=== PATIENT | female | born 1955 | race Caucasian/White ===

== ENCOUNTER → 2018-03-31 | Outpatient (CLI) | payer MEDICARE, OTHER ==
--- NOTE | 2018-03-31 13:34 | US ---
EXAMINATION TYPE: US venous doppler duplex LE RT DATE OF EXAM: 03/31/2018 1:17 PM COMPARISON: NONE CLINICAL HISTORY: M79.604 PAIN IN RT LEG. Pt states right leg pain and swelling/ states previous DVT 12+ yrs ago, currently not on blood thinners SIDE PERFORMED: Right TECHNIQUE: The lower extremity deep venous system is examined utilizing real time linear array sonog saniya with graded compression, doppler sonography and color-flow sonography. VESSELS IMAGED: External Iliac Vein (EIV) Common Femoral Vein Deep Femoral Vein Greater Saphenous Vein * Femoral Vein Popliteal Vein Small Saphenous Vein * Proximal Calf Veins (* superficial vessels) Right Leg: Negative for DVT Results called to Krissy at Dr's office at time of exam IMPRESSION: 1. No diagnostic evidence of DVT as visualized
--- NOTE | 2018-03-31 13:51 | XR ---
EXAMINATION TYPE: XR calcaneus 2V RT DATE OF EXAM: 03/31/2018 COMPARISON: NONE HISTORY: Pain TECHNIQUE: 2 views submitted FINDINGS: Well-corticated density seen in the soft tissues along the plantar surface which appears ch ronic. Large calcaneal spurs seen. Osseous structures intact. Joint spaces preserved. No acute fractu re. IMPRESSION: No acute fracture. If symptoms persist follow-up exam in 7-10 days could be obtained.
--- NOTE | 2018-03-31 13:52 | XR ---
EXAMINATION TYPE: XR finger RT DATE OF EXAM: 03/31/2018 COMPARISON: NONE HISTORY: Pain TECHNIQUE: Three views are submitted. FINDINGS: The osseous structures are intact. The joint spaces are preserved and there is no acute fracture or dislocation. IMPRESSION: 1. No definite acute fracture or dislocation if symptoms persist, follow-up study in 7 to 10 days wo uld be suggested
== END | disposition home or self-care (01) ==
LOC: RADUSWWP 12:48
PROVIDERS: ATTEND Family Medicine
DX: M79.604 Pain in right leg (principal)

== ENCOUNTER 2019-11-02 06:13 | Emergency (ER) | payer MEDICARE, OTHER ==
[2019-11-02 06:38] VITALS: RESP 20; TEMP 98
[2019-11-02] MEDS ORDERED: SODIUM CHLORIDE 0.9% 1,000 ML IV STA (07:01)
--- NOTE | 2019-11-02 07:38 | ED ---
General Adult HPI - General Chief complaint: Fall Stated complaint: pain in left side Time Seen by Provider: 11/02/19 06:41 Source: patient, RN notes reviewed Mode of arrival: ambulatory Limitations: no limitations - History of Present Illness Initial comments: this a 64-year-old female presents emergency Department chief complaint of left flank pain. Patient states that she had a fall 10 days ago states that the pain was not getting better so she presented to her PCP yesterday in which she had x- rays and were negative for any back or rib injury. Patient states that it does hurt to twist and bend she has constant pain left flank area. Patient had a urinalysis by PCP yesterday was diagnosed with kidney infection. Patient was placed on antibiotics. Patient denies fever or chills at this time states that she's been having night sweats. Patient denies any current nausea, vomiting, diarrhea constipation. - Related Data Allergies Allergy/AdvReac Type Severity Reaction Status Date / Time adhesive AdvReac Rash/Hives Verified 11/02/19 06:41 chicken derived [Chicken] AdvReac Nausea & Verified 11/02/19 06:40 Vomiting & Diarrhea chocolate flavor AdvReac Nausea & Verified 11/02/19 06:40 Vomiting & Diarrhea ciprofloxacin [From Cipro] AdvReac Rash/Hives Verified 11/02/19 06:40 egg AdvReac Nausea & Verified 11/02/19 06:40 Vomiting & Diarrhea latex AdvReac Rash/Hives Verified 11/02/19 06:41 Sulfa (Sulfonamide AdvReac Rash/Hives Verified 11/02/19 06:40 Antibiotics) Review of Systems ROS Statement: Those systems with pertinent positive or pertinent negative responses have been documented in the HPI. ROS Other: All systems not noted in ROS Statement are negative. Past Medical History Past Medical History: Diabetes Mellitus, Deep Vein Thrombosis (DVT), Hypertension, Thyroid Disorder Additional Past Medical History / Comment(s): Spleen issues, Parkinsons History of Any Multi-Drug Resistant Organisms: None Reported Past Surgical History: Orthopedic Surgery, Tonsillectomy, Tubal Ligation Additional Past Surgical History / Comment(s): Thyroid removed Past Psychological History: No Psychological Hx Reported Smoking Status: Never smoker Past Alcohol Use History: None Reported Past Drug Use History: None Reported General Exam Limitations: no limitations General appearance: alert, in no apparent distress Head exam: Present: atraumatic, normocephalic, normal inspection Eye exam: Present: normal appearance, PERRL, EOMI. Absent: scleral icterus, conjunctival injection, periorbital swelling ENT exam: Present: normal exam, normal oropharynx, mucous membranes moist Neck exam: Present: normal inspection, full ROM. Absent: tenderness, meningismus, lymphadenopathy Respiratory exam: Present: normal lung sounds bilaterally. Absent: respiratory distress, wheezes, rales, rhonchi, stridor Cardiovascular Exam: Present: regular rate, normal rhythm, normal heart sounds. Absent: systolic murmur, diastolic murmur, rubs, gallop, clicks GI/Abdominal exam: Present: soft, normal bowel sounds. Absent: distended, tenderness, guarding, rebound, rigid Back exam: Present: CVA tenderness (L). Absent: CVA tenderness (R), paraspinal tenderness, vertebral tenderness Neurological exam: Present: alert, oriented X3, CN II-XII intact Skin exam: Present: warm, dry, intact, normal color. Absent: rash Course Vital Signs 11/02/19 06:32 Temperature 98 F Pulse Rate 58 L Respiratory 20 Rate Blood Pressure 164/90 O2 Sat by Pulse 97 Oximetry Medical Decision Making - Medical Decision Making 64-year-old presented for left flank pain. CT is unremarkable for acute findings there are some findings in which she will follow-up for. Patient urinalysis does show signs of infection, though she currently is on antibiotics patient labwork otherwise unremarkable. Patient be discharged return parameters were discussed. - Lab Data Result diagrams: 11/02/19 07:45 11/02/19 07:45 Lab Results 11/02/19 11/02/19 11/02/19 Range/Units 07:45 07:45 09:05 WBC 12.2 H (3.8-10.6) k/uL RBC 4.45 (3.80-5.40) m/uL Hgb 14.4 (11.4-16.0) gm/dL Hct 42.0 (34.0-46.0) % MCV 94.4 (80.0-100.0) fL MCH 32.3 (25.0-35.0) pg MCHC 34.2 (31.0-37.0) g/dL RDW 13.1 (11.5-15.5) % Plt Count 248 (150-450) k/uL Neutrophils % 68 % Lymphocytes % 23 % Monocytes % 4 % Eosinophils % 3 % Basophils % 1 % Neutrophils # 8.3 H (1.3-7.7) k/uL Lymphocytes # 2.8 (1.0-4.8) k/uL Monocytes # 0.5 (0-1.0) k/uL Eosinophils # 0.4 (0-0.7) k/uL Basophils # 0.1 (0-0.2) k/uL Sodium 140 (137-145) mmol/L Potassium 4.7 (3.5-5.1) mmol/L Chloride 98 (98-107) mmol/L Carbon Dioxide 30 (22-30) mmol/L Anion Gap 12 mmol/L BUN 18 H (7-17) mg/dL Creatinine 0.62 (0.52-1.04) mg/dL Est GFR (CKD-EPI)AfAm >90 (>60 ml/min/1.73 sqM) Est GFR (CKD-EPI)NonAf >90 (>60 ml/min/1.73 sqM) Glucose 201 H (74-99) mg/dL Calcium 9.1 (8.4-10.2) mg/dL Total Bilirubin 0.8 (0.2-1.3) mg/dL AST 29 (14-36) U/L ALT 13 (4-34) U/L Alkaline Phosphatase 103 (38-126) U/L Total Protein 7.5 (6.3-8.2) g/dL Albumin 4.6 (3.5-5.0) g/dL Lipase 71 (23-300) U/L Urine Color Yellow Urine Appearance Clear (Clear) Urine pH 6.5 (5.0-8.0) Ur Specific [place] 1.015 (1.001-1.035) Urine Protein Negative (Negative) Urine Glucose (UA) Negative (Negative) Urine Ketones Negative (Negative) Urine Blood Negative (Negative) Urine Nitrite Negative (Negative) Urine Bilirubin Negative (Negative) Urine Urobilinogen <2.0 (<2.0) mg/dL Ur Leukocyte Esterase Large H (Negative) Urine RBC 3 (0-5) /hpf Urine WBC 17 H (0-5) /hpf Ur Squamous Epith Cells 6 H (0-4) /hpf Hyaline Casts 1 (0-2) /lpf Urine Mucus Rare H (None) /hpf Disposition Clinical Impression: Pyelonephritis Disposition: HOME SELF-CARE Condition: Stable Instructions (If sedation given, give patient instructions): Flank Pain (ED), Kidney Infection (ED) Additional Instructions: Please return to the Emergency Department if symptoms worsen or any other concerns. Is patient prescribed a controlled substance at d/c from ED?: No Referrals: Nonstaff,Physician [Primary Care Provider] - 1-2 days Time of Disposition: 10:06
--- NOTE | 2019-11-02 08:17 | CT ---
EXAMINATION TYPE: CT abdomen pelvis wo con DATE OF EXAM: 11/02/2019 COMPARISON: None HISTORY: Lt flank pain CT DLP: 1956.5 mGycm Examination of the solid and hollow viscera is limited given the lack of contrast. FINDINGS: LUNG BASES: 5.5 mm noncalcified pulmonary nodule. CT of the chest is recommended as an outpatient. LIVER/GB: Calcified granulomas throughout the liver noted. There is also evidence of hepatomegaly. Th e gallbladder is hydropic and measures 10.3 cm in greatest dimension. Small gallstone is noted. There is no evidence for gallbladder wall thickening or pericholecystic fluid at this time. No space-occup marquise hepatic lesion. PANCREAS: No pancreatic mass identified. No inflammatory process seen. Splenic granulomas are noted. SPLEEN: No evidence for splenomegaly. No intrasplenic lesions seen. ADRENALS: No adrenal nodules identified. No evidence for thickening. KIDNEYS: No evidence for renal mass. No nephrolithiasis. No hydronephrosis. Multiple phleboliths are noted within the urinary bladder. BOWEL: Appendix has a normal appearance. No evidence of bowel obstruction. No inflammatory process. Lymph nodes: No evidence for adenopathy greater than 1 cm. Abdominal aorta: Atheromatous changes seen. No evidence for aneurysm. Genital organs: No significant abnormality. Other: No significant abnormality. IMPRESSION: 1. No evidence for hydronephrosis or nephrolithiasis. 2. No acute inflammatory process identified. 3. Hydrops of the gallbladder with cholelithiasis. No wall thickening or pericholecystic fluid. 4. Right basilar pulmonary nodule likely reflects a noncalcified granuloma although nodule of other e tiology is not excluded. Consider CT of the chest on an outpatient basis. Evidence of remote granulom atous disease. 5. Hepatomegaly.
[2019-11-02 08:19] LABS: Basophils # (A) 0.1 k/uL (0-0.2); Basophils % (A) 1 %; Eosinophils # (A) 0.4 k/uL (0-0.7); Eosinophils % (A) 3 %; HGB 14.4 gm/dL (11.4-16.0); Lymphocytes # (A) 2.8 k/uL (1.0-4.8); Lymphocytes % (A) 23 %; MCH 32.3 pg (25.0-35.0); MCHC 34.2 g/dL (31.0-37.0); MCV 94.4 fL (80.0-100.0); Mean Platelet Volume 8.2; Monocytes # (A) 0.5 k/uL (0-1.0); Monocytes % (A) 4 %; Neutrophils # (A) 8.3 k/uL (1.3-7.7); Neutrophils % (A) 68 %; Platelet Count 248 k/uL (150-450); RBC 4.45 m/uL (3.80-5.40); RDW 13.1 % (11.5-15.5); WBC 12.2 k/uL (3.8-10.6)
[2019-11-02 08:24] LABS: ALT 13 U/L (4-34); AST 29 U/L (14-36); African American GFR (CKD) >90 (>60 ml/min/1.73 sqM); Albumin 4.6 g/dL (3.5-5.0); Alkaline Phosphatase 103 U/L (38-126); Anion Gap 12 mmol/L; Blood Urea Nitrogen 18 mg/dL (7-17); Calcium 9.1 mg/dL (8.4-10.2); Carbon Dioxide 30 mmol/L (22-30); Chloride 98 mmol/L (98-107); Glucose 201 mg/dL (74-99); Non-African American GFR(CKD) >90 (>60 ml/min/1.73 sqM); Potassium 4.7 mmol/L (3.5-5.1); Sodium 140 mmol/L (137-145); Total Bilirubin 0.8 mg/dL (0.2-1.3); Total Protein 7.5 g/dL (6.3-8.2)
[2019-11-02] MEDS ORDERED: ONDANSETRON 4 MG/2 ML VIAL IVP STA (08:30)
[2019-11-02 09:43] LABS: Appearance,Urine Clear (Clear); Bilirubin,Urine Negative (Negative); Blood,Urine Negative (Negative); Color,Urine Yellow; Glucose,Urine (UA) Negative (Negative); Hyaline Casts,Urine 1 /lpf (0-2); Ketones,Urine Negative (Negative); Leukocyte Esterase,Urine Large (Negative); Mucus,Urine Rare /hpf; Nitrite,Urine Negative (Negative); PH, Urine 6.5 (5.0-8.0); Protein,Urine Negative (Negative); RBC,Urine 3 /hpf (0-5); Specific Gravity,Urine 1.015 (1.001-1.035); Squamous Epithelial Cell,Urine 6 /hpf (0-4); Urobilinogen,Urine <2.0 mg/dL (<2.0); WBC,Urine 17 /hpf (0-5)
[2019-11-02] MEDS ORDERED: cefTRIAXone IN SWFI 1,000 MG/10 ML SYRINGE IVP STA (10:11)
[2019-11-02] MEDS ORDERED: HYDROcodone/APAP 7.5-325MG 1 EACH TAB PO ONE (10:11)
[2019-11-02] MEDS ORDERED: ACET/COD 300 MG/30 MG STARTER PACK 6 TAB BTL PO STA (10:29)
[2019-11-02 10:34] VITALS: BP 160/89; PULSE 78
== END 2019-11-02 10:40 | disposition home or self-care (01) ==
LOC: EC 06:13
DX: N12 Tubulo-interstitial nephritis, not specified as acute or chronic (principal); Z88.1 Allergy status to other antibiotic agents; Z88.2 Allergy status to sulfonamides; Z91.02 Food additives allergy status; Z91.012 Allergy to eggs; Z91.018 Allergy to other foods; Z91.040 Latex allergy status; Z91.048 Other nonmedicinal substance allergy status
CPT/HCPCS: 36415; 80053; 83690; 85025; 81001; 87086; 74176; 99284; 96374; 96375; 96361; J2405; J0696

== ENCOUNTER 2019-11-05 14:15 | Emergency (ER) | payer MEDICARE, OTHER ==
[2019-11-05 16:09] VITALS: TEMP 98.9
[2019-11-05] MEDS ORDERED: SODIUM CHLORIDE 0.9% 1,000 ML IV STA (16:19)
--- NOTE | 2019-11-05 17:17 | XR ---
EXAMINATION TYPE: XR KUB DATE OF EXAM: 11/05/2019 COMPARISON: NONE HISTORY: Left flank pain TECHNIQUE: 2 views upright FINDINGS: There is no sign of intestinal obstruction or pneumoperitoneum. Fecal pattern is normal. I see no pathologic calcifications over the kidneys. There are phleboliths in the pelvis. Lung bases ar e clear. There is no evidence of a mass. IMPRESSION: Nonacute abdomen.
[2019-11-05 17:18] LABS: Basophils % (A) 0 %; Eosinophils # (A) 0.2 k/uL (0-0.7); Eosinophils % (A) 3 %; HCT 42.4 % (34.0-46.0); HGB 14.5 gm/dL (11.4-16.0); Lymphocytes # (A) 1.9 k/uL (1.0-4.8); Lymphocytes % (A) 22 %; MCH 32.1 pg (25.0-35.0); MCHC 34.3 g/dL (31.0-37.0); MCV 93.5 fL (80.0-100.0); Mean Platelet Volume 8.6; Monocytes # (A) 0.3 k/uL (0-1.0); Monocytes % (A) 4 %; Neutrophils % (A) 70 %; Platelet Count 205 k/uL (150-450); RBC 4.53 m/uL (3.80-5.40); WBC 8.6 k/uL (3.8-10.6)
[2019-11-05 17:20] LABS: Appearance,Urine Clear (Clear); Bilirubin,Urine Negative (Negative); Blood,Urine Negative (Negative); Color,Urine Light Yellow; Glucose,Urine (UA) Trace (Negative); Ketones,Urine Negative (Negative); Leukocyte Esterase,Urine Trace (Negative); Nitrite,Urine Negative (Negative); PH, Urine 7.5 (5.0-8.0); Protein,Urine Negative (Negative); Specific Gravity,Urine 1.007 (1.001-1.035); Squamous Epithelial Cell,Urine 2 /hpf (0-4); Urobilinogen,Urine <2.0 mg/dL (<2.0); WBC,Urine 5 /hpf (0-5)
[2019-11-05 17:24] LABS: ALT 12 U/L (4-34); AST 31 U/L (14-36); African American GFR (CKD) >90 (>60 ml/min/1.73 sqM); Albumin 4.6 g/dL (3.5-5.0); Alkaline Phosphatase 106 U/L (38-126); Anion Gap 9 mmol/L; Blood Urea Nitrogen 14 mg/dL (7-17); Calcium 9.1 mg/dL (8.4-10.2); Carbon Dioxide 28 mmol/L (22-30); Chloride 102 mmol/L (98-107); Glucose 225 mg/dL (74-99); Non-African American GFR(CKD) >90 (>60 ml/min/1.73 sqM); Potassium 4.3 mmol/L (3.5-5.1); Sodium 139 mmol/L (137-145); Total Bilirubin 0.8 mg/dL (0.2-1.3); Total Protein 7.1 g/dL (6.3-8.2)
[2019-11-05] MEDS ORDERED: ACET/COD 300 MG/30 MG STARTER PACK 6 TAB BTL PO STA (18:09)
--- NOTE | 2019-11-05 18:09 | ED ---
General Adult HPI - General Chief complaint: Nausea/Vomiting/Diarrhea Stated complaint: Kidney Infection Time Seen by Provider: 11/05/19 15:54 Source: patient, RN notes reviewed, old records reviewed Mode of arrival: wheelchair Limitations: no limitations - History of Present Illness Initial comments: 64-year-old female patient presents to ED for chief complaint of left flank pain. Patient was initially seen for this complaint 3 days ago. She reports t hat she has had left flank pain for approximately 2 weeks. She had a fall on her back approximately 2 days ago, stated that since then she has had pain in her left flank region. This fall she states that she fell directly on her back. Denies any loss of consciousness. Patient was reportedly seen at urgent care with a did x-rays which were negative and started her on an antibiotic. Patient then came to this emergency department where she had laboratory investigations and a CAT scan the abdomen pelvis which were overall unremarkable with exception of some nonacute findings. Patient reports that the pain has continued and she wants to be checked again. Denies any chest pain or shortness of breath. Denies any other complaints. Systemic: Pt denies fatigue, fever/chills, rash. Pt denies weakness, night sweats, weight loss. Neuro: Pt denies headache, visual disturbances, syncope or pre-syncope. HEENT: Pt denies ocular discharge or irritation, otalgia, rhinorrhea, pharyngitis or notable lymphadenopathy. Cardiopulmonary: Pt denies chest pain, SOB, heart palpitations, dyspnea on exe rtion. Abdominal/GI: Pt denies abdominal pain, n/v/d. : Pt denies dysuria, burning w/ urination, frequency/urgency. Denies new onset urinary or bowel incontinence. MSK: Pt denies myalgia, loss of strength or function in extremities. Neuro: Pt denies new onset weakness, paresthesias. - Related Data Allergies Allergy/AdvReac Type Severity Reaction Status Date / Time adhesive AdvReac Rash/Hives Verified 11/05/19 15:07 chicken derived [Chicken] AdvReac Nausea & Verified 11/05/19 15:07 Vomiting & Diarrhea chocolate flavor AdvReac Nausea & Verified 11/05/19 15:07 Vomiting & Diarrhea ciprofloxacin [From Cipro] AdvReac Rash/Hives Verified 11/05/19 15:07 egg AdvReac Nausea & Verified 11/05/19 15:07 Vomiting & Diarrhea latex AdvReac Rash/Hives Verified 11/05/19 15:07 Sulfa (Sulfonamide AdvReac Rash/Hives Verified 11/05/19 15:07 Antibiotics) Review of Systems ROS Statement: Those systems with pertinent positive or pertinent negative responses have been documented in the HPI. ROS Other: All systems not noted in ROS Statement are negative. Past Medical History Past Medical History: Diabetes Mellitus, Deep Vein Thrombosis (DVT), Hypertension, Thyroid Disorder Additional Past Medical History / Comment(s): Spleen issues, Parkinsons History of Any Multi-Drug Resistant Organisms: None Reported Past Surgical History: Orthopedic Surgery, Tonsillectomy, Tubal Ligation Additional Past Surgical History / Comment(s): Thyroid removed Past Psychological History: No Psychological Hx Reported Smoking Status: Never smoker Past Alcohol Use History: None Reported Past Drug Use History: None Reported General Exam - General Exam Comments Initial Comments: Constitutional: NAD, AOX3, Pt has pleasant affect. HEENT: NC/AT, trachea midline, neck supple, no lymphadenopathy. Posterior pharynx non erythematous, without exudates. External ears appear normal, without discharge. Mucous membranes moist. Eyes PERRLA, EOM intact. There is no scleral icterus. No pallor noted. Cardiopulmonary: RRR, no murmurs, rubs or gallops, no JVD noted. Lungs CTAB in anterior and posterior garcia. No peripheral edema. Abdominal exam: Abdomen soft and non-distended. Abdomen non-tender to palpation in all 4 quadrants. Bowel sounds active in LLQ. No hepatosplenomegaly. No ecchymosis Neuro: CN II-XII grossly intact. No nuchal rigidity. No raccon eyes, no rojo sign, no hemotympanum. No cervical spinal tenderness. MSK: Left flank mildly tender to palpation. No skin changes. There is full range of motion. No posterior calf tenderness bilaterally, homans sign negative bilaterally. Posterior tibialis and radial pulse +2 bilaterally. Sensation intact in upper and lower extremities. Full active ROM in upper and lower extremities, 5/5 stregnth. Limitations: no limitations Course Vital Signs 11/05/19 11/05/19 11/05/19 15:01 15:55 16:57 Temperature 97.9 F 98.9 F Pulse Rate 77 64 53 L Respiratory 20 18 18 Rate Blood Pressure 199/105 194/103 151/84 O2 Sat by Pulse 99 99 98 Oximetry 11/05/19 11/05/19 17:00 18:00 Temperature Pulse Rate 52 L 50 L Respiratory 18 16 Rate Blood Pressure 151/84 133/63 O2 Sat by Pulse 95 96 Oximetry Medical Decision Making - Medical Decision Making 64-year-old female patient presents to ED for chief complaint of left flank pain with an ongoing for approximately 2 weeks. Patient had CAT scan performed 3 days ago which did not display a likely etiology of her discomfort in this region. Pt has been on antibiotics for a urinary tract infection. Physical exam displayed left flank mild tenderness to palpation. Reproducible with range of motion. No skin changes. O2 investigations oral noncompressive. Glucose 225. UA improved. Patient's pain appears likely muscle skeletal nature. Patient advised to follow up with primary care provider and given orthopedic follow-up if symptoms do not improve. Case discussed with Dr. Huffman. - Lab Data Result diagrams: 11/05/19 16:50 11/05/19 16:50 Lab Results 11/05/19 11/05/19 11/05/19 Range/Units 16:50 16:50 16:50 WBC 8.6 (3.8-10.6) k/uL RBC 4.53 (3.80-5.40) m/uL Hgb 14.5 (11.4-16.0) gm/dL Hct 42.4 (34.0-46.0) % MCV 93.5 (80.0-100.0) fL MCH 32.1 (25.0-35.0) pg MCHC 34.3 (31.0-37.0) g/dL RDW 13.0 (11.5-15.5) % Plt Count 205 (150-450) k/uL Neutrophils % 70 % Lymphocytes % 22 % Monocytes % 4 % Eosinophils % 3 % Basophils % 0 % Neutrophils # 6.0 (1.3-7.7) k/uL Lymphocytes # 1.9 (1.0-4.8) k/uL Monocytes # 0.3 (0-1.0) k/uL Eosinophils # 0.2 (0-0.7) k/uL Basophils # 0.0 (0-0.2) k/uL Sodium 139 (137-145) mmol/L Potassium 4.3 (3.5-5.1) mmol/L Chloride 102 (98-107) mmol/L Carbon Dioxide 28 (22-30) mmol/L Anion Gap 9 mmol/L BUN 14 (7-17) mg/dL Creatinine 0.55 (0.52-1.04) mg/dL Est GFR (CKD-EPI)AfAm >90 (>60 ml/min/1.73 sqM) Est GFR (CKD-EPI)NonAf >90 (>60 ml/min/1.73 sqM) Glucose 225 H (74-99) mg/dL Plasma Lactic Acid Sam 1.3 (0.7-2.0) mmol/L Calcium 9.1 (8.4-10.2) mg/dL Total Bilirubin 0.8 (0.2-1.3) mg/dL AST 31 (14-36) U/L ALT 12 (4-34) U/L Alkaline Phosphatase 106 (38-126) U/L Total Protein 7.1 (6.3-8.2) g/dL Albumin 4.6 (3.5-5.0) g/dL Lipase 53 (23-300) U/L Urine Color Urine Appearance (Clear) Urine pH (5.0-8.0) Ur Specific [place] (1.001-1.035) Urine Protein (Negative) Urine Glucose (UA) (Negative) Urine Ketones (Negative) Urine Blood (Negative) Urine Nitrite (Negative) Urine Bilirubin (Negative) Urine Urobilinogen (<2.0) mg/dL Ur Leukocyte Esterase (Negative) Urine WBC (0-5) /hpf Ur Squamous Epith Cells (0-4) /hpf 11/05/19 Range/Units 16:50 WBC (3.8-10.6) k/uL RBC (3.80-5.40) m/uL Hgb (11.4-16.0) gm/dL Hct (34.0-46.0) % MCV (80.0-100.0) fL MCH (25.0-35.0) pg MCHC (31.0-37.0) g/dL RDW (11.5-15.5) % Plt Count (150-450) k/uL Neutrophils % % Lymphocytes % % Monocytes % % Eosinophils % % Basophils % % Neutrophils # (1.3-7.7) k/uL Lymphocytes # (1.0-4.8) k/uL Monocytes # (0-1.0) k/uL Eosinophils # (0-0.7) k/uL Basophils # (0-0.2) k/uL Sodium (137-145) mmol/L Potassium (3.5-5.1) mmol/L Chloride (98-107) mmol/L Carbon Dioxide (22-30) mmol/L Anion Gap mmol/L BUN (7-17) mg/dL Creatinine (0.52-1.04) mg/dL Est GFR (CKD-EPI)AfAm (>60 ml/min/1.73 sqM) Est GFR (CKD-EPI)NonAf (>60 ml/min/1.73 sqM) Glucose (74-99) mg/dL Plasma Lactic Acid Sam (0.7-2.0) mmol/L Calcium (8.4-10.2) mg/dL Total Bilirubin (0.2-1.3) mg/dL AST (14-36) U/L ALT (4-34) U/L Alkaline Phosphatase (38-126) U/L Total Protein (6.3-8.2) g/dL Albumin (3.5-5.0) g/dL Lipase (23-300) U/L Urine Color Light Yellow Urine Appearance Clear (Clear) Urine pH 7.5 (5.0-8.0) Ur Specific [place] 1.007 (1.001-1.035) Urine Protein Negative (Negative) Urine Glucose (UA) Trace H (Negative) Urine Ketones Negative (Negative) Urine Blood Negative (Negative) Urine Nitrite Negative (Negative) Urine Bilirubin Negative (Negative) Urine Urobilinogen <2.0 (<2.0) mg/dL Ur Leukocyte Esterase Trace H (Negative) Urine WBC 5 (0-5) /hpf Ur Squamous Epith Cells 2 (0-4) /hpf Disposition Clinical Impression: Flank pain Disposition: HOME SELF-CARE Condition: Stable Instructions (If sedation given, give patient instructions): Flank Pain (ED) Additional Instructions: Follow-up with primary care provider and orthopedic consult tomorrow. Use Tylenol as needed for discomfort. Return to ER if condition worsens in any way. Is patient prescribed a controlled substance at d/c from ED?: No Referrals: Nonstaff,Physician [Primary Care Provider] - 1-2 days Braaksma,Mayur M, MD [Medical Doctor] - 1-2 days Julio Cesar Marquis DO [Medical Doctor] - 1-2 days
[2019-11-05 18:16] VITALS: BP 133/63; PULSE 50; RESP 16
== END 2019-11-05 18:25 | disposition home or self-care (01) ==
LOC: EC 14:15
DX: E11.65 Type 2 diabetes mellitus with hyperglycemia (principal); R19.7 Diarrhea, unspecified; Z91.048 Other nonmedicinal substance allergy status; Z91.018 Allergy to other foods; Z88.1 Allergy status to other antibiotic agents; Z91.012 Allergy to eggs; Z91.040 Latex allergy status; Z88.2 Allergy status to sulfonamides; Z98.51 Tubal ligation status
CPT/HCPCS: 36415; 74018; 80053; 81001; 83605; 83690; 85025; 96360; 96361; 99284

== ENCOUNTER 2023-04-06 17:54 | Emergency (ER) | payer MEDICARE, OTHER ==
[2023-04-06] MEDS ORDERED: SODIUM CHLORIDE 0.9% 500 ML 500 ML IV STA (18:45)
[2023-04-06] MEDS ORDERED: KETOROLAC 15 MG/ML 1 ML VIAL IVP STA (18:45)
[2023-04-06] MEDS ORDERED: DEXAMETHASONE SOD PHOSPHATE 10 MG/ML 1 ML VIAL IVP STA (18:45)
[2023-04-06] MEDS ORDERED: MORPHINE SULFATE 2 MG/ML SYRINGE IVP STA (18:45)
[2023-04-06] MEDS ORDERED: diphenhydrAMINE 50 MG/ML 1 ML VIAL IVP STA (18:45)
[2023-04-06] MEDS ORDERED: PROCHLORPERAZINE INJ 10 MG/2 ML VIAL IVP STA (18:46)
--- NOTE | 2023-04-06 18:46 | ED ---
Headache HPI - General Chief Complaint: Headache Stated Complaint: Headache Time Seen by Provider: 04/06/23 18:03 Source: RN notes reviewed, old records reviewed Mode of arrival: EMS Limitations: no limitations - History of Present Illness Initial Comments: This is a 67-year-old female the ER. She presents today for evaluation regarding what she believes maybe ALLERGIC reaction to fumes that she's being exposed to she's getting a headache and sinus pressure unlike subjective she's had an the past. Thinks it could be from a coffee shop that is across the street from where she was. States she was exposed to multiple different elements the periodic stable and in her place of work and these are continuing to fracture over her lifetime. MD Complaint: headache, other (Sinus pain) Onset Description: gradual Location: frontal Severity: moderate Severity scale (1-10): 6 Quality: throbbing, pulsatile, intermittent Consistency: constant Improves With: nothing Worsens With: none Context: occurred at rest Associated Symptoms: nausea Treatments Prior to Arrival: none - Related Data Home Medications Medication Instructions Recorded Confirmed Carbidopa-Levodopa 25-100 mg 2 tab PO QID@04,10,16,12/20/22 12/20/22 [Sinemet 25-100 mg] Diltiazem Cd [Cardizem CD] 240 mg PO DAILY 12/20/22 12/20/22 Fenofibrate [Lofibra] 160 mg PO ONCE 12/20/22 12/20/22 Glimepiride [Amaryl] 4 mg PO BID 12/20/22 12/20/22 Levothyroxine Sodium 88 mcg PO BID 12/20/22 12/20/22 Metoprolol Succinate (ER) [Toprol 50 mg PO DAILY 12/20/22 12/20/22 XL] Omeprazole 40 mg PO BID 12/20/22 12/20/22 Pioglitazone HCl 45 mg PO DAILY 12/20/22 12/20/22 Valsartan [Diovan] 160 mg PO BID 12/20/22 12/20/22 metFORMIN HCL ER [Glucophage XR] 1,000 mg PO BID 12/20/22 12/20/22 tiZANidine [Zanaflex] 4 mg PO QID@04,10,16,12/20/22 12/20/22 traMADol HCL 50 mg PO Q4H PRN 12/20/22 12/20/22 Previous Rx's Medication Instructions Recorded Acetaminophen Tab [Tylenol] 650 mg PO Q6HR PRN #60 tab 12/24/22 Cephalexin [Keflex] 500 mg PO Q6HR 14 Days #56 cap 12/24/22 Allergies Allergy/AdvReac Type Severity Reaction Status Date / Time adhesive AdvReac Rash/Hives Verified 12/20/22 16:45 chicken derived [Chicken] AdvReac Nausea & Verified 12/20/22 16:45 Vomiting & Diarrhea chocolate flavor AdvReac Nausea & Verified 12/20/22 16:45 Vomiting & Diarrhea ciprofloxacin [From Cipro] AdvReac Rash/Hives Verified 12/20/22 16:45 egg AdvReac Nausea & Verified 12/20/22 16:45 Vomiting & Diarrhea latex AdvReac Rash/Hives Verified 12/20/22 16:45 Sulfa (Sulfonamide AdvReac Rash/Hives Verified 12/20/22 16:45 Antibiotics) Review of Systems ROS Statement: Those systems with pertinent positive or pertinent negative responses have been documented in the HPI. ROS Other: All systems not noted in ROS Statement are negative. Past Medical History Past Medical History: Diabetes Mellitus, Deep Vein Thrombosis (DVT), Hypertension, Thyroid Disorder Additional Past Medical History / Comment(s): Spleen issues, Parkinsons History of Any Multi-Drug Resistant Organisms: None Reported Past Surgical History: Orthopedic Surgery, Tonsillectomy, Tubal Ligation Additional Past Surgical History / Comment(s): Thyroid removed Past Psychological History: No Psychological Hx Reported Past Alcohol Use History: None Reported Past Drug Use History: None Reported General Exam Limitations: no limitations General appearance: alert, in no apparent distress Head exam: Present: atraumatic, normocephalic, normal inspection Eye exam: Present: normal appearance, PERRL, EOMI. Absent: scleral icterus, conjunctival injection, periorbital swelling ENT exam: Present: normal exam, mucous membranes moist Neck exam: Present: normal inspection. Absent: tenderness, meningismus, lymphad enopathy Respiratory exam: Present: normal lung sounds bilaterally. Absent: respiratory distress, wheezes, rales, rhonchi, stridor Cardiovascular Exam: Present: regular rate, normal rhythm, normal heart sounds. Absent: systolic murmur, diastolic murmur, rubs, gallop, clicks GI/Abdominal exam: Present: soft, normal bowel sounds. Absent: distended, tenderness, guarding, rebound, rigid Extremities exam: Present: normal inspection, full ROM, normal capillary refill. Absent: tenderness, pedal edema, joint swelling, calf tenderness Back exam: Present: normal inspection Neurological exam: Present: alert, oriented X3, CN II-XII intact Psychiatric exam: Present: normal affect, normal mood Skin exam: Present: warm, dry, intact, normal color. Absent: rash Course Vital Signs 04/06/23 04/06/23 18:04 20:55 Temperature 97.6 F 98.3 F Pulse Rate 60 77 Respiratory 18 16 Rate Blood Pressure 182/96 151/90 O2 Sat by Pulse 95 98 Oximetry - Reevaluation(s) Reevaluation #1: 04/07/23 00:01 Medical records reviewed Reevaluation #2: 04/07/23 00:01 Patient symptoms are improved Reevaluation #3: 04/07/23 00:01 Patient informed results questions answered Reevaluation #4: 04/07/23 00:01 Was pt. sent in by a medical professional or institution? @ -no Did you speak to anyone other than the patient for history? @ -no Did you review nursing and triage notes? @ -agree Were old charts reviewed? @ -no Differential Diagnosis? @ -prior EKG interpreted by me (3pts min.)? @ -yes X-rays interpreted by me (1pt min.)? @ -no CT interpreted by me (1pt min.)? @ -no U/S interpreted by me (1pt. min.)? @ -no What testing was considered but not performed? (CT, X-rays, U/S, labs)? Why? @ -no What meds were considered but not given? Why? @ -no Did you discuss the management of the patient with other professionals? @ -no Did you reconcile home meds? @ -no Was smoking cessation discussed for >3mins.? @ -no Was critical care preformed (if so, how long)? @ -no Were there social determinants of health that impacted care today? How? (Homelessness, low income, unemployed, alcoholism, drug addiction, transport ation, low edu. Level, literacy, decrease access to med. care, care home, rehab)? @ -no Was there de-escalation of care discussed even if they declined? (Discuss DNR or withdrawal of care, Hospice)? @ -no What co-morbidities impacted this encounter? (DM, HTN, Smoking, COPD, CAD, Cancer, CVA, Hep., AIDS, mental health diagnosis, sleep apnea, morbid obesity)? @ -none Was patient admitted / discharged? @ -67 female to the emergency room today for complaints of headache sinus pressure and pain, nausea. Migraine headache secondary to exposure of local fumes, known of similar symptoms aside from the patient Discharged Undiagnosed new problem with uncertain prognosis? @ -no Drug Therapy requiring intensive monitoring for toxicity (Heparin, Nitro, Insulin, Cardizem)? @ -no Were any procedures done? @ -no Diagnosis/symptom? @ -Migraine headache secondary to exposure Acute, or Chronic, or Acute on Chronic? @ -Acute Uncomplicated (without systemic symptoms) or Complicated (systemic symptoms)? @ -uncomplicated Side effects of treatment? @ -no Exacerbation, Progression, or Severe Exacerbation] @ -no Poses a threat to life or bodily function? @ -no Reevaluation #5: 04/07/23 00:01 Differential Headache: Migraine, tension, cluster, carbon monoxide, central venous thrombosis, pension karma temporal arteritis, acute closure glaucoma, intercranial hemorrhage, mastoiditis, sinusitis, head injury, this is not meant to be an all-inclusive st. Medical Decision Making - Medical Decision Making 67 female to the emergency department for evaluation of headache and sinus pain. CT brain is negative for acute disease headache is resolved. Patient can be discharged home - Lab Data Result diagrams: 04/06/23 19:32 04/06/23 19:32 Lab Results 04/06/23 04/06/23 04/06/23 Range/Units 19:32 19:32 19:32 WBC 6.2 (3.8-10.6) k/uL RBC 4.08 (3.80-5.40) m/uL Hgb 12.6 (11.4-16.0) gm/dL Hct 39.2 (34.0-46.0) % MCV 96.0 (80.0-100.0) fL MCH 30.9 (25.0-35.0) pg MCHC 32.2 (31.0-37.0) g/dL RDW 13.5 (11.5-15.5) % Plt Count 174 (150-450) k/uL MPV 8.7 Neutrophils % 72 % Lymphocytes % 21 % Monocytes % 4 % Eosinophils % 2 % Basophils % 0 % Neutrophils # 4.4 (1.3-7.7) k/uL Lymphocytes # 1.3 (1.0-4.8) k/uL Monocytes # 0.3 (0-1.0) k/uL Eosinophils # 0.1 (0-0.7) k/uL Basophils # 0.0 (0-0.2) k/uL Sodium 141 (137-145) mmol/L Potassium 3.8 (3.5-5.1) mmol/L Chloride 106 (98-107) mmol/L Carbon Dioxide 25 (22-30) mmol/L Anion Gap 10 mmol/L BUN 14 (7-17) mg/dL Creatinine 0.71 (0.52-1.04) mg/dL Est GFR (CKD-EPI)AfAm >90 (>60 ml/min/1.73 sqM) Est GFR (CKD-EPI)NonAf 88 (>60 ml/min/1.73 sqM) Glucose 146 H (74-99) mg/dL Calcium 8.6 (8.4-10.2) mg/dL Phosphorus 4.2 (2.5-4.5) mg/dL Magnesium 1.7 (1.6-2.3) mg/dL Total Bilirubin 0.5 (0.2-1.3) mg/dL AST 24 (14-36) U/L ALT 11 (4-34) U/L Alkaline Phosphatase 55 (38-126) U/L Ammonia 10 (<30) umol/L Total Protein 6.6 (6.3-8.2) g/dL Albumin 4.2 (3.5-5.0) g/dL - Radiology Data Radiology results: report reviewed (CT brain is negative for acute disease), image reviewed Disposition Clinical Impression: Migraine headache, Tension headache Disposition: HOME SELF-CARE Condition: Fair Instructions (If sedation given, give patient instructions): Acute Headache (ED) Is patient prescribed a controlled substance at d/c from ED?: No Referrals: Nonstaff,Physician [Primary Care Provider] - 1-2 days
--- NOTE | 2023-04-06 19:07 | CT ---
EXAMINATION TYPE: CT brain wo con DATE OF EXAM: 04/06/2023 COMPARISON: None INDICATION: ams, headache DLP: 1193.9 mGycm, Automated exposure control for dose reduction was used. CONTRAST: None CT of the brain is performed utilizing 3 mm thick sections through the posterior fossa and 3 mm thick sections through the remaining calvarium. Study is performed within 24 hours of arrival to the hosp ital. No abnormal hyperdensity is present to suggest an acute intracranial hemorrhage. No mass lesion is evident. No acute infarcts are evident. There are old lacunar infarcts in the left basal ganglia and left dominic na radiata. Ventricles and sulci are appropriate for the patient age. Paranasal sinuses and mastoid air cells within the [id number] are clear. IMPRESSIONS: 1. Old lacunar infarcts on the left. 2. No acute intracranial process radiographically apparent. Follow-up MRI can be performed as clinica lly indicated.
[2023-04-06 19:49] LABS: Basophils % (A) 0 %; Eosinophils # (A) 0.1 k/uL (0-0.7); Eosinophils % (A) 2 %; HCT 39.2 % (34.0-46.0); HGB 12.6 gm/dL (11.4-16.0); Lymphocytes # (A) 1.3 k/uL (1.0-4.8); Lymphocytes % (A) 21 %; MCH 30.9 pg (25.0-35.0); MCHC 32.2 g/dL (31.0-37.0); Mean Platelet Volume 8.7; Monocytes # (A) 0.3 k/uL (0-1.0); Monocytes % (A) 4 %; Neutrophils # (A) 4.4 k/uL (1.3-7.7); Neutrophils % (A) 72 %; Platelet Count 174 k/uL (150-450); RBC 4.08 m/uL (3.80-5.40); RDW 13.5 % (11.5-15.5); WBC 6.2 k/uL (3.8-10.6)
[2023-04-06 20:01] LABS: ALT 11 U/L (4-34); AST 24 U/L (14-36); African American GFR (CKD) >90 (>60 ml/min/1.73 sqM); Albumin 4.2 g/dL (3.5-5.0); Alkaline Phosphatase 55 U/L (38-126); Anion Gap 10 mmol/L; Blood Urea Nitrogen 14 mg/dL (7-17); Calcium 8.6 mg/dL (8.4-10.2); Carbon Dioxide 25 mmol/L (22-30); Chloride 106 mmol/L (98-107); Glucose 146 mg/dL (74-99); Magnesium 1.7 mg/dL (1.6-2.3); Non-African American GFR(CKD) 88 (>60 ml/min/1.73 sqM); Phosphorus 4.2 mg/dL (2.5-4.5); Potassium 3.8 mmol/L (3.5-5.1); Sodium 141 mmol/L (137-145); Total Bilirubin 0.5 mg/dL (0.2-1.3); Total Protein 6.6 g/dL (6.3-8.2)
[2023-04-06 21:00] VITALS: BP 151/90; PULSE 77; RESP 16; TEMP 98.3
== END 2023-04-06 21:00 | disposition home or self-care (01) ==
LOC: EC 17:54
DX: G43.909 Migraine, unspecified, not intractable, without status migrainosus (principal); G44.209 Tension-type headache, unspecified, not intractable; E11.9 Type 2 diabetes mellitus without complications; I10 Essential (primary) hypertension; G20 Parkinson's disease; E07.9 Disorder of thyroid, unspecified; Z79.84 Long term (current) use of oral hypoglycemic drugs; Z79.890 Hormone replacement therapy; Z79.899 Other long term (current) drug therapy; Z88.1 Allergy status to other antibiotic agents; Z88.2 Allergy status to sulfonamides; Z91.012 Allergy to eggs; Z91.09 Other allergy status, other than to drugs and biological substances; Z91.018 Allergy to other foods; Z91.040 Latex allergy status
CPT/HCPCS: 36415; 80053; 82140; 83735; 84100; 85025; 70450; 99285; 96374; 96375 ×4; 96361; J1200; J0780; J1100; J2270; J1885

== ENCOUNTER 2023-04-30 09:23 | Inpatient (IN) | payer MEDICARE, OTHER ==
[2023-04-30] MEDS ORDERED: Alteplase PER PHARMACY Stroke 1 EACH MISC MISCELLANE PRN (09:28)
[2023-04-30] MEDS ORDERED: LABETALOL 5 MG/ML VIAL MDV IVP STA (09:30)
[2023-04-30] MEDS ORDERED: methylPREDNISolone SOD SUCCI 125 MG/2 ML VIAL IV STA (09:38)
[2023-04-30] MEDS ORDERED: FAMOTIDINE 20 MG/2 ML VIAL IV STA (09:38)
[2023-04-30] MEDS ORDERED: diphenhydrAMINE 50 MG/ML 1 ML VIAL IVP STA (09:38)
[2023-04-30] MEDS ORDERED: ALTEPLASE BOLUS FOR STROKE 9 MG in EMPTY SYRINGE 1 SYR IV STA (09:42)
[2023-04-30] MEDS ORDERED: ALTEPLASE 81 MG in EMPTY BAG 1 BAG IV STA (09:43)
[2023-04-30 09:45] LABS: Basophils % (A) 0 %; Eosinophils # (A) 0.2 k/uL (0-0.7); Eosinophils % (A) 2 %; HCT 44.2 % (34.0-46.0); HGB 14.6 gm/dL (11.4-16.0); Lymphocytes % (A) 23 %; MCH 31.7 pg (25.0-35.0); MCHC 33.1 g/dL (31.0-37.0); MCV 95.8 fL (80.0-100.0); Mean Platelet Volume 8.6; Monocytes # (A) 0.5 k/uL (0-1.0); Monocytes % (A) 6 %; Neutrophils # (A) 5.8 k/uL (1.3-7.7); Neutrophils % (A) 68 %; Platelet Count 259 k/uL (150-450); RBC 4.61 m/uL (3.80-5.40); RDW 13.4 % (11.5-15.5); WBC 8.6 k/uL (3.8-10.6)
--- NOTE | 2023-04-30 09:53 | CT ---
EXAMINATION TYPE: CT brain wo con CT DLP: 1142.8 mGycm, Automated exposure control for dose reduction was used. DATE OF EXAM: 04/30/2023 9:49 AM COMPARISON: 04/06/2023. CLINICAL INDICATION:Female, 68 years old with history of Neuro deficit, acute, stroke suspected, CODE STROKE TECHNIQUE: Brain: Axial CT images of the brain were obtained with coronal and sagittal reformats created and rev iewed. Contrast used: None. Oral contrast used: None. FINDINGS: Brain: Extra-axial spaces: No abnormal extra-axial fluid collections. Ventricular system: Within normal limits Cerebral parenchyma: Bilateral basal ganglia/white radiata lacunar injuries which appear more promin ent on the right compared to prior on 04/06/2023.. No acute intraparenchymal hemorrhage or mass effect . The rodríguez-white junction is well differentiated. Cerebellum: Unremarkable. Mass effect: No evidence of midline shift. Intracranial vasculature: Atherosclerotic calcifications of the intracranial vessels. Soft tissues: Normal. Calvarium/osseous structures: No depressed skull fracture. Paranasal sinuses and mastoid air cells: Mild scattered paranasal sinus disease. Visualized orbits: Orbital contents are intact. IMPRESSION: Bilateral basal ganglia/white radiata injuries, the right which appear more prominent compared to pr ior on 04/06/2023. Correlation with MRI is recommended for acute ischemia.
[2023-04-30 10:00] LABS: ALT 17 U/L (4-34); AST 28 U/L (14-36); African American GFR (CKD) 89 (>60 ml/min/1.73 sqM); Albumin 4.6 g/dL (3.5-5.0); Alkaline Phosphatase 80 U/L (38-126); Anion Gap 11 mmol/L; Blood Urea Nitrogen 22 mg/dL (7-17); Calcium 9.3 mg/dL (8.4-10.2); Carbon Dioxide 26 mmol/L (22-30); Chloride 104 mmol/L (98-107); Creatine Kinase 49 U/L (30-135); Glucose 119 mg/dL (74-99); Non-African American GFR(CKD) 77 (>60 ml/min/1.73 sqM); Potassium 4.4 mmol/L (3.5-5.1); Sodium 141 mmol/L (137-145); Total Bilirubin 0.7 mg/dL (0.2-1.3); Total Protein 7.4 g/dL (6.3-8.2)
[2023-04-30 10:01] LABS: Partial Thromboplastin Time 22.5 sec (22.0-30.0); Prothrombin Time 10.5 sec (9.0-12.0)
[2023-04-30] MEDS ORDERED: LORazepam 2 MG/ML INJ IV STA (10:12)
--- NOTE | 2023-04-30 10:12 | ED ---
General Adult HPI - General Chief complaint: Neuro Symptoms/Deficit Stated complaint: neuro issues Time Seen by Provider: 04/30/23 09:23 Source: patient, RN notes reviewed, old records reviewed Mode of arrival: ambulatory Limitations: no limitations - History of Present Illness Initial comments: This is a 68-year-old female who presents emergency Department stating at about 8:00 this morning she started having heaviness in her arm and leg and felt as though her sensation was off and then she noted that her left leg wasn't moving with strength and coordination it normally does. Patient was having some difficulty ambulating. According to EMS the patient was dragging the left leg. Patient denied any chest pain or headache patient with any right-sided numbness weakness. Patient had any slurred speech patient denies any facial droop that she noted patient states she definitely woke up this morning felt fine. Patient denied any abdominal pain patient nausea vomiting diarrhea. Patient denies any recent fever chills or cough - Related Data Home Medications Medication Instructions Recorded Confirmed Carbidopa-Levodopa 25-100 mg 2 tab PO QID@04,10,,12/20/22 12/20/22 [Sinemet 25-100 mg] Diltiazem Cd [Cardizem CD] 240 mg PO DAILY 12/20/22 12/20/22 Fenofibrate [Lofibra] 160 mg PO ONCE 12/20/22 12/20/22 Glimepiride [Amaryl] 4 mg PO BID 12/20/22 12/20/22 Levothyroxine Sodium 88 mcg PO BID 12/20/22 12/20/22 Metoprolol Succinate (ER) [Toprol 50 mg PO DAILY 12/20/22 12/20/22 XL] Omeprazole 40 mg PO BID 12/20/22 12/20/22 Pioglitazone HCl 45 mg PO DAILY 12/20/22 12/20/22 Valsartan [Diovan] 160 mg PO BID 12/20/22 12/20/22 metFORMIN HCL ER [Glucophage XR] 1,000 mg PO BID 12/20/22 12/20/22 tiZANidine [Zanaflex] 4 mg PO QID@04,10,16,12/20/22 12/20/22 traMADol HCL 50 mg PO Q4H PRN 12/20/22 12/20/22 Previous Rx's Medication Instructions Recorded Acetaminophen Tab [Tylenol] 650 mg PO Q6HR PRN #60 tab 12/24/22 Cephalexin [Keflex] 500 mg PO Q6HR 14 Days #56 cap 12/24/22 Allergies Allergy/AdvReac Type Severity Reaction Status Date / Time adhesive AdvReac Rash/Hives Verified 04/30/23 09:32 chicken derived [Chicken] AdvReac Nausea & Verified 04/30/23 09:32 Vomiting & Diarrhea chocolate flavor AdvReac Nausea & Verified 04/30/23 09:32 Vomiting & Diarrhea ciprofloxacin [From Cipro] AdvReac Rash/Hives Verified 04/30/23 09:32 egg AdvReac Nausea & Verified 04/30/23 09:32 Vomiting & Diarrhea latex AdvReac Rash/Hives Verified 04/30/23 09:32 Sulfa (Sulfonamide AdvReac Rash/Hives Verified 04/30/23 09:32 Antibiotics) Review of Systems ROS Statement: Those systems with pertinent positive or pertinent negative responses have been documented in the HPI. ROS Other: All systems not noted in ROS Statement are negative. Past Medical History Past Medical History: Diabetes Mellitus, Deep Vein Thrombosis (DVT), Hypertension, Thyroid Disorder Additional Past Medical History / Comment(s): Spleen issues, Parkinsons History of Any Multi-Drug Resistant Organisms: None Reported Past Surgical History: Orthopedic Surgery, Tonsillectomy, Tubal Ligation Additional Past Surgical History / Comment(s): Thyroid removed Past Psychological History: No Psychological Hx Reported Smoking Status: Current every day smoker Past Alcohol Use History: None Reported Past Drug Use History: None Reported General Exam - General Exam Comments Initial Comments: GENERAL: Patient is well-developed and well-nourished. Patient is nontoxic and well- hydrated and is in no acute distress. ENT: Neck is soft and supple. No significant lymphadenopathy is noted. Oropharynx is clear. Moist mucous membranes. Neck has full range of motion without eliciting any pain. EYES: The sclera were anicteric and conjunctiva were pink and moist. Extraocular movements were intact and pupils were equal round and reactive to light. Eyelids were unremarkable. PULMONARY: Unlabored respirations. Good breath sounds bilaterally. No audible rales rhonchi or wheezing was noted. CARDIOVASCULAR: There is a regular rate and rhythm without any murmurs gallops or rubs. ABDOMEN: Soft and nontender with normal bowel sounds. SKIN: Skin is clear with no lesions or rashes and otherwise unremarkable. NEUROLOGIC: Patient is alert and oriented x3. Cranial nerves II through XII are grossly intact. Patient has good light since sensation in the arm and leg however she says it doesn't feel quite right. Patient has left leg weakness she is able to move it but not with the strength or coordination of the left leg. Patient cerebellar testing is [id number] on the left is not normal. Patient has an NIH of 3 MUSCULOSKELETAL: Normal extremities with adequate strength and full range of motion. No lower extremity swelling or edema. No calf tenderness. LYMPHATICS: No significant lymphadenopathy is noted PSYCHIATRIC: Normal psychiatric evaluation. Limitations: no limitations Course Vital Signs 04/30/23 04/30/23 04/30/23 09:29 10:00 10:20 Pulse Rate 90 66 64 Respiratory 18 18 18 Rate Blood Pressure 190/93 177/93 178/86 O2 Sat by Pulse 98 98 96 Oximetry 04/30/23 04/30/23 04/30/23 10:30 10:40 10:50 Pulse Rate 59 L 61 64 Respiratory 18 18 18 Rate Blood Pressure 170/103 187/85 179/82 O2 Sat by Pulse 99 98 97 Oximetry 04/30/23 04/30/23 04/30/23 11:00 11:10 11:20 Pulse Rate 65 67 67 Respiratory 18 14 18 Rate Blood Pressure 176/84 188/90 174/81 O2 Sat by Pulse 98 97 97 Oximetry Medical Decision Making - Medical Decision Making EKG was interpreted by myself shows a sinus rhythm at 64 bpm OH interval 289 QRSs 106 QT interval is 434 QTC is 444. Patient's EKG shows no ST segment eleva tion or depression. Was pt. sent in by a medical professional or institution (, PA, CHAINSTITCH TUNNEL ELASTIC OPERATOR, urgent care, hospital, or long-term...) When possible be specific @ -No Did you speak to anyone other than the patient for history (EMS, parent, family, police, friend...)? What history was obtained from this source @ -EMS gave quite a bit of a history Did you review nursing and triage notes (agree or disagree)? Why? @ -I reviewed and agree with nursing and triage notes Were old charts reviewed (outside hosp., previous admission, EMS record, old EKG, old radiological studies, urgent care reports/EKG's, long-term records)? Report findings @ -No old charts were reviewed Differential Diagnosis (chest pain, altered mental status, abdominal pain women, abdominal pain men, vaginal bleeding, weakness, fever, dyspnea, syncope, headache, dizziness, GI bleed, back pain, seizure, CVA, palpatations, mental health, musculoskeletal)? @ -Differential CVA Ischemic stroke, hemorrhagic stroke, brain tumor, atypical migraine, Wernicke's encephalopathy, seizure, multiple sclerosis, meningitis, encephalitis, hypo glycemia, Guillain-Medrano, electrolytes disturbance, myasthenia gravis.... This is not meant to be an all-inclusive list EKG interpreted by me (3pts min.). @ -As above X-rays interpreted by me (1pt min.). @ -Chest x-ray showed no acute abnormality. CT interpreted by me (1pt min.). @ -CT of the brain showed no acute abnormality. CT angiogram showed no acute abnormality. U/S interpreted by me (1pt. min.). @ -None done What testing was considered but not performed or refused? (CT, X-rays, U/S, labs)? Why? @ -None What meds were considered but not given or refused? Why? @ -None Did you discuss the management of the patient with other professionals (chao travis i.e. , PA, CHAINSTITCH TUNNEL ELASTIC OPERATOR, lab, RT, psych nurse, social services specialist, rolfer, teacher, chief diversity officer, piano case maker)? Give summary @ -I spoke with the neurointerventionalist and he agreed that TPA was necessary. I spoke with Mr. leigh they accepted the patient. I spoke with Dr. Ross he accepted the patient to the ICU. Was smoking cessation discussed for >3mins.? @ -No Was critical care preformed (if so, how long)? @ -35 minutes Were there social determinants of health that impacted care today? How? (Homelessness, low income, unemployed, alcoholism, drug addiction, transportati on, low edu. Level, literacy, decrease access to med. care, residential, rehab)? @ -No Was there de-escalation of care discussed even if they declined (Discuss DNR or withdrawal of care, Hospice)? DNR status @ -No What co-morbidities impacted this encounter? (DM, HTN, Smoking, COPD, CAD, Cancer, CVA, ARF, Chemo, Hep., AIDS, mental health diagnosis, sleep apnea, morbid obesity)? @ -None Was patient admitted / discharged? Hospital course, mention meds given and route, prescriptions, significant lab abnormalities, going to OR and other pertinent info. @ -Patient came in with strokelike symptoms and though her pressure was high we were able to push down with some labetalol. Patient also an ALLERGY to IV contrast read give the patient Solu-Medrol Benadryl and Pepcid prior to getting the CTA. I spoke with the neurointerventionalist on 2 different occasions and he was in agreement with given also consult which was given. Patient was also given labetalol to get her pressure down and a little Ativan because she is extremely anxious and initially did not want to get the CTA. Patient was in agreement with knowledge of the risk factors and TPA was given. Undiagnosed new problem with uncertain prognosis? @ -No Drug Therapy requiring intensive monitoring for toxicity (Heparin, Nitro, Insulin, Cardizem)? @ -No Were any procedures done? @ -No Diagnosis/symptom? @ -CVA Acute, or Chronic, or Acute on Chronic? @ -Acute Uncomplicated (without systemic symptoms) or Complicated (systemic symptoms)? @ -Complicated Side effects of treatment? @ -No Exacerbation, Progression, or Severe Exacerbation? @ -No Poses a threat to life or bodily function? How? (Chest pain, USA, ID, pneumonia, PE, COPD, DKA, ARF, appy, cholecystitis, CVA, Diverticulitis, Homicidal, Suicidal, threat to staff... and all critical care pts) @ -Yes patient could've gone on to have worsening stroke and/or Diagnosis/symptom? @ -Hypertensive urgency Acute, or Chronic, or Acute on Chronic? @ -Acute Uncomplicated (without systemic symptoms) or Complicated (systemic symptoms)? @ -Complicated Side effects of treatment? @ -none Exacerbation, Progression, or Severe Exacerbation] @ -no Poses a threat to life or bodily function? @ -no - Lab Data Result diagrams: 04/30/23 09:36 04/30/23 09:36 Lab Results 04/30/23 04/30/23 04/30/23 Range/Units 09:36 09:36 09:36 WBC 8.6 (3.8-10.6) k/uL RBC 4.61 (3.80-5.40) m/uL Hgb 14.6 (11.4-16.0) gm/dL Hct 44.2 (34.0-46.0) % MCV 95.8 (80.0-100.0) fL MCH 31.7 (25.0-35.0) pg MCHC 33.1 (31.0-37.0) g/dL RDW 13.4 (11.5-15.5) % Plt Count 259 (150-450) k/uL MPV 8.6 Neutrophils % 68 % Lymphocytes % 23 % Monocytes % 6 % Eosinophils % 2 % Basophils % 0 % Neutrophils # 5.8 (1.3-7.7) k/uL Lymphocytes # 2.0 (1.0-4.8) k/uL Monocytes # 0.5 (0-1.0) k/uL Eosinophils # 0.2 (0-0.7) k/uL Basophils # 0.0 (0-0.2) k/uL PT 10.5 (9.0-12.0) sec INR 1.0 (<1.2) APTT 22.5 (22.0-30.0) sec Sodium 141 (137-145) mmol/L Potassium 4.4 (3.5-5.1) mmol/L Chloride 104 (98-107) mmol/L Carbon Dioxide 26 (22-30) mmol/L Anion Gap 11 mmol/L BUN 22 H (7-17) mg/dL Creatinine 0.79 (0.52-1.04) mg/dL Est GFR (CKD-EPI)AfAm 89 (>60 ml/min/1.73 sqM) Est GFR (CKD-EPI)NonAf 77 (>60 ml/min/1.73 sqM) Glucose 119 H (74-99) mg/dL Calcium 9.3 (8.4-10.2) mg/dL Total Bilirubin 0.7 (0.2-1.3) mg/dL AST 28 (14-36) U/L ALT 17 (4-34) U/L Alkaline Phosphatase 80 (38-126) U/L Creatine Kinase 49 (30-135) U/L Troponin I (0.000-0.034) ng/mL Total Protein 7.4 (6.3-8.2) g/dL Albumin 4.6 (3.5-5.0) g/dL 04/30/23 Range/Units 09:36 WBC (3.8-10.6) k/uL RBC (3.80-5.40) m/uL Hgb (11.4-16.0) gm/dL Hct (34.0-46.0) % MCV (80.0-100.0) fL MCH (25.0-35.0) pg MCHC (31.0-37.0) g/dL RDW (11.5-15.5) % Plt Count (150-450) k/uL MPV Neutrophils % % Lymphocytes % % Monocytes % % Eosinophils % % Basophils % % Neutrophils # (1.3-7.7) k/uL Lymphocytes # (1.0-4.8) k/uL Monocytes # (0-1.0) k/uL Eosinophils # (0-0.7) k/uL Basophils # (0-0.2) k/uL PT (9.0-12.0) sec INR (<1.2) APTT (22.0-30.0) sec Sodium (137-145) mmol/L Potassium (3.5-5.1) mmol/L Chloride (98-107) mmol/L Carbon Dioxide (22-30) mmol/L Anion Gap mmol/L BUN (7-17) mg/dL Creatinine (0.52-1.04) mg/dL Est GFR (CKD-EPI)AfAm (>60 ml/min/1.73 sqM) Est GFR (CKD-EPI)NonAf (>60 ml/min/1.73 sqM) Glucose (74-99) mg/dL Calcium (8.4-10.2) mg/dL Total Bilirubin (0.2-1.3) mg/dL AST (14-36) U/L ALT (4-34) U/L Alkaline Phosphatase (38-126) U/L Creatine Kinase (30-135) U/L Troponin I <0.012 (0.000-0.034) ng/mL Total Protein (6.3-8.2) g/dL Albumin (3.5-5.0) g/dL Critical Care Time Critical Care Time: Yes Total Critical Care Time: 35 Disposition Clinical Impression: Cerebrovascular accident (CVA) Disposition: ADMITTED IP TO THIS HOSP Referrals: Nonstaff,Physician [Primary Care Provider] - 1-2 days Time of Disposition: 11:33
--- NOTE | 2023-04-30 10:33 | CT ---
EXAMINATION TYPE: CT angio head neck CT DLP: 745.9 mGycm, Automated exposure control for dose reduction was used. DATE OF EXAM: 04/30/2023 10:27 AM COMPARISON: CT brain same day.. CLINICAL INDICATION:Female, 68 years old with history of Neuro deficit, acute, stroke suspected; PHH, CODE STROKE TECHNIQUE: Axially acquired helical CT angiogram of the head and neck was obtained with contrast. Axi al images are supplemented with 3D reconstructions which [facility] NASCET criteria used. Contrast used:65 ml mL of Isovue 370 without and with IV Contrast, Oral contrast used: None. FINDINGS: CTA HEAD: No evidence of acute intracranial hemorrhage, mass effect, or midline shift. The ventricles, sulci, a nd cisterns are unremarkable. The visualized portions of the internal carotid arteries, middle cerebral arteries, anterior cerebral arteries, and posterior cerebral arteries are patent. Atherosclerosis of the carotid siphon bilatera lly. The basilar and vertebral arteries are patent. CTA NECK: Right Carotid System: The common carotid and external carotid arteries are patent. There is approximately 25% stenosis at t he carotid bifurcation secondary to calcified/noncalcified plaquing. The rest of the internal carotid artery is patent. Left Carotid System: The common carotid and external carotid arteries are patent. There is approximately 25% stenosis at t he carotid bifurcation secondary to calcified/noncalcified plaquing. The rest of the internal carotid artery is patent. Vertebral arteries are patent without evidence hemodynamically significant stenosis. There is a three-vessel aortic arch. The origins of the great vessels are patent. No evidence of hemo dynamically significant stenosis. Upper thorax: Partially calcified lymph nodes in the mediastinum. Trace right pleural effusion. Trace atherosclerosis of the arterial vasculature IMPRESSION: 1. No evidence of dissection of the cervical internal carotid arteries or vertebral arteries or any e vidence of significant stenosis at the carotid bifurcations. 2. No evidence of intracranial high-grade stenosis or intracranial aneurysm.
[2023-04-30] MEDS ORDERED: METOPROLOL SUCCINATE (ER) 50 MG TAB.ER.24H PO STA (10:38)
[2023-04-30] MEDS ORDERED: SODIUM CHLORIDE 0.9% 50 ML MINI-BAG IV ONE ×2 (10:42→12:35)
[2023-04-30] MEDS: tiZANidine 4 MG TAB PO SCH ×4 (10:57→22:23)
[2023-04-30] MEDS: CARBIDOPA-LEVODOPA 25-100 MG 1 EACH TAB PO SCH ×4 (10:57→22:45)
[2023-04-30] MEDS ORDERED: ASPIRIN 325 MG TAB PO STA (11:33)
--- NOTE | 2023-04-30 11:42 | P.CNPUL ---
History of Present Illness Consult date: 04/30/23 Requesting physician: Bg Martinez Reason for consult: other Chief complaint: CVA. History of present illness: Pulmonary consult dated 04/30/2023. 68-year-old female who presents to the emergency department, on April 30, complaining of neurologic symptoms. She apparently started noticing some h eaviness in her arms and legs, and felt like she was not moving her left leg properly and had lost some strength and coordination. She apparently had some difficulty ambulating, and was dragging her left leg. She denied any chest pain or headache, and denied any right-sided symptoms. Apparently the patient did have some slurred speech, but denied any facial droop. The patient had an NIH score of 3, and apparently received TPA, after having a head CT, and angiography CT. The patient will be transferred to the intensive care unit for further monitoring and management. She apparently has a history of diabetes, DVT, hypertension, Parkinson's disease, hypothyroidism, and moderate aortic stenosis based on a previous echocardiogram, December 2022. White count 8.6, hemoglobin 14.6, hematocrit 44.2, and platelet count 259,000. Sodium 141, potassium 4.4, chlorides 104, CO2 26, anion gap 11, BUN 22, creatinine 0.79. Chest x-rays consistent with cardiomegaly, although I do not see any acute abnormalities. Results of the brain CT, and angiography CT, are reviewed. Review of Systems REVIEW OF SYSTEMS: CONSTITUTIONAL: [Negative.] NEUROLOGIC: Left-sided CVA symptoms. HEENT: [ Negative.] CARDIAC: [Negative.] PULMONARY: [Negative.] GI: [Negative.] : [Negative.] RHEUMATOLOGIC: [ Negative.] IMMUNOLOGIC: [ Negative.] ENDOCRINE: [Negative. ] DERMATOLOGIC: [Negative.] Past Medical History Past Medical History: Diabetes Mellitus, Deep Vein Thrombosis (DVT), Hypertension, Thyroid Disorder Additional Past Medical History / Comment(s): Spleen issues, Parkinsons History of Any Multi-Drug Resistant Organisms: None Reported Past Surgical History: Orthopedic Surgery, Tonsillectomy, Tubal Ligation Additional Past Surgical History / Comment(s): Thyroid removed Past Psychological History: No Psychological Hx Reported Smoking Status: Current every day smoker Past Alcohol Use History: None Reported Past Drug Use History: None Reported Medications and Allergies Home Medications Medication Instructions Recorded Confirmed Type Carbidopa-Levodopa 25-100 mg 2 tab PO QID@04,10,16,12/20/22 12/20/22 History [Sinemet 25-100 mg] Diltiazem Cd [Cardizem CD] 240 mg PO DAILY 12/20/22 12/20/22 History Fenofibrate [Lofibra] 160 mg PO ONCE 12/20/22 12/20/22 History Glimepiride [Amaryl] 4 mg PO BID 12/20/22 12/20/22 History Levothyroxine Sodium 88 mcg PO BID 12/20/22 12/20/22 History Metoprolol Succinate (ER) [Toprol 50 mg PO DAILY 12/20/22 12/20/22 History XL] Omeprazole 40 mg PO BID 12/20/22 12/20/22 History Pioglitazone HCl 45 mg PO DAILY 12/20/22 12/20/22 History Valsartan [Diovan] 160 mg PO BID 12/20/22 12/20/22 History metFORMIN HCL ER [Glucophage XR] 1,000 mg PO BID 12/20/22 12/20/22 History tiZANidine [Zanaflex] 4 mg PO QID@04,10,,12/20/22 12/20/22 History traMADol HCL 50 mg PO Q4H PRN 12/20/22 12/20/22 History Acetaminophen Tab [Tylenol] 650 mg PO Q6HR PRN #60 tab 12/24/22 Rx Cephalexin [Keflex] 500 mg PO Q6HR 14 Days #56 cap 12/24/22 Rx Allergies Allergy/AdvReac Type Severity Reaction Status Date / Time adhesive AdvReac Rash/Hives Verified 04/30/23 09:32 chicken derived [Chicken] AdvReac Nausea & Verified 04/30/23 09:32 Vomiting & Diarrhea chocolate flavor AdvReac Nausea & Verified 04/30/23 09:32 Vomiting & Diarrhea ciprofloxacin [From Cipro] AdvReac Rash/Hives Verified 04/30/23 09:32 egg AdvReac Nausea & Verified 04/30/23 09:32 Vomiting & Diarrhea latex AdvReac Rash/Hives Verified 04/30/23 09:32 Sulfa (Sulfonamide AdvReac Rash/Hives Verified 04/30/23 09:32 Antibiotics) Physical Exam Osteopathic Statement: *. No significant issues noted on an osteopathic structural exam other than those noted in the History and Physical/Consult. Vitals: Vital Signs Pulse Resp BP Pulse Ox 04/30/23 11:20 67 18 174/81 97 04/30/23 11:10 67 14 188/90 97 04/30/23 11:00 65 18 176/84 98 04/30/23 10:50 64 18 179/82 97 04/30/23 10:40 61 18 187/85 98 04/30/23 10:30 59 L 18 170/103 99 04/30/23 10:20 64 18 178/86 96 04/30/23 10:00 66 18 177/93 98 04/30/23 09:29 90 18 190/93 98 Intake and Output 04/29/23 04/30/23 04/30/23 22:59 06:59 14:59 Other: Weight 113.398 kg No acute distress, oriented 3. Currently on room air. HEENT examination is grossly unremarkable. Neck supple. Full range of motion. No adenopathy thyromegaly or neck vein distention. Cardiovascular examination reveals regular rhythm rate. S1-S2 normal. No S3 or S4. A harsh grade 2-3/6 systolic murmur is noted, consistent with aortic stenosis. Lungs reveal clear breath sounds. Her sounds are equal bilaterally. No adventitious lung sounds including wheezes rhonchi or crackles. Abdomen soft bowel sounds are heard. No masses or tenderness. Extremities are intact. No cyanosis clubbing or edema. Skin is without rash or lesion. Neurologic examination reveals left leg weakness. Results - Laboratory Findings CBC and BMP: 04/30/23 09:36 04/30/23 09:36 PT/INR, D-dimer PT 10.5 sec (9.0-12.0) 04/30/23 09:36 INR 1.0 (<1.2) 04/30/23 09:36 Abnormal lab findings: Abnormal Labs 04/30/23 09:36 BUN 22 H Glucose 119 H - Diagnostic Findings Chest x-ray: image reviewed Assessment and Plan Assessment: Suspected CVA, status post TPA administration. Moderate aortic stenosis, as determined by recent echocardiogram. History of Parkinson's disease. History of diabetes mellitus. History of hypothyroidism. History of hyperlipidemia. History of hypertension. History of deep venous thrombosis. History of tobacco use/nicotine dependence. Plan: Plan dated 04/30/2023. The patient is seen in the emergency department. The patient was going for a chest x-ray. In addition, the patient has had a brain CT, and CT angiography. She did receive TPA. The patient's exam revealed a heart systolic murmur consistent with aortic stenosis. We will have cardiology see the patient. Because the patient received TPA, the patient will be transferred to the intensive care unit for further monitoring and management. Additional recommendations and suggestions are forthcoming. Prognosis is guarded. Time with Patient: Greater than 30
--- NOTE | 2023-04-30 11:54 | XR ---
EXAMINATION TYPE: XR chest 2V DATE OF EXAM: 04/30/2023 11:34 AM COMPARISON: Chest radiographs from 12/21/2022 TECHNIQUE: XR chest 2V Frontal and lateral views of the chest. CLINICAL INDICATION:Female, 68 years old with history of altered mental status; FINDINGS: Lungs/Pleura: There is no evidence of pleural effusion, focal consolidation, or pneumothorax. Pulmonary vascularity: Unremarkable. Heart/mediastinum: Cardiomediastinal silhouette is enlarged and stable. Musculoskeletal: No acute osseous pathology. IMPRESSION: No acute cardiopulmonary disease/process.
[2023-04-30 12:38] LABS: Glucose,Whole Blood 215 mg/dL (70-110)
--- NOTE | 2023-04-30 13:25 | P.HPIM ---
History of Present Illness H&P Date: 04/30/23 History of present illness; patient is 68-year-old lady with past medical history significant for parkinsonism, hypothyroidism, hypertension, diabetes mellitus who presented to the ER because of left-sided weakness. Patient noted around 8 AM this morning she was having weakness off for the left side, she felt her left leg was very weak. Patient had a hard time in ambulating and was dragging her left leg. EMS was called and patient was brought to the ER. ER physician evaluated the patient, initial NIH scale was 3. Case was discussed with interventional neurology and patient was deemed candidate for TPA. Patient received TPA and was transferred to ICU for further evaluation and treatment REVIEW OF SYSTEMS: CONSTITUTIONAL: No fever, no malaise, no fatigue. HEENT: No recent visual problems or hearing problems. Denied any sore throat. CARDIOVASCULAR: No chest pain, orthopnea, PND, no palpitations, no syncope. PULMONARY: No shortness of breath, no cough, no hemoptysis. GASTROINTESTINAL: No diarrhea, no nausea, no vomiting, no abdominal pain. NEUROLOGICAL: No headaches, left-sided weakness has improved. Denies any slurred speech HEMATOLOGICAL: Denies any bleeding or petechiae. GENITOURINARY: Denies any burning micturition, frequency, or urgency. MUSCULOSKELETAL/RHEUMATOLOGICAL: Denies any joint pain, swelling, or any muscle pain. ENDOCRINE: Denies any polyuria or polydipsia. The rest of the 14-point review of systems is negative. PHYSICAL EXAMINATION: GENERAL: The patient is alert and oriented x3, not in any acute distress. Well developed, well nourished. HEENT: Pupils are round and equally reacting to light. EOMI. No scleral icterus. No conjunctival pallor. Normocephalic, atraumatic. No pharyngeal erythema. No thyromegaly. CARDIOVASCULAR: S1 and S2 present. No murmurs, rubs, or gallops. PULMONARY: Chest is clear to auscultation, no wheezing or crackles. ABDOMEN: Soft, nontender, nondistended, normoactive bowel sounds. No palpable organomegaly. MUSCULOSKELETAL: No joint swelling or deformity. EXTREMITIES: No cyanosis, clubbing, or pedal edema. NEUROLOGICAL: Gross neurological examination did not reveal any focal deficits. Cranial nerves II through XII intact. No sensory deficit noticeable. Muscle strength is 5 x 5 in right side, 4 x 5 in left upper and lower extremity SKIN: No rashes. Assessment and plan Acute CVA Hypertension Hyperlipidemia Epl-znjjfre-taxypbvan diabetes mellitus Parkinson's disease Plan; Continue to monitor vital signs Continue telemetry monitoring Monitor CBC Monitor CMP Continue post TPA protocol per ICU Continue neuro checks Neurology consulted Cardiology consulted. ICU following Past Medical History Past Medical History: Diabetes Mellitus, Deep Vein Thrombosis (DVT), Hypertension, Thyroid Disorder Additional Past Medical History / Comment(s): Spleen issues, Parkinsons History of Any Multi-Drug Resistant Organisms: None Reported Past Surgical History: Orthopedic Surgery, Tonsillectomy, Tubal Ligation Additional Past Surgical History / Comment(s): Thyroid removed Past Psychological History: No Psychological Hx Reported Smoking Status: Current every day smoker Past Alcohol Use History: None Reported Past Drug Use History: None Reported Medications and Allergies Home Medications Medication Instructions Recorded Confirmed Type Carbidopa-Levodopa 25-100 mg 2 tab PO QID@04,10,,12/20/22 12/20/22 History [Sinemet 25-100 mg] Diltiazem Cd [Cardizem CD] 240 mg PO DAILY 12/20/22 12/20/22 History Fenofibrate [Lofibra] 160 mg PO ONCE 12/20/22 12/20/22 History Glimepiride [Amaryl] 4 mg PO BID 12/20/22 12/20/22 History Levothyroxine Sodium 88 mcg PO BID 12/20/22 12/20/22 History Metoprolol Succinate (ER) [Toprol 50 mg PO DAILY 12/20/22 12/20/22 History XL] Omeprazole 40 mg PO BID 12/20/22 12/20/22 History Pioglitazone HCl 45 mg PO DAILY 12/20/22 12/20/22 History Valsartan [Diovan] 160 mg PO BID 12/20/22 12/20/22 History metFORMIN HCL ER [Glucophage XR] 1,000 mg PO BID 12/20/22 12/20/22 History tiZANidine [Zanaflex] 4 mg PO QID@04,10,16,22 12/20/22 12/20/22 History traMADol HCL 50 mg PO Q4H PRN 12/20/22 12/20/22 History Acetaminophen Tab [Tylenol] 650 mg PO Q6HR PRN #60 tab 12/24/22 Rx Cephalexin [Keflex] 500 mg PO Q6HR 14 Days #56 cap 12/24/22 Rx Allergies Allergy/AdvReac Type Severity Reaction Status Date / Time adhesive AdvReac Rash/Hives Verified 04/30/23 09:32 chicken derived [Chicken] AdvReac Nausea & Verified 04/30/23 09:32 Vomiting & Diarrhea chocolate flavor AdvReac Nausea & Verified 04/30/23 09:32 Vomiting & Diarrhea ciprofloxacin [From Cipro] AdvReac Rash/Hives Verified 04/30/23 09:32 egg AdvReac Nausea & Verified 04/30/23 09:32 Vomiting & Diarrhea latex AdvReac Rash/Hives Verified 04/30/23 09:32 Sulfa (Sulfonamide AdvReac Rash/Hives Verified 04/30/23 09:32 Antibiotics) Physical Exam Vitals: Vital Signs Temp Pulse Resp BP Pulse Ox 04/30/23 13:00 64 22 147/99 92 L 04/30/23 12:57 94 L 04/30/23 12:45 61 21 165/75 93 L 04/30/23 12:30 98.3 F 137/70 04/30/23 12:15 158/81 04/30/23 12:00 162/75 95 04/30/23 11:40 64 18 165/80 96 04/30/23 11:30 174/81 04/30/23 11:20 67 18 174/81 97 04/30/23 11:10 67 14 188/90 97 04/30/23 11:00 65 18 176/84 98 04/30/23 10:50 64 18 179/82 97 04/30/23 10:40 61 18 187/85 98 04/30/23 10:30 59 L 18 170/103 99 04/30/23 10:20 64 18 178/86 96 04/30/23 10:00 66 18 177/93 98 04/30/23 09:29 90 18 190/93 98 Intake and Output 04/29/23 04/30/23 04/30/23 22:59 06:59 14:59 Intake Total 120 Balance 120 Intake: Oral 120 Other: Weight 113.398 kg Results CBC & Chem 7: 04/30/23 09:36 04/30/23 09:36 Labs: Abnormal Lab Results - Last 24 Hours (Table) 04/30/23 04/30/23 Range/Units 09:36 12:37 BUN 22 H (7-17) mg/dL Glucose 119 H (74-99) mg/dL POC Glucose (mg/dL) 215 H (70-110) mg/dL
[2023-04-30] MEDS: niCARdipine 20 MG in SODIUM CHLORIDE 0.9% 192 ML IV SCH ×4 (13:42→21:45)
[2023-04-30] MEDS ORDERED: DEXTROSE 50% SYRINGE 50 ML IVP PRN ×2 (14:24)
[2023-04-30] MEDS ORDERED: ALBUTEROL NEBULIZED 2.5 MG/3 ML INHALATION PRN (14:25)
[2023-04-30 16:29] LABS: Glucose,Whole Blood 255 mg/dL (70-110)
[2023-04-30] MEDS: LEVOTHYROXINE 88 MCG TAB PO SCH (18:00)
[2023-04-30] MEDS: FENOFIBRATE 160 MG TAB PO SCH (18:00)
[2023-04-30] MEDS: INSULIN ASPART (NovoLOG) 100 UNIT/ML VIAL SQ SCH ×2 (18:05→22:45)
[2023-04-30] MEDS ORDERED: METOPROLOL SUCCINATE (ER) 50 MG TAB.ER.24H PO SCH (21:00)
[2023-04-30 22:30] LABS: Glucose,Whole Blood 354 mg/dL (70-110)
[2023-04-30] MEDS ORDERED: LEVOTHYROXINE 88 MCG TAB PO STA (22:35)
[2023-05-01] MEDS: niCARdipine 20 MG in SODIUM CHLORIDE 0.9% 192 ML IV SCH ×3 (03:56→09:29)
[2023-05-01] MEDS: CARBIDOPA-LEVODOPA 25-100 MG 1 EACH TAB PO SCH ×4 (04:06→22:11)
[2023-05-01] MEDS: tiZANidine 4 MG TAB PO SCH ×4 (04:06→22:12)
[2023-05-01 04:22] LABS: African American GFR (CKD) >90 (>60 ml/min/1.73 sqM); Anion Gap 8 mmol/L; Blood Urea Nitrogen 20 mg/dL (7-17); Calcium 8.8 mg/dL (8.4-10.2); Carbon Dioxide 28 mmol/L (22-30); Chloride 104 mmol/L (98-107); Glucose 203 mg/dL (74-99); Non-African American GFR(CKD) >90 (>60 ml/min/1.73 sqM); Potassium 3.9 mmol/L (3.5-5.1); Sodium 140 mmol/L (137-145)
[2023-05-01 04:39] LABS: Basophils % (A) 0 %; Eosinophils # (A) 0.1 k/uL (0-0.7); Eosinophils % (A) 1 %; HCT 41.7 % (34.0-46.0); HGB 13.6 gm/dL (11.4-16.0); Lymphocytes # (A) 0.8 k/uL (1.0-4.8); Lymphocytes % (A) 10 %; MCH 31.3 pg (25.0-35.0); MCHC 32.7 g/dL (31.0-37.0); MCV 95.9 fL (80.0-100.0); Mean Platelet Volume 8.5; Monocytes # (A) 0.4 k/uL (0-1.0); Monocytes % (A) 5 %; Neutrophils % (A) 84 %; Platelet Count 234 k/uL (150-450); RBC 4.35 m/uL (3.80-5.40); RDW 13.2 % (11.5-15.5); WBC 8.3 k/uL (3.8-10.6)
[2023-05-01 06:52] LABS: Glucose,Whole Blood 164 mg/dL (70-110)
[2023-05-01] MEDS: LEVOTHYROXINE 88 MCG TAB PO SCH ×2 (06:57→17:09)
[2023-05-01] MEDS: INSULIN ASPART (NovoLOG) 100 UNIT/ML VIAL SQ SCH ×4 (06:57→22:12)
[2023-05-01] MEDS: PANTOPRAZOLE 40 MG TABLET PO SCH (06:58)
[2023-05-01] MEDS ORDERED: CARBIDOPA-LEVODOPA 25-100 MG 1 EACH TAB PO PRN (08:00)
[2023-05-01] MEDS: CHOLECALCIFEROL 25 MCG (1000 IU) TABLET PO SCH ×2 (08:21→08:24)
[2023-05-01] MEDS: CALCIUM CARBONATE 500 MG CHEWABLE PO SCH ×2 (08:21→08:23)
[2023-05-01] MEDS ORDERED: ASPIRIN 325 MG TAB PO SCH (09:00)
--- NOTE | 2023-05-01 09:27 | CT ---
EXAMINATION TYPE: CT brain wo con CT DLP: 1158.4 mGycm, Automated exposure control for dose reduction was used. DATE OF EXAM: 05/01/2023 9:11 AM COMPARISON: 04/30/2023. CLINICAL INDICATION:Female, 68 years old with history of Neuro deficit, acute, stroke suspected, foll ow up post TPA infusion TECHNIQUE: Brain: Axial CT images of the brain were obtained with coronal and sagittal reformats created and rev iewed. Contrast used: None. Oral contrast used: None. FINDINGS: Brain: Extra-axial spaces: No abnormal extra-axial fluid collections. Ventricular system: Dilatation in proportion to cerebral atrophy. Cerebral parenchyma: Similar bilateral basal ganglia hypodense areas. Cerebral atrophy. No acute intr aparenchymal hemorrhage or mass effect. The rodríguez-white junction is well differentiated. Scattered hy poattenuating areas are seen within the white matter. Cerebellum: Unremarkable. Mass effect: No evidence of midline shift. Intracranial vasculature: Atherosclerotic calcifications of the intracranial vessels. Soft tissues: Normal. Calvarium/osseous structures: No depressed skull fracture. Paranasal sinuses and mastoid air cells: Mild scattered paranasal sinus disease. Visualized orbits: Orbital contents are intact. IMPRESSION: 1. No acute intracranial process. 2. Remote lacunar injuries along with nonspecific white matter changes likely secondary to chronic mi croangiopathy.
--- NOTE | 2023-05-01 09:46 | P.CNNES ---
History of Present Illness Consult date: 04/30/23 Requesting physician: Ruben Peralta Reason for Consult: CVA History of Present Illness: Patient is a 68-year-old right-handed female with history of hypertension, diabetes, Parkinson's disease, stable on medication, came to the hospital by ambulance today at 9:23 AM for strokelike symptoms. Patient states that yeste rday in the evening she did a lot of work, including she set some plants, did some weeding, then she sat more plants, then fixed her dinner. Then she took the shower and went to bed and was feeling fine except tired from all the work. At 4 AM she woke up, and was feeling fine. She walked outside with the dog, took medications and that coffee and then goes back off which is not unusual for her. At 8 AM woke up with some some strain sensation, like feeling odd. 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 Left foot was also weak. She noticed some problem with the fine motor skills with the left hand. She got concerned and therefore she called her neighbor, who is also her caregiver, and they called the ambulance and arrived to the hospital. Patient denied any slurred speech, no visual problems, no facial droopiness noted. Only thing was left arm and leg heaviness and weakness. She denied any headache or chest pain. EMS flow sheet not available in the chart. Patient's blood pressure on arrival 190/93, pulse rate 90, respiration 18, blood tests shows normal CBC PT/PTT, normal CMP. Troponin negative. CT head revealed bilateral basal ganglia/white radiata injuries. The right which appear more prominent compared to prior on 04/06/2023. Correlation with MRI is recommended for acute ischemia. I personally reviewed CT head, agree with the findings. There is evidence of lacunar strokes in bilateral basal ganglia, but appears chronic on the right, perhaps subacute to chronic on the left. EKG shows normal sinus rhythm. Patient was evaluated by the ED staff. Patient's NIH stroke scale was reported as 3. Patient was considered a candidate for TPA, and it was given after controlling her blood pressure with labetalol. Patient states that her hand cleared up more quickly, but the leg is still affected. Patient was transferred to the ICU. Patient has history of hypertension, diabetes. She had parathyroid gland transplantation. History of blood clots. She has never smoked, does not drink alcohol. 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 Also has Parkinson's disease, does not follow up with a neurologist. Home medications mentions Sinemet 25/100, 2 tablets 4 times a day, diltiazem, and a fibroid, Amaryl 4 mg twice a day, omeprazole, Actos, Diovan 160 Ruel twice a day, tramadol 50 mg every 4 hours, levothyroxine, metoprolol, metformin and Zanaflex. Patient does not take any antiplatelet medication at home. She states that aspirin makes her stomach hurt. Review of Systems Constitutional: Denies chills, Denies fever Eyes: denies blurred vision, denies diplopia, denies pain Ears: deny: decreased hearing, ear discharge Ears, nose, mouth and throat: Denies headache, Denies sore throat Cardiovascular: Denies chest pain, Denies shortness of breath Respiratory: Denies cough, Denies excessive sputum Gastrointestinal: Denies abdominal pain, Denies diarrhea, Denies nausea, Denies vomiting Musculoskeletal: Reports low back pain, Reports neck pain, Denies myalgias Integumentary: Denies pruritus, Denies rash Neurological: Reports as per HPI Psychiatric: Denies anxiety, Denies depression Endocrine: Denies fatigue, Denies weight change Past Medical History Past Medical History: Diabetes Mellitus, Deep Vein Thrombosis (DVT), Hypertension, Thyroid Disorder Additional Past Medical History / Comment(s): Spleen issues, Parkinsons History of Any Multi-Drug Resistant Organisms: None Reported Past Surgical History: Orthopedic Surgery, Tonsillectomy, Tubal Ligation Additional Past Surgical History / Comment(s): Thyroid removed Past Psychological History: No Psychological Hx Reported Smoking Status: Current every day smoker Past Alcohol Use History: None Reported Past Drug Use History: None Reported Medications and Allergies Home Medications Medication Instructions Recorded Confirmed Type Carbidopa-Levodopa 25-100 mg 2 tab PO QID@04,10,16,22 12/20/22 04/30/23 History [Sinemet 25-100 mg] Diltiazem Cd [Cardizem CD] 240 mg PO DAILY 12/20/22 04/30/23 History Fenofibrate [Lofibra] 160 mg PO W/SUPPER 12/20/22 04/30/23 History Glimepiride [Amaryl] 4 mg PO BID 12/20/22 04/30/23 History Levothyroxine Sodium 88 mcg PO BID-W/MEALS 12/20/22 04/30/23 History Metoprolol Succinate (ER) [Toprol 50 mg PO HS 12/20/22 04/30/23 History XL] Omeprazole 40 mg PO AC-BRKFST 12/20/22 04/30/23 History Pioglitazone HCl 45 mg PO HS 12/20/22 04/30/23 History Valsartan [Diovan] 160 mg PO BID-W/MEALS 12/20/22 04/30/23 History metFORMIN HCL ER [Glucophage XR] 1,000 mg PO BID 12/20/22 04/30/23 History tiZANidine [Zanaflex] 4 mg PO QID@04,10,16,22 12/20/22 04/30/23 History traMADol HCL 50 mg PO Q4H PRN 12/20/22 04/30/23 History Albuterol Inhaler [Ventolin Hfa 2 puff INHALATION RT-QID PRN 04/30/23 04/30/23 History Inhaler] Calcium Carbonate [Calcium] 600 mg PO DAILY 04/30/23 04/30/23 History Carbidopa-Levodopa 25-100 mg 1 tab PO BID@0800,1200 PRN 04/30/23 04/30/23 History [Sinemet 25-100] Cholecalciferol [Vitamin D3 (25 25 mcg PO DAILY 04/30/23 04/30/23 History Mcg = 1000 Iu)] Glucosamine Sulfate 500 mg PO TID PRN 04/30/23 04/30/23 History Magnesium Oxide [Magnesium] 500 mg PO HS 04/30/23 04/30/23 History Milk Thistle 150 mg PO DAILY 04/30/23 04/30/23 History Tart Bales 1 tab PO DAILY 04/30/23 04/30/23 History Turmeric Root Extract [Turmeric] 500 mg PO HS 04/30/23 04/30/23 History Vitamin B Complex 1 cap PO DAILY 04/30/23 04/30/23 History Vitamin C/Biotin [Hair, Skin and 1 tab PO TID 04/30/23 04/30/23 History Nails Chew] Vitamin E (Dl,Tocopheryl Acet) 400 unit PO BID 04/30/23 04/30/23 History [Vitamin E (400 Iu = 180 mg)] Allergies Allergy/AdvReac Type Severity Reaction Status Date / Time adhesive Allergy Rash/Hives Verified 04/30/23 14:25 ciprofloxacin [From Cipro] Allergy Rash/Hives Verified 04/30/23 14:25 latex Allergy Rash/Hives Verified 04/30/23 14:25 Poultry [[place]] Allergy Rash/Hives Verified 04/30/23 15:50 Sulfa (Sulfonamide Allergy Rash/Hives Verified 04/30/23 14:25 Antibiotics) chicken derived [Chicken] AdvReac Nausea & Verified 04/30/23 14:25 Vomiting & Diarrhea chocolate flavor AdvReac Nausea & Verified 04/30/23 14:25 Vomiting & Diarrhea egg AdvReac Nausea & Verified 04/30/23 14:25 Vomiting & Diarrhea Physical Examination - Vital Signs Vital Signs: Vital Signs Pulse Resp BP Pulse Ox 04/30/23 11:40 64 18 165/80 96 04/30/23 11:30 174/81 04/30/23 11:20 67 18 174/81 97 04/30/23 11:10 67 14 188/90 97 04/30/23 11:00 65 18 176/84 98 04/30/23 10:50 64 18 179/82 97 04/30/23 10:40 61 18 187/85 98 04/30/23 10:30 59 L 18 170/103 99 04/30/23 10:20 64 18 178/86 96 04/30/23 10:00 66 18 177/93 98 04/30/23 09:29 90 18 190/93 98 Intake and Output 04/29/23 04/30/23 04/30/23 22:59 06:59 14:59 Other: Weight 113.398 kg Patient is an elderly female, very pleasant, in no acute distress. Patient is alert awake oriented to time place and person. Speech and language functions are normal. Patient can name and repeat very well. No aphasia or dysarthria. Attention, concentration and fund of knowledge is adequate. On cranial nerve examination, pupils are equal, round and reacting to light, visual garcia are full on confrontation, with no neglect on double simultaneous stimulation. Extraocular muscles are intact with no nystagmus. Patient has mild left facial weakness, which is chronic from her previous Quinones's palsy. No new facial weakness. Her tongue protrudes to the midline. Palatal elevation and sensation normal, hearing and shoulder shrug normal, facial sensation normal. On muscle strength testing, there is very mild left-sided pronation but no drift. Her strength is normal in arms and legs distally and proximally. Deep tendon reflexes are symmetric biceps 2, brachioradialis 2, knees 2, ankles absent and plantars are downgoing bilaterally. Sensory to touch is equal with no neglect on double simultaneous stimulation. Cerebellar function showed no ataxia for izymwx-vi-isor testing. No dysdiadochokinesia. Patient has mild ataxia for idrw-zv-wikj testing only with the left leg. Tone is very mildly increased in the left arm, but normal on the right. Her bulk of muscles normal. No resting tremors noted. Gait deferred.. On general examination, there is no carotid bruit or murmur, S1-S2 audible. Chest is clear on consultation. Abdomen is soft nontender. No organomegaly, bowel sounds present. Peripheral pulses are present. No edema. Results - Laboratory Findings CBC and BMP: 05/01/23 03:54 05/01/23 03:54 Abnormal Lab Findings: Abnormal Labs 04/30/23 09:36 BUN 22 H Glucose 119 H Assessment and Plan Assessment: * Probable acute ischemic stroke, manifesting with left arm and left leg weakness. Patient's NIH stroke scale was 3 in the ER. Patient has received TPA. At present patient's NIH stroke scale is 2, related to very minimal left pronation, no drift and mild ataxia for [id number]-[id number] testing with the left leg. * Hypertension * Diabetes * Obesity * Parkinson's disease, stable * History of left Quinones's palsy Plan: * Patient has received TPA, and she is doing better. Her deficits have improved. * Patient declined MRI of the brain completely. * Repeat CT head 24 hours post-TPA. If negative, then patient needs to be started on antiplatelet medication. Patient declined aspirin because of her previous intolerance. Therefore we will start her on Plavix [address] head is normal. * 2-D echo with bubble study to rule out PFO * CTA head and neck showed: No evidence of dissection of the cervical internal carotid arteries or vertebral arteries or any evidence of significant stenosis at the carotid bifurcations. No evidence of intracranial high-grade stenosis or intracranial aneurysm. * Fasting a.m. lipid panel * Hemoglobin A1c * Permissive hypertension for next 24-48 hours, but keep blood pressure < 180/100. * Close neuro checks as per protocol. * Telemetry monitoring rule out any arrhythmia * PT, OT, speech therapy. * Continue her home medications for Parkinson's disease. * DVT prophylaxis: Heparin 5000 units subcu every 8 hours to be started after 24 hours. * Neurology will continue ot follow. Thank you for the consult.
[2023-05-01] MEDS: DILTIAZEM CD 240 MG CAP.ER.24H PO SCH (09:52)
--- NOTE | 2023-05-01 10:26 | P.PN ---
Subjective Progress Note Date: 05/01/23 Principal diagnosis: CVA. Pulmonary consult dated 04/30/2023. 68-year-old female who presents to the emergency department, on April 30, complaining of neurologic symptoms. She apparently started noticing some heaviness in her arms and legs, and felt like she was not moving her left leg properly and had lost some strength and coordination. She apparently had some difficulty ambulating, and was dragging her left leg. She denied any chest pain or headache, and denied any right-sided symptoms. Apparently the patient did have some slurred speech, but denied any facial droop. The patient had an NIH score of 3, and apparently received TPA, after having a head CT, and angiography CT. The patient will be transferred to the intensive care unit for further monitoring and management. She apparently has a history of diabetes, DVT, hypertension, Parkinson's disease, hypothyroidism, and moderate aortic stenosis based on a previous echocardiogram, December 2022. White count 8.6, hemoglobin 14.6, hematocrit 44.2, and platelet count 259,000. Sodium 141, potassium 4.4, chlorides 104, CO2 26, anion gap 11, BUN 22, creatinine 0.79. Chest x-rays consistent with cardiomegaly, although I do not see any acute abnormalities. Results of the brain CT, and angiography CT, are reviewed. Progress note dated 05/01/2023. 68-year-old female who was seen in the emergency department yesterday, April 30, complaining of heaviness in her arms and legs, and a weak left leg. The patient did receive TPA, after having a head CT. She was transferred to the intensive care unit for further monitoring and management. Currently, she is on room air. She's not receiving any IV fluids. A repeat computed tomography scan of the brain showed no acute intracranial process, and remote lacunar injuries. The patient's CBC is completely normal. Sodium 140, potassium 3.9, chlorides 104, CO2 28, BUN 20, creatinine 0.57. Glucose 203. We did consult cardiology for what we suspect to be moderate to severe aortic stenosis. They have not seen her as yet. Objective - Vital Signs Vital signs: Vital Signs Temp 98.5 F 05/01/23 08:00 Pulse 69 05/01/23 09:12 Resp 14 05/01/23 09:12 BP 191/84 05/01/23 09:12 Pulse Ox 97 05/01/23 08:00 FiO2 Intake & Output 04/30/23 05/01/23 05/01/23 18:59 06:59 18:59 Intake Total 360 1250 500 Output Total 275 550 Balance 85 700 500 Weight 113.398 kg Intake: Oral 360 1250 500 Output: Urine 275 550 Other: Voiding Method Bedpan Toilet Toilet # Voids 1 1 - Exam No acute distress, oriented 3. Currently on room air. Saturations are 97%. HEENT examination is grossly unremarkable. Neck supple. Full range of motion. No adenopathy thyromegaly or neck vein distention. Cardiovascular examination reveals regular rhythm rate. S1-S2 normal. No S3 or S4. A harsh grade 2-3/6 systolic murmur is noted, consistent with aortic stenosis. Heart rate is 69 bpm. Lungs reveal clear breath sounds. Her sounds are equal bilaterally. No adventitious lung sounds including wheezes rhonchi or crackles. Abdomen soft bowel sounds are heard. No masses or tenderness. Extremities are intact. No cyanosis clubbing or edema. Skin is without rash or lesion. Neurologic examination reveals improved left leg weakness. - Labs CBC & Chem 7: 05/01/23 03:54 05/01/23 03:54 Labs: Abnormal Lab Results - Last 24 Hours (Table) 04/30/23 04/30/23 04/30/23 Range/Units 09:36 12:37 16:28 Lymphocytes # (1.0-4.8) k/uL BUN (7-17) mg/dL Glucose (74-99) mg/dL POC Glucose (mg/dL) 215 H 255 H (70-110) mg/dL Hemoglobin A1c 6.3 H (<=6.0) % 04/30/23 05/01/23 05/01/23 Range/Units 22:28 03:54 03:54 Lymphocytes # 0.8 L (1.0-4.8) k/uL BUN 20 H (7-17) mg/dL Glucose 203 H (74-99) mg/dL POC Glucose (mg/dL) 354 H (70-110) mg/dL Hemoglobin A1c (<=6.0) % 05/01/23 Range/Units 06:51 Lymphocytes # (1.0-4.8) k/uL BUN (7-17) mg/dL Glucose (74-99) mg/dL POC Glucose (mg/dL) 164 H (70-110) mg/dL Hemoglobin A1c (<=6.0) % Assessment and Plan Assessment: Suspected CVA, status post TPA administration. Moderate aortic stenosis, as determined by recent echocardiogram. History of Parkinson's disease. History of diabetes mellitus. History of hypothyroidism. History of hyperlipidemia. History of hypertension. History of deep venous thrombosis. History of tobacco use/nicotine dependence. Plan: Plan dated 04/30/2023. The patient is seen in the emergency department. The patient was going for a chest x-ray. In addition, the patient has had a brain CT, and CT angiography. She did receive TPA. The patient's exam revealed a heart systolic murmur consistent with aortic stenosis. We will have cardiology see the patient. Because the patient received TPA, the patient will be transferred to the int ensive care unit for further monitoring and management. Additional recommendations and suggestions are forthcoming. Prognosis is guarded. Plan dated 05/01/2023. The patient is seen today in room 253. Scan which did not show anything acute. Currently, she is on room air, and she's not receiving any IV fluids. Labs, x- rays, and medications are all reviewed. Cardiology is yet to see this patient. Additional recommendations and suggestions are forthcoming. Prognosis is guarded. We will continue to follow. Time with Patient: Less than 30
--- NOTE | 2023-05-01 10:41 | P.CRDCN ---
History of Present Illness Consult date: 05/01/23 Chief complaint: Left sided weakness History of present illness: The patient is a pleasant 68-year-old female patient with a past medical history significant for diabetes and hypertension and dyslipidemia and history of DVT and also a diagnosis of aortic stenosis was moderate on an echo from 2022 presented to the hospital with left sided weakness. She was in her usual state of health yesterday morning when she woke up from sleep complaining of left arm and left leg weakness. Ambulance was called and the patient was brought to the emergency department where she was diagnosed with acute stroke and she received TPA with improvement in her left-sided weakness completely. She was seen by the neurology service and she underwent further workup including computed tomography scan of brain which showed no acute abnormalities and CTA of the neck which also showed no abnormalities. She was admitted to the intensive care unit. She has no history of atrial fibrillation and she has been maintaining normal sinus mechanism. In December 2022 she underwent an echo and that revealed normal biventricular dimension and systolic function with evidence off moderate aortic stenosis. No history of coronary artery disease or congestive heart failure or cardiac arrhythmia in the past. The EKG showed sinus mechanism was nonspecific changes The examination is remarkable for regular rhythm with a systolic murmur at the right upper sternal border with preserved S2. Assessment Acute stroke. Status post TPA with resolving symptoms Hypertension appears to be under good control Dyslipidemia Aortic stenosis Obesity Plan I would suggest the patient to be started on Plavix The echocardiogram still pending. The patient can have the echo as an outpatient if there is a plan for discharge today Follow-up with the patient Past Medical History Past Medical History: Diabetes Mellitus, Deep Vein Thrombosis (DVT), Hypertension, Thyroid Disorder Additional Past Medical History / Comment(s): Spleen issues, Parkinsons History of Any Multi-Drug Resistant Organisms: None Reported Past Surgical History: Orthopedic Surgery, Tonsillectomy, Tubal Ligation Additional Past Surgical History / Comment(s): Thyroid removed Past Anesthesia/Blood Transfusion Reactions: Blood Transfusion Reaction Additional Past Anesthesia/Blood Transfusion Reaction / Comment(s): pt can't explain clearly Past Psychological History: No Psychological Hx Reported Smoking Status: Current every day smoker Past Alcohol Use History: None Reported Past Drug Use History: None Reported Medications and Allergies Home Medications Medication Instructions Recorded Confirmed Type Carbidopa-Levodopa 25-100 mg 2 tab PO QID@04,10,16,22 12/20/22 04/30/23 History [Sinemet 25-100 mg] Diltiazem Cd [Cardizem CD] 240 mg PO DAILY 12/20/22 04/30/23 History Fenofibrate [Lofibra] 160 mg PO W/SUPPER 12/20/22 04/30/23 History Glimepiride [Amaryl] 4 mg PO BID 12/20/22 04/30/23 History Levothyroxine Sodium 88 mcg PO BID-W/MEALS 12/20/22 04/30/23 History Metoprolol Succinate (ER) [Toprol 50 mg PO HS 12/20/22 04/30/23 History XL] Omeprazole 40 mg PO AC-BRKFST 12/20/22 04/30/23 History Pioglitazone HCl 45 mg PO HS 12/20/22 04/30/23 History Valsartan [Diovan] 160 mg PO BID-W/MEALS 12/20/22 04/30/23 History metFORMIN HCL ER [Glucophage XR] 1,000 mg PO BID 12/20/22 04/30/23 History tiZANidine [Zanaflex] 4 mg PO QID@04,10,16,22 12/20/22 04/30/23 History traMADol HCL 50 mg PO Q4H PRN 12/20/22 04/30/23 History Albuterol Inhaler [Ventolin Hfa 2 puff INHALATION RT-QID PRN 04/30/23 04/30/23 History Inhaler] Calcium Carbonate [Calcium] 600 mg PO DAILY 04/30/23 04/30/23 History Carbidopa-Levodopa 25-100 mg 1 tab PO BID@0800,1200 PRN 04/30/23 04/30/23 History [Sinemet 25-100] Cholecalciferol [Vitamin D3 (25 25 mcg PO DAILY 04/30/23 04/30/23 History Mcg = 1000 Iu)] Glucosamine Sulfate 500 mg PO TID PRN 04/30/23 04/30/23 History Magnesium Oxide [Magnesium] 500 mg PO HS 04/30/23 04/30/23 History Milk Thistle 150 mg PO DAILY 04/30/23 04/30/23 History Tart Bales 1 tab PO DAILY 04/30/23 04/30/23 History Turmeric Root Extract [Turmeric] 500 mg PO HS 04/30/23 04/30/23 History Vitamin B Complex 1 cap PO DAILY 04/30/23 04/30/23 History Vitamin C/Biotin [Hair, Skin and 1 tab PO TID 04/30/23 04/30/23 History Nails Chew] Vitamin E (Dl,Tocopheryl Acet) 400 unit PO BID 04/30/23 04/30/23 History [Vitamin E (400 Iu = 180 mg)] Allergies Allergy/AdvReac Type Severity Reaction Status Date / Time adhesive Allergy Rash/Hives Verified 04/30/23 14:25 ciprofloxacin [From Cipro] Allergy Rash/Hives Verified 04/30/23 14:25 latex Allergy Rash/Hives Verified 04/30/23 14:25 Poultry [Neptune] Allergy Rash/Hives Verified 04/30/23 15:50 Sulfa (Sulfonamide Allergy Rash/Hives Verified 04/30/23 14:25 Antibiotics) chicken derived [Chicken] AdvReac Nausea & Verified 04/30/23 14:25 Vomiting & Diarrhea chocolate flavor AdvReac Nausea & Verified 04/30/23 14:25 Vomiting & Diarrhea egg AdvReac Nausea & Verified 04/30/23 14:25 Vomiting & Diarrhea Physical Exam Vitals: Vital Signs Temp Pulse Resp BP Pulse Ox 05/01/23 09:12 69 14 191/84 05/01/23 08:00 98.5 F 68 21 156/94 97 05/01/23 07:43 98 05/01/23 07:00 66 17 166/88 05/01/23 06:00 64 18 170/96 05/01/23 05:00 69 21 183/91 05/01/23 04:00 98.0 F 73 19 150/90 96 05/01/23 03:00 70 19 169/88 05/01/23 02:00 68 20 157/85 05/01/23 01:00 97.8 F 65 18 159/80 93 L 05/01/23 00:00 67 20 04/30/23 23:08 82 19 04/30/23 23:00 81 18 154/75 04/30/23 22:00 80 18 94 L 04/30/23 21:00 98.5 F 87 21 158/82 93 L 04/30/23 20:00 84 24 145/81 94 L 04/30/23 19:00 81 18 154/82 95 06/17/23 18:00 69 16 133/67 93 L 04/30/23 17:00 66 18 141/70 92 L 04/30/23 16:00 98.8 F 72 22 175/81 95 04/30/23 15:30 69 11 L 127/61 95 04/30/23 15:15 58 L 12 126/64 91 L 04/30/23 15:00 59 L 13 124/61 91 L 04/30/23 14:45 58 L 16 117/62 91 L 04/30/23 14:30 59 L 17 128/61 91 L 04/30/23 14:15 61 18 136/68 92 L 04/30/23 14:00 62 18 153/97 93 L 04/30/23 13:45 66 18 175/86 94 L 04/30/23 13:30 69 22 168/86 95 04/30/23 13:15 65 16 154/78 93 L 04/30/23 13:00 64 22 147/99 92 L 04/30/23 12:57 94 L 04/30/23 12:45 61 21 165/75 93 L 04/30/23 12:30 98.3 F 137/70 04/30/23 12:15 158/81 04/30/23 12:00 162/75 95 04/30/23 11:40 64 18 165/80 96 04/30/23 11:30 174/81 04/30/23 11:20 67 18 174/81 97 04/30/23 11:10 67 14 188/90 97 04/30/23 11:00 65 18 176/84 98 04/30/23 10:50 64 18 179/82 97 04/30/23 10:40 61 18 187/85 98 Intake and Output 04/30/23 05/01/23 05/01/23 22:59 06:59 14:59 Intake Total 490 1000 500 Output Total 825 0 Balance -335 1000 500 Intake: Oral 490 1000 500 Output: Urine 825 0 Other: Voiding Method Bedpan Toilet Toilet # Voids 1 1 Weight 113.398 kg Results 05/01/23 03:54 05/01/23 03:54 CBC 05/01/23 Range/Units 03:54 WBC 8.3 (3.8-10.6) k/uL RBC 4.35 (3.80-5.40) m/uL Hgb 13.6 (11.4-16.0) gm/dL Hct 41.7 (34.0-46.0) % Plt Count 234 (150-450) k/uL Comprehensive Metabolic Panel 05/01/23 Range/Units 03:54 Sodium 140 (137-145) mmol/L Potassium 3.9 (3.5-5.1) mmol/L Chloride 104 (98-107) mmol/L Carbon Dioxide 28 (22-30) mmol/L BUN 20 H (7-17) mg/dL Creatinine 0.57 (0.52-1.04) mg/dL Glucose 203 H (74-99) mg/dL Calcium 8.8 (8.4-10.2) mg/dL Current Medications Generic Name Dose Route Start Last Admin Trade Name Freq PRN Reason Stop Dose Admin Albuterol Sulfate 2.5 mg 04/30/23 14:25 Albuterol Nebulized 2.5 Mg/3 Ml INHALATION RT-QID PRN Shortness Of Breath Calcium Carbonate/Glycine 500 mg 05/01/23 09:00 05/01/23 08:23 Calcium Carbonate 500 Mg Chewable PO Not Given DAILY PHILLIP Carbidopa/Levodopa 1 each 05/01/23 08:00 Carbidopa-Levodopa 25-100 Mg 1 Each Tab PO BID@0800,1200 PRN Shaking Carbidopa/Levodopa 2 each 04/30/23 16:00 05/01/23 09:51 Carbidopa-Levodopa 25-100 Mg 1 Each Tab PO 2 each QID@04,10,16,22 PHILLIP Administration Cholecalciferol 25 mcg 05/01/23 09:00 05/01/23 08:24 Cholecalciferol 25 Mcg (1000 Iu) Tablet PO Not Given DAILY PHILLIP Dextrose/Water 25 ml 04/30/23 14:24 Dextrose 50% Syringe 50 Ml IVP PER PROTOCOL PRN Hypoglycemia Protocol Dextrose/Water 50 ml 04/30/23 14:24 Dextrose 50% Syringe 50 Ml IVP PER PROTOCOL PRN Hypoglycemia Protocol Diltiazem HCl 240 mg 05/01/23 09:45 05/01/23 09:52 Diltiazem Cd 240 Mg Cap.Er.24h PO 240 mg DAILY PHILLIP Administration Fenofibrate 160 mg 04/30/23 17:30 04/30/23 18:00 Fenofibrate 160 Mg Tab PO 160 mg W/SUPPER PHILLIP Administration Nicardipine HCl 20 mg/ Sodium 200 mls @ 50 mls/hr 04/30/23 11:00 05/01/23 09:29 Chloride IV Not Given .Q4H PHILLIP Protocol 5 MG/HR Insulin Aspart 0 unit 04/30/23 17:30 05/01/23 06:57 Insulin Aspart (Novolog) 100 Unit/Ml Vial SQ 2 unit ACHS PHILLIP Administration Protocol Levothyroxine Sodium 88 mcg 04/30/23 17:30 05/01/23 06:57 Levothyroxine 88 Mcg Tab PO 88 mcg BID-W/MEALS PHILLIP Administration Metoprolol Succinate 50 mg 05/01/23 21:00 Metoprolol Succinate (Er) 50 Mg Tab.Er.24h PO DAILY [facility] Miscellaneous Information 1 each 04/30/23 09:28 Alteplase Per Pharmacy Stroke 1 Each Mis MISCELLANE DIRECTED PRN Stroke Pantoprazole Sodium 40 mg 05/01/23 07:30 05/01/23 06:58 Pantoprazole 40 Mg Tablet PO 40 mg AC-BRKFST PHILLIP Administration Tizanidine HCl 4 mg 04/30/23 16:00 05/01/23 09:51 Tizanidine 4 Mg Tab PO 4 mg QID@04,10,16,22 [facility] Administration Intake and Output 04/30/23 05/01/23 05/01/23 22:59 06:59 14:59 Intake Total 490 1000 500 Output Total 825 0 Balance -335 1000 500 Intake: Oral 490 1000 500 Output: Urine 825 0 Other: Voiding Method Bedpan Toilet Toilet # Voids 1 1 Weight 113.398 kg 05/01/23 03:54 05/01/23 03:54
[2023-05-01 11:34] LABS: Glucose,Whole Blood 155 mg/dL (70-110)
[2023-05-01 13:07] LABS: Chol/HDL Ratio 6.02 Ratio; LDL Cholesterol,Calculated 171.1 mg/dL (0.0-131.0)
--- NOTE | 2023-05-01 13:56 | P.PN ---
Subjective Progress Note Date: 05/01/23 patient is 68-year-old lady with past medical history significant for parkinsonism, hypothyroidism, hypertension, diabetes mellitus who presented to the ER because of left-sided weakness. Patient noted around 8 AM this morning she was having weakness off for the left side, she felt her left leg was very w eak. Patient had a hard time in ambulating and was dragging her left leg. EMS was called and patient was brought to the ER. ER physician evaluated the patient, initial NIH scale was 3. Case was discussed with interventional neurology and patient was deemed candidate for TPA. Patient received TPA and was transferred to ICU for further evaluation and treatment 05/01. Patient seen and examined. States she is back to baseline, denies any weakness of any extremity. left-sided weakness has improved ,denies any slurred speech. Patient was started back on her blood pressure medications. REVIEW OF SYSTEMS: CONSTITUTIONAL: No fever, no malaise,. CARDIOVASCULAR: No chest pain, no palpitations, no syncope. PULMONARY: No shortness of breath, no cough, GASTROINTESTINAL: No diarrhea, no nausea, no vomiting, no abdominal pain. NEUROLOGICAL: No headaches, no weakness, PHYSICAL EXAMINATION: GENERAL: The patient is alert and oriented x3, not in any acute distress. Well developed, well nourished. HEENT: Pupils are round and equally reacting to light. EOMI. No scleral icterus. No conjunctival pallor. Normocephalic, atraumatic. No pharyngeal erythema. No thyromegaly. CARDIOVASCULAR: S1 and S2 present. No murmurs, rubs, or gallops. PULMONARY: Chest is clear to auscultation, no wheezing or crackles. ABDOMEN: Soft, nontender, nondistended, normoactive bowel sounds. No palpable organomegaly. MUSCULOSKELETAL: No joint swelling or deformity. EXTREMITIES: No cyanosis, clubbing, or pedal edema. NEUROLOGICAL: Gross neurological examination did not reveal any focal deficits. SKIN: No rashes. Assessment and plan Acute CVA Hypertension Hyperlipidemia Rhi-nfejthu-phdwfdwtj diabetes mellitus Parkinson's disease Monitor vital signs Monitor CBC Monitor CMP Continue telemetry monitoring Continue neuro checks Cardizem and Toprol has been resumed Follow-up on 2-D echo Cardiology on board Follow-up on neurology recommendations Objective - Vital Signs Vital signs: Vital Signs Temp 98 F 05/01/23 12:00 Pulse 66 05/01/23 12:00 Resp 18 05/01/23 12:00 BP 154/80 05/01/23 12:00 Pulse Ox 97 05/01/23 12:00 FiO2 Intake & Output 04/30/23 05/01/23 05/01/23 18:59 06:59 18:59 Intake Total 360 1250 740 Output Total 275 550 Balance 85 700 740 Weight 113.398 kg Intake: Oral 360 1250 740 Output: Urine 275 550 Other: Voiding Method Bedpan Toilet Toilet # Voids 1 1 - Labs CBC & Chem 7: 05/01/23 03:54 05/01/23 03:54 Labs: Abnormal Lab Results - Last 24 Hours (Table) 04/30/23 04/30/23 04/30/23 Range/Units 09:36 16:28 22:28 Lymphocytes # (1.0-4.8) k/uL BUN (7-17) mg/dL Glucose (74-99) mg/dL POC Glucose (mg/dL) 255 H 354 H (70-110) mg/dL Hemoglobin A1c 6.3 H (<=6.0) % Cholesterol (0.00-200.00) mg/dL LDL Cholesterol, Calc (0.0-131.0) mg/dL HDL Cholesterol (40.00-60.00) mg/dL 05/01/23 05/01/23 05/01/23 Range/Units 03:54 03:54 03:54 Lymphocytes # 0.8 L (1.0-4.8) k/uL BUN 20 H (7-17) mg/dL Glucose 203 H (74-99) mg/dL POC Glucose (mg/dL) (70-110) mg/dL Hemoglobin A1c 6.4 H (<=6.0) % Cholesterol 240.00 H (0.00-200.00) mg/dL LDL Cholesterol, Calc 171.1 H (0.0-131.0) mg/dL HDL Cholesterol 39.90 L (40.00-60.00) mg/dL 05/01/23 05/01/23 Range/Units 06:51 11:33 Lymphocytes # (1.0-4.8) k/uL BUN (7-17) mg/dL Glucose (74-99) mg/dL POC Glucose (mg/dL) 164 H 155 H (70-110) mg/dL Hemoglobin A1c (<=6.0) % Cholesterol (0.00-200.00) mg/dL LDL Cholesterol, Calc (0.0-131.0) mg/dL HDL Cholesterol (40.00-60.00) mg/dL
[2023-05-01] MEDS: CLOPIDOGREL 75 MG TAB PO SCH (16:08)
[2023-05-01 16:46] LABS: Glucose,Whole Blood 168 mg/dL (70-110)
[2023-05-01] MEDS: FENOFIBRATE 160 MG TAB PO SCH (17:09)
[2023-05-01 18:55] LABS: Glucose,Whole Blood 216 mg/dL (70-110)
[2023-05-01] MEDS ORDERED: methylPREDNISolone SOD SUCCI 125 MG/2 ML VIAL IV STA (19:05)
[2023-05-01] MEDS ORDERED: diphenhydrAMINE 50 MG/ML 1 ML VIAL IVP STA (19:06)
--- NOTE | 2023-05-01 19:52 | CT ---
EXAMINATION TYPE: CT brain wo con CT DLP: 1235.6 mGycm, Automated exposure control for dose reduction was used. DATE OF EXAM: 05/01/2023 7:28 PM COMPARISON: CT brain 05/01/2023 9:10 AM, CTA head and neck 04/30/2023, CT brain 04/30/2023. CLINICAL INDICATION:Female, 68 years old with history of stroke symptoms, Stroke symptoms TECHNIQUE: Brain: Axial CT images of the brain were obtained with coronal and sagittal reformats created and rev iewed. Contrast used: None. Oral contrast used: None. FINDINGS: Brain: Extra-axial spaces: No abnormal extra-axial fluid collections. Ventricular system: Dilatation in proportion to cerebral atrophy. Cerebral parenchyma: No acute intraparenchymal hemorrhage or mass effect. Remote lacunar injuries inv olving the bilateral basal ganglia are similar to prior. The remainder of the rodríguez-white junctions ar e well differentiated. Scattered hypoattenuating areas are seen within the white matter. Cerebellum: Unremarkable. Mass effect: No evidence of midline shift. Intracranial vasculature: Atherosclerotic calcifications of the intracranial vessels. Soft tissues: Normal. Calvarium/osseous structures: No depressed skull fracture. Paranasal sinuses and mastoid air cells: Clear. Mastoid air cells are Clear Visualized orbits: Orbital contents are intact. Findings communicated to Daina Sears 05/01/2023 7:[address] Alessandra Chicas. IMPRESSION: 1. No acute intracranial process. No significant change from earlier examination. 2. Remote lacunar injuries bilaterally and nonspecific white matter changes, likely related to chroni c microangiopathy.
--- NOTE | 2023-05-01 20:02 | CT ---
EXAMINATION TYPE: CT angio head neck CT DLP: 778.3 mGycm, Automated exposure control for dose reduction was used. DATE OF EXAM: 05/01/2023 7:49 PM COMPARISON: CT brain 05/01/2023 7:25 PM, CT brain 05/01/2023 9:10 AM, CTA head neck 04/30/2023. CLINICAL INDICATION:Female, 68 years old with history of stroke symptoms; PHH, code stroke TECHNIQUE: Axially acquired helical CT angiogram of the head and neck was obtained with contrast. Axi al images are supplemented with 3D reconstructions which [facility] NASCET criteria used. Contrast used:65 cc mL of Isovue 370 with IV Contrast, Oral contrast used: None. FINDINGS: CTA HEAD: No evidence of acute intracranial hemorrhage, mass effect, or midline shift. Remote lacunar injuries of the basal ganglia are noted bilaterally. The ventricles, sulci, and cisterns are unremarkable. The visualized portions of the internal carotid arteries, middle cerebral arteries, anterior cerebral arteries, and posterior cerebral arteries are patent. Calcified atherosclerosis of the internal soto tid arteries bilaterally. The basilar and vertebral arteries are patent. CTA NECK: Right Carotid System: The common carotid artery and external carotid artery are patent. The carotid bifurcation demonstrate s approximately 25% stenosis secondary to calcified and noncalcified atherosclerotic plaquing. The re maining portions of the internal carotid artery demonstrate normal size without significant narrowing . Left Carotid System: The common carotid artery and external carotid artery are patent. The carotid bifurcation demonstrate s approximately 25% stenosis secondary to calcified and noncalcified atherosclerotic plaquing. The re maining portions of the internal carotid artery demonstrate normal size without significant narrowing . Vertebral arteries are patent without evidence hemodynamically significant stenosis. There is a three-vessel aortic arch. The origins of the great vessels are patent. No evidence of hemo dynamically significant stenosis. Partially calcified lymph nodes are noted within the upper mediastinum. IMPRESSION: 1. No evidence of dissection of the cervical internal carotid arteries or vertebral arteries or any e vidence of significant stenosis at the carotid bifurcations. 2. No evidence of intracranial high-grade stenosis or intracranial aneurysm.
[2023-05-01] MEDS: ASPIRIN 325 MG TAB PO SCH (20:37)
[2023-05-01] MEDS: ATORVASTATIN 80 MG TAB PO SCH (20:37)
[2023-05-01 21:28] LABS: Glucose,Whole Blood 194 mg/dL (70-110)
[2023-05-01] MEDS: METOPROLOL SUCCINATE (ER) 50 MG TAB.ER.24H PO SCH ×2 (22:12→23:59)
--- NOTE | 2023-05-02 01:39 | P.PN ---
Subjective Progress Note Date: 05/01/23 Patient was seen for a follow-up. Patient is doing very well. She states all symptoms have resolved. She wants to go home. Patient states that she walked 2 laps with the nurses, and was doing fine. No weakness. No numbness. Patient is sitting in the recliner. Fully alert and awake. Objective - Vital Signs Vital signs: Vital Signs Temp 98 F 05/01/23 12:00 Pulse 66 05/01/23 12:00 Resp 18 05/01/23 12:00 BP 154/80 05/01/23 12:00 Pulse Ox 97 05/01/23 12:00 FiO2 Intake & Output 04/30/23 05/01/23 05/01/23 18:59 06:59 18:59 Intake Total 360 1250 740 Output Total 275 550 Balance 85 700 740 Weight 113.398 kg Intake: Oral 360 1250 740 Output: Urine 275 550 Other: Voiding Method Bedpan Toilet Toilet # Voids 1 1 - Exam Patient is sitting in the recliner. Patient is alert awake oriented times and person. Speech and language functions are normal. 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 On muscle strength testing no pronator drift and the strength is normal in arms and legs with incisions are equal. No ataxia. - Labs CBC & Chem 7: 05/01/23 03:54 05/01/23 03:54 Labs: Abnormal Lab Results - Last 24 Hours (Table) 04/30/23 04/30/23 04/30/23 Range/Units 09:36 16:28 22:28 Lymphocytes # (1.0-4.8) k/uL BUN (7-17) mg/dL Glucose (74-99) mg/dL POC Glucose (mg/dL) 255 H 354 H (70-110) mg/dL Hemoglobin A1c 6.3 H (<=6.0) % Cholesterol (0.00-200.00) mg/dL LDL Cholesterol, Calc (0.0-131.0) mg/dL HDL Cholesterol (40.00-60.00) mg/dL 05/01/23 05/01/23 05/01/23 Range/Units 03:54 03:54 03:54 Lymphocytes # 0.8 L (1.0-4.8) k/uL BUN 20 H (7-17) mg/dL Glucose 203 H (74-99) mg/dL POC Glucose (mg/dL) (70-110) mg/dL Hemoglobin A1c 6.4 H (<=6.0) % Cholesterol 240.00 H (0.00-200.00) mg/dL LDL Cholesterol, Calc 171.1 H (0.0-131.0) mg/dL HDL Cholesterol 39.90 L (40.00-60.00) mg/dL 05/01/23 05/01/23 Range/Units 06:51 11:33 Lymphocytes # (1.0-4.8) k/uL BUN (7-17) mg/dL Glucose (74-99) mg/dL POC Glucose (mg/dL) 164 H 155 H (70-110) mg/dL Hemoglobin A1c (<=6.0) % Cholesterol (0.00-200.00) mg/dL LDL Cholesterol, Calc (0.0-131.0) mg/dL HDL Cholesterol (40.00-60.00) mg/dL Assessment and Plan Assessment: * Probable acute ischemic stroke, manifesting with left arm and left leg weakness. Patient's NIH stroke scale was 3 in the ER. Patient has received TPA. At present patient's NIH stroke scale is 0. * Hypertension * Diabetes * Obesity * Parkinson's disease, stable * History of left Quinones's palsy Plan: * Patient has received TPA, and she is doing better. Her deficits have completely resolved. * Repeat CT head 24 hours post-TPA revealed no acute intracranial process. Remote lacunar injuries along with nonspecific bipedal changes likely secondary to chronic microangiopathy. I personally reviewed CT head, agree with the findings.. Patient was recommended aspirin 325 mg earlier, but she declined. I discussed with patient about Plavix 75 mg daily. Patient says that she has history of family feeling after taking aspirin, and it "ate her stomach", therefore was very reluctant to take Plavix. After prolonged discussion, patient agreed to take Plavix. No aspirin. * 2-D echo with bubble study to rule out PFO * CTA head and neck showed: No evidence of dissection of the cervical internal carotid arteries or vertebral arteries or any evidence of significant stenosis at the carotid bifurcations. No evidence of intracranial high-grade stenosis or intracranial aneurysm. * Fasting a.m. lipid panel with cholesterol 240, LDL 171, HDL 39 and triglycerides 145. Patient to be started on high intensity statins with Lipitor 80 mg daily. * Hemoglobin A1c 6.4 * Permissive hypertension for next 24-48 hours, but keep blood pressure < 180/100. * Close neuro checks as per protocol. * Telemetry monitoring rule out any arrhythmia * PT, OT, speech therapy. * Continue her home medications for Parkinson's disease. * DVT prophylaxis: Heparin 5000 units subcu every 12 hours. * Dr. Perry De Dios to start neurology service from the morning.
[2023-05-02] MEDS: tiZANidine 4 MG TAB PO SCH ×4 (03:49→21:09)
[2023-05-02] MEDS: CARBIDOPA-LEVODOPA 25-100 MG 1 EACH TAB PO SCH ×4 (03:49→21:24)
[2023-05-02 05:44] LABS: Basophils % (A) 0 %; Eosinophils % (A) 0 %; HCT 44.2 % (34.0-46.0); HGB 14.3 gm/dL (11.4-16.0); Lymphocytes # (A) 0.6 k/uL (1.0-4.8); Lymphocytes % (A) 6 %; MCH 31.1 pg (25.0-35.0); MCHC 32.4 g/dL (31.0-37.0); MCV 96.2 fL (80.0-100.0); Mean Platelet Volume 8.9; Monocytes # (A) 0.2 k/uL (0-1.0); Monocytes % (A) 2 %; Neutrophils # (A) 9.7 k/uL (1.3-7.7); Neutrophils % (A) 92 %; Platelet Count 199 k/uL (150-450); RDW 13.4 % (11.5-15.5); WBC 10.6 k/uL (3.8-10.6)
[2023-05-02 06:02] LABS: African American GFR (CKD) >90 (>60 ml/min/1.73 sqM); Anion Gap 11 mmol/L; Blood Urea Nitrogen 22 mg/dL (7-17); Calcium 9.1 mg/dL (8.4-10.2); Carbon Dioxide 26 mmol/L (22-30); Chloride 102 mmol/L (98-107); Glucose 326 mg/dL (74-99); Non-African American GFR(CKD) >90 (>60 ml/min/1.73 sqM); Potassium 4.2 mmol/L (3.5-5.1); Sodium 139 mmol/L (137-145)
[2023-05-02] MEDS: LEVOTHYROXINE 88 MCG TAB PO SCH ×2 (06:42→16:32)
[2023-05-02] MEDS: PANTOPRAZOLE 40 MG TABLET PO SCH (06:42)
[2023-05-02 06:49] LABS: Glucose,Whole Blood 289 mg/dL (70-110)
[2023-05-02] MEDS: INSULIN ASPART (NovoLOG) 100 UNIT/ML VIAL SQ SCH ×4 (06:56→21:08)
--- NOTE | 2023-05-02 08:57 | P.PN ---
Subjective Progress Note Date: 05/02/23 68-year-old female who presents to the emergency department, on April 30, complaining of neurologic symptoms. She apparently started noticing some heaviness in her arms and legs, and felt like she was not moving her left leg properly and had lost some strength and coordination. She apparently had some d ifficulty ambulating, and was dragging her left leg. She denied any chest pain or headache, and denied any right-sided symptoms. Apparently the patient did have some slurred speech, but denied any facial droop. The patient had an NIH score of 3, and apparently received TPA, after having a head CT, and angiography CT. The patient will be transferred to the intensive care unit for further monitoring and management. She apparently has a history of diabetes, DVT, hypertension, Parkinson's disease, hypothyroidism, and moderate aortic stenosis based on a previous echocardiogram, December 2022. White count 8.6, hemoglobin 14.6, hematocrit 44.2, and platelet count 259,000. Sodium 141, potassium 4.4, chlorides 104, CO2 26, anion gap 11, BUN 22, creatinine 0.79. Chest x-rays consistent with cardiomegaly, although I do not see any acute abnormalities. Results of the brain CT, and angiography CT, are reviewed. Progress note dated 05/01/2023. 68-year-old female who was seen in the emergency department yesterday, April 30, complaining of heaviness in her arms and legs, and a weak left leg. The patient did receive TPA, after having a head CT. She was transferred to the intensive care unit for further monitoring and management. Currently, she is on room air. She's not receiving any IV fluids. A repeat computed tomography scan of the brain showed no acute intracranial process, and remote lacunar injuries. The patient's CBC is completely normal. Sodium 140, potassium 3.9, chlorides 104, CO2 28, BUN 20, creatinine 0.57. Glucose 203. We did consult cardiology for what we suspect to be moderate to severe aortic stenosis. They have not seen her as yet. On today's evaluation of 05/02/2023, the patient is awake and alert and she has no neurological deficits. Normal speech, normal swallow, no weakness in her left side. Note that she had another episode of numbness and tingling in her left upper and left lower extremity. A repeat CAT scan of the brain and a CT angiogram showed no evidence of any stroke or dissection. The patient is currently on aspirin. She is doing well. She is an overflow patient. Normal oxygenation. Normal hemodynamics. Cardiac rhythm is sinus. She does have an aortic stenosis murmur and we are awaiting the results of the echocardiogram today. Labs are within normal limits. No other issues for now. Her symptoms have recovered along and she recovered within an hour Objective - Vital Signs Vital signs: Vital Signs Temp 98 F 05/01/23 18:50 Pulse 70 05/02/23 07:00 Resp 19 05/02/23 07:00 BP 183/96 05/02/23 07:00 Pulse Ox 98 05/02/23 07:00 FiO2 Intake & Output 05/01/23 05/02/23 05/02/23 18:59 06:59 18:59 Intake Total 980 Output Total 900 Balance 980 -900 Intake: Oral 980 Output: Urine 900 Other: Voiding Method Toilet Toilet # Voids 1 - Exam No acute distress, oriented 3. Currently on room air. Saturations are 97%. HEENT examination is grossly unremarkable. Neck supple. Full range of motion. No adenopathy thyromegaly or neck vein distention. Cardiovascular examination reveals regular rhythm rate. S1-S2 normal. No S3 or S4. A harsh grade 2-3/6 systolic murmur is noted, consistent with aortic stenosis. Lungs reveal clear breath sounds. Her sounds are equal bilaterally. No adventitious lung sounds including wheezes rhonchi or crackles. Abdomen soft bowel sounds are heard. No masses or tenderness. Extremities are intact. No cyanosis clubbing or edema. Skin is without rash or lesion. Neurologic examination reveals improved left leg weakness.Neurologically, the patient is awake and alert and the patient does not have any focal neurological deficit. Cranial nerves are essentially intact. - Labs CBC & Chem 7: 05/02/23 04:37 05/02/23 04:37 Labs: Abnormal Lab Results - Last 24 Hours (Table) 05/01/23 05/01/23 05/01/23 Range/Units 03:54 03:54 11:33 Neutrophils # (1.3-7.7) k/uL Lymphocytes # (1.0-4.8) k/uL BUN (7-17) mg/dL Glucose (74-99) mg/dL POC Glucose (mg/dL) 155 H (70-110) mg/dL Hemoglobin A1c 6.4 H (<=6.0) % Cholesterol 240.00 H (0.00-200.00) mg/dL LDL Cholesterol, Calc 171.1 H (0.0-131.0) mg/dL HDL Cholesterol 39.90 L (40.00-60.00) mg/dL 05/01/23 05/01/23 05/01/23 Range/Units 16:45 18:53 21:27 Neutrophils # (1.3-7.7) k/uL Lymphocytes # (1.0-4.8) k/uL BUN (7-17) mg/dL Glucose (74-99) mg/dL POC Glucose (mg/dL) 168 H 216 H 194 H (70-110) mg/dL Hemoglobin A1c (<=6.0) % Cholesterol (0.00-200.00) mg/dL LDL Cholesterol, Calc (0.0-131.0) mg/dL HDL Cholesterol (40.00-60.00) mg/dL 05/02/23 05/02/23 05/02/23 Range/Units 04:37 04:37 06:47 Neutrophils # 9.7 H (1.3-7.7) k/uL Lymphocytes # 0.6 L (1.0-4.8) k/uL BUN 22 H (7-17) mg/dL Glucose 326 H (74-99) mg/dL POC Glucose (mg/dL) 289 H (70-110) mg/dL Hemoglobin A1c (<=6.0) % Cholesterol (0.00-200.00) mg/dL LDL Cholesterol, Calc (0.0-131.0) mg/dL HDL Cholesterol (40.00-60.00) mg/dL Assessment and Plan Plan: Suspected CVA, status post TPA administration. Patient is coming today on aspirin. The patient had another episode of numbness in her left upper and left lower extremity yesterday and the workup is negative and the symptoms of completely recovered. She is alert and oriented and neurologically intact at this point in time. Moderate aortic stenosis, as determined by recent echocardiogram. obesity History of Parkinson's disease. History of diabetes mellitus type 2 , metformin, actos and Amaryl History of hypothyroidism. History of hyperlipidemia. History of hypertension. History of deep venous thrombosis. History of tobacco use/nicotine dependence. Plan: Continue aspirin, and Plavix Continue fenofibrate Continue metoprolol and Cardizem Continue high dose statins with Lipitor 80 mg by mouth daily Awaiting the results of the echocardiogram Continue Sinemet Continue thyroid hormone replacement and the patient is currently on 88 g on a daily basis We'll continue to follow. Awaiting urologic follow-up. Monitor the neurologic outcome over the next 24 hours. We'll continue to follow.
--- NOTE | 2023-05-02 09:20 | P.PN ---
Subjective Progress Note Date: 05/02/23 The patient is a 68-year-old female with past medical history of diabetes, hypertension, dyslipidemia, DVT, and aortic stenosis, who presented to the hospital with left-sided weakness. She was ruled in for an acute CVA and underwent TPA administration with improvement of symptoms. Computed tomography scan of the brain showed no acute abnormalities and CT of the neck was unremarkable. Overnight the patient had an additional episode of left-sided weakness. This was witnessed by nursing staff, lasting approximately 30 minutes. No atrial fibrillation was noted on telemetry. Awaiting echocardiogram. The patient states she is feeling well now. No chest pain or chest pressure. No difficulty breathing. No dizziness or lightheadedness. GENERAL: Well-appearing, well-nourished and in no acute distress. NECK: Supple without JVD or thyromegaly. LUNGS: Breath sounds clear to auscultation bilaterally. Respiration equal and unlabored. No wheezes, rales or rhonchi. HEART: Regular rate and rhythm. Systolic ejection murmur. No rubs or gallops. S1 and S2 heard. EXTREMITIES: Normal range of motion, no edema. No clubbing or cyanosis. Peripheral pulses intact and strong. TELEMETRY: Sinus rhythm overnight IMPRESSION: Acute CVA/TIA, resolved with TPA administration Recurrent episode of left-sided weakness Hypertension Dyslipidemia Aortic stenosis Diabetes PLAN: Antiplatelet therapy (aspirin dose) per neurology Resume valsartan 80 mg twice daily Echocardiogram pending Outpatient arrhythmia monitoring I am dictating on behalf of Dr Chris Rodríguez's history/physical and assessment/plan. Objective - Vital Signs Vital signs: Vital Signs Temp 98 F 05/01/23 18:50 Pulse 70 05/02/23 07:00 Resp 19 05/02/23 07:00 BP 183/96 05/02/23 07:00 Pulse Ox 95 05/02/23 08:58 FiO2 Intake & Output 05/01/23 05/02/23 05/02/23 18:59 06:59 18:59 Intake Total 980 Output Total 900 Balance 980 -900 Intake: Oral 980 Output: Urine 900 Other: Voiding Method Toilet Toilet # Voids 1 - Labs CBC & Chem 7: 05/02/23 04:37 05/02/23 04:37 Labs: Abnormal Lab Results - Last 24 Hours (Table) 05/01/23 05/01/2305/01/23 Range/Units 03:54 03:54 11:33 Neutrophils # (1.3-7.7) k/uL Lymphocytes # (1.0-4.8) k/uL BUN (7-17) mg/dL Glucose (74-99) mg/dL POC Glucose (mg/dL) 155 H (70-110) mg/dL Hemoglobin A1c 6.4 H (<=6.0) % Cholesterol 240.00 H (0.00-200.00) mg/dL LDL Cholesterol, Calc 171.1 H (0.0-131.0) mg/dL HDL Cholesterol 39.90 L (40.00-60.00) mg/dL 05/01/23 05/01/23 05/01/23 Range/Units 16:45 18:53 21:27 Neutrophils # (1.3-7.7) k/uL Lymphocytes # (1.0-4.8) k/uL BUN (7-17) mg/dL Glucose (74-99) mg/dL POC Glucose (mg/dL) 168 H 216 H 194 H (70-110) mg/dL Hemoglobin A1c (<=6.0) % Cholesterol (0.00-200.00) mg/dL LDL Cholesterol, Calc (0.0-131.0) mg/dL HDL Cholesterol (40.00-60.00) mg/dL 05/02/23 05/02/23 05/02/23 Range/Units 04:37 04:37 06:47 Neutrophils # 9.7 H (1.3-7.7) k/uL Lymphocytes # 0.6 L (1.0-4.8) k/uL BUN 22 H (7-17) mg/dL Glucose 326 H (74-99) mg/dL POC Glucose (mg/dL) 289 H (70-110) mg/dL Hemoglobin A1c (<=6.0) % Cholesterol (0.00-200.00) mg/dL LDL Cholesterol, Calc (0.0-131.0) mg/dL HDL Cholesterol (40.00-60.00) mg/dL
[2023-05-02] MEDS: CALCIUM CARBONATE 500 MG CHEWABLE PO SCH (09:41)
[2023-05-02] MEDS: CHOLECALCIFEROL 25 MCG (1000 IU) TABLET PO SCH (09:41)
[2023-05-02] MEDS: ASPIRIN 325 MG TAB PO SCH (09:43)
[2023-05-02] MEDS: CLOPIDOGREL 75 MG TAB PO SCH (09:43)
[2023-05-02] MEDS: DILTIAZEM CD 240 MG CAP.ER.24H PO SCH (09:46)
[2023-05-02] MEDS: VALSARTAN 80 MG TAB PO SCH ×2 (09:47→21:08)
[2023-05-02] MEDS: HEPARIN SODIUM,PORCINE/PF 5,000 UNIT/0.5 ML SYRINGE SQ SCH ×2 (10:02→21:09)
[2023-05-02 11:37] LABS: Glucose,Whole Blood 251 mg/dL (70-110)
[2023-05-02] MEDS: METOPROLOL SUCCINATE (ER) 50 MG TAB.ER.24H PO SCH (12:11)
--- NOTE | 2023-05-02 13:12 | P.PN ---
Subjective Progress Note Date: 05/02/23 I am seeing the patient for the first time during this admission. It seems the patient had two episode of left heimparesis. Initially she presented with left heimparesis and received IV tpa and sypmtoms resolved. Then it seems she had another episode left hemiparesis that resolved. Per the patient, she feels she is heavy on the left side and does not aware of consciousness. Denies history of seizures. She feels back to baseline and per nurse is doing well. Please refer to Dr. Pederson's notes for further details. Objective - Vital Signs Vital signs: Vital Signs Temp 98.1 F 05/02/23 12:00 Pulse 75 05/02/23 12:00 Resp 16 05/02/23 12:00 BP 163/76 05/02/23 12:00 Pulse Ox 99 05/02/23 12:00 FiO2 Intake & Output 05/01/23 05/02/23 05/02/23 18:59 06:59 18:59 Intake Total 980 Output Total 900 Balance 980 -900 Intake: Oral 980 Output: Urine 900 Other: Voiding Method Toilet Toilet # Voids 1 - Exam General: Sitting in a recliner chair and is not in acute distress. Neuro: Higher mental function: The patient is awake, alert, oriented to self, place and time. Patient is following commands. No aphasia and no neglect. Cranial nerves: The pupils are round, equal and reactive to light. Visual garcia are full to confrontation throughout. Extraocular movement is intact no nystagmus is noted. Facial sensation is normal to touch throughout. The facial strength is normal throughout. Tongue is midline and moved [id number] without any difficulty. No dysarthria is noted. Shoulder shrug is normal bilaterally. Motor: The strength is 5 over 5 throughout. Normal tone and bulk. Cerebellum: Normal finger to nose bilaterally. Sensation: Sensation is normal to touch throughout. Reflexes (right/left): 2+ throughout. - Labs CBC & Chem 7: 05/02/23 04:37 05/02/23 04:37 Labs: Abnormal Lab Results - Last 24 Hours (Table) 05/01/23 05/01/23 05/01/23 Range/Units 03:54 03:54 16:45 Neutrophils # (1.3-7.7) k/uL Lymphocytes # (1.0-4.8) k/uL BUN (7-17) mg/dL Glucose (74-99) mg/dL POC Glucose (mg/dL) 168 H (70-110) mg/dL Hemoglobin A1c 6.4 H (<=6.0) % Cholesterol 240.00 H (0.00-200.00) mg/dL LDL Cholesterol, Calc 171.1 H (0.0-131.0) mg/dL HDL Cholesterol 39.90 L (40.00-60.00) mg/dL 05/01/23 05/01/23 05/02/23 Range/Units 18:53 21:27 04:37 Neutrophils # 9.7 H (1.3-7.7) k/uL Lymphocytes # 0.6 L (1.0-4.8) k/uL BUN (7-17) mg/dL Glucose (74-99) mg/dL POC Glucose (mg/dL) 216 H 194 H (70-110) mg/dL Hemoglobin A1c (<=6.0) % Cholesterol (0.00-200.00) mg/dL LDL Cholesterol, Calc (0.0-131.0) mg/dL HDL Cholesterol (40.00-60.00) mg/dL 05/02/23 05/02/23 05/02/23 Range/Units 04:37 06:47 11:34 Neutrophils # (1.3-7.7) k/uL Lymphocytes # (1.0-4.8) k/uL BUN 22 H (7-17) mg/dL Glucose 326 H (74-99) mg/dL POC Glucose (mg/dL) 289 H 251 H (70-110) mg/dL Hemoglobin A1c (<=6.0) % Cholesterol (0.00-200.00) mg/dL LDL Cholesterol, Calc (0.0-131.0) mg/dL HDL Cholesterol (40.00-60.00) mg/dL Assessment and Plan Assessment: * Probable acute ischemic stroke, manifesting with left arm and left leg weakness. Patient's NIH stroke scale was 3 in the ER. Patient has received TPA. At present patient's NIH stroke scale is 0. Then had a nother episode of left hemiparesis at 6ishpm and symptoms resolved (and during episode did not lose consciousness). Possible TIA but cannot focal motor seizure without LOC. * Hypertension * Diabetes * Obesity * Parkinson's disease, stable * History of left Quinones's palsy Plan: * Repeat CT head 24 hours post-TPA revealed no acute intracranial process. Remote lacunar injuries along with nonspecific bipedal changes likely secondary to chronic microangiopathy. I personally reviewed CT head, agree with the findings.. Dr. Pederson has placed her on ASA 81mg daily (nurse verified this dose today with him) and Plavix 75mg daily. * 2-D echo with bubble study to rule out PFO * CTA head and neck showed: No evidence of dissection of the cervical internal carotid arteries or vertebral arteries or any evidence of significant stenosis at the carotid bifurcations. No evidence of intracranial high-grade stenosis or intracranial aneurysm. * Had repeat left hemiparesis yesterday at 6ish and repeat CT yesterday: CT head revealed no acute intracranial processes. No significant change from earlier examination. Remote lacunar injuries bilaterally and nonspecific white matter changes, likely related to chronic microangiopathy. CTA of head and neck revealed no significant stenosis, occlusion or aneurysm. * Patient refused MRI Brain. * I will obtain a routine EEG to rule out underlying seizure or discharges (will be performed tomorrow since no one at present time). * Fasting a.m. lipid panel with cholesterol 240, LDL 171, HDL 39 and triglycerides 145. On Lipitor 80 mg daily. * Hemoglobin A1c 6.4 * Continue neuro checks. * Telemetry monitoring rule out any arrhythmia * PT, OT, speech therapy. * Continue her home medications for Parkinson's disease. * DVT prophylaxis: Heparin 5000 units subcu every 12 hours. * Recommend patient to follow-up with neurologist as outpatient within 1-2 weeks. The plan is discussed with patient and her nurse. If routine EEG is normal and she continues to be stable and no further deficits then is clear from neurological perspective. Time with Patient: Less than 30
--- NOTE | 2023-05-02 14:59 | P.PN ---
Subjective Progress Note Date: 05/02/23 patient is 68-year-old lady with past medical history significant for parkinsonism, hypothyroidism, hypertension, diabetes mellitus who presented to the ER because of left-sided weakness. Patient noted around 8 AM this morning she was having weakness off for the left side, she felt her left leg was very w eak. Patient had a hard time in ambulating and was dragging her left leg. EMS was called and patient was brought to the ER. ER physician evaluated the patient, initial NIH scale was 3. Case was discussed with interventional neurology and patient was deemed candidate for TPA. Patient received TPA and was transferred to ICU for further evaluation and treatment 05/01. Patient seen and examined. States she is back to baseline, denies any weakness of any extremity. left-sided weakness has improved ,denies any slurred speech. Patient was started back on her blood pressure medications. 05/02. Patient seen and examined. 2-D echo pending. Patient had episode of left-sided weakness overnight, lasting 20-30 minutes. Currently she is back to baseline. Denies any slurred speech REVIEW OF SYSTEMS: CONSTITUTIONAL: No fever, no malaise,. CARDIOVASCULAR: No chest pain, no palpitations, no syncope. PULMONARY: No shortness of breath, no cough, GASTROINTESTINAL: No diarrhea, no nausea, no vomiting, no abdominal pain. NEUROLOGICAL: No headaches, no weakness, PHYSICAL EXAMINATION: GENERAL: The patient is alert and oriented x3, not in any acute distress. Well developed, well nourished. HEENT: Pupils are round and equally reacting to light. EOMI. No scleral icterus. No conjunctival pallor. Normocephalic, atraumatic. No pharyngeal erythema. No thyromegaly. CARDIOVASCULAR: S1 and S2 present. No murmurs, rubs, or gallops. PULMONARY: Chest is clear to auscultation, no wheezing or crackles. ABDOMEN: Soft, nontender, nondistended, normoactive bowel sounds. No palpable organomegaly. MUSCULOSKELETAL: No joint swelling or deformity. EXTREMITIES: No cyanosis, clubbing, or pedal edema. NEUROLOGICAL: Gross neurological examination did not reveal any focal deficits. SKIN: No rashes. Assessment and plan Acute CVA Hypertension Hyperlipidemia [id number] diabetes mellitus Parkinson's disease Monitor vital signs Monitor CBC Monitor CMP Continue telemetry monitoring Continue neuro checks Continue aspirin and Lipitor Cardizem and Toprol has been resumed Follow-up on 2-D echo Cardiology on board Follow-up on neurology recommendations Objective - Vital Signs Vital signs: Vital Signs Temp 98 F 05/01/23 18:50 Pulse 70 05/02/23 07:00 Resp 19 05/02/23 07:00 BP 183/96 05/02/23 07:00 Pulse Ox 95 05/02/23 08:58 FiO2 Intake & Output 05/01/23 05/02/23 05/02/23 18:59 06:59 18:59 Intake Total 980 Output Total 900 Balance 980 -900 Intake: Oral 980 Output: Urine 900 Other: Voiding Method Toilet Toilet # Voids 1 - Labs CBC & Chem 7: 05/02/23 04:37 05/02/23 04:37 Labs: Abnormal Lab Results - Last 24 Hours (Table) 05/01/23 05/01/23 05/01/23 Range/Units 03:54 03:54 11:33 Neutrophils # (1.3-7.7) k/uL Lymphocytes # (1.0-4.8) k/uL BUN (7-17) mg/dL Glucose (74-99) mg/dL POC Glucose (mg/dL) 155 H (70-110) mg/dL Hemoglobin A1c 6.4 H (<=6.0) % Cholesterol 240.00 H (0.00-200.00) mg/dL LDL Cholesterol, Calc 171.1 H (0.0-131.0) mg/dL HDL Cholesterol 39.90 L (40.00-60.00) mg/dL 05/01/23 05/01/23 05/01/23 Range/Units 16:45 18:53 21:27 Neutrophils # (1.3-7.7) k/uL Lymphocytes # (1.0-4.8) k/uL BUN (7-17) mg/dL Glucose (74-99) mg/dL POC Glucose (mg/dL) 168 H 216 H 194 H (70-110) mg/dL Hemoglobin A1c (<=6.0) % Cholesterol (0.00-200.00) mg/dL LDL Cholesterol, Calc (0.0-131.0) mg/dL HDL Cholesterol (40.00-60.00) mg/dL 05/02/23 05/02/2305/02/23 Range/Units 04:37 04:37 06:47 Neutrophils # 9.7 H (1.3-7.7) k/uL Lymphocytes # 0.6 L (1.0-4.8) k/uL BUN 22 H (7-17) mg/dL Glucose 326 H (74-99) mg/dL POC Glucose (mg/dL) 289 H (70-110) mg/dL Hemoglobin A1c (<=6.0) % Cholesterol (0.00-200.00) mg/dL LDL Cholesterol, Calc (0.0-131.0) mg/dL HDL Cholesterol (40.00-60.00) mg/dL
[2023-05-02 16:27] LABS: Glucose,Whole Blood 280 mg/dL (70-110)
[2023-05-02] MEDS: FENOFIBRATE 160 MG TAB PO SCH (16:34)
[2023-05-02 20:08] LABS: Glucose,Whole Blood 244 mg/dL (70-110)
[2023-05-02] MEDS: ATORVASTATIN 80 MG TAB PO SCH (21:08)
[2023-05-03] MEDS: CARBIDOPA-LEVODOPA 25-100 MG 1 EACH TAB PO SCH ×3 (04:08→17:50)
[2023-05-03] MEDS: tiZANidine 4 MG TAB PO SCH ×3 (04:09→17:50)
[2023-05-03 06:05] LABS: African American GFR (CKD) >90 (>60 ml/min/1.73 sqM); Anion Gap 9 mmol/L; Blood Urea Nitrogen 19 mg/dL (7-17); Calcium 9.1 mg/dL (8.4-10.2); Carbon Dioxide 28 mmol/L (22-30); Chloride 101 mmol/L (98-107); Glucose 186 mg/dL (74-99); Non-African American GFR(CKD) >90 (>60 ml/min/1.73 sqM); Potassium 3.9 mmol/L (3.5-5.1); Sodium 138 mmol/L (137-145)
[2023-05-03 06:15] LABS: Basophils # (A) 0.1 k/uL (0-0.2); Basophils % (A) 1 %; Eosinophils # (A) 0.1 k/uL (0-0.7); Eosinophils % (A) 1 %; HGB 13.9 gm/dL (11.4-16.0); Lymphocytes # (A) 2.4 k/uL (1.0-4.8); Lymphocytes % (A) 23 %; MCH 31.2 pg (25.0-35.0); MCHC 32.3 g/dL (31.0-37.0); MCV 96.5 fL (80.0-100.0); Mean Platelet Volume 8.4; Monocytes # (A) 0.6 k/uL (0-1.0); Monocytes % (A) 6 %; Neutrophils # (A) 7.1 k/uL (1.3-7.7); Neutrophils % (A) 68 %; Platelet Count 227 k/uL (150-450); RBC 4.46 m/uL (3.80-5.40); RDW 13.2 % (11.5-15.5); WBC 10.5 k/uL (3.8-10.6)
[2023-05-03 06:43] LABS: Glucose,Whole Blood 171 mg/dL (70-110)
[2023-05-03] MEDS: PANTOPRAZOLE 40 MG TABLET PO SCH (06:50)
[2023-05-03] MEDS: LEVOTHYROXINE 88 MCG TAB PO SCH ×2 (06:50→17:49)
[2023-05-03] MEDS: INSULIN ASPART (NovoLOG) 100 UNIT/ML VIAL SQ SCH ×2 (06:50→12:33)
--- NOTE | 2023-05-03 08:54 | P.PN ---
Subjective Progress Note Date: 05/03/23 68-year-old female who presents to the emergency department, on April 30, complaining of neurologic symptoms. She apparently started noticing some heaviness in her arms and legs, and felt like she was not moving her left leg properly and had lost some strength and coordination. She apparently had some d ifficulty ambulating, and was dragging her left leg. She denied any chest pain or headache, and denied any right-sided symptoms. Apparently the patient did have some slurred speech, but denied any facial droop. The patient had an NIH score of 3, and apparently received TPA, after having a head CT, and angiography CT. The patient will be transferred to the intensive care unit for further monitoring and management. She apparently has a history of diabetes, DVT, hypertension, Parkinson's disease, hypothyroidism, and moderate aortic stenosis based on a previous echocardiogram, December 2022. White count 8.6, hemoglobin 14.6, hematocrit 44.2, and platelet count 259,000. Sodium 141, potassium 4.4, chlorides 104, CO2 26, anion gap 11, BUN 22, creatinine 0.79. Chest x-rays consistent with cardiomegaly, although I do not see any acute abnormalities. Results of the brain CT, and angiography CT, are reviewed. Progress note dated 05/01/2023. 68-year-old female who was seen in the emergency department yesterday, April 30, complaining of heaviness in her arms and legs, and a weak left leg. The patient did receive TPA, after having a head CT. She was transferred to the intensive care unit for further monitoring and management. Currently, she is on room air. She's not receiving any IV fluids. A repeat computed tomography scan of the brain showed no acute intracranial process, and remote lacunar injuries. The patient's CBC is completely normal. Sodium 140, potassium 3.9, chlorides 104, CO2 28, BUN 20, creatinine 0.57. Glucose 203. We did consult cardiology for what we suspect to be moderate to severe aortic stenosis. They have not seen her as yet. On today's evaluation of 05/02/2023, the patient is awake and alert and she has no neurological deficits. Normal speech, normal swallow, no weakness in her left side. Note that she had another episode of numbness and tingling in her left upper and left lower extremity. A repeat CAT scan of the brain and a CT angiogram showed no evidence of any stroke or dissection. The patient is currently on aspirin. She is doing well. She is an overflow patient. Normal oxygenation. Normal hemodynamics. Cardiac rhythm is sinus. She does have an aortic stenosis murmur and we are awaiting the results of the echocardiogram today. Labs are within normal limits. No other issues for now. Her symptoms have recovered along and she recovered within an hour 05/03/2023, no new onset neurologic symptoms. No numbness or tingling and the patient is back to her baseline. Further workup is being done including an EEG of the brain specialist that there was no convincing evidence of a stroke on the MRI of the brain. Also awaiting echocardiogram and the patient is a cardiac murmur, consistent with aortic stenosis. Rule out the possibility of a PFO. WBC was a 10 point hemoglobin 15.9 units 19 with a creatinine of 0.5 and electrolytes are normal. The patient is on aspirin and Plavix on high dose statins. Breasts the medications remain unchanged. Hemodynamically stable. No hypertension. She is on room air oxygen. Objective - Vital Signs Vital signs: Vital Signs Temp 98 F 05/03/23 04:00 Pulse 74 05/03/23 07:00 Resp 8 L 05/03/23 07:00 BP 170/71 05/03/23 04:00 Pulse Ox 88 L 05/03/23 07:00 FiO2 Intake & Output 05/02/23 05/03/23 05/03/23 18:59 06:59 18:59 Intake Total 720 Output Total 925 Balance -205 Intake: Oral 720 Output: Urine 925 Other: # Voids 1 - Exam No acute distress, oriented 3. Currently on room air. Saturations are 97%. HEENT examination is grossly unremarkable. Neck supple. Full range of motion. No adenopathy thyromegaly or neck vein distention. Cardiovascular examination reveals regular rhythm rate. S1-S2 normal. No S3 or S4. A harsh grade 2-3/6 systolic murmur is noted, consistent with aortic stenosis. Lungs reveal clear breath sounds. Her sounds are equal bilaterally. No adventi tious lung sounds including wheezes rhonchi or crackles. Abdomen soft bowel sounds are heard. No masses or tenderness. Extremities are intact. No cyanosis clubbing or edema. Skin is without rash or lesion. Neurologic examination reveals improved left leg weakness.Neurologically, the patient is awake and alert and the patient does not have any focal neurological deficit. Cranial nerves are essentially intact. - Labs CBC & Chem 7: 05/03/23 04:53 05/03/23 04:53 Labs: Abnormal Lab Results - Last 24 Hours (Table) 05/02/23 05/02/23 05/02/23 Range/Units 11:34 16:25 20:07 BUN (7-17) mg/dL Glucose (74-99) mg/dL POC Glucose (mg/dL) 251 H 280 H 244 H (70-110) mg/dL 05/03/23 05/03/23 Range/Units 04:53 06:41 BUN 19 H (7-17) mg/dL Glucose 186 H (74-99) mg/dL POC Glucose (mg/dL) 171 H (70-110) mg/dL Assessment and Plan Plan: Suspected CVA, status post TPA administration. Patient is coming today on aspirin. The patient had another episode of numbness in her left upper and left lower extremity yesterday and the workup is negative and the symptoms of completely recovered. She is alert and oriented and neurologically intact at this point in time. Awaiting a follow-up EEG. Awaiting the results of the echocardiogram. Echo Cardizem was completed yesterday. Moderate aortic stenosis, as determined by recent echocardiogram. obesity History of Parkinson's disease. History of diabetes mellitus type 2 , metformin, actos and Amaryl History of hypothyroidism. History of hyperlipidemia. History of hypertension. History of deep venous thrombosis. History of tobacco use/nicotine dependence. Plan: Clinically stable without any new onset neurological symptoms. Continue aspirin, and Plavix Continue fenofibrate Continue metoprolol and Cardizem Continue high dose statins with Lipitor 80 mg by mouth daily Awaiting the results of the echocardiogram Awaiting a repeat EEGs Continue Sinemet Continue thyroid hormone replacement and the patient is currently on 88 g on a daily basis We'll continue to follow. Awaiting neurologic follow-up. We'll continue to follow.
--- NOTE | 2023-05-03 08:57 | P.PN ---
Subjective Progress Note Date: 05/03/23 The patient is a 68-year-old female with past medical history of diabetes, hypertension, dyslipidemia, DVT, and aortic stenosis, who presented to the hospital with left-sided weakness. She was ruled in for an acute CVA and underwent TPA administration with improvement of symptoms. Computed tomography scan of the brain showed no acute abnormalities and CT of the neck was unremarkable. During her admission, the patient had an additional episode of left-sided weakness. This was witnessed by nursing staff, lasting approximately 30 minutes. No atrial fibrillation was noted on telemetry and CT scan of the brain was again unremarkable. According to neurology the patient is refusing an MRI of the brain. They're recommending EEG. The patient states she is feeling well. No new symptoms over the last 24 hours. No chest pain or chest pressure. No difficulty breathing. No dizziness or lightheadedness. GENERAL: Well-appearing, well-nourished and in no acute distress. NECK: Supple without JVD or thyromegaly. LUNGS: Breath sounds clear to auscultation bilaterally. Respiration equal and unlabored. No wheezes, rales or rhonchi. HEART: Regular rate and rhythm. Harsh systolic ejection murmur. No rubs or gallops. S1 and S2 heard. EXTREMITIES: Normal range of motion, no edema. No clubbing or cyanosis. Peripheral pulses intact and strong. TELEMETRY: Sinus rhythm overnight IMPRESSION: Acute CVA/TIA, resolved with TPA administration Recurrent episode of left-sided weakness Hypertension Dyslipidemia Aortic stenosis Diabetes PLAN: Antiplatelet therapy (aspirin dose) per neurology Awaiting echocardiogram results Outpatient arrhythmia monitoring Further recommendations to be based on clinical course I am dictating on behalf of Dr Chris Rodríguez's history/physical and assessment/plan. Objective - Vital Signs Vital signs: Vital Signs Temp 98 F 05/03/23 04:00 Pulse 74 05/03/23 07:00 Resp 8 L 05/03/23 07:00 BP 170/71 05/03/23 04:00 Pulse Ox 88 L 05/03/23 07:00 FiO2 Intake & Output 05/02/23 05/03/23 05/03/23 18:59 06:59 18:59 Intake Total 720 Output Total 925 Balance -205 Intake: Oral 720 Output: Urine 925 Other: # Voids 1 - Labs CBC & Chem 7: 05/03/23 04:53 06/20/23 04:53 Labs: Abnormal Lab Results - Last 24 Hours (Table) 05/02/23 05/02/23 05/02/23 Range/Units 11:34 16:25 20:07 BUN (7-17) mg/dL Glucose (74-99) mg/dL POC Glucose (mg/dL) 251 H 280 H 244 H (70-110) mg/dL 05/03/23 05/03/23 Range/Units 04:53 06:41 BUN 19 H (7-17) mg/dL Glucose 186 H (74-99) mg/dL POC Glucose (mg/dL) 171 H (70-110) mg/dL
[2023-05-03] MEDS ORDERED: ASPIRIN 81 MG PO SCH (09:00)
[2023-05-03] MEDS ORDERED: GLIMEPIRIDE 4 MG TAB PO SCH (09:00)
[2023-05-03] MEDS: CLOPIDOGREL 75 MG TAB PO SCH (09:18)
[2023-05-03] MEDS: CALCIUM CARBONATE 500 MG CHEWABLE PO SCH (09:18)
[2023-05-03] MEDS: DILTIAZEM CD 240 MG CAP.ER.24H PO SCH (09:18)
[2023-05-03] MEDS: METOPROLOL SUCCINATE (ER) 50 MG TAB.ER.24H PO SCH (09:19)
[2023-05-03] MEDS: metFORMIN 500 MG TAB PO SCH ×2 (09:19→17:49)
[2023-05-03] MEDS: VALSARTAN 80 MG TAB PO SCH (09:20)
[2023-05-03] MEDS: CHOLECALCIFEROL 25 MCG (1000 IU) TABLET PO SCH (09:22)
[2023-05-03 10:53] VITALS: TEMP 97.8
[2023-05-03 11:00] VITALS: BP 165/86
[2023-05-03 11:52] LABS: Glucose,Whole Blood 196 mg/dL (70-110)
--- NOTE | 2023-05-03 12:26 | CA ---
Transthoracic Echo Report Name: Marnie Diaz Age: 68 Gender: F : 1955 Exam Date: 05/02/2023 13:35 Exam Location: [facility] Ht (in): 68 Wt (lb): 250 Ordering Physician: Darwin Pederson MD Attending/Referring Phys: Lining Presser Amanda Carver [facility] Procedure CPT: Indications: acute CVA Cardiac Hx: Technical Quality: Technically difficult study Contrast 1: Agitated Saline Total Dose (mL): 2 Contrast 2: Total Dose (mL): MEASUREMENTS (Male / Female) Normal Values 2D ECHO LV Diastolic Diameter PLAX 4.3 cm 4.2 - 5.9 / 3.9 - 5.3 cm LV Systolic Diameter PLAX 3.1 cm IVS Diastolic Thickness 1.4 cm 0.6 - 1.0 / 0.6 - 0.9 cm LVPW Diastolic Thickness 1.4 cm 0.6 - 1.0 / 0.6 - 0.9 cm LV Relative Wall Thickness 0.6 LVOT Diameter 2.0 cm Ascending Aorta Diameter 4.3 cm M-MODE Aortic Root Diameter MM 2.9 cm LA Systolic Diameter MM 4.5 cm LA Ao Ratio MM 1.5 AV Cusp Separation MM 1.1 cm DOPPLER AV Peak Velocity 375.7 cm/s AV Peak Gradient 56.5 mmHg AV Mean Velocity 281.3 cm/s AV Mean Gradient 35.5 mmHg AV Velocity Time Integral 75.5 cm LVOT Peak Velocity 154.9 cm/s LVOT Peak Gradient 9.6 mmHg LVOT Velocity Time Integral 38.5 cm LVOT Stroke Volume 116.5 cm??? LVOT Stroke Volume Index 51.8 ml/m??? LVOT Cardiac Index 3815.4 cm???/min???m??? AV Area Cont Eq vti 1.5 cm??? AV Area Cont Eq pk 1.2 cm??? Mitral E Point Velocity 150.9 cm/s Mitral A Point Velocity 159.8 cm/s Mitral E to A Ratio 0.9 MV Deceleration Time 259.7 ms LV E' Lateral Velocity 4.7 cm/s Mitral E to LV E' Lateral Ratio 31.9 LV E' Septal Velocity 4.3 cm/s Mitral E to LV E' Septal Ratio 35.0 TR Peak Velocity 156.9 cm/s TR Peak Gradient 9.8 mmHg Right Atrial Pressure 3.0 mmHg Pulmonary Artery Systolic Pressu 12.8 mmHg Right Ventricular Systolic Press 12.8 mmHg FINDINGS Left Ventricle Moderate concentric left ventricular hypertrophy. Normal Left ventricular size, systolic function with no obvious regional wall motion abnormalities. Left ventricular ejection fraction is estimated at 55-60%. Right Ventricle Moderate right ventricular dilatation. Right Atrium Negative agitated saline bubble study for right to left shunt. Left Atrium . Mitral Valve Moderate mitral annular calcification. Moderately decreased mobility of valve. Aortic Valve Moderate aortic stenosis with a peak gradient of 56.5 mmHg and a mean gradient of 35.5 mmHg. Trileaflet aortic valve. Diffuse thickening of the aortic valve cusps with reduced excursion. Tricuspid Valve Tricuspid valve not well visualized. Trace tricuspid regurgitation. Pulmonic Valve Pericardium No pericardial effusion. Aorta Mildly dilated proximal ascending aorta (tube). CONCLUSIONS Left ventricular ejection fraction 55-60% Moderate increased left ventricular wall thickness Negative bubble study Moderate mitral calcification Moderate aortic stenosis. Diffuse thickening of aortic valve cusps, consider JAVIER if clinically indicated No pericardial effusion Previewed by: Dr. Arthur Olvera DO (Electronically Signed) Final Date: 03 May 2023 12:25
--- NOTE | 2023-05-03 12:56 | P.PN ---
Subjective Progress Note Date: 05/03/23 The patient is seen at bedside and she feels about the same. Denies any new neurological issues. Objective - Vital Signs Vital signs: Vital Signs Temp 97.8 F 05/03/23 08:00 Pulse 77 05/03/23 10:00 Resp 15 05/03/23 10:00 BP 165/86 05/03/23 08:00 Pulse Ox 98 05/03/23 10:00 FiO2 Intake & Output 05/02/23 05/03/23 05/03/23 18:59 06:59 18:59 Intake Total 720 Output Total 925 Balance -205 Intake: Oral 720 Output: Urine 925 Other: # Voids 1 - Exam General: Sitting in a recliner chair and is not in acute distress. Neuro: Higher mental function: The patient is awake, alert, oriented to self, place and time. Patient is following commands. No aphasia and no neglect. Cranial nerves: The pupils are round, equal and reactive to light. Visual garcia are full to confrontation throughout. Extraocular movement is intact no nystagmus is noted. Facial sensation is normal to touch throughout. The facial strength is normal throughout. Tongue is midline and moved [id number] without any difficulty. No dysarthria is noted. Shoulder shrug is normal bilaterally. Motor: The strength is 5 over 5 throughout. Normal tone and bulk. Cerebellum: Normal finger to nose bilaterally. Sensation: Sensation is normal to touch throughout. Reflexes (right/left): 2+ throughout. - Labs CBC & Chem 7: 05/03/23 04:53 05/03/23 04:53 Labs: Abnormal Lab Results - Last 24 Hours (Table) 05/02/23 05/02/23 05/03/23 Range/Units 16:25 20:07 04:53 BUN 19 H (7-17) mg/dL Glucose 186 H (74-99) mg/dL POC Glucose (mg/dL) 280 H 244 H (70-110) mg/dL 05/03/23 05/03/23 Range/Units 06:41 11:51 BUN (7-17) mg/dL Glucose (74-99) mg/dL POC Glucose (mg/dL) 171 H 196 H (70-110) mg/dL Assessment and Plan Assessment: * Probable acute ischemic stroke, manifesting with left arm and left leg weakness. Patient's NIH stroke scale was 3 in the ER. Patient has received TPA. At present patient's NIH stroke scale is 0. Then had a nother episode of left hemiparesis at 6ishpm and symptoms resolved (and during episode did not lose consciousness). Possible TIA but cannot focal motor seizure without LOC. * Hypertension * Diabetes * Obesity * Parkinson's disease, stable * History of left Quinones's palsy Plan: * Repeat CT head 24 hours post-TPA revealed no acute intracranial process. Remote lacunar injuries along with nonspecific bipedal changes likely secondary to chronic microangiopathy. I personally reviewed CT head, agree with the findings.. Dr. Pederson has placed her on ASA 81mg daily and Plavix 75mg daily. * 2-D echo with bubble study to rule out PFO * CTA head and neck showed: No evidence of dissection of the cervical internal carotid arteries or vertebral arteries or any evidence of significant stenosis at the carotid bifurcations. No evidence of intracranial high-grade stenosis or intracranial aneurysm. * Had repeat left hemiparesis yesterday at 6ish and repeat CT yesterday: CT head revealed no acute intracranial processes. No significant change from earlier examination. Remote lacunar injuries bilaterally and nonspecific white matter changes, likely related to chronic microangiopathy. CTA of head and neck revealed no significant stenosis, occlusion or aneurysm. * Patient refused MRI Brain. * Pending routine EEG to rule out underlying seizure or discharges. * Fasting a.m. lipid panel with cholesterol 240, LDL 171, HDL 39 and triglycerides 145. On Lipitor 80 mg daily. * Hemoglobin A1c 6.4 * Continue neuro checks. * Telemetry monitoring rule out any arrhythmia * PT, OT, speech therapy. * Continue her home medications for Parkinson's disease. * DVT prophylaxis: Heparin 5000 units subcu every 12 hours. * Recommend patient to follow-up with neurologist as outpatient within 1-2 weeks. The plan is discussed with patient and her nurse. If routine EEG is normal and she continues to be stable then no further deficits then is clear from neurological perspective. Time with Patient: Less than 30
--- NOTE | 2023-05-03 13:42 | P.PN ---
Subjective Progress Note Date: 05/03/23 patient is 68-year-old lady with past medical history significant for parkinsonism, hypothyroidism, hypertension, diabetes mellitus who presented to the ER because of left-sided weakness. Patient noted around 8 AM this morning she was having weakness off for the left side, she felt her left leg was very w eak. Patient had a hard time in ambulating and was dragging her left leg. EMS was called and patient was brought to the ER. ER physician evaluated the patient, initial NIH scale was 3. Case was discussed with interventional neurology and patient was deemed candidate for TPA. Patient received TPA and was transferred to ICU for further evaluation and treatment 05/01. Patient seen and examined. States she is back to baseline, denies any weakness of any extremity. left-sided weakness has improved ,denies any slurred speech. Patient was started back on her blood pressure medications. 05/02. Patient seen and examined. 2-D echo pending. Patient had episode of left-sided weakness overnight, lasting 20-30 minutes. Currently she is back to baseline. Denies any slurred speech 05/03. Patient seen and examined. Currently waiting on EEG to be performed REVIEW OF SYSTEMS: CONSTITUTIONAL: No fever, no malaise,. CARDIOVASCULAR: No chest pain, no palpitations, no syncope. PULMONARY: No shortness of breath, no cough, GASTROINTESTINAL: No diarrhea, no nausea, no vomiting, no abdominal pain. NEUROLOGICAL: No headaches, no weakness, PHYSICAL EXAMINATION: GENERAL: The patient is alert and oriented x3, not in any acute distress. Well developed, well nourished. HEENT: Pupils are round and equally reacting to light. EOMI. No scleral icterus. No conjunctival pallor. Normocephalic, atraumatic. No pharyngeal erythema. No thyromegaly. CARDIOVASCULAR: S1 and S2 present. No murmurs, rubs, or gallops. PULMONARY: Chest is clear to auscultation, no wheezing or crackles. ABDOMEN: Soft, nontender, nondistended, normoactive bowel sounds. No palpable organomegaly. MUSCULOSKELETAL: No joint swelling or deformity. EXTREMITIES: No cyanosis, clubbing, or pedal edema. NEUROLOGICAL: Gross neurological examination did not reveal any focal deficits. SKIN: No rashes. Assessment and plan Acute CVA Hypertension Hyperlipidemia Wyo-[id number] diabetes mellitus Parkinson's disease Monitor vital signs Monitor CBC Monitor CMP Continue telemetry monitoring Continue neuro checks Continue aspirin and Lipitor Cardizem and Toprol has been resumed Follow-up on 2-D echo EEG pending Cardiology on board Follow-up on neurology recommendations Objective - Vital Signs Vital signs: Vital Signs Temp 98 F 05/03/23 04:00 Pulse 74 05/03/23 07:00 Resp 8 L 05/03/23 07:00 BP 170/71 05/03/23 04:00 Pulse Ox 88 L 05/03/23 07:00 FiO2 Intake & Output 05/02/23 05/03/23 05/03/23 18:59 06:59 18:59 Intake Total 720 Output Total 925 Balance -205 Intake: Oral 720 Output: Urine 925 Other: # Voids 1 - Labs CBC & Chem 7: 05/03/23 04:53 05/03/23 04:53 Labs: Abnormal Lab Results - Last 24 Hours (Table) 05/02/23 05/02/23 05/02/23 Range/Units 11:34 16:25 20:07 BUN (7-17) mg/dL Glucose (74-99) mg/dL POC Glucose (mg/dL) 251 H 280 H 244 H (70-110) mg/dL 05/03/23 05/03/23 Range/Units 04:53 06:41 BUN 19 H (7-17) mg/dL Glucose 186 H (74-99) mg/dL POC Glucose (mg/dL) 171 H (70-110) mg/dL
[2023-05-03 17:25] VITALS: PULSE 69; RESP 16
[2023-05-03] MEDS: FENOFIBRATE 160 MG TAB PO SCH (17:49)
--- NOTE | 2023-05-03 19:04 | EEG ---
ELECTROENCEPHALOGRAM REPORT CLINICAL HISTORY: This is a 68-year-old woman with repeated episodes of left-sided weakness. The video EEG is obtained to evaluate for seizure epileptiform activity. RELEVANT MEDICATIONS: Zanaflex. The patient is not on any antiepileptic drugs. EEG TYPE: A routine 21-channel EEG is performed with video using the 10/20 electrode placement system. DESCRIPTION: Wakefulness is only obtained. During awake state, the posterior-dominant rhythm consists of predominantly low voltage of 9 to 10 hertz activity that is well modulated, well sustained. There is no physiological stage 2 sleep architecture. There is no focal slowing. Interictal and ictal is none. ACTIVATION PROCEDURE: Photic stimulation did evoke a posterior driving response. There is no abnormality during the photic stimulation. Hyperventilation is not performed. CLINICAL INTERPRETATION: This is a normal routine EEG. There is no focal slowing, epileptiform discharges or seizure on the EEG. Clinical correlation is recommended. VICKI / JAISON: [id number] /
[2023-05-03] MEDS ORDERED: PIOGLITAZONE 45 MG TAB PO SCH (21:00)
--- NOTE | 2023-05-04 09:01 | P.DS ---
Providers Date of admission: 04/30/23 11:33 Expected date of discharge: 05/04/23 Attending physician: Bg Martinez Consults: 04/30/23 11:33 Consult Physician Routine Consulting Provider: Keith De Dios Consult Reason/Comments: Critical care management Do you want consulting provider notified?: Yes 04/30/23 11:34 Consult Physician Routine Consulting Provider: Darwin Pederson Consult Reason/Comments: CVA Do you want consulting provider notified?: Yes Consult Physician Routine Consulting Provider: Jorge Lacy Consult Reason/Comments: Aortic stenosis, CVA Do you want consulting provider notified?: Yes 04/30/23 11:35 Consult Physician Routine Consulting Provider: Keith De Dios Consult Reason/Comments: Critical care management Do you want consulting provider notified?: Already Contacted Primary care physician: Physician Nonstaff Hospital Course: Discharge diagnoses; Acute CVA Hypertension Hyperlipidemia Brk-lwakwwu-uigzuhqln diabetes mellitus Parkinson's disease Hospital course; patient is 68-year-old lady with past medical history significant for parkinsonism, hypothyroidism, hypertension, diabetes mellitus who presented to the ER because of left-sided weakness. Patient noted around 8 AM this morning she was having weakness off for the left side, she felt her left leg was very weak. Patient had a hard time in ambulating and was dragging her left leg. EMS was called and patient was brought to the ER. ER physician evaluated the patient, initial NIH scale was 3. Case was discussed with interventional neurology and patient was deemed candidate for TPA. Patient received TPA and was transferred to ICU for further evaluation and treatment 05/01. Patient seen and examined. States she is back to baseline, denies any weakness of any extremity. left-sided weakness has improved ,denies any slurred speech. Patient was started back on her blood pressure medications. 05/02. Patient seen and examined. 2-D echo pending. Patient had episode of left-sided weakness overnight, lasting 20-30 minutes. Currently she is back to baseline. Denies any slurred speech 05/03. Patient seen and examined. EEG done was reviewed by neurology, they cleared the patient for discharge. PHYSICAL EXAMINATION: GENERAL: The patient is alert and oriented x3, not in any acute distress. Well developed, well nourished. HEENT: Pupils are round and equally reacting to light. EOMI. No scleral icterus. No conjunctival pallor. Normocephalic, atraumatic. No pharyngeal erythema. No thyromegaly. CARDIOVASCULAR: S1 and S2 present. No murmurs, rubs, or gallops. PULMONARY: Chest is clear to auscultation, no wheezing or crackles. ABDOMEN: Soft, nontender, nondistended, normoactive bowel sounds. No palpable organomegaly. MUSCULOSKELETAL: No joint swelling or deformity. EXTREMITIES: No cyanosis, clubbing, or pedal edema. NEUROLOGICAL: Gross neurological examination did not reveal any focal deficits. SKIN: No rashes. Patient Condition at Discharge: Stable Plan - Discharge Summary New Discharge Prescriptions: New Aspirin 81 mg PO DAILY #30 tab Atorvastatin [Lipitor] 80 mg PO HS #30 tab Clopidogrel [Plavix] 75 mg PO DAILY #30 tab Continue tiZANidine [Zanaflex] 4 mg PO QID@,,,22 metFORMIN HCL ER [Glucophage XR] 1,000 mg PO BID Metoprolol Succinate (ER) [Toprol XL] 50 mg PO HS Levothyroxine Sodium 88 mcg PO BID-W/MEALS traMADol HCL 50 mg PO Q4H PRN PRN Reason: Pain Vitamin C/Biotin [Hair, Skin and Nails Chew] 1 tab PO TID Vitamin B Complex 1 cap PO DAILY Milk Thistle 150 mg PO DAILY Magnesium Oxide [Magnesium] 500 mg PO HS Glucosamine Sulfate 500 mg PO TID PRN PRN Reason: knee pain Cholecalciferol [Vitamin D3 (25 Mcg = 1000 Iu)] 25 mcg PO DAILY Tart Bales 1 tab PO DAILY Valsartan [Diovan] 160 mg PO BID-W/MEALS Pioglitazone HCl 45 mg PO HS Omeprazole 40 mg PO AC-BRKFST Glimepiride [Amaryl] 4 mg PO BID Fenofibrate [Lofibra] 160 mg PO W/SUPPER Diltiazem Cd [Cardizem CD] 240 mg PO DAILY Carbidopa-Levodopa 25-100 mg [Sinemet 25-100 mg] 2 tab PO QID@,,16,22 Vitamin E (Dl,Tocopheryl Acet) [Vitamin E (400 Iu = 180 mg)] 400 unit PO BID Turmeric Root Extract [Turmeric] 500 mg PO HS Carbidopa-Levodopa 25-100 mg [Sinemet 25-100 mg] 1 tab PO BID@0800,1200 PRN PRN Reason: Shaking Calcium Carbonate [Calcium] 600 mg PO DAILY Albuterol Inhaler [Ventolin Hfa Inhaler] 2 puff INHALATION RT-QID PRN PRN Reason: Shortness Of Breath Discharge Medication List Carbidopa-Levodopa 25-100 mg [Sinemet 25-100 mg] 2 tab PO QID@04,10,16,22 05/06 [History] Diltiazem Cd [Cardizem CD] 240 mg PO DAILY 12/20/22 [History] Fenofibrate [Lofibra] 160 mg PO W/SUPPER 12/20/22 [History] Glimepiride [Amaryl] 4 mg PO BID 12/20/22 [History] Levothyroxine Sodium 88 mcg PO BID-W/MEALS 12/20/22 [History] Metoprolol Succinate (ER) [Toprol XL] 50 mg PO HS 12/20/22 [History] Omeprazole 40 mg PO AC-BRKFST 12/20/22 [History] Pioglitazone HCl 45 mg PO HS 12/20/22 [History] Valsartan [Diovan] 160 mg PO BID-W/MEALS 12/20/22 [History] metFORMIN HCL ER [Glucophage XR] 1,000 mg PO BID 12/20/22 [History] tiZANidine [Zanaflex] 4 mg PO QID@04,10,16,22 12/20/22 [History] traMADol HCL 50 mg PO Q4H PRN 12/20/22 [History] Albuterol Inhaler [Ventolin Hfa Inhaler] 2 puff INHALATION RT-QID PRN 04/30/23 [History] Calcium Carbonate [Calcium] 600 mg PO DAILY 04/30/23 [History] Carbidopa-Levodopa 25-100 mg [Sinemet 25-100 mg] 1 tab PO BID@0800,1200 PRN 04/30/23 [History] Cholecalciferol [Vitamin D3 (25 Mcg = 1000 Iu)] 25 mcg PO DAILY 04/30/23 [History] Glucosamine Sulfate 500 mg PO TID PRN 04/30/23 [History] Magnesium Oxide [Magnesium] 500 mg PO HS 04/30/23 [History] Milk Thistle 150 mg PO DAILY 04/30/23 [History] Tart Bales 1 tab PO DAILY 04/30/23 [History] Turmeric Root Extract [Turmeric] 500 mg PO HS 04/30/23 [History] Vitamin B Complex 1 cap PO DAILY 04/30/23 [History] Vitamin C/Biotin [Hair, Skin and Nails Chew] 1 tab PO TID 04/30/23 [History] Vitamin E (Dl,Tocopheryl Acet) [Vitamin E (400 Iu = 180 mg)] 400 unit PO BID 04/30/23 [History] Aspirin 81 mg PO DAILY #30 tab 05/03/23 [Rx] Atorvastatin [Lipitor] 80 mg PO HS #30 tab 05/03/23 [Rx] Clopidogrel [Plavix] 75 mg PO DAILY #30 tab 05/03/23 [Rx] Follow up Appointment(s)/Referral(s): Jorge Lacy MD [STAFF PHYSICIAN] - 1 Week Nonstaff,Physician [Primary Care Provider] - 1-2 days Patient Instructions/Handouts: Transient Ischemic Attack (GEN), Ischemic Stroke (GEN), Self Care Measures After a Stroke (GEN) Discharge Disposition: HOME SELF-CARE
== END 2023-05-03 19:45 | disposition home or self-care (01) | DRG 62 ==
LOC: EC 09:23 → 2SICU 11:33
PROVIDERS: ADMIT Hospitalist; ATTEND Hospitalist
DX: I63.9 Cerebral infarction, unspecified (principal); G81.94 Hemiplegia, unspecified affecting left nondominant side; E89.0 Postprocedural hypothyroidism; R29.703 NIHSS score 3; E66.9 Obesity, unspecified; Z68.38 Body mass index [BMI] 38.0-38.9, adult; E11.9 Type 2 diabetes mellitus without complications; Z79.84 Long term (current) use of oral hypoglycemic drugs; E78.5 Hyperlipidemia, unspecified; F17.210 Nicotine dependence, cigarettes, uncomplicated; G20 Parkinson's disease; I10 Essential (primary) hypertension; I35.0 Nonrheumatic aortic (valve) stenosis; Z79.02 Long term (current) use of antithrombotics/antiplatelets; Z79.82 Long term (current) use of aspirin; Z86.718 Personal history of other venous thrombosis and embolism; Z79.899 Other long term (current) drug therapy; Z86.69 Personal history of other diseases of the nervous system and sense organs; Z88.1 Allergy status to other antibiotic agents; Z91.012 Allergy to eggs; Z91.040 Latex allergy status; Z79.890 Hormone replacement therapy
CPT/HCPCS: 36415; 70450; 70496; 70498; 71046; 80048; 80053; 80061; 82550; 83036; 84484; 85025; 85610; 85730; 93005; 93308; 94760; 95816

== ENCOUNTER 2023-05-04 04:33 | Inpatient (IN) | payer MEDICARE, OTHER ==
[2023-05-04] MEDS ORDERED: methylPREDNISolone SOD SUCCI 125 MG/2 ML VIAL ONE (04:49)
[2023-05-04] MEDS ORDERED: diphenhydrAMINE 50 MG/ML 1 ML VIAL ONE (04:49)
[2023-05-04] MEDS ORDERED: FAMOTIDINE 20 MG/2 ML VIAL ONE (04:49)
[2023-05-04] MEDS ORDERED: MORPHINE SULFATE 4 MG/ML SYRINGE ONE (04:49)
[2023-05-04] MEDS ORDERED: CARBIDOPA-LEVODOPA 25-100 MG 1 EACH TAB PO STA (06:15)
[2023-05-04] MEDS ORDERED: tiZANidine 4 MG TAB PO STA ×2 (06:15→19:00)
[2023-05-04] MEDS ORDERED: ASPIRIN 325 MG TAB PO STA (07:05)
[2023-05-04 07:06] LABS: Basophils # (A) 0.1 k/uL (0-0.2); Basophils % (A) 1 %; Eosinophils # (A) 0.2 k/uL (0-0.7); Eosinophils % (A) 2 %; HCT 42.8 % (34.0-46.0); HGB 14.2 gm/dL (11.4-16.0); Lymphocytes # (A) 2.5 k/uL (1.0-4.8); Lymphocytes % (A) 24 %; MCHC 33.1 g/dL (31.0-37.0); MCV 93.7 fL (80.0-100.0); Mean Platelet Volume 8.7; Monocytes # (A) 0.6 k/uL (0-1.0); Monocytes % (A) 6 %; Neutrophils % (A) 66 %; Platelet Count 231 k/uL (150-450); RBC 4.57 m/uL (3.80-5.40); RDW 13.5 % (11.5-15.5); WBC 10.7 k/uL (3.8-10.6)
[2023-05-04 07:08] LABS: Partial Thromboplastin Time 21.9 sec (22.0-30.0)
[2023-05-04 07:15] LABS: ALT 16 U/L (4-34); AST 29 U/L (14-36); African American GFR (CKD) 81 (>60 ml/min/1.73 sqM); Albumin 4.2 g/dL (3.5-5.0); Alkaline Phosphatase 79 U/L (38-126); Anion Gap 10 mmol/L; Blood Urea Nitrogen 27 mg/dL (7-17); Calcium 9.2 mg/dL (8.4-10.2); Carbon Dioxide 27 mmol/L (22-30); Chloride 102 mmol/L (98-107); Glucose 187 mg/dL (74-99); Magnesium 1.7 mg/dL (1.6-2.3); Non-African American GFR(CKD) 71 (>60 ml/min/1.73 sqM); Potassium 4.5 mmol/L (3.5-5.1); Sodium 139 mmol/L (137-145); Total Bilirubin 0.7 mg/dL (0.2-1.3); Total Protein 6.8 g/dL (6.3-8.2)
--- NOTE | 2023-05-04 14:14 | P.HPIM ---
History of Present Illness H&P Date: 05/04/23 History of present illness; patient is 68-year-old lady with past medical history significant for CVA, parkinsonism, hypothyroidism, hypertension, diabetes mellitus presented to the hospital because of left-sided weakness. Patient was only recently discharged yesterday after being treated for acute CVA in the hospital. Patient was admitted to ICU status post TPA. Patient stated she was all right this morning when she woke up after being woken up by her dog and she notices that her left side was weak. She was also complaining of slurred speech. EMS was immediately called and patient was brought to the [facility] Initial blood work done in the hospital showed WBC 10.7, hemoglobin 14.2, sodium 139, potassium 4.5, BUN 27, creatinine 0.84 CT brain was negative for acute intracranial process CTA head and neck did not show any acute occlusion or dissection of any vessels She was admitted to medicine service REVIEW OF SYSTEMS: CONSTITUTIONAL: No fever, no malaise, no fatigue. HEENT: No recent visual problems or hearing problems. Denied any sore throat. CARDIOVASCULAR: No chest pain, orthopnea, PND, no palpitations, no syncope. PULMONARY: No shortness of breath, no cough, no hemoptysis. GASTROINTESTINAL: No diarrhea, no nausea, no vomiting, no abdominal pain. NEUROLOGICAL: As mentioned in HPI HEMATOLOGICAL: Denies any bleeding or petechiae. GENITOURINARY: Denies any burning micturition, frequency, or urgency. MUSCULOSKELETAL/RHEUMATOLOGICAL: Denies any joint pain, swelling, or any muscle pain. ENDOCRINE: Denies any polyuria or polydipsia. The rest of the 14-point review of systems is negative. PHYSICAL EXAMINATION: GENERAL: The patient is alert and oriented x3, not in any acute distress. Well developed, well nourished. HEENT: Pupils are round and equally reacting to light. EOMI. No scleral icterus. No conjunctival pallor. Normocephalic, atraumatic. No pharyngeal erythema. No thyromegaly. CARDIOVASCULAR: S1 and S2 present. No murmurs, rubs, or gallops. PULMONARY: Chest is clear to auscultation, no wheezing or crackles. ABDOMEN: Soft, nontender, nondistended, normoactive bowel sounds. No palpable organomegaly. MUSCULOSKELETAL: No joint swelling or deformity. EXTREMITIES: No cyanosis, clubbing, or pedal edema. NEUROLOGICAL: Muscle strength is 5.5 in right side, 1-5 in left side. Cranial nerve II through XII intact. No sensory deficit SKIN: No rashes. Assessment and plan Acute CVA Hypertension Hyperlipidemia Wrt-owhnlra-abplvrbjz diabetes mellitus Parkinson's disease Plan; Monitor vital signs Monitor CBC Neuro checks Continue aspirin Lipitor. Resume home meds MRI brain per neurology Neurology consulted Past Medical History Past Medical History: Diabetes Mellitus, Deep Vein Thrombosis (DVT), Hypertension, Thyroid Disorder Additional Past Medical History / Comment(s): Spleen issues, Parkinsons History of Any Multi-Drug Resistant Organisms: None Reported Past Surgical History: Orthopedic Surgery, Tonsillectomy, Tubal Ligation Additional Past Surgical History / Comment(s): Thyroid removed Past Anesthesia/Blood Transfusion Reactions: Blood Transfusion Reaction Additional Past Anesthesia/Blood Transfusion Reaction / Comment(s): pt can't explain clearly Past Psychological History: No Psychological Hx Reported Smoking Status: Current every day smoker Past Alcohol Use History: None Reported Past Drug Use History: None Reported Medications and Allergies Home Medications Medication Instructions Recorded Confirmed Type Carbidopa-Levodopa 25-100 mg 2 tab PO QID@04,10,16,22 12/20/22 05/04/23 History [Sinemet 25-100 mg] Diltiazem Cd [Cardizem CD] 240 mg PO DAILY 12/20/22 05/04/23 History Fenofibrate [Lofibra] 160 mg PO W/SUPPER 12/20/22 05/04/23 History Glimepiride [Amaryl] 4 mg PO BID 12/20/22 05/04/23 History Levothyroxine Sodium 88 mcg PO BID-W/MEALS 12/20/22 05/04/23 History Metoprolol Succinate (ER) [Toprol 50 mg PO HS 12/20/22 05/04/23 History XL] Omeprazole 40 mg PO AC-BRKFST 12/20/22 05/04/23 History Pioglitazone HCl 45 mg PO HS 12/20/22 05/04/23 History Valsartan [Diovan] 160 mg PO BID-W/MEALS 12/20/22 05/04/23 History metFORMIN HCL ER [Glucophage XR] 1,000 mg PO BID 12/20/22 05/04/23 History tiZANidine [Zanaflex] 4 mg PO QID@04,10,16,22 12/20/22 05/04/23 History traMADol HCL 50 mg PO Q4H PRN 12/20/22 05/04/23 History Albuterol Inhaler [Ventolin Hfa 2 puff INHALATION RT-QID PRN 04/30/23 05/04/23 History Inhaler] Calcium Carbonate [Calcium] 600 mg PO DAILY 04/30/23 05/04/23 History Carbidopa-Levodopa 25-100 mg 1 tab PO BID@0800,1200 PRN 04/30/23 05/04/23 History [Sinemet 25-100 mg] Cholecalciferol [Vitamin D3 (25 25 mcg PO DAILY 04/30/23 05/04/23 History Mcg = 1000 Iu)] Glucosamine Sulfate 500 mg PO TID PRN 04/30/23 05/04/23 History Magnesium Oxide [Magnesium] 500 mg PO HS 04/30/23 05/04/23 History Milk Thistle 150 mg PO DAILY 04/30/23 05/04/23 History Tart Bales 1 tab PO DAILY 04/30/23 05/04/23 History Turmeric Root Extract [Turmeric] 500 mg PO HS 04/30/23 05/04/23 History Vitamin B Complex 1 cap PO DAILY 04/30/23 05/04/23 History Vitamin C/Biotin [Hair, Skin and 1 tab PO TID 04/30/23 05/04/23 History Nails Chew] Vitamin E (Dl,Tocopheryl Acet) 400 unit PO BID 04/30/23 05/04/23 History [Vitamin E (400 Iu = 180 mg)] Aspirin 81 mg PO DAILY #30 tab 05/03/23 05/04/23 Rx Atorvastatin [Lipitor] 80 mg PO HS #30 tab 05/03/23 05/04/23 Rx Clopidogrel [Plavix] 75 mg PO DAILY #30 tab 05/03/23 05/04/23 Rx Allergies Allergy/AdvReac Type Severity Reaction Status Date / Time adhesive Allergy Rash/Hives Verified 05/04/23 07:28 ciprofloxacin [From Cipro] Allergy Rash/Hives Verified 05/04/23 07:28 latex Allergy Rash/Hives Verified 05/04/23 07:28 Poultry [[place]] Allergy Rash/Hives Verified 05/04/23 07:28 Sulfa (Sulfonamide Allergy Rash/Hives Verified 05/04/23 07:28 Antibiotics) chicken derived [Chicken] AdvReac Nausea & Verified 05/04/23 07:28 Vomiting & Diarrhea chocolate flavor AdvReac Nausea & Verified 05/04/23 07:28 Vomiting & Diarrhea egg AdvReac Nausea & Verified 05/04/23 07:28 Vomiting & Diarrhea Physical Exam Vitals: Vital Signs Pulse Resp BP Pulse Ox 05/04/23 13:00 85 20 172/89 97 05/04/23 12:09 80 171/88 Intake and Output 05/03/23 05/04/23 05/04/23 22:59 06:59 14:59 Other: Weight 107.048 kg Results CBC & Chem 7: 05/04/23 04:46 05/04/23 04:46 Labs: Abnormal Lab Results - Last 24 Hours (Table) 05/04/23 05/04/23 05/04/23 Range/Units 04:46 04:46 04:46 WBC 10.7 H (3.8-10.6) k/uL APTT 21.9 L (22.0-30.0) sec BUN 27 H (7-17) mg/dL Glucose 187 H (74-99) mg/dL
--- NOTE | 2023-05-04 14:43 | P.CNNES ---
History of Present Illness Consult date: 05/04/23 Requesting physician: Aubrey Cole Reason for Consult: cva History of Present Illness: This is a 68-year-old woman with recent recurrent transient strokelike symptoms over the left side (presenting with weakness) s/p IV tpa who was recently hospitalized in our facility was discharged yesterday, Parkinson's disease, hypertension, diabetes, left Quinones's palsy who presented to our facility for left-sided weakness. Patient stated that at midnight she was woken up by her dog and she had left-sided weakness and left facial droop. She continues to have the left-sided weakness in the facial droop which has not resolved. I felt I could not rule out focal motor seizures since was recurrent episode but her EEG was normal. Patient is known to our neurology team and she was discharged yesterday from our facility for recurrent transient left-sided weakness in which she received IV TPA then had another episode and her symptoms resolved. He had extensive the CTs and CTA's which were negative. She refused MRI of the brain. She had a routine EEG which was normal. She was discharged on aspirin and Plavix 75 mg daily. Please review our notes for further details of her neurological workup. Some of the workup during this hospital visit consisted of: CT of the head was performed well CT of the head and neck. No official report is seen. A code stroke was activated and per the ED attending she stated that she spoke with the stroke intervention last and no IV TPA. Was felt the risk outweighed the benefit of TPA. Patient had a recent IV TPA last week. Personally reviewed the CT of the head and I felt the patient had small foci hypodensity over the right within the last that seems subacute to chronic. No bleeding is noted. I reviewed the CTA and I did not appreciate any large intracranial arterial occlusion. The ED attending no intervention was needed. Review of Systems Review of system: The 12 point system was reviewed and apparent positive and negative per HPI. Past Medical History Past Medical History: Diabetes Mellitus, Deep Vein Thrombosis (DVT), Hypertension, Thyroid Disorder Additional Past Medical History / Comment(s): Spleen issues, Parkinsons History of Any Multi-Drug Resistant Organisms: None Reported Past Surgical History: Orthopedic Surgery, Tonsillectomy, Tubal Ligation Additional Past Surgical History / Comment(s): Thyroid removed Past Anesthesia/Blood Transfusion Reactions: Blood Transfusion Reaction Additional Past Anesthesia/Blood Transfusion Reaction / Comment(s): pt can't explain clearly Past Psychological History: No Psychological Hx Reported Smoking Status: Current every day smoker Past Alcohol Use History: None Reported Past Drug Use History: None Reported Medications and Allergies Home Medications Medication Instructions Recorded Confirmed Type Carbidopa-Levodopa 25-100 mg 2 tab PO QID@04,10,16,22 12/20/22 05/04/23 History [Sinemet 25-100 mg] Diltiazem Cd [Cardizem CD] 240 mg PO DAILY 12/20/22 05/04/23 History Fenofibrate [Lofibra] 160 mg PO W/SUPPER 12/20/22 05/04/23 History Glimepiride [Amaryl] 4 mg PO BID 12/20/22 05/04/23 History Levothyroxine Sodium 88 mcg PO BID-W/MEALS 12/20/22 05/04/23 History Metoprolol Succinate (ER) [Toprol 50 mg PO HS 12/20/22 05/04/23 History XL] Omeprazole 40 mg PO AC-BRKFST 12/20/22 05/04/23 History Pioglitazone HCl 45 mg PO HS 12/20/22 05/04/23 History Valsartan [Diovan] 160 mg PO BID-W/MEALS 12/20/22 05/04/23 History metFORMIN HCL ER [Glucophage XR] 1,000 mg PO BID 12/20/22 05/04/23 History tiZANidine [Zanaflex] 4 mg PO QID@04,10,,12/20/22 05/04/23 History traMADol HCL 50 mg PO Q4H PRN 12/20/22 05/04/23 History Albuterol Inhaler [Ventolin Hfa 2 puff INHALATION RT-QID PRN 04/30/23 05/04/23 History Inhaler] Calcium Carbonate [Calcium] 600 mg PO DAILY 04/30/23 05/04/23 History Carbidopa-Levodopa 25-100 mg 1 tab PO BID@0800,1200 PRN 04/30/23 05/04/23 History [Sinemet 25-100 mg] Cholecalciferol [Vitamin D3 (25 25 mcg PO DAILY 04/30/23 05/04/23 History Mcg = 1000 Iu)] Glucosamine Sulfate 500 mg PO TID PRN 04/30/23 05/04/23 History Magnesium Oxide [Magnesium] 500 mg PO HS 04/30/23 05/04/23 History Milk Thistle 150 mg PO DAILY 04/30/23 05/04/23 History Tart Bales 1 tab PO DAILY 04/30/23 05/04/23 History Turmeric Root Extract [Turmeric] 500 mg PO HS 04/30/23 05/04/23 History Vitamin B Complex 1 cap PO DAILY 04/30/23 05/04/23 History Vitamin C/Biotin [Hair, Skin and 1 tab PO TID 04/30/23 05/04/23 History Nails Chew] Vitamin E (Dl,Tocopheryl Acet) 400 unit PO BID 04/30/23 05/04/23 History [Vitamin E (400 Iu = 180 mg)] Aspirin 81 mg PO DAILY #30 tab 05/03/23 05/04/23 Rx Atorvastatin [Lipitor] 80 mg PO HS #30 tab 05/03/23 05/04/23 Rx Clopidogrel [Plavix] 75 mg PO DAILY #30 tab 05/03/23 05/04/23 Rx Allergies Allergy/AdvReac Type Severity Reaction Status Date / Time adhesive Allergy Rash/Hives Verified 05/04/23 07:28 ciprofloxacin [From Cipro] Allergy Rash/Hives Verified 05/04/23 07:28 latex Allergy Rash/Hives Verified 05/04/23 07:28 Poultry [[place]] Allergy Rash/Hives Verified 05/04/23 07:28 Sulfa (Sulfonamide Allergy Rash/Hives Verified 05/04/23 07:28 Antibiotics) chicken derived [Chicken] AdvReac Nausea & Verified 05/04/23 07:28 Vomiting & Diarrhea chocolate flavor AdvReac Nausea & Verified 05/04/23 07:28 Vomiting & Diarrhea egg AdvReac Nausea & Verified 05/04/23 07:28 Vomiting & Diarrhea Physical Examination - Vital Signs Vital Signs: Vital Signs Pulse Resp BP Pulse Ox 05/04/23 13:00 85 20 172/89 97 05/04/23 12:09 80 171/88 Intake and Output 05/03/23 05/04/23 05/04/23 22:59 06:59 14:59 Other: Weight 107.048 kg GENERAL: The patient is lying in bed and is not in acute distress. NEUROLOGICAL: Higher mental function: The patient is awake, alert, oriented to self, place and time. Patient is following commands. No aphasia and no neglect. Cranial nerves: The pupils are round, equal and reactive to light and accommodation. Visual garcia are full to confrontation throughout. Extraocular movement is intact no nystagmus is noted. Facial sensation is normal to touch throughout. The facial strength is n mild left lower facial weakness. Hearing is normal bilaterally to hand rub. Tongue is midline and moved [id number] without any difficulty. No dysarthria is noted. Shoulder shrug is normal bilaterally. Motor: The strength is 0/5 over entire left side. Otheriwse 5 over 5 throughout right side. Increase tone over the left. Normal bulk. Cerebellum: Normal finger to nose over the right but unable to assess left because of weakness. Sensation: Decrease to touch over the left side. Reflexes (right/left): 2+ throughout. Plantars are mute bilaterally. Results - Laboratory Findings CBC and BMP: 05/04/23 04:46 05/04/23 04:46 Abnormal Lab Findings: Abnormal Labs 05/04/23 05/04/23 05/04/23 04:46 04:46 04:46 WBC 10.7 H APTT 21.9 L BUN 27 H Glucose 187 H Assessment and Plan Assessment: This is a 68-year-old woman with history of recent transient recurrent left hemiparesis who recently received IV TPA last week and presented back because of recurrent left-sided weakness including the face. No IV TPA since the patient received IV TPA within 3 month and the risk away the benefit. Acute left hemiparesis with facial droop, dysarthria and some numbness: Likely acute ischemic stroke Recent ischemic stroke that was suspected and the head symptoms of left hemiparesis and patient received IV TPA and was discharged on 05/03/2023. CTs were negative and at that time patient refuses MRI. Routine EEG was normal Hypertension Parkinson's disease Diabetes mellitus History of DVT Plan: Patient is in agreement to pursue with MRI of the brain. I stopped Plavix since it failed and I started the patient on Brilinta 90mg 1 tab bid. Resumed her home dose of aspirin 81 mg daily. The patient on Lipitor 80 mg daily at bedtime for secondary stroke prophylaxis Ordered limited 2-D echo. I highly recommend the patient the to pursue with a transesophageal echocardiogram. Ordered ESR CRP, JOSE, homocystine, factor V Leiden, von Willebrand, antithrombin III, prothrombin [id number], lupus anticoagulant, protein C and S. Will obtain reports of recent CT and CTA uploaded. Q1 hour neuro check and need patient to be in ICU for close monitoring cardiac monitoring PT, OT and BACK TENDER PULP [employer]ER are consulted. Keep blood pressure permissive for 48 hours. Treat if SBP >220 or DBP >110. Will defer the rest of medical management to primary team. For DVT prophylaxis: Started on subq heparin 5000U every 12 hours. The plan is discussed with patient, primary team and her nurse. Spoke with ICU attending about the case. Thank you for the consultation. Time with Patient: Greater than 30
--- NOTE | 2023-05-04 15:11 | CT ---
EXAM: CT Angiography Head With Intravenous Contrast CLINICAL HISTORY: Code stroke TECHNIQUE: Axial computed tomographic angiography images of the head with intravenous contrast. CTDI is 35.6 mGy and DLP is 653.6 mGy-cm. This CT exam was performed using one or more of the following dose reduction techniques: automated exposure control, adjustment of the mA and/or kV according to patient size, and/or use of iterative reconstruction technique. MIP reconstructed images were created and reviewed. COMPARISON: Recently performed CT head FINDINGS: Right internal carotid artery: Mild atherosclerosis. Intracranial segment is patent with no significant stenosis. No aneurysm. Right anterior cerebral artery: No occlusion or significant stenosis. No aneurysm. Right middle cerebral artery: No occlusion or significant stenosis. No aneurysm. Right posterior cerebral artery: No occlusion or significant stenosis. No aneurysm. Right vertebral artery: Unremarkable as visualized. Left internal carotid artery: Mild atherosclerosis. Intracranial segment is patent with no significant stenosis. No aneurysm. Left anterior cerebral artery: No occlusion or significant stenosis. No aneurysm. Left middle cerebral artery: No occlusion or significant stenosis. No aneurysm. Left posterior cerebral artery: No occlusion or significant stenosis. No aneurysm. Left vertebral artery: Unremarkable as visualized. Basilar artery: No occlusion or significant stenosis. No aneurysm. IMPRESSION: No large vessel occlusion, significant stenosis, aneurysm or vascular malformation. EXAM: CT Angiography Neck With Intravenous Contrast CLINICAL HISTORY: Code stroke TECHNIQUE: Routine carotid CT angiography protocol was performed with intravenous contrast. NASCET criteria using the distal ICAs for comparison were used for evaluation of stenoses. This CT exam was performed using one or more of the following dose reduction techniques: automated exposure control, adjustment of the mA and/or kV according to patient size, and/or use of iterative reconstruction technique. MIP reconstructed images were created and reviewed. COMPARISON: None. FINDINGS: VASCULATURE: Right common carotid artery: Mild atherosclerosis. No occlusion or significant stenosis. No dissection. Right internal carotid artery: Calcified and noncalcified atherosclerotic plaque within the carotid bifurcations and proximal ICA bilaterally with less than 50% stenosis. Right external carotid artery: Unremarkable. No occlusion. Right vertebral artery: No occlusion or significant stenosis. No dissection. Left common carotid artery: Mild atherosclerosis. No occlusion or significant stenosis. No dissection. Left internal carotid artery: Calcified and noncalcified atherosclerotic plaque within the carotid bifurcations and proximal ICA bilaterally with less than 50% stenosis. Left external carotid artery: Unremarkable. No occlusion. Left vertebral artery: No occlusion or significant stenosis. No dissection. NECK: Bones/joints: Multilevel cervical spondylosis. Soft tissues: No acute findings. Thyroid: Sequela from thyroidectomy. Lung apices: Clear. CAROTID STENOSIS REFERENCE USING NASCET CRITERIA: % ICA stenosis = (1 - narrowest ICA diameter/diameter of distal cervical ICA) x 100. Mild - <50% stenosis. Moderate - 50-69% stenosis. Severe - 70-94% stenosis. Near occlusion - 95-99% stenosis. Occluded - 100% stenosis. IMPRESSION: No acute findings in the arteries of the neck.
--- NOTE | 2023-05-04 15:16 | CT ---
EXAM: CT Head Without Intravenous Contrast CLINICAL HISTORY: Code stroke TECHNIQUE: Axial computed tomography images of the head/brain without intravenous contrast. CTDI is 49.1 mGy and DLP is 1221.6 mGy-cm. This CT exam was performed using one or more of the following dose reduction techniques: automated exposure control, adjustment of the mA and/or kV according to patient size, and/or use of iterative reconstruction technique. COMPARISON: Limited comparison to CTA head performed 05/01/23 FINDINGS: Brain: Chronic appearing infarcts of the bilateral basal ganglia. No intracranial hemorrhage, major vascular territory infarct or midline shift Ventricles: Unremarkable. No ventriculomegaly. Bones/joints: Unremarkable. No acute fracture. Soft tissues: Unremarkable. Sinuses: Unremarkable as visualized. No acute sinusitis. Mastoid air cells: Unremarkable as visualized. No mastoid effusion. IMPRESSION: No intracranial hemorrhage, major vascular territory infarct or midline shift. Chronic appearing infarcts of the bilateral basal ganglia. If persistent clinical concern for acute stroke, MRI could further evaluate
[2023-05-04] MEDS ORDERED: NON FORMULARY DRUG (Glucosamine Sulfate 500 MG Cap) PO PRN (18:55)
[2023-05-04] MEDS ORDERED: DEXTROSE 50% SYRINGE 50 ML IVP PRN ×2 (18:59)
[2023-05-04] MEDS: CARBIDOPA-LEVODOPA 25-100 MG 1 EACH TAB PO SCH (19:07)
[2023-05-04] MEDS: traMADol 50 MG TAB PO PRN (19:07)
[2023-05-04 19:31] LABS: Glucose,Whole Blood 292 mg/dL (70-110)
[2023-05-04] MEDS: HEPARIN SODIUM,PORCINE/PF 5,000 UNIT/0.5 ML SYRINGE SQ SCH (21:04)
[2023-05-04] MEDS: INSULIN ASPART (NovoLOG) 100 UNIT/ML VIAL SQ SCH (21:06)
[2023-05-04] MEDS: MAGNESIUM OXIDE 400 MG TAB PO SCH (21:07)
[2023-05-04] MEDS: METOPROLOL SUCCINATE (ER) 50 MG TAB.ER.24H PO SCH (21:07)
[2023-05-04] MEDS: ATORVASTATIN 80 MG TAB PO SCH (21:08)
[2023-05-04] MEDS: VITAMIN E (DL,TOCOPHERYL ACET) 400 UNIT (180 MG) CAP PO SCH (21:08)
[2023-05-04] MEDS: TICAGRELOR 90 MG TAB PO SCH (21:08)
[2023-05-04] MEDS: PIOGLITAZONE 45 MG TAB PO SCH (21:08)
[2023-05-04] MEDS: GLIMEPIRIDE 4 MG TAB PO SCH (21:08)
[2023-05-04] MEDS ORDERED: tiZANidine 4 MG TAB PO SCH (22:00)
[2023-05-04] MEDS ORDERED: NON FORMULARY DRUG (Vitamin C/Biotin [Hair, Skin And Nails Chew] 1 EACH Tab.Chew) PO SCH (22:00)
[2023-05-05] MEDS: tiZANidine 4 MG TAB PO SCH ×4 (01:34→22:09)
[2023-05-05] MEDS: traMADol 50 MG TAB PO PRN ×3 (01:57→15:27)
[2023-05-05] MEDS: CARBIDOPA-LEVODOPA 25-100 MG 1 EACH TAB PO SCH ×3 (01:58→22:21)
--- NOTE | 2023-05-05 05:33 | P.CNPUL ---
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 Patient is a 68-year- old white female with past medical history significant for recent hospital admission on April 30 for suspected CVA and TPA administration. She also has history of Quinones's palsy, Parkinson's disease, aortic stenosis, diabetes mellitus type 2, hypertension, hyperlipidemia, DVT, and is an ex-smoker. Patient initially presented to the emergency room back on April 30 for CVA-like symptoms and left-sided hemiparesis. She was given a dose of TPA with improvement in her symptoms. At that time, the patient did refuse brain MRI. She was discharged home on aspirin and Plavix, and the patient did return to the emergency room less than 24 hours later. She returned early yesterday morning. She states that she was sleeping at home, and was awoken by her dog. She then noticed severe left-sided weakness, and she immediately called EMS. CT of the brain without contrast on arrival showed no acute intracranial hemorrhage or mass effect. There were chronic appearing infarcts of the bilateral basal ganglia. Follow-up brain CTA showed no evidence of significant ICA stenosis or large vessel occulsion. Patient was evaluated by neurology while in the emergency room, who recommended admission to the intensive care unit for closer monitoring. Patient is agreeable to MRI at this time. She is currently sitting up in bed, on room air, in no acute distress. She does have obvious left-sided hemiparesis and left-sided facial droop. There is slurred speech. She reports blurred vision. CBC and BMP on arrival were unremarkable. Blood glucose is elevated at 292. Patient is receiving aspirin, Brilinta, and Lipitor per neurology. Blood pressure is elevated, allowing for permissive hypertension. P atient will be monitored in the intensive care unit. Review of Systems REVIEW OF SYSTEMS: CONSTITUTIONAL: Denies any recent significant weight loss or weight gain. EYES: reports left eye blurred vision EARS, NOSE, MOUTH, THROAT: Denies headaches, denies sore throat. CARDIOVASCULAR: Denies chest pain, palpitations or syncopal episodes. RESPIRATORY: Denies shortness of breath, cough, congestion or hemoptysis. GASTROINTESTINAL: Denies change in appetite, abdominal pain, nausea and vomiting, or diarrhea GENITOURINARY: Denies hematuria, denies infections. MUSKULOSKELETAL: Denies pain, denies swelling. INTEGUMENTARY: Denies rash, denies eczema. NEUROLOGICAL: Denies recent memory loss, no recent seizure activity. admits left-sided weakness and facial droop. PSYCHIATRIC: Denies anxiety, denies depression. HEMATOLOGIC/LYMPHATIC: Denies anemia, denies enlarged lymph node Past Medical History Past Medical History: Diabetes Mellitus, Deep Vein Thrombosis (DVT), Hypertension, Thyroid Disorder Additional Past Medical History / Comment(s): Spleen issues, Parkinsons History of Any Multi-Drug Resistant Organisms: None Reported Past Surgical History: Orthopedic Surgery, Tonsillectomy, Tubal Ligation Additional Past Surgical History / Comment(s): Thyroid removed Past Anesthesia/Blood Transfusion Reactions: Blood Transfusion Reaction Additional Past Anesthesia/Blood Transfusion Reaction / Comment(s): pt can't explain clearly Past Psychological History: No Psychological Hx Reported Smoking Status: Current every day smoker Past Alcohol Use History: None Reported Past Drug Use History: None Reported Medications and Allergies Home Medications Medication Instructions Recorded Confirmed Type Carbidopa-Levodopa 25-100 mg 2 tab PO QID@04,10,16,22 12/20/22 05/04/23 History [Sinemet 25-100 mg] Diltiazem Cd [Cardizem CD] 240 mg PO DAILY 12/20/22 05/04/23 History Fenofibrate [Lofibra] 160 mg PO W/SUPPER 12/20/22 05/04/23 History Glimepiride [Amaryl] 4 mg PO BID 12/20/22 05/04/23 History Levothyroxine Sodium 88 mcg PO BID-W/MEALS 12/20/22 05/04/23 History Metoprolol Succinate (ER) [Toprol 50 mg PO HS 12/20/22 05/04/23 History XL] Omeprazole 40 mg PO AC-BRKFST 12/20/22 05/04/23 History Pioglitazone HCl 45 mg PO HS 12/20/22 05/04/23 History Valsartan [Diovan] 160 mg PO BID-W/MEALS 12/20/22 05/04/23 History metFORMIN HCL ER [Glucophage XR] 1,000 mg PO BID 12/20/22 05/04/23 History tiZANidine [Zanaflex] 4 mg PO QID@04,10,16,22 12/20/22 05/04/23 History traMADol HCL 50 mg PO Q4H PRN 12/20/22 05/04/23 History Albuterol Inhaler [Ventolin Hfa 2 puff INHALATION RT-QID PRN 04/30/23 05/04/23 History Inhaler] Calcium Carbonate [Calcium] 600 mg PO DAILY 04/30/23 05/04/23 History Carbidopa-Levodopa 25-100 mg 1 tab PO BID@0800,1200 PRN 04/30/23 05/04/23 History [Sinemet 25-100 mg] Cholecalciferol [Vitamin D3 (25 25 mcg PO DAILY 04/30/23 05/04/23 History Mcg = 1000 Iu)] Glucosamine Sulfate 500 mg PO TID PRN 04/30/23 05/04/23 History Magnesium Oxide [Magnesium] 500 mg PO HS 04/30/23 05/04/23 History Milk Thistle 150 mg PO DAILY 04/30/23 05/04/23 History Tart Bales 1 tab PO DAILY 04/30/23 05/04/23 History Turmeric Root Extract [Turmeric] 500 mg PO HS 04/30/23 05/04/23 History Vitamin B Complex 1 cap PO DAILY 04/30/23 05/04/23 History Vitamin C/Biotin [Hair, Skin and 1 tab PO TID 04/30/23 05/04/23 History Nails Chew] Vitamin E (Dl,Tocopheryl Acet) 400 unit PO BID 04/30/23 05/04/23 History [Vitamin E (400 Iu = 180 mg)] Aspirin 81 mg PO DAILY #30 tab 05/03/23 05/04/23 Rx Atorvastatin [Lipitor] 80 mg PO HS #30 tab 05/03/23 05/04/23 Rx Clopidogrel [Plavix] 75 mg PO DAILY #30 tab 05/03/23 05/04/23 Rx Allergies Allergy/AdvReac Type Severity Reaction Status Date / Time adhesive Allergy Rash/Hives Verified 05/04/23 07:28 ciprofloxacin [From Cipro] Allergy Rash/Hives Verified 05/04/23 07:28 latex Allergy Rash/Hives Verified 05/04/23 07:28 Poultry [[place]] Allergy Rash/Hives Verified 05/04/23 07:28 Sulfa (Sulfonamide Allergy Rash/Hives Verified 05/04/23 07:28 Antibiotics) chicken derived [Chicken] AdvReac Nausea & Verified 05/04/23 07:28 Vomiting & Diarrhea chocolate flavor AdvReac Nausea & Verified 05/04/23 07:28 Vomiting & Diarrhea egg AdvReac Nausea & Verified 05/04/23 07:28 Vomiting & Diarrhea Physical Exam Vitals: Vital Signs Pulse Resp BP Pulse Ox 05/05/23 03:14 59 L 17 96 05/05/23 01:15 70 16 153/78 94 L 05/04/23 23:57 72 15 172/95 96 05/04/23 18:00 81 18 195/95 95 05/04/23 16:00 80 16 182/94 94 L 05/04/23 15:00 78 20 178/86 100 05/04/23 14:00 79 20 173/89 97 05/04/23 13:00 85 20 172/89 97 05/04/23 12:09 80 171/88 Intake and Output 05/04/23 05/04/23 05/05/23 14:59 22:59 06:59 Other: Weight 107.048 kg GENERAL EXAM: Alert, 68-year-old female, comfortable in no apparent distress. HEAD: Normocephalic and atraumatic EYES: Normal reaction of pupils, equal size. NOSE: Clear with pink turbinates. THROAT: No erythema or exudates. NECK: No masses, no JVD. CHEST: No chest wall deformity. LUNGS: Equal air entry with no crackles, wheeze, rhonchi or dullness. on room air. No conversational dyspnea or accessory muscle use.. CVS: S1 and S2 normal with soft systolic ejection murmur grade 2 heard best at the second right intercostal space, regular rhythm. No other extra heart sounds ABDOMEN: obese abdomen. No hepatosplenomegaly, active bowel sounds, no guarding or rigidity. SPINE: No scoliosis or deformity SKIN: No rashes CENTRAL NERVOUS SYSTEM: left-sided hemiparesis with upper and lower extremities being flaccid. Right upper and lower extremities normal strength 5 out of 5. There is left-sided facial droop with flattening of the nasolabial fold. There is slurred speech. Bilateral patellar DTRs are 2+ EXTREMITIES: There is no peripheral edema, clubbing, or cyanosis. Peripheral pulses are intact. Results - Laboratory Findings CBC and BMP: 05/04/23 04:46 05/04/23 04:46 PT/INR, D-dimer PT 11.0 sec (9.0-12.0) 05/04/23 04:46 INR 1.0 (<1.2) 05/04/23 04:46 Abnormal lab findings: Abnormal Labs 05/04/23 05/04/23 05/04/23 04:46 04:46 04:46 WBC 10.7 H APTT 21.9 L BUN 27 H Glucose 187 H POC Glucose (mg/dL) 05/04/23 19:29 WBC APTT BUN Glucose POC Glucose (mg/dL) 292 H Assessment and Plan Assessment: Suspected recurrent CVA, with left-sided hemiparesis and left-sided facial droop. CT of the brain without contrast on arrival showed no acute intracranial hemorrhage or mass effect. There were chronic appearing infarcts of the bilateral basal ganglia. Follow-up brain CTA showed no evidence of significant ICA stenosis or large vessel occulsion. Recent transthoracic echocardiogram from 3 days ago showed a preserved ejection fraction and had a negative bubble s tudy. Patient currently on a combination of Brillinta and ASA. Recent suspected CVA, was administered TPA on April 30, with initial improvement in CVA like symptoms. Patient was discharged yesterday on Plavix and aspirin, and returned to the hospital with similar symptoms less than 24 hours later. Moderate aortic stenosis, as determined by recent echocardiogram. Parkinson's disease History of Quinones's palsy Diabetes mellitus type 2, [id number] Hypothyroidism Hyperlipidemia Benign essential hypertension Obesity, with a BMI of 36 History of deep venous thrombosis. History of tobacco use/nicotine dependence. plan: Patient will be admitted to the intensive care unit for closer monitoring when bed available No plans for TPA, as the patient just received TPA 5 days ago Allow for permissive hypertension Patient is agreeable to brain MRI at this time Neuro checks Continue aspirin, Brilinta, Lipitor per neurology Coagulopathy workup pending Follow-up echocardiogram was ordered, the patient just had a recent transthoracic echo. Home medications have been resumed speech therapy consult We will continue to follow the patient while in the intensive care unit I have personally seen and examined the patient, performed the documentation and the assessment and plan as written. Number of minutes spent on the visit:20 This is a joint evaluation was done along with a nurse practitioner. Evaluation was done >30min. The patient presented to the hospital again with left-sided weakness. She had a similar presentation and she was discharged home and she completed her workup further workup was negative. She was discharged on aspirin and Plavix. She presented back again with left-sided weakness and this morning she has flaccid paralysis of the left side along with a left facial droop and a possible Babinski on the left. Sensory is within normal limits. Hemod ynamically stable. No seizure activity has been noted. Noted the EEG that was done prior to discharge was also negative. As for the echocardiogram, she did not have any PFO or cardiac shunts. She had a preserved LV function. She did have a cardiac murmur and the patient was found to have moderate degree of aortic stenosis. EKG and across the aortic valve was 46 and the mean gradient of 27. The plan for now is to keep the patient on a combination of aspirin and Brilinta and the patient had an initial CAT scan of the brain that showed no acute abnormalities and she is going to have a follow-up MRI of the brain. Neurology is on the case. She is hemodynamically stable at this point in time. He was able to pass a bedside swallow and his swallow is adequate for now based on the nursing evaluation. She is on room and oxygen. Time with Patient: Greater than 30
[2023-05-05 06:31] LABS: C Reactive Protein 0.8 mg/dL (<1.0)
[2023-05-05 06:55] LABS: Glucose,Whole Blood 222 mg/dL (70-110)
[2023-05-05] MEDS ORDERED: PANTOPRAZOLE 40 MG TABLET PO SCH (07:30)
[2023-05-05 08:38] LABS: T4, Free (Free Thyroxine) 2.01 ng/dL (0.78-2.19)
[2023-05-05] MEDS ORDERED: NON FORMULARY DRUG (Vitamin B Complex [Vitamin B Complex] 1 EACH Capsule) PO SCH (09:00)
[2023-05-05] MEDS: CARBIDOPA-LEVODOPA 25-100 MG 1 EACH TAB PO PRN (09:15)
[2023-05-05] MEDS: ONDANSETRON 4 MG/2 ML VIAL IVP PRN ×2 (10:11→17:38)
--- NOTE | 2023-05-05 11:15 | MR ---
EXAMINATION TYPE: MR brain wo con DATE OF EXAM: 05/05/2023 COMPARISON: CT scan 05/04/2023 HISTORY: Left side weakness TECHNIQUE: T1-weighted sagittal, T2, FLAIR, and diffusion axial, and T2 coronal coronal views of the brain are submitted. FINDINGS: There is abnormal signal noted on diffusion left basal ganglia measuring 5 mm. There is abnormal signal within the deep white matter adjacent to the lateral ventricle bilaterally g reater on the right measuring 2 cm. Measures 1.5 cm and the left. There is a tiny punctate area of cortical abnormal signal in the superior right medial parietal lobe. Report called to the patient's nurse within the ICU 11:08 AM 05/05/2023. There is generalized degenerative change. No midline shift or mass effect. Craniocervical junction ma intained. Sella turcica has a normal appearance. No cerebellopontine angle mass. The bony signal along the inner table of the right frontal lobe fan tible CT findings probable small osteomas. IMPRESSION: 1. Findings are compatible with bilateral acute ischemia within the deep white matter of bilateral pa rietal lobe greater on the right measuring 2 cm. Smaller punctate left basal ganglial 5 mm area of ac arnulfo ischemia. No significant midline shift or mass effect.
[2023-05-05 11:49] LABS: Glucose,Whole Blood 233 mg/dL (70-110)
[2023-05-05] MEDS: ASPIRIN 81 MG PO SCH (12:22)
[2023-05-05] MEDS: CALCIUM CARBONATE 500 MG CHEWABLE PO SCH (12:23)
[2023-05-05] MEDS: CHOLECALCIFEROL 25 MCG (1000 IU) TABLET PO SCH (12:23)
[2023-05-05] MEDS: TICAGRELOR 90 MG TAB PO SCH ×2 (12:23→22:08)
[2023-05-05] MEDS: PANTOPRAZOLE 40 MG TABLET PO SCH (12:23)
[2023-05-05] MEDS: HEPARIN SODIUM,PORCINE/PF 5,000 UNIT/0.5 ML SYRINGE SQ SCH ×2 (12:26→22:07)
[2023-05-05] MEDS: INSULIN ASPART (NovoLOG) 100 UNIT/ML VIAL SQ SCH ×4 (12:41→22:07)
[2023-05-05] MEDS: VALSARTAN 160 MG TAB PO SCH ×2 (13:02→18:32)
[2023-05-05] MEDS: GLIMEPIRIDE 4 MG TAB PO SCH ×2 (13:03→22:07)
[2023-05-05] MEDS: DILTIAZEM CD 240 MG CAP.ER.24H PO SCH (13:03)
--- NOTE | 2023-05-05 14:11 | P.PN ---
Subjective Progress Note Date: 05/05/23 patient is 68-year-old lady with past medical history significant for CVA, parkinsonism, hypothyroidism, hypertension, diabetes mellitus presented to the hospital because of left-sided weakness. Patient was only recently discharged yesterday after being treated for acute CVA in the hospital. Patient was admitted to ICU status post TPA. Patient stated she was all right this morning when she woke up after being woken up by her dog and she notices that her left side was weak. She was also complaining of slurred speech. EMS was immediately called and patient was brought to the [facility] Initial blood work done in the hospital showed WBC 10.7, hemoglobin 14.2, sodium 139, potassium 4.5, BUN 27, creatinine 0.84 CT brain was negative for acute intracranial process CTA head and neck did not show any acute occlusion or dissection of any vessels She was admitted to medicine service 05/05. Patient seen and examined. Still has weakness of left lower extremity. Left facial droop seen REVIEW OF SYSTEMS: CONSTITUTIONAL: No fever, no malaise,. CARDIOVASCULAR: No chest pain, no palpitations, no syncope. PULMONARY: No shortness of breath, no cough, GASTROINTESTINAL: No diarrhea, no nausea, no vomiting, no abdominal pain. NEUROLOGICAL: No headaches, no weakness, PHYSICAL EXAMINATION: GENERAL: The patient is alert and oriented x3, not in any acute distress. Well developed, well nourished. HEENT: Pupils are round and equally reacting to light. EOMI. No scleral icterus. No conjunctival pallor. Normocephalic, atraumatic. No pharyngeal erythema. No thyromegaly. CARDIOVASCULAR: S1 and S2 present. No murmurs, rubs, or gallops. PULMONARY: Chest is clear to auscultation, no wheezing or crackles. ABDOMEN: Soft, nontender, nondistended, normoactive bowel sounds. No palpable organomegaly. MUSCULOSKELETAL: No joint swelling or deformity. EXTREMITIES: No cyanosis, clubbing, or pedal edema. NEUROLOGICAL: AAO3, muscle strength is 5 x 5 in right side, one by 5 in left side. Left facial droop seen SKIN: No rashes. Assessment and plan Acute CVA Hypertension Hyperlipidemia [id number] diabetes mellitus Parkinson's disease Monitor vital signs Monitor CBC Monitor CMP Continue telemetry monitoring Neuro checks Continue aspirin Lipitor. Neurology started patient on brilinta Continue Toprol, Cardizem MRI brain ordered Follow-up on neurology recommendation Critical care following PT and OT consulted Objective - Vital Signs Vital signs: Vital Signs Temp Pulse 62 05/05/23 05:35 Resp 18 05/05/23 05:35 BP 143/70 05/05/23 05:35 Pulse Ox 95 05/05/23 05:35 FiO2 Intake & Output 05/04/23 05/05/23 05/05/23 18:59 06:59 18:59 Weight 107.048 kg - Labs CBC & Chem 7: 05/04/23 04:46 05/04/23 04:46 Labs: Abnormal Lab Results - Last 24 Hours (Table) 05/04/23 05/05/23 05/05/23 Range/Units 19:29 05:05 06:53 POC Glucose (mg/dL) 292 H 222 H (70-110) mg/dL TSH 0.085 L (0.465-4.680) mIU/L
[2023-05-05] MEDS: VITAMIN E (DL,TOCOPHERYL ACET) 400 UNIT (180 MG) CAP PO SCH ×2 (14:27→22:09)
[2023-05-05] MEDS: LEVOTHYROXINE 88 MCG TAB PO SCH ×2 (14:28→18:32)
--- NOTE | 2023-05-05 16:17 | P.PN ---
Subjective Progress Note Date: 05/05/23 Patient is seen at bedside and continues to have severe left sided weakness. Denies of any new neurological issues. Objective - Vital Signs Vital signs: Vital Signs Temp Pulse 74 05/05/23 12:30 Resp 19 05/05/23 12:30 BP 116/59 05/05/23 12:30 Pulse Ox 95 05/05/23 12:30 FiO2 Intake & Output 05/04/23 05/05/23 05/05/23 18:59 06:59 18:59 Weight 107.048 kg Other: Voiding Method Diaper External Catheter - Exam GENERAL: The patient is lying in bed and is not in acute distress. NEUROLOGICAL: Higher mental function: The patient is awake, alert, oriented to self, place and time. Patient is following commands. No aphasia and no neglect. Cranial nerves: The pupils are round, equal and reactive to light. Visual garcia are full to confrontation throughout. Extraocular movement is intact no nystagmus is noted. Facial sensation is normal to touch throughout. The facial strength is moderate to severe left lower facial weakness. Tongue is midline and moved [id number] without any difficulty. Subtle dysarthria is noted. Shoulder shrug is normal bilaterally. Motor: The strength is 0/5 over entire left side. Otheriwse 5 over 5 throughout right side. Increase tone over the left. Normal bulk. Cerebellum: Normal finger to nose over the right but unable to assess left because of weakness. Sensation: Decrease to touch over the left side. Reflexes (right/left): 2+ throughout. Plantars are mute bilaterally. Some of the workup during this hospital visit consisted of: TSH is 0.085 and a free T4 is 2.01 Homocysteine 13.2, CRP and ESR is within normal limits. CT of the head is reported as no acute hemorrhage, major vascular territory infarct or midline shift. Chronic appearing infarct of bilateral basal ganglia. CT Angiography of the head and neck was reported as no acute finding and arterial of the neck. Lungs the head is reported as no large vessel occlusion, significant stenosis, aneurysm or vascular malformation. MRI the brain is reported as findings are compatible with bilateral acute ischemia within the deep white matter bilateral parietal lobe greater on the right measuring 2 cm. Small punctate left basal ganglia 5 mm area of acute ischemia. No significant midline shift or mass effect. I personally reviewed the MRI and I agree the patient does have acute ischemia in the left basal ganglia as well as bilateral frontal parietal subcortical near the bilateral lower anterior horn of lateral ventricle in the medial aspect of the right right frontal parietal region - Labs CBC & Chem 7: 05/04/23 04:46 05/04/23 04:46 Labs: Abnormal Lab Results - Last 24 Hours (Table) 05/04/23 05/05/23 05/05/23 Range/Units 19:29 05:05 06:53 POC Glucose (mg/dL) 292 H 222 H (70-110) mg/dL TSH 0.085 L (0.465-4.680) mIU/L 05/05/23 Range/Units 11:48 POC Glucose (mg/dL) 233 H (70-110) mg/dL TSH (0.465-4.680) mIU/L Assessment and Plan Assessment: This is a 68-year-old woman with history of recent transient recurrent left hemiparesis who recently received IV TPA last week and presented back because of recurrent left-sided weakness including the face. No IV TPA since the patient received IV TPA within 3 month and the risk away the benefit. Acute ischemic stroke over bilateral hemipshere (parietal and left basal ganglia. I felt fronto/temporal region bilaterally and agree with left basal ganglia): Seems embolic in nature (cardioembolic). CTA head and negative are negative. Recent ischemic stroke that was suspected and had symptoms of left hemiparesis. patient received IV TPA on 04/30/23 and was discharged on 05/03/2023. CTs were negative and at that time patient refuses MRI. He symptoms resolved prior to discharge. Routine EEG was normal Hypertension Parkinson's disease Diabetes mellitus History of DVT Plan: I stopped Plavix since it failed and I started the patient on Brilinta 90mg 1 tab bid. Resumed her home dose of aspirin 81 mg daily. The patient on Lipitor 80 mg daily at bedtime for secondary stroke prophylaxis Ordered limited 2-D echo. I highly recommend the patient the to pursue with a transesophageal echocardiogram. Pending JOSE, homocystine, factor V Leiden, von Willebrand, antithrombin III, prothrombin 19676, lupus anticoagulant, protein C and S. ESR and CRP is normal. Q1 hour neuro check and need patient to be in ICU for close monitoring cardiac monitoring. So far no a-fib or flutter. Recommend an event monitor or loop recorder if unknown source of stroke. PT, OT and COMPOSITION TEACHER are consulted. Keep blood pressure permissive for 24 hours. Treat if SBP >220 or DBP >110. Recommend cardiology consultation for JAVIER. Patient has discoloration of the left lower foot (purplish), I ordered venous duplex to rule out DVT. Consulted vascular surgery team. Will defer the rest of medical management to primary team. For DVT prophylaxis: On subq heparin 5000U every 12 hours. The plan is discussed with patient, her nurse and primary team. Time with Patient: Less than 30
[2023-05-05 16:54] LABS: Glucose,Whole Blood 293 mg/dL (70-110)
[2023-05-05] MEDS: FENOFIBRATE 160 MG TAB PO SCH (18:33)
--- NOTE | 2023-05-05 19:57 | US ---
EXAMINATION TYPE: US venous doppler duplex LE LT DATE OF EXAM: 05/05/2023 4:17 PM COMPARISON: 12/20/22 CLINICAL INDICATION: Female, 68 years old with history of swelling. rule out dvt; left leg swelling. Pt states it has been like that for almost her whole life SIDE PERFORMED: Left TECHNIQUE: The lower extremity deep venous system is examined utilizing real time linear array sonog saniya with graded compression, doppler sonography and color-flow sonography. VESSELS IMAGED: Common Femoral Vein Deep Femoral Vein Greater Saphenous Vein * Femoral Vein Popliteal Vein Small Saphenous Vein * Proximal Calf Veins (* superficial vessels) DESCRIPTION: Grayscale, color doppler, spectral doppler imaging performed of the deep veins of the left lower extr emity. There is normal flow, compressibility, vascular waveforms. IMPRESSION: Negative for DVT, left lower extremity.
[2023-05-05] MEDS ORDERED: VALSARTAN 160 MG TAB PO ONE (21:00)
[2023-05-05] MEDS ORDERED: LEVOTHYROXINE 88 MCG TAB PO ONE (21:00)
[2023-05-05 21:12] LABS: Glucose,Whole Blood 255 mg/dL (70-110)
[2023-05-05] MEDS: ATORVASTATIN 80 MG TAB PO SCH (22:07)
[2023-05-05] MEDS: PIOGLITAZONE 45 MG TAB PO SCH (22:08)
[2023-05-05] MEDS: METOPROLOL SUCCINATE (ER) 50 MG TAB.ER.24H PO SCH (22:08)
[2023-05-05] MEDS: MAGNESIUM OXIDE 400 MG TAB PO SCH (22:08)
[2023-05-06] MEDS: CARBIDOPA-LEVODOPA 25-100 MG 1 EACH TAB PO SCH ×4 (04:07→22:08)
[2023-05-06] MEDS: tiZANidine 4 MG TAB PO SCH ×4 (04:07→22:07)
[2023-05-06 06:44] LABS: Glucose,Whole Blood 154 mg/dL (70-110)
[2023-05-06] MEDS: INSULIN ASPART (NovoLOG) 100 UNIT/ML VIAL SQ SCH ×4 (06:59→22:09)
[2023-05-06] MEDS: VALSARTAN 160 MG TAB PO SCH ×2 (06:59→17:08)
[2023-05-06] MEDS: LEVOTHYROXINE 88 MCG TAB PO SCH ×2 (06:59→17:08)
[2023-05-06] MEDS: PANTOPRAZOLE 40 MG TABLET PO SCH (06:59)
--- NOTE | 2023-05-06 09:21 | P.CRDCN ---
History of Present Illness Consult date: 05/06/23 Reason for Consult (text): CVA History of present illness: The patient is a 68-year-old female who was recently admitted to [facility] with a TIA. She was discharged from the hospital earlier in the day and then developed slurred speech overnight. EMS was notified and she presented with left hemiparesis and left facial droop. MRI of the brain shows bilateral parietal infarcts as well as left basal ganglia ischemia. Cardiology has been consulted for transesophageal echocardiogram. Recent limited echocardiogram showed moderate aortic stenosis with thickened aortic valve cusps. No evidence of PFO with bubble study. DIAGNOSTICS: CT angiogram of the head and neck shows less than 50% stenosis on the left internal carotid, otherwise unremarkable. Computed tomography scan of the brain shows chronic appearing infarcts of the basal ganglia MRI of the brain shows bilateral acute ischemia of the bilateral parietal lobe, as well as ischemia in the left basal ganglia. EKG shows sinus mechanism. No arrhythmias on telemetry. Lower extremity venous Doppler shows no evidence of DVT Lab data: WBC 10.7, hemoglobin 14.2, hematocrit 42.8, platelet 231, sodium 139, potassium 4.5, BUN 27, creatinine 0.84, AST 29, ALT 16, troponin less than 0.0 12, CRP 0.8, cystine 13.2, TSH 0.08 PAST MEDICAL HISTORY: Parkinson's disease, diabetes, hypothyroidism, hyperlipidemia, hypertension, obesity REVIEW OF SYSTEMS: No fever or chills. No cough or expectoration. No diaphoresis. Patient denies headache, dizziness, blurred vision, double vision. Patient denies any stomach discomfort. No nausea, vomiting. No hematochezia. No hematemesis. Denies any black stools or blood in his stools. Denies dysuria or hematuria. Denies chest pain or chest pressure. No dyspnea or orthopnea. PHYSICAL EXAMINATION: This is a 68-year-old female in no apparent distress at the time of my examination. HEENT: Head is atraumatic, normocephalic. Pupils are equal, round. Sclerae anicteric. Conjunctivae are clear. Mucous membranes of the mouth are moist. Neck is supple. There is no jugular venous distention. No carotid bruit is heard. CHEST EXAMINATION: Lungs are clear to auscultation. No chest wall tenderness is noted on palpation or with deep breathing. HEART EXAMINATION: Heart regular rate and rhythm. S1, S2 heard. Systolic ejection murmur. No gallops or rub. ABDOMEN: Soft, nontender. Bowel sounds are heard. No organomegaly noted. EXTREMITIES: 2+ peripheral pulses with no evidence of peripheral edema and no calf tenderness noted. Left hemiparesis. Unable to move left upper and left lower extremity. NEUROLOGIC EXAMINATION: Patient is awake, alert and oriented x3. FINAL ASSESSMENT AND PLAN: Acute CVA Recent TIA Moderate aortic stenosis Diabetes mellitus Hypothyroidism, suppressed TSH Hyperlipidemia Hypertension Obesity, BMI 35 PLAN: Nothing by mouth after midnight for JAVIER Primary team to address abnormal TSH Permissive hypertension per neurology Further recommendations based on clinical course I am dictating on behalf of Dr Chris Rodríguez's history/physical and assessment/plan. Past Medical History Past Medical History: Diabetes Mellitus, Deep Vein Thrombosis (DVT), Hypertension, Thyroid Disorder Additional Past Medical History / Comment(s): Spleen issues, Parkinsons History of Any Multi-Drug Resistant Organisms: None Reported Past Surgical History: Orthopedic Surgery, Tonsillectomy, Tubal Ligation Additional Past Surgical History / Comment(s): Thyroid removed Past Anesthesia/Blood Transfusion Reactions: Blood Transfusion Reaction Additional Past Anesthesia/Blood Transfusion Reaction / Comment(s): pt can't explain clearly Past Psychological History: No Psychological Hx Reported Smoking Status: Current every day smoker Past Alcohol Use History: None Reported Past Drug Use History: None Reported Medications and Allergies Home Medications Medication Instructions Recorded Confirmed Type Carbidopa-Levodopa 25-100 mg 1 tab PO QID@04,10,16,22 12/20/22 05/05/23 History [Sinemet 25-100 mg] Diltiazem Cd [Cardizem CD] 240 mg PO DAILY 12/20/22 05/04/23 History Fenofibrate [Lofibra] 160 mg PO W/SUPPER 12/20/22 05/04/23 History Glimepiride [Amaryl] 4 mg PO BID 12/20/22 05/04/23 History Levothyroxine Sodium 88 mcg PO BID-W/MEALS 12/20/22 05/04/23 History Metoprolol Succinate (ER) [Toprol 50 mg PO HS 12/20/22 05/04/23 History XL] Omeprazole 40 mg PO AC-BRKFST 12/20/22 05/04/23 History Pioglitazone HCl 45 mg PO HS 12/20/22 05/04/23 History Valsartan [Diovan] 160 mg PO BID-W/MEALS 12/20/22 05/04/23 History metFORMIN HCL ER [Glucophage XR] 1,000 mg PO BID 12/20/22 05/04/23 History tiZANidine [Zanaflex] 4 mg PO QID@04,10,16,22 12/20/22 05/04/23 History traMADol HCL 50 mg PO Q4H PRN 12/20/22 05/04/23 History Albuterol Inhaler [Ventolin Hfa 2 puff INHALATION RT-QID PRN 04/30/23 05/04/23 History Inhaler] Calcium Carbonate [Calcium] 600 mg PO DAILY 04/30/23 05/04/23 History Carbidopa-Levodopa 25-100 mg 1 tab PO BID@0800,1200 PRN 04/30/23 05/04/23 History [Sinemet 25-100 mg] Cholecalciferol [Vitamin D3 (25 25 mcg PO DAILY 04/30/23 05/04/23 History Mcg = 1000 Iu)] Glucosamine Sulfate 500 mg PO TID PRN 04/30/23 05/04/23 History Magnesium Oxide [Magnesium] 500 mg PO HS 04/30/23 05/04/23 History Milk Thistle 150 mg PO DAILY 04/30/23 05/04/23 History Tart Bales 1 tab PO DAILY 04/30/23 05/04/23 History Turmeric Root Extract [Turmeric] 500 mg PO HS 04/30/23 05/04/23 History Vitamin B Complex 1 cap PO DAILY 04/30/23 05/04/23 History Vitamin C/Biotin [Hair, Skin and 1 tab PO TID 04/30/23 05/04/23 History Nails Chew] Vitamin E (Dl,Tocopheryl Acet) 400 unit PO BID 04/30/23 05/04/23 History [Vitamin E (400 Iu = 180 mg)] Aspirin 81 mg PO DAILY #30 tab 05/03/23 05/04/23 Rx Atorvastatin [Lipitor] 80 mg PO HS #30 tab 05/03/23 05/04/23 Rx Clopidogrel [Plavix] 75 mg PO DAILY #30 tab 05/03/23 05/04/23 Rx Allergies Allergy/AdvReac Type Severity Reaction Status Date / Time adhesive Allergy Rash/Hives Verified 05/04/23 07:28 ciprofloxacin [From Cipro] Allergy Rash/Hives Verified 05/04/23 07:28 latex Allergy Rash/Hives Verified 05/04/23 07:28 Poultry [[place]] Allergy Rash/Hives Verified 05/04/23 07:28 Sulfa (Sulfonamide Allergy Rash/Hives Verified 05/04/23 07:28 Antibiotics) chicken derived [Chicken] AdvReac Nausea & Verified 05/04/23 07:28 Vomiting & Diarrhea chocolate flavor AdvReac Nausea & Verified 05/04/23 07:28 Vomiting & Diarrhea egg AdvReac Nausea & Verified 05/04/23 07:28 Vomiting & Diarrhea Physical Exam Vitals: Vital Signs Temp Pulse Resp BP BP Pulse Ox 05/06/23 02:00 98.1 F 16 140/72 95 05/05/23 21:00 74 15 141/64 96 05/05/23 20:00 97.8 F 70 15 136/59 94 L 05/05/23 19:30 65 9 L 94 L 05/05/23 19:00 67 20 95 05/05/23 18:30 67 14 136/70 94 L 05/05/23 18:00 71 12 119/61 96 05/05/23 17:30 66 14 100/63 95 05/05/23 17:00 68 12 121/72 96 05/05/23 16:30 74 11 L 132/91 95 05/05/23 16:10 74 13 93 L 05/05/23 16:00 97.8 F 74 12 135/87 95 05/05/23 15:50 75 11 L 96 05/05/23 15:40 75 15 95 05/05/23 15:30 73 12 95 05/05/23 15:20 76 12 94 L 05/05/23 15:10 73 12 139/84 95 05/05/23 15:00 75 14 121/69 94 L 05/05/23 14:50 73 16 96 05/05/23 14:40 75 19 95 05/05/23 14:30 76 19 95 05/05/23 14:20 77 18 96 05/05/23 14:10 77 14 96 05/05/23 14:00 69 12 118/65 96 05/05/23 13:50 70 14 96 05/05/23 13:40 69 16 95 05/05/23 13:30 67 19 95 05/05/23 13:20 69 16 95 05/05/23 13:10 79 14 95 05/05/23 13:00 70 12 94 L 05/05/23 12:50 73 12 96 05/05/23 12:40 68 15 95 05/05/23 12:30 74 19 95 05/05/23 12:20 71 22 96 05/05/23 12:10 72 12 96 05/05/23 12:00 98 F 65 16 156/84 95 05/05/23 11:50 78 14 96 05/05/23 11:40 68 12 95 05/05/23 11:30 70 11 L 97 05/05/23 11:20 74 14 97 05/05/23 11:10 75 12 96 05/05/23 10:10 77 12 97 05/05/23 10:00 81 11 L 152/111 97 05/05/23 09:50 84 17 95 05/05/23 09:40 81 15 98 05/05/23 09:30 82 17 96 05/05/23 09:20 80 19 97 05/05/23 09:10 82 15 97 Intake and Output 05/05/23 05/06/23 05/06/23 22:59 06:59 14:59 Intake Total 540 Output Total 450 700 Balance 90 -700 Intake: Oral 540 Output: Urine 450 700 Other: Voiding Method Diaper Diaper External Catheter External Catheter Weight 106.9 kg Results 05/04/23 04:46 05/04/23 04:46 Current Medications Generic Name Dose Route Start Last Admin Trade Name Freq PRN Reason Stop Dose Admin Acetaminophen 650 mg 05/04/23 18:58 Acetaminophen Tab 325 Mg Tab PO Q6HR PRN Fever and/ or Pain Albuterol Sulfate 2.5 mg 05/04/23 14:13 Albuterol Nebulized 2.5 Mg/3 Ml INHALATION RT-QID PRN Shortness Of Breath Aspirin 81 mg 05/05/23 09:00 05/05/23 12:22 Aspirin 81 Mg PO 81 mg DAILY PHILLIP Administration Atorvastatin Calcium 80 mg 05/04/23 21:00 05/05/23 22:07 Atorvastatin 80 Mg Tab PO 80 mg HS PHILLIP Administration Calcium Carbonate/Glycine 500 mg 05/05/23 09:00 05/05/23 12:23 Calcium Carbonate 500 Mg Chewable PO 500 mg DAILY PHILLIP Administration Carbidopa/Levodopa 1 each 05/05/23 08:00 Carbidopa-Levodopa 25-100 Mg 1 Each Tab PO BID@0800,1200 PRN Shaking Carbidopa/Levodopa 1 each 05/05/23 22:00 05/06/23 04:07 Carbidopa-Levodopa 25-100 Mg 1 Each Tab PO 1 each QID@04,10,16,22 PHILLIP Administration Cholecalciferol 25 mcg 05/05/23 09:00 05/05/23 12:23 Cholecalciferol 25 Mcg (1000 Iu) Tablet PO 25 mcg DAILY PHILLIP Administration Dextrose/Water 25 ml 05/04/23 18:59 Dextrose 50% Syringe 50 Ml IVP PER PROTOCOL PRN Hypoglycemia Protocol Dextrose/Water 50 ml 05/04/23 18:59 Dextrose 50% Syringe 50 Ml IVP PER PROTOCOL PRN Hypoglycemia Protocol Diltiazem HCl 240 mg 05/05/23 09:00 05/05/23 13:03 Diltiazem Cd 240 Mg Cap.Er.24h PO 240 mg DAILY PHILLIP Administration Fenofibrate 160 mg 05/05/23 17:30 05/05/23 18:33 Fenofibrate 160 Mg Tab PO 160 mg W/SUPPER PHILLIP Administration Glimepiride 4 mg 05/04/23 21:00 05/05/23 22:07 Glimepiride 4 Mg Tab PO 4 mg BID PHILLIP Administration Heparin Sodium (Porcine) 5,000 unit 05/04/23 21:00 05/05/23 22:07 Heparin Sodium,Porcine/Pf 5,000 Unit/0.5 Ml Syringe SQ 5,000 unit Q12HR PHILLIP Administration Insulin Aspart 0 unit 05/04/23 21:00 05/06/23 06:59 Insulin Aspart (Novolog) 100 Unit/Ml Vial SQ 2 unit ACHS PHILLIP Administration Protocol Levothyroxine Sodium 88 mcg 05/05/23 07:30 05/06/23 06:59 Levothyroxine 88 Mcg Tab PO 88 mcg BID-W/MEALS PHILLIP Administration Magnesium Oxide 400 mg 05/04/23 21:00 05/05/23 22:08 Magnesium Oxide 400 Mg Tab PO Not Given HS PHILLIP Metoprolol Succinate 50 mg 05/04/23 21:00 05/05/23 22:08 Metoprolol Succinate (Er) 50 Mg Tab.Er.24h PO 50 mg HS PHILLIP Administration Ondansetron HCl 4 mg 05/05/23 01:38 05/05/23 17:38 Ondansetron 4 Mg/2 Ml Vial IVP 4 mg Q6HR PRN Administration Nausea And Vomiting Pantoprazole Sodium 40 mg 05/05/23 07:30 05/06/23 06:59 Pantoprazole 40 Mg Tablet PO 40 mg AC-BRKFST PHILLIP Administration Pioglitazone HCl 45 mg 05/04/23 21:00 05/05/23 22:08 Pioglitazone 45 Mg Tab PO 45 mg HS PHILLIP Administration Ticagrelor 90 mg 05/04/23 21:00 05/05/23 22:08 Ticagrelor 90 Mg Tab PO 90 mg BID PHILLIP Administration Tizanidine HCl 4 mg 05/05/23 04:00 05/06/23 04:07 Tizanidine 4 Mg Tab PO 4 mg QID@04,10,16,22 PHILILP Administration Tramadol HCl 50 mg 05/04/23 18:40 05/05/23 15:27 Tramadol 50 Mg Tab PO 50 mg Q4H PRN Administration Pain Valsartan 160 mg 05/05/23 07:30 05/06/23 06:59 Valsartan 160 Mg Tab PO 160 mg BID-W/MEALS PHILLIP Administration Vitamin E 400 unit 05/04/23 21:00 05/05/23 22:09 Vitamin E (Dl,Tocopheryl Acet) 400 Unit (180 Mg) Cap PO Not Given BID PHILLIP Intake and Output 05/05/23 05/06/23 05/06/23 22:59 06:59 14:59 Intake Total 540 Output Total 450 700 Balance 90 -700 Intake: Oral 540 Output: Urine 450 700 Other: Voiding Method Diaper Diaper External Catheter External Catheter Weight 106.9 kg 05/04/23 04:46 05/04/23 04:46
--- NOTE | 2023-05-06 09:57 | P.PN ---
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 Patient is a 68-year-old white female with past medical history significant for recent hospital admission on April 30 for suspected CVA and TPA administration. She also has history of Quinones's palsy, Parkinson's disease, aortic stenosis, diabetes mellitus type 2, hypertension, hyperlipidemia, DVT, and is an ex-smoker. Patient initially presented to the emergency room back on April 30 for CVA-like symptoms and left-sided hemiparesis. She was given a dose of TPA with improvement in her symptoms. At that time, the patient did refuse brain MRI. She was discharged home on aspirin and Plavix, and the patient did return to the emergency room less than 24 hours later. She returned early yesterday morning. She states that she was sleeping at home, and was awoken by her dog. She then noticed severe left-sided weakness, and she immediately called EMS. CT of the brain without contrast on arrival showed no acute intracranial hemorrhage or mass effect. There were chronic appearing infarcts of the bilateral basal ganglia. Follow-up brain CTA showed no evidence of significant ICA stenosis or large vessel occulsion. Patient was evaluated by neurology while in the emergency room, who recommended admission to the intensive care unit for closer monitoring. Patient is agreeable to MRI at this time. She is currently sitting up in bed, on room air, in no acute distress. She does have obvious left-sided hemiparesis and left-sided facial droop. There is slurred speech. She reports blurred vision. CBC and BMP on arrival were unremarkable. Blood glucose is gauri vated at 292. Patient is receiving aspirin, Brilinta, and Lipitor per neurology. Blood pressure is elevated, allowing for permissive hypertension. Patient will be monitored in the intensive care unit. On today's evaluation of 05/06/2023, the patient continues to have flaccid paralysis on the left side including left upper and left lower extremity embolization lupus still present. She is able to talk. She is able to swallow. MRI of the brain that was done yesterday showed bilateral acute ischemia with deep white matter changes of the bilateral parietal lobes greater than the right measuring up to 2 cm in size. Smaller punctate left basal ganglia 5 mm areas of acute ischemia was also seen. No midline shift. Neurology is aware. The cardiac rhythm is sinus. The patient remains on aspirin. The patient is on Brilinta. No other complaints otherwise for now. No seizure activity. No hypertensive reactions. JAVIER is to follow. Hypercoagulable workup is in progress. Objective - Vital Signs Vital signs: Vital Signs Temp 98.1 F 05/06/23 02:00 Pulse 74 05/05/23 21:00 Resp 16 05/06/23 02:00 BP 140/72 05/06/23 02:00 Pulse Ox 95 05/06/23 02:00 FiO2 Intake & Output 05/05/23 05/06/23 05/06/23 18:59 06:59 18:59 Intake Total 720 300 Output Total 800 700 Balance -80 -400 Weight 106.9 kg Intake: Oral 720 300 Output: Urine 800 700 Other: Voiding Method Diaper Diaper External Catheter External Catheter - Exam GENERAL EXAM: Alert, 68-year-old female, comfortable in no apparent distress. HEAD: Normocephalic and atraumatic EYES: Normal reaction of pupils, equal size. NOSE: Clear with pink turbinates. THROAT: No erythema or exudates. NECK: No masses, no JVD. CHEST: No chest wall deformity. LUNGS: Equal air entry with no crackles, wheeze, rhonchi or dullness. on room air. No conversational dyspnea or accessory muscle use.. CVS: S1 and S2 normal with soft systolic ejection murmur grade 2 heard best at the second right intercostal space, regular rhythm. No other extra heart sounds ABDOMEN: obese abdomen. No hepatosplenomegaly, active bowel sounds, no guarding or rigidity. SPINE: No scoliosis or deformity SKIN: No rashes CENTRAL NERVOUS SYSTEM: left-sided hemiparesis with upper and lower extremities being flaccid. Right upper and lower extremities normal strength 5 out of 5. There is left-sided facial droop with flattening of the nasolabial fold. There is slurred speech. Bilateral patellar DTRs are 2+ EXTREMITIES: There is no peripheral edema, clubbing, or cyanosis. Peripheral p ulses are intact. - Labs CBC & Chem 7: 05/04/23 04:46 05/04/23 04:46 Labs: Abnormal Lab Results - Last 24 Hours (Table) 06/22/23 06/22/23 06/22/23 Range/Units 11:48 16:52 21:11 POC Glucose (mg/dL) 233 H 293 H 255 H (70-110) mg/dL 05/06/23 Range/Units 06:41 POC Glucose (mg/dL) 154 H (70-110) mg/dL Assessment and Plan Assessment: CVA, with left-sided hemiparesis and left-sided facial droop. CT of the brain without contrast on arrival showed no acute intracranial hemorrhage or mass effect. There were chronic appearing infarcts of the bilateral basal ganglia. Follow-up brain CTA showed no evidence of significant ICA stenosis or large vessel occulsion. Recent transthoracic echocardiogram from 3 days ago showed a preserved ejection fraction and had a negative bubble study. Patient currently on a combination of Brillinta and ASA. The MRI of the brain was done and it showed acute ischemia involving the bilateral deep white matter in addition to bilateral parietal lobes greater than on the right measuring 2 cm in size. Smaller punctate left basal ganglia 5 mm area of ischemia was also seen. Rule out underlying hypercoagulability. Rule out underlying embolic phenomena of a cardiac source. Recent suspected CVA, was administered TPA on April 30, with initial improvement in CVA like symptoms. Patient was discharged yesterday on Plavix and aspirin, and returned to the hospital with similar symptoms less than 24 hours later. Moderate aortic stenosis, as determined by recent echocardiogram. Parkinson's disease History of Quinones's palsy Diabetes mellitus type 2, [id number] Hypothyroidism Hyperlipidemia Benign essential hypertension Obesity, with a BMI of 36 History of deep venous thrombosis. History of tobacco use/nicotine dependence. plan: Monitor neurologic function Monitor blood pressure Monitor motor function on the left side The patient is going to undergo a JAVIER today Hypercoagulable workup has been sent Continue aspirin, Brilinta, Lipitor per neurology Hemodynamically stable. No seizure activity has been noted. Noted the EEG that was done prior to discharge was also negative. As for the echocardiogram, she did not have any PFO or cardiac shunts. She had a preserved LV function. She did have a cardiac murmur and the patient was found to have moderate degree of aortic stenosis. Gradient across the aortic valve was 46 and the mean gradient of 27. The plan for now is to keep the patient on a combination of aspirin and Brilinta and the patient had an initial CAT scan of the brain that showed no acute abnormalities and she is going to have a follow-up MRI of the brain. Neurology is on the case. She is hemodynamically stable at this point in time. He was able to pass a bedside swallow and his swallow is adequate for now based on the nursing evaluation. She is on room and oxygen. consult PT
[2023-05-06 10:07] LABS: Prothrombin 20210A Mutation Negative
[2023-05-06] MEDS: HEPARIN SODIUM,PORCINE/PF 5,000 UNIT/0.5 ML SYRINGE SQ SCH ×2 (10:18→22:08)
[2023-05-06] MEDS: ASPIRIN 81 MG PO SCH (10:18)
[2023-05-06] MEDS: GLIMEPIRIDE 4 MG TAB PO SCH ×2 (10:19→22:19)
[2023-05-06] MEDS: CHOLECALCIFEROL 25 MCG (1000 IU) TABLET PO SCH (10:19)
[2023-05-06] MEDS: TICAGRELOR 90 MG TAB PO SCH ×2 (10:19→22:07)
[2023-05-06] MEDS: DILTIAZEM CD 240 MG CAP.ER.24H PO SCH (10:20)
[2023-05-06] MEDS: VITAMIN E (DL,TOCOPHERYL ACET) 400 UNIT (180 MG) CAP PO SCH ×2 (10:20→22:19)
[2023-05-06] MEDS: CALCIUM CARBONATE 500 MG CHEWABLE PO SCH (10:36)
--- NOTE | 2023-05-06 10:42 | P.GSCN ---
History of Present Illness Consult date: 05/06/23 Reason for Consult: Left foot discolored, rule out acute ischemia Requesting physician: Perry De Dios History of present illness: This is a pleasant 68-year-old female who was admitted for left-sided hemiparesis. Patient presented to the emergency department 2 days ago with left-sided weakness, code stroke was called and IV TPA was initiated. Patient has a past medical history of recent CVA, Parkinson's disease, hypertension, diabetes, left Quinones's palsy, and patient reports history of clotting disorder which she was diagnosed around age 13 with previous DVTs. States she does have vascular disorder and has follow-up with vascular surgeon out of [place]. She lives part of the time in [place] and part of the time here in [place]. She also follows with a structures engineer in [place]. She states she was admitted in December for a lower extremity infection of the left leg. She does have a previous history of DVT in the left lower extremity. Apparently yesterday neurology had evaluated patient and had noticed some discoloring of the left lower extremity and vascular surgery was consulted for further evaluation for possible acute ischemia. Patient denies any pain in bilateral lower extremities. She states that she does have chronic swelling to her lower extremities left usually greater than right. She had a venous duplex of the left lower extremity yesterday which was negative for DVT. She currently states she has some mild shortness of breath, no chest pain, no abdominal pain, nausea or vomiting. She has significant weakness in the left upper extremity and left lower extremity. Notable left facial droop. Denies any new focal deficits. Review of Systems A 14 point review systems was completed all pertinent positives and negatives as stated in the HPI. Past Medical History Past Medical History: Diabetes Mellitus, Deep Vein Thrombosis (DVT), Hypertension, Thyroid Disorder Additional Past Medical History / Comment(s): Spleen issues, Parkinsons History of Any Multi-Drug Resistant Organisms: None Reported Past Surgical History: Orthopedic Surgery, Tonsillectomy, Tubal Ligation Additional Past Surgical History / Comment(s): Thyroid removed Past Anesthesia/Blood Transfusion Reactions: Blood Transfusion Reaction Additional Past Anesthesia/Blood Transfusion Reaction / Comm: pt can't explain clearly Past Psychological History: No Psychological Hx Reported Smoking Status: Current every day smoker Past Alcohol Use History: None Reported Past Drug Use History: None Reported Medications and Allergies Home Medications Medication Instructions Recorded Confirmed Type Carbidopa-Levodopa 25-100 mg 1 tab PO QID@04,10,,12/20/22 05/05/23 History [Sinemet 25-100 mg] Diltiazem Cd [Cardizem CD] 240 mg PO DAILY 12/20/22 05/04/23 History Fenofibrate [Lofibra] 160 mg PO W/SUPPER 12/20/22 05/04/23 History Glimepiride [Amaryl] 4 mg PO BID 12/20/22 05/04/23 History Levothyroxine Sodium 88 mcg PO BID-W/MEALS 12/20/22 05/04/23 History Metoprolol Succinate (ER) [Toprol 50 mg PO HS 12/20/22 05/04/23 History XL] Omeprazole 40 mg PO AC-BRKFST 12/20/22 05/04/23 History Pioglitazone HCl 45 mg PO HS 12/20/22 05/04/23 History Valsartan [Diovan] 160 mg PO BID-W/MEALS 12/20/22 05/04/23 History metFORMIN HCL ER [Glucophage XR] 1,000 mg PO BID 12/20/22 05/04/23 History tiZANidine [Zanaflex] 4 mg PO QID@04,10,,12/20/22 05/04/23 History traMADol HCL 50 mg PO Q4H PRN 12/20/22 05/04/23 History Albuterol Inhaler [Ventolin Hfa 2 puff INHALATION RT-QID PRN 04/30/23 05/04/23 History Inhaler] Calcium Carbonate [Calcium] 600 mg PO DAILY 04/30/23 05/04/23 History Carbidopa-Levodopa 25-100 mg 1 tab PO BID@0800,1200 PRN 04/30/23 05/04/23 History [Sinemet 25-100 mg] Cholecalciferol [Vitamin D3 (25 25 mcg PO DAILY 04/30/23 05/04/23 History Mcg = 1000 Iu)] Glucosamine Sulfate 500 mg PO TID PRN 04/30/23 05/04/23 History Magnesium Oxide [Magnesium] 500 mg PO HS 04/30/23 05/04/23 History Milk Thistle 150 mg PO DAILY 04/30/23 05/04/23 History Tart Blaes 1 tab PO DAILY 04/30/23 05/04/23 History Turmeric Root Extract [Turmeric] 500 mg PO HS 04/30/23 05/04/23 History Vitamin B Complex 1 cap PO DAILY 04/30/23 05/04/23 History Vitamin C/Biotin [Hair, Skin and 1 tab PO TID 04/30/23 05/04/23 History Nails Chew] Vitamin E (Dl,Tocopheryl Acet) 400 unit PO BID 04/30/23 05/04/23 History [Vitamin E (400 Iu = 180 mg)] Aspirin 81 mg PO DAILY #30 tab 05/03/23 05/04/23 Rx Atorvastatin [Lipitor] 80 mg PO HS #30 tab 05/03/23 05/04/23 Rx Clopidogrel [Plavix] 75 mg PO DAILY #30 tab 05/03/23 05/04/23 Rx Allergies Allergy/AdvReac Type Severity Reaction Status Date / Time adhesive Allergy Rash/Hives Verified 05/04/23 07:28 ciprofloxacin [From Cipro] Allergy Rash/Hives Verified 05/04/23 07:28 latex Allergy Rash/Hives Verified 05/04/23 07:28 Poultry [[place]] Allergy Rash/Hives Verified 05/04/23 07:28 Sulfa (Sulfonamide Allergy Rash/Hives Verified 05/04/23 07:28 Antibiotics) chicken derived [Chicken] AdvReac Nausea & Verified 05/04/23 07:28 Vomiting & Diarrhea chocolate flavor AdvReac Nausea & Verified 05/04/23 07:28 Vomiting & Diarrhea egg AdvReac Nausea & Verified 05/04/23 07:28 Vomiting & Diarrhea Surgical - Exam Vital Signs Pulse BP 80 171/88 05/04/23 12:09 05/04/23 12:09 General appearance: The patient is alert, oriented, appears in no acute d istress. HET: Head is normocephalic and atraumatic. Pupils are equal and reactive. Neck: Supple. Heart: Regular. Lungs: Equal expansion, normal respiratory effort. Abdomen: Soft, nontender, nondistended. Extremities: Normal skin color, pink with good turgor. Bilateral lower extremity edema, left greater than right. Bilateral feet cool to the touch with palpable DP pulses. Right hare with 2 scabbed areas otherwise there are no wounds present on lower extremities. Neurological: Left facial droop, left upper and lower extremity weakness. Results - Labs 05/04/23 04:46 05/04/23 04:46 Abnormal Lab Results - Last 24 Hours (Table) 05/05/23 05/05/23 05/05/23 Range/Units 11:48 16:52 21:11 POC Glucose (mg/dL) 233 H 293 H 255 H (70-110) mg/dL 05/06/23 Range/Units 06:41 POC Glucose (mg/dL) 154 H (70-110) mg/dL Assessment and Plan Assessment: 1. Left lower extremity discoloration, which is completely resolved. We have been related to peripheral vasal reactivity from acute stroke with left hemiparesis 2. Acute CVA with left-sided hemiparesis status post TPA 3. History of peripheral vascular disease 4. History of diabetes mellitus 5. History of Tyler Palsy 6. History of left lower extremity DVT 7. Possible history of clotting disorder Plan: There is no indication for any vascular surgical intervention. Bilateral feet pink, with good capillary refill, nontender, sensorimotor intact with palpable dorsalis pedis pulses. No further workup indicated at this time. Patient will be given vascular surgical office information and can establish in the outpatient for possible venous insufficiency. Thank you for this consultation, we will sign off at this time. The impression and plan of care has been dictated as directed. I performed a history and examination of this patient, discussed the same with the dictator. I agree with the dictator's note ,documented as a scribe. Any additional findings or plans will be noted.
[2023-05-06 11:31] LABS: Glucose,Whole Blood 253 mg/dL (70-110)
[2023-05-06 12:25] LABS: Protein C (Activity) 121 % (71-138)
[2023-05-06 12:49] LABS: Protein C Antigen 150 % (72-160)
[2023-05-06 13:12] LABS: Protein S Antigen 99 % (50 - 140)
[2023-05-06 13:12] LABS: Anti-Thrombin III Antigen 104 % (80 - 120)
--- NOTE | 2023-05-06 13:15 | P.PN ---
Subjective Progress Note Date: 05/06/23 patient is 68-year-old lady with past medical history significant for CVA, parkinsonism, hypothyroidism, hypertension, diabetes mellitus presented to the hospital because of left-sided weakness. Patient was only recently discharged yesterday after being treated for acute CVA in the hospital. Patient was admitted to ICU status post TPA. Patient stated she was all right this morning when she woke up after being woken up by her dog and she notices that her left side was weak. She was also complaining of slurred speech. EMS was immediately called and patient was brought to the [facility] Initial blood work done in the hospital showed WBC 10.7, hemoglobin 14.2, sodium 139, potassium 4.5, BUN 27, creatinine 0.84 CT brain was negative for acute intracranial process CTA head and neck did not show any acute occlusion or dissection of any vessels She was admitted to medicine service 05/05. Patient seen and examined. Still has weakness of left lower extremity. Left facial droop seen 05/06. Patient seen and examined. Sitting upright in the chair. Still has left-sided weakness and facial droop. MRI brain results were updated to the patient REVIEW OF SYSTEMS: CONSTITUTIONAL: No fever, no malaise,. CARDIOVASCULAR: No chest pain, no palpitations, no syncope. PULMONARY: No shortness of breath, no cough, GASTROINTESTINAL: No diarrhea, no nausea, no vomiting, no abdominal pain. NEUROLOGICAL: No headaches, no weakness, PHYSICAL EXAMINATION: GENERAL: The patient is alert and oriented x3, not in any acute distress. Well developed, well nourished. HEENT: Pupils are round and equally reacting to light. EOMI. No scleral icterus. No conjunctival pallor. Normocephalic, atraumatic. No pharyngeal erythema. No thyromegaly. CARDIOVASCULAR: S1 and S2 present. No murmurs, rubs, or gallops. PULMONARY: Chest is clear to auscultation, no wheezing or crackles. ABDOMEN: Soft, nontender, nondistended, normoactive bowel sounds. No palpable organomegaly. MUSCULOSKELETAL: No joint swelling or deformity. EXTREMITIES: No cyanosis, clubbing, or pedal edema. NEUROLOGICAL: AAO3, muscle strength is 5 x 5 in right side, one by 5 in left side. Left facial droop seen SKIN: No rashes. Assessment and plan Acute CVA Hypertension Hyperlipidemia Bmi-[id number] diabetes mellitus Parkinson's disease Monitor vital signs Monitor CBC Monitor CMP Continue telemetry monitoring Neuro checks Continue aspirin Lipitor. Neurology started patient on brilinta Continue Toprol, Cardizem MRI brain showed bilateral acute ischemia with deep white matter changes of the bilateral parietal lobes greater than the right measuring up to 2 cm in size. Smaller punctate left basal ganglia 5 mm areas of acute ischemia was also seen Follow-up on neurology recommendation Critical care following JAVIER ordered Follow-up on PT and OT recommendations Objective - Vital Signs Vital signs: Vital Signs Temp 98.2 F 05/06/23 08:00 Pulse 65 05/06/23 08:00 Resp 16 05/06/23 08:00 BP 138/59 05/06/23 08:00 Pulse Ox 96 05/06/23 08:00 FiO2 Intake & Output 05/05/23 05/06/23 05/06/23 18:59 06:59 18:59 Intake Total 720 300 240 Output Total 800 700 200 Balance -80 -400 40 Weight 106.9 kg Intake: Oral 720 300 240 Output: Urine 800 700 200 Other: Voiding Method Diaper Diaper External Catheter External Catheter External Catheter - Labs CBC & Chem 7: 05/04/23 04:46 05/04/23 04:46 Labs: Abnormal Lab Results - Last 24 Hours (Table) 05/05/23 05/05/23 05/05/23 Range/Units 05:05 16:52 21:11 Antithrombin III Activ 110 H (79-109) % POC Glucose (mg/dL) 293 H 255 H (70-110) mg/dL 05/06/23 05/06/23 Range/Units 06:41 11:30 Antithrombin III Activ (79-109) % POC Glucose (mg/dL) 154 H 253 H (70-110) mg/dL
--- NOTE | 2023-05-06 13:16 | P.PN ---
Subjective Progress Note Date: 05/06/23 The patient is seen at bedside and feels about the same. Denies any new neurological issues. Objective - Vital Signs Vital signs: Vital Signs Temp 98.2 F 05/06/23 08:00 Pulse 65 05/06/23 08:00 Resp 16 05/06/23 08:00 BP 138/59 05/06/23 08:00 Pulse Ox 96 05/06/23 08:00 FiO2 Intake & Output 05/05/23 05/06/23 05/06/23 18:59 06:59 18:59 Intake Total 720 300 240 Output Total 800 700 200 Balance -80 -400 40 Weight 106.9 kg Intake: Oral 720 300 240 Output: Urine 800 700 200 Other: Voiding Method Diaper Diaper External Catheter External Catheter External Catheter - Exam GENERAL: The patient is lying in bed and is not in acute distress. NEUROLOGICAL: Higher mental function: The patient is awake, alert, oriented to self, place and time. Patient is following commands. No aphasia and no neglect. Cranial nerves: The pupils are round, equal and reactive to light. Visual garcia are full to confrontation throughout. Extraocular movement is intact no nystagmus is noted. Facial sensation is normal to touch throughout. The facial strength is moderate left lower facial weakness. Tongue is midline and moved [id number] without any difficulty. Mild dysarthria is noted. Shoulder shrug is normal bilaterally. Motor: The strength is 0/5 over entire left side. Otheriwse 5 over 5 throughout right side. Increase tone over the left. Normal bulk. Cerebellum: Normal finger to nose over the right but unable to assess left because of weakness. Sensation: Normal to touch throughout. Reflexes (right/left): 2+ throughout. Plantars are mute bilaterally. Some of the workup during this hospital visit consisted of: TSH is 0.085 and a free T4 is 2.01 Homocysteine 13.2, CRP and ESR is within normal limits. CT of the head is reported as no acute hemorrhage, major vascular territory infarct or midline shift. Chronic appearing infarct of bilateral basal ganglia. CT Angiography of the head and neck was reported as no acute finding and arterial of the neck. Lungs the head is reported as no large vessel occlusion, significant stenosis, aneurysm or vascular malformation. MRI the brain is reported as findings are compatible with bilateral acute ischemia within the deep white matter bilateral parietal lobe greater on the right measuring 2 cm. Small punctate left basal ganglia 5 mm area of acute ischemia. No significant midline shift or mass effect. I personally reviewed the MRI and I agree the patient does have acute ischemia in the left basal ganglia as well as bilateral frontal parietal subcortical near the bilateral lower anterior horn of lateral ventricle in the medial aspect of the right right frontal parietal region Duplex of left leg: negative. - Labs CBC & Chem 7: 05/04/23 04:46 05/04/23 04:46 Labs: Abnormal Lab Results - Last 24 Hours (Table) 05/05/23 05/05/23 05/05/23 Range/Units 05:05 16:52 21:11 Antithrombin III Activ 110 H (79-109) % POC Glucose (mg/dL) 293 H 255 H (70-110) mg/dL 05/06/23 05/06/23 Range/Units 06:41 11:30 Antithrombin III Activ (79-109) % POC Glucose (mg/dL) 154 H 253 H (70-110) mg/dL Assessment and Plan Assessment: This is a 68-year-old woman with history of recent transient recurrent left hemiparesis who recently received IV TPA last week and presented back because of recurrent left-sided weakness including the face. No IV TPA since the patient received IV TPA within 3 month and the risk away the benefit. Acute ischemic stroke over bilateral hemipshere (parietal and left basal ganglia. I felt fronto/temporal region bilaterally and agree with left basal ganglia): Seems embolic in nature (cardioembolic). CTA head and negative are negative. Recent ischemic stroke that was suspected and had symptoms of left hemiparesis. patient received IV TPA on 04/30/23 and was discharged on 05/03/2023. CTs were negative and at that time patient refuses MRI. He symptoms resolved prior to discharge. Routine EEG was normal Hypertension Parkinson's disease Diabetes mellitus History of DVT Plan: I stopped Plavix since it failed and I started the patient on Brilinta 90mg 1 tab bid. Resumed her home dose of aspirin 81 mg daily. The patient on Lipitor 80 mg daily at bedtime for secondary stroke prophylaxis Transesophageal echocardiogram scheduled for tomorrow. JOSE -ve, homocystine negative, factor V Leiden -ve, antithrombin III 110 (n ormal is 79-109), prothrombin 13051: negative, ESR and CRP is normal. von Willebrand, lupus anticoagulant, protein C and S pending. Q1 hour neuro check and need patient to be in ICU for close monitoring cardiac monitoring. So far no a-fib or flutter per nurse. Recommend an event monitor or loop recorder if unknown source of stroke. PT, OT and COOLING TOWER TECHNICIAN are consulted. Goal is Normotensive Recommend cardiology consultation for JAVIER. Patient has discoloration of the left lower foot (purplish) and improving today: DVT is negative. Vascular surgery team stated normal pulses and no interv ention. Will defer the rest of medical management to primary team. For DVT prophylaxis: On subq heparin 5000U every 12 hours. The plan is discussed with patient, her nurse and primary team. Time with Patient: Less than 30
[2023-05-06] MEDS: traMADol 50 MG TAB PO PRN ×2 (13:42→22:05)
[2023-05-06 13:57] LABS: APTT 31 Sec(s) (<43); Dilute Russell Viper Venom 28 Sec(s) (<44)
[2023-05-06] MEDS: FENOFIBRATE 160 MG TAB PO SCH (17:08)
[2023-05-06] MEDS: MAGNESIUM OXIDE 400 MG TAB PO SCH ×2 (17:09→22:07)
[2023-05-06 17:12] LABS: Glucose,Whole Blood 273 mg/dL (70-110)
[2023-05-06 20:27] LABS: Glucose,Whole Blood 266 mg/dL (70-110)
[2023-05-06] MEDS: ATORVASTATIN 80 MG TAB PO SCH (22:07)
[2023-05-06] MEDS: METOPROLOL SUCCINATE (ER) 50 MG TAB.ER.24H PO SCH (22:08)
[2023-05-06] MEDS: PIOGLITAZONE 45 MG TAB PO SCH (22:19)
[2023-05-07] MEDS: traMADol 50 MG TAB PO PRN ×4 (02:53→21:50)
[2023-05-07] MEDS: ONDANSETRON 4 MG/2 ML VIAL IVP PRN ×2 (02:54→21:48)
[2023-05-07 06:08] LABS: Glucose,Whole Blood 178 mg/dL (70-110)
[2023-05-07] MEDS: LEVOTHYROXINE 88 MCG TAB PO SCH ×2 (06:20→16:58)
[2023-05-07] MEDS: CARBIDOPA-LEVODOPA 25-100 MG 1 EACH TAB PO SCH ×4 (06:20→21:49)
[2023-05-07] MEDS: tiZANidine 4 MG TAB PO SCH ×4 (06:20→21:49)
[2023-05-07] MEDS: INSULIN ASPART (NovoLOG) 100 UNIT/ML VIAL SQ SCH ×4 (06:21→21:51)
[2023-05-07] MEDS: PANTOPRAZOLE 40 MG TABLET PO SCH (06:21)
[2023-05-07] MEDS: ASPIRIN 81 MG PO SCH (10:08)
[2023-05-07] MEDS: VALSARTAN 160 MG TAB PO SCH ×2 (10:08→16:58)
[2023-05-07] MEDS: DILTIAZEM CD 240 MG CAP.ER.24H PO SCH (10:09)
[2023-05-07] MEDS: CALCIUM CARBONATE 500 MG CHEWABLE PO SCH (10:09)
[2023-05-07] MEDS: TICAGRELOR 90 MG TAB PO SCH ×2 (10:10→21:50)
[2023-05-07] MEDS: HEPARIN SODIUM,PORCINE/PF 5,000 UNIT/0.5 ML SYRINGE SQ SCH ×2 (10:10→22:13)
[2023-05-07] MEDS: GLIMEPIRIDE 4 MG TAB PO SCH ×2 (10:10→21:48)
[2023-05-07] MEDS: CHOLECALCIFEROL 25 MCG (1000 IU) TABLET PO SCH (10:11)
[2023-05-07] MEDS: VITAMIN E (DL,TOCOPHERYL ACET) 400 UNIT (180 MG) CAP PO SCH ×2 (10:11→21:49)
--- NOTE | 2023-05-07 11:11 | P.PN ---
Subjective Progress Note Date: 05/07/23 This is Otoniel Jerry NP, I'm dictating on behalf of Dr. Rodríguez's H&P and A&P. Patient was interviewed and examined. Patient is a pleasant 68-year-old female who presented to the hospital with acute stroke. Cardiology was consulted for a JAVIER. This was unable to be completed yesterday because the patient was fed. This morning she reports that she's feeling good today. Left hemiparesis is noted to be present and continuous with no resolution. She is currently denying chest pain and shortness of breath. GENERAL: Well-appearing, well-nourished and in no acute distress. NECK: Supple without JVD or thyromegaly. LUNGS: Breath sounds clear to auscultation bilaterally. Respiration equal and unlabored. No wheezes, rales or rhonchi. HEART: Regular rate and rhythm without murmurs, rubs or gallops. S1 and S2 heard. EXTREMITIES: Left hemiparesis, no edema. No clubbing or cyanosis. Peripheral p ulses intact and strong. VITALS: Temp 98.2, pulse 54, respirations 18, blood pressure 139/69, O2 saturation 97% on room air TELEMETRY: Normal sinus rhythm LABS: Labs reviewed, no new labs since 05/05/2023 IMPRESSION: 1. Acute CVA 2. Recent TIA 3. Moderate aortic stenosis 4. Diabetes mellitus 5. Hypothyroidism, suppressed TSH 6. Hyperlipidemia 7. Hypertension 8. Obesity, BMI 35 PLAN: Continue current medication regimen Patient will be scheduled for a JAVIER on Tuesday, nothing by mouth at midnight Tuesday night Primary team to address abnormal TSH Permissive hypertension per neurology Further recommendations based on patient's clinical course Objective - Vital Signs Vital signs: Vital Signs Temp 98.2 F 05/07/23 05:00 Pulse 54 L 05/07/23 05:00 Resp 18 05/07/23 05:00 BP 139/69 05/07/23 05:00 Pulse Ox 97 05/07/23 05:00 FiO2 Intake & Output 05/06/23 05/07/23 05/07/23 18:59 06:59 18:59 Intake Total 800 Output Total 1000 900 Balance -200 -900 Intake: IV 60 Invasive Line 1 30 Invasive Line 2 30 Oral 740 Output: Urine 1000 900 Other: Voiding Method External Catheter External Catheter # Bowel Movements 0 - Labs CBC & Chem 7: 05/04/23 04:46 05/04/23 04:46 Labs: Abnormal Lab Results - Last 24 Hours (Table) 05/05/23 05/06/23 05/06/23 Range/Units 05:05 11:30 17:10 Antithrombin III Activ 110 H (79-109) % POC Glucose (mg/dL) 253 H 273 H (70-110) mg/dL 05/06/23 05/07/23 Range/Units 20:25 06:07 Antithrombin III Activ (79-109) % POC Glucose (mg/dL) 266 H 178 H (70-110) mg/dL
[2023-05-07 11:46] LABS: Glucose,Whole Blood 250 mg/dL (70-110)
--- NOTE | 2023-05-07 13:03 | P.PN ---
Subjective Progress Note Date: 05/07/23 Patient is seen at bedside and feels doing about the same. Denies of any new neurological issues. Objective - Vital Signs Vital signs: Vital Signs Temp 98.2 F 05/07/23 05:00 Pulse 54 L 05/07/23 05:00 Resp 18 05/07/23 05:00 BP 139/69 05/07/23 05:00 Pulse Ox 97 05/07/23 05:00 FiO2 Intake & Output 05/06/23 05/07/23 05/07/23 18:59 06:59 18:59 Intake Total 800 118 Output Total 1000 900 Balance -200 -900 118 Intake: IV 60 Invasive Line 1 30 Invasive Line 2 30 Oral 740 118 Output: Urine 1000 900 Other: Voiding Method External Catheter External Catheter # Bowel Movements 0 - Exam GENERAL: The patient is lying in bed and is not in acute distress. NEUROLOGICAL: Higher mental function: The patient is awake, alert, oriented to self, place and time. Patient is following commands. No aphasia and no neglect. Cranial nerves: The pupils are round, equal and reactive to light. Visual garcia are full to confrontation throughout. Extraocular movement is intact no nystagmus is noted. Facial sensation is normal to touch throughout. The facial strength is moderate left lower facial weakness. Tongue is midline and moved [id number] without any difficulty. Mild dysarthria is noted. Shoulder shrug is normal bilaterally. Motor: The strength is 0/5 over entire left side. Otheriwse 5 over 5 throughout right side. Increase tone over the left. Normal bulk. Cerebellum: Normal finger to nose over the right but unable to assess left because of weakness. Sensation: Normal to touch throughout. Reflexes (right/left): 2+ throughout. Plantars are mute bilaterally. Some of the workup during this hospital visit consisted of: TSH is 0.085 and a free T4 is 2.01 Homocysteine 13.2, CRP and ESR is within normal limits. CT of the head is reported as no acute hemorrhage, major vascular territory infarct or midline shift. Chronic appearing infarct of bilateral basal ganglia. CT Angiography of the head and neck was reported as no acute finding and arterial of the neck. Lungs the head is reported as no large vessel occlusion, significant stenosis, aneurysm or vascular malformation. MRI the brain is reported as findings are compatible with bilateral acute ischemia within the deep white matter bilateral parietal lobe greater on the right measuring 2 cm. Small punctate left basal ganglia 5 mm area of acute ischemia. No significant midline shift or mass effect. I personally reviewed the MRI and I agree the patient does have acute ischemia in the left basal ganglia as well as bilateral frontal parietal subcortical near the bilateral lower anterior horn of lateral ventricle in the medial aspect of the right right frontal parietal region Duplex of left leg: negative. - Labs CBC & Chem 7: 05/04/23 04:46 05/04/23 04:46 Labs: Abnormal Lab Results - Last 24 Hours (Table) 05/06/23 05/06/23 05/07/23 Range/Units 17:10 20:25 06:07 POC Glucose (mg/dL) 273 H 266 H 178 H (70-110) mg/dL 05/07/23 Range/Units 11:44 POC Glucose (mg/dL) 250 H (70-110) mg/dL Assessment and Plan Assessment: This is a 68-year-old woman with history of recent transient recurrent left hemiparesis who recently received IV TPA last week and presented back because of recurrent left-sided weakness including the face. No IV TPA since the patient received IV TPA within 3 month and the risk away the benefit. Acute ischemic stroke over bilateral hemipshere (parietal and left basal ganglia. I felt fronto/temporal region bilaterally and agree with left basal ganglia): Seems embolic in nature (?cardioembolic). CTA head and negative are negative. Recent ischemic stroke that was suspected and had symptoms of left hemiparesis. patient received IV TPA on 04/30/23 and was discharged on 05/03/2023. CTs were negative and at that time patient refuses MRI. He symptoms resolved prior to discharge. Hypertension Parkinson's disease Diabetes mellitus History of DVT Plan: I stopped Plavix since it failed and I started the patient on Brilinta 90mg 1 tab bid. Resumed her home dose of aspirin 81 mg daily. The patient on Lipitor 80 mg daily at bedtime for secondary stroke prophylaxis Transesophageal echocardiogram scheduled for tuesday JOSE -ve, homocystine negative, factor V Leiden -ve, antithrombin III 110 (normal is 79-109) but does not seems significant elevated, prothrombin 32986: negative, ESR and CRP is normal. lupus anticoagulant -ve, protein C and S are negative. von Willebrand: pending. Ordered lyme, RPR, anti-dsDNA and Rheumatoid Factor.. Q1 hour neuro check and need patient to be in ICU for close monitoring cardiac monitoring. So far no a-fib or flutter per nurse. Recommend an event monitor or loop recorder if unknown source of stroke. PT, OT and [employer]AL[employer] ASS[employer]ANCE CONSULTANT are consulted. Inpatient rehab is consulted and feels patient would benefit. Goal is Normotensive Recommend cardiology consultation for JAVIER. Patient has discoloration of the left lower foot (purplish) and improving today: DVT is negative. Vascular surgery team stated normal pulses and no intervention. Will defer the rest of medical management to primary team. For DVT prophylaxis: On subq heparin 5000U every 12 hours. The plan is discussed with patient, her nurse. Time with Patient: Less than 30
--- NOTE | 2023-05-07 13:25 | P.PN ---
Subjective Progress Note Date: 05/07/23 I am seeing this patient in consultation today 05/05/2023 in the emergency room for suspected recurrent CVA with left-sided hemiparesis. Patient is a 68-year-old white female with past medical history significant for recent hospital admission on April 30 for suspected CVA and TPA administration. She also has history of Quinones's palsy, Parkinson's disease, aortic stenosis, diabetes mellitus type 2, hypertension, hyperlipidemia, DVT, and is an ex-smoker. Patient initially presented to the emergency room back on April 30 for CVA-like symptoms and left-sided hemiparesis. She was given a dose of TPA with improvement in her symptoms. At that time, the patient did refuse brain MRI. She was discharged home on aspirin and Plavix, and the patient did return to the emergency room less than 24 hours later. She returned early yesterday morning. She states that she was sleeping at home, and was awoken by her dog. She then noticed severe left-sided weakness, and she immediately called EMS. CT of the brain without contrast on arrival showed no acute intracranial hemorrhage or mass effect. There were chronic appearing infarcts of the bilateral basal ganglia. Follow-up brain CTA showed no evidence of significant ICA stenosis or large vessel occulsion. Patient was evaluated by neurology while in the emergency room, who recommended admission to the intensive care unit for closer monitoring. Patient is agreeable to MRI at this time. She is currently sitting up in bed, on room air, in no acute distress. She does have obvious left-sided hemiparesis and left-sided facial droop. There is slurred speech. She reports blurred vision. CBC and BMP on arrival were unremarkable. Blood glucose is gauri vated at 292. Patient is receiving aspirin, Brilinta, and Lipitor per neurology. Blood pressure is elevated, allowing for permissive hypertension. Patient will be monitored in the intensive care unit. On today's evaluation of 05/06/2023, the patient continues to have flaccid paralysis on the left side including left upper and left lower extremity embolization lupus still present. She is able to talk. She is able to swallow. MRI of the brain that was done yesterday showed bilateral acute ischemia with deep white matter changes of the bilateral parietal lobes greater than the right measuring up to 2 cm in size. Smaller punctate left basal ganglia 5 mm areas of acute ischemia was also seen. No midline shift. Neurology is aware. The cardiac rhythm is sinus. The patient remains on aspirin. The patient is on Brilinta. No other complaints otherwise for now. No seizure activity. No hypertensive reactions. JAVIER is to follow. Hypercoagulable workup is in progress. On 05/07/2023, the patient essentially the same without any neurologic changes or improvement or worsening. She is awake and alert and she is tolerating her diet. No nausea or vomiting. The available hypercoagulable workup is negative for now including prothrombin 2210 and factor 5 Leyden. and awaiting the JAVIER. The patient remains on dual antiplatelet agents. Objective - Vital Signs Vital signs: Vital Signs Temp 98.2 F 05/07/23 05:00 Pulse 54 L 05/07/23 05:00 Resp 18 05/07/23 05:00 BP 139/69 05/07/23 05:00 Pulse Ox 97 05/07/23 05:00 FiO2 Intake & Output 05/06/23 05/07/23 05/07/23 18:59 06:59 18:59 Intake Total 800 Output Total 1000 900 Balance -200 -900 Intake: IV 60 Invasive Line 1 30 Invasive Line 2 30 Oral 740 Output: Urine 1000 900 Other: Voiding Method External Catheter External Catheter # Bowel Movements 0 - Exam GENERAL EXAM: Alert, 68-year-old female, comfortable in no apparent distress. HEAD: Normocephalic and atraumatic EYES: Normal reaction of pupils, equal size. NOSE: Clear with pink turbinates. THROAT: No erythema or exudates. NECK: No masses, no JVD. CHEST: No chest wall deformity. LUNGS: Equal air entry with no crackles, wheeze, rhonchi or dullness. on room air. No conversational dyspnea or accessory muscle use.. CVS: S1 and S2 normal with soft systolic ejection murmur grade 2 heard best at the second right intercostal space, regular rhythm. No other extra heart sounds ABDOMEN: obese abdomen. No hepatosplenomegaly, active bowel sounds, no guarding or rigidity. SPINE: No scoliosis or deformity SKIN: No rashes CENTRAL NERVOUS SYSTEM: left-sided hemiparesis with upper and lower extremities being flaccid. Right upper and lower extremities normal strength 5 out of 5. There is left-sided facial droop with flattening of the nasolabial fold. There is slurred speech. Bilateral patellar DTRs are 2+ EXTREMITIES: There is no peripheral edema, clubbing, or cyanosis. Peripheral pulses are intact. - Labs CBC & Chem 7: 05/04/23 04:46 05/04/23 04:46 Labs: Abnormal Lab Results - Last 24 Hours (Table) 05/05/23 05/06/23 05/06/23 Range/Units 05:05 11:30 17:10 Antithrombin III Activ 110 H (79-109) % POC Glucose (mg/dL) 253 H 273 H (70-110) mg/dL 05/06/23 05/07/23 Range/Units 20:25 06:07 Antithrombin III Activ (79-109) % POC Glucose (mg/dL) 266 H 178 H (70-110) mg/dL Assessment and Plan Assessment: CVA, with left-sided hemiparesis and left-sided facial droop. CT of the brain without contrast on arrival showed no acute intracranial hemorrhage or mass effect. There were chronic appearing infarcts of the bilateral basal ganglia. Follow-up brain CTA showed no evidence of significant ICA stenosis or large vessel occulsion. Recent transthoracic echocardiogram from 3 days ago showed a preserved ejection fraction and had a negative bubble study. Patient currently on a combination of Brillinta and ASA. The MRI of the brain was done and it showed acute ischemia involving the bilateral deep white matter in addition to bilateral parietal lobes greater than on the right measuring 2 cm in size. Sm aller punctate left basal ganglia 5 mm area of ischemia was also seen. Rule out underlying hypercoagulability. Rule out underlying embolic phenomena of a cardiac source. Awaiting a JAVIER. The available hypercoagulable workup that was done including lupus anticoagulant, factor V Leyden and prothrombin 2210 are all negative. Protein C and protein S are within normal limits, anti-thrombin 3 is also within normal limits. Recent suspected CVA, was administered TPA on April 30, with initial impro vement in CVA like symptoms. Patient was discharged yesterday on Plavix and aspirin, and returned to the hospital with similar symptoms less than 24 hours later. Moderate aortic stenosis, as determined by recent echocardiogram. Parkinson's disease History of Quinones's palsy Diabetes mellitus type 2, [id number] Hypothyroidism Hyperlipidemia Benign essential hypertension Obesity, with a BMI of 36 History of deep venous thrombosis. History of tobacco use/nicotine dependence. plan: Neurologically unchanged compared to yesterday and she is stable Monitor neurologic function Monitor blood pressure Monitor motor function on the left side The patient is going to undergo a JAVIER today Hypercoagulable workup has been sent and the results are negative thus far Continue aspirin, Brilinta, Lipitor per neurology Hemodynamically stable. No seizure activity has been noted. Noted the EEG that was done prior to discharge was also negative. As for the echocardiogram, she did not have any PFO or cardiac shunts. She had a preserved LV function. She did have a cardiac murmur and the patient was found to have moderate degree of aortic stenosis. Gradient across the aortic valve was 46 and the mean gradient of 27. The plan for now is to keep the patient on a combination of aspirin and Brilinta and the patient had an initial CAT scan of the brain that showed no acute abnormalities and she is going to have a follow-up MRI of the brain. Neurology is on the case. She is hemodynamically stable at this point in time. He was able to pass a bedside swallow and his swallow is adequate for now based on the nursing evaluation. She is on room and oxygen. consult PT
--- NOTE | 2023-05-07 14:41 | P.PN ---
Subjective Progress Note Date: 05/07/23 patient is 68-year-old lady with past medical history significant for CVA, parkinsonism, hypothyroidism, hypertension, diabetes mellitus presented to the hospital because of left-sided weakness. Patient was only recently discharged yesterday after being treated for acute CVA in the hospital. Patient was admitted to ICU status post TPA. Patient stated she was all right this morning when she woke up after being woken up by her dog and she notices that her left side was weak. She was also complaining of slurred speech. EMS was immediately called and patient was brought to the [facility] Initial blood work done in the hospital showed WBC 10.7, hemoglobin 14.2, sodium 139, potassium 4.5, BUN 27, creatinine 0.84 CT brain was negative for acute intracranial process CTA head and neck did not show any acute occlusion or dissection of any vessels She was admitted to medicine service 05/05. Patient seen and examined. Still has weakness of left lower extremity. Left facial droop seen 05/06. Patient seen and examined. Sitting upright in the chair. Still has left-sided weakness and facial droop. MRI brain results were updated to the patient 05/07. Patient seen and examined. Patient was upright in the bed. Patient was brushing her teeth. States she feels stronger REVIEW OF SYSTEMS: CONSTITUTIONAL: No fever, no malaise,. CARDIOVASCULAR: No chest pain, no palpitations, no syncope. PULMONARY: No shortness of breath, no cough, GASTROINTESTINAL: No diarrhea, no nausea, no vomiting, no abdominal pain. NEUROLOGICAL: No headaches, no weakness, PHYSICAL EXAMINATION: GENERAL: The patient is alert and oriented x3, not in any acute distress. Well developed, well nourished. HEENT: Pupils are round and equally reacting to light. EOMI. No scleral icterus. No conjunctival pallor. Normocephalic, atraumatic. No pharyngeal erythema. No thyromegaly. CARDIOVASCULAR: S1 and S2 present. No murmurs, rubs, or gallops. PULMONARY: Chest is clear to auscultation, no wheezing or crackles. ABDOMEN: Soft, nontender, nondistended, normoactive bowel sounds. No palpable organomegaly. MUSCULOSKELETAL: No joint swelling or deformity. EXTREMITIES: No cyanosis, clubbing, or pedal edema. NEUROLOGICAL: AAO3, muscle strength is 5 x 5 in right side, one by 5 in left side. Left facial droop seen SKIN: No rashes. Assessment and plan Acute CVA Hypertension Hyperlipidemia Axq-[id number] diabetes mellitus Parkinson's disease Monitor vital signs Monitor CBC Monitor CMP Continue telemetry monitoring Neuro checks Continue aspirin Lipitor. Neurology started patient on brilinta Continue Toprol, Cardizem MRI brain showed bilateral acute ischemia with deep white matter changes of the bilateral parietal lobes greater than the right measuring up to 2 cm in size. Smaller punctate left basal ganglia 5 mm areas of acute ischemia was also seen Follow-up on neurology recommendation Critical care following JAVIER ordered Follow-up on PT and OT recommendations Objective - Vital Signs Vital signs: Vital Signs Temp 98.2 F 05/07/23 05:00 Pulse 54 L 05/07/23 05:00 Resp 18 05/07/23 05:00 BP 139/69 05/07/23 05:00 Pulse Ox 97 05/07/23 05:00 FiO2 Intake & Output 05/06/23 05/07/23 05/07/23 18:59 06:59 18:59 Intake Total 800 358 Output Total 1000 900 300 Balance -200 -900 58 Intake: IV 60 Invasive Line 1 30 Invasive Line 2 30 Oral 740 358 Output: Urine 1000 900 300 Other: Voiding Method External Catheter External Catheter # Bowel Movements 0 - Labs CBC & Chem 7: 05/04/23 04:46 05/04/23 04:46 Labs: Abnormal Lab Results - Last 24 Hours (Table) 05/06/23 05/06/23 05/07/23 Range/Units 17:10 20:25 06:07 POC Glucose (mg/dL) 273 H 266 H 178 H (70-110) mg/dL 05/07/23 Range/Units 11:44 POC Glucose (mg/dL) 250 H (70-110) mg/dL
[2023-05-07 16:40] LABS: Glucose,Whole Blood 200 mg/dL (70-110)
[2023-05-07] MEDS: FENOFIBRATE 160 MG TAB PO SCH (16:57)
[2023-05-07 18:32] LABS: Von Willebrand Factor Antigen 254 % (52-214)
[2023-05-07 20:01] LABS: Glucose,Whole Blood 238 mg/dL (70-110)
[2023-05-07] MEDS: PIOGLITAZONE 45 MG TAB PO SCH (21:49)
[2023-05-07] MEDS: MAGNESIUM OXIDE 400 MG TAB PO SCH (21:49)
[2023-05-07] MEDS: METOPROLOL SUCCINATE (ER) 50 MG TAB.ER.24H PO SCH (21:49)
[2023-05-07] MEDS: ATORVASTATIN 80 MG TAB PO SCH (21:50)
[2023-05-07] MEDS ORDERED: HYDROcodone/APAP 7.5-325MG 1 EACH TAB PO ONE (23:56)
[2023-05-08] MEDS: PANTOPRAZOLE 40 MG TABLET PO SCH (06:04)
[2023-05-08] MEDS: traMADol 50 MG TAB PO PRN ×4 (06:04→21:47)
[2023-05-08] MEDS: tiZANidine 4 MG TAB PO SCH ×4 (06:05→21:35)
[2023-05-08] MEDS: LEVOTHYROXINE 88 MCG TAB PO SCH ×2 (06:05→16:14)
[2023-05-08] MEDS: CARBIDOPA-LEVODOPA 25-100 MG 1 EACH TAB PO SCH ×4 (06:05→21:35)
[2023-05-08 06:49] LABS: Glucose,Whole Blood 188 mg/dL (70-110)
[2023-05-08] MEDS: CALCIUM CARBONATE 500 MG CHEWABLE PO SCH (09:37)
[2023-05-08] MEDS: GLIMEPIRIDE 4 MG TAB PO SCH ×2 (09:37→21:36)
[2023-05-08] MEDS: HEPARIN SODIUM,PORCINE/PF 5,000 UNIT/0.5 ML SYRINGE SQ SCH ×2 (09:37→21:36)
[2023-05-08] MEDS: DILTIAZEM CD 240 MG CAP.ER.24H PO SCH (09:38)
[2023-05-08] MEDS: TICAGRELOR 90 MG TAB PO SCH ×2 (09:38→21:35)
[2023-05-08] MEDS: VALSARTAN 160 MG TAB PO SCH ×2 (09:39→16:14)
[2023-05-08] MEDS: VITAMIN E (DL,TOCOPHERYL ACET) 400 UNIT (180 MG) CAP PO SCH ×2 (09:39→21:35)
[2023-05-08] MEDS: ASPIRIN 81 MG PO SCH (09:39)
[2023-05-08] MEDS: CHOLECALCIFEROL 25 MCG (1000 IU) TABLET PO SCH (09:39)
[2023-05-08 10:08] LABS: Basophils # (A) 0.1 k/uL (0-0.2); Basophils % (A) 1 %; Eosinophils # (A) 0.3 k/uL (0-0.7); Eosinophils % (A) 3 %; HCT 43.8 % (34.0-46.0); HGB 14.5 gm/dL (11.4-16.0); Lymphocytes % (A) 19 %; MCH 32.1 pg (25.0-35.0); MCHC 33.2 g/dL (31.0-37.0); MCV 96.8 fL (80.0-100.0); Monocytes # (A) 0.7 k/uL (0-1.0); Monocytes % (A) 7 %; Neutrophils # (A) 7.1 k/uL (1.3-7.7); Neutrophils % (A) 69 %; Platelet Count 184 k/uL (150-450); RBC 4.53 m/uL (3.80-5.40); WBC 10.3 k/uL (3.8-10.6)
[2023-05-08] MEDS: INSULIN ASPART (NovoLOG) 100 UNIT/ML VIAL SQ SCH ×4 (10:08→21:36)
[2023-05-08 10:29] LABS: ALT 9 U/L (4-34); African American GFR (CKD) >90 (>60 ml/min/1.73 sqM); Albumin 3.6 g/dL (3.5-5.0); Anion Gap 8 mmol/L; Blood Urea Nitrogen 31 mg/dL (7-17); Calcium 9.1 mg/dL (8.4-10.2); Carbon Dioxide 26 mmol/L (22-30); Chloride 104 mmol/L (98-107); Glucose 211 mg/dL (74-99); Non-African American GFR(CKD) 90 (>60 ml/min/1.73 sqM); Sodium 138 mmol/L (137-145); Total Protein 6.2 g/dL (6.3-8.2)
[2023-05-08 10:37] LABS: Magnesium 1.9 mg/dL (1.6-2.3); Potassium 4.9 mmol/L (3.5-5.1)
[2023-05-08 10:38] LABS: AST 38 U/L (14-36); Alkaline Phosphatase 53 U/L (38-126)
[2023-05-08 11:34] LABS: Glucose,Whole Blood 230 mg/dL (70-110)
--- NOTE | 2023-05-08 11:41 | P.PN ---
Subjective Progress Note Date: 05/08/23 The patient is a 68-year-old female presented to the hospital with an acute CVA. Cardiology was consulted for JAVIER, which had to be delayed due to the patient consuming breakfast. The patient will be nothing by mouth after midnight and undergo her procedure Tuesday morning. The patient states she did well overnight. There is no improvement in her left hemiparesis. She states she is concerned about her left lower extremity "giving out" on her. We discussed the importance of continuing to work with physical therapy. GENERAL: Well-appearing, well-nourished and in no acute distress. NECK: Supple without JVD or thyromegaly. LUNGS: Breath sounds clear to auscultation bilaterally. Respiration equal and unlabored. No wheezes, rales or rhonchi. HEART: Regular rate and rhythm. Systolic ejection murmur. No rubs or gallops. S1 and S2 heard. EXTREMITIES: Normal range of motion, no edema. No clubbing or cyanosis. Peripheral pulses intact and strong. Left hemiparesis. TELEMETRY: Sinus rhythm overnight LABS: WBC 10.3, hemoglobin 14.5, hematocrit 43.8, platelet 184, sodium 138, potassium 4.9, BUN 31, creatinine 0.67 IMPRESSION: Acute CVA Recent TIA Moderate aortic stenosis Diabetes mellitus Hypothyroidism, suppressed TSH Hyperlipidemia Hypertension Obesity, BMI 35 PLAN: Nothing by mouth after midnight for JAVIER tomorrow with Dr. Unger Permissive hypertension per neurology Continue antiplatelet therapy Further recommendations based on clinical course I am dictating on behalf of Dr Chris Rodríguez's history/physical and assessment/plan. Objective - Vital Signs Vital signs: Vital Signs Temp 97.4 F L 05/08/23 08:30 Pulse 51 L 05/08/23 08:30 Resp 18 05/08/23 08:30 BP 120/63 05/08/23 08:30 Pulse Ox 97 05/08/23 08:30 FiO2 Intake & Output 05/07/23 05/08/23 05/08/23 18:59 06:59 18:59 Intake Total 476 Output Total 300 125 Balance 176 -125 Intake: Oral 476 Output: Urine 300 125 Other: Voiding Method External Catheter External Catheter External Catheter # Voids 400 - Labs CBC & Chem 7: 05/08/23 08:54 05/08/23 08:54 Labs: Abnormal Lab Results - Last 24 Hours (Table) 05/05/23 05/07/23 05/07/23 Range/Units 06:35 11:44 16:39 von Willebrand Antigen 254 H (52-214) % BUN (7-17) mg/dL Glucose (74-99) mg/dL POC Glucose (mg/dL) 250 H 200 H (70-110) mg/dL AST (14-36) U/L Total Protein (6.3-8.2) g/dL 05/07/23 05/08/23 05/08/23 Range/Units 19:58 06:47 08:54 von Willebrand Antigen (52-214) % BUN 31 H (7-17) mg/dL Glucose 211 H (74-99) mg/dL POC Glucose (mg/dL) 238 H 188 H (70-110) mg/dL AST 38 H (14-36) U/L Total Protein 6.2 L (6.3-8.2) g/dL 05/08/23 Range/Units 11:33 von Willebrand Antigen (52-214) % BUN (7-17) mg/dL Glucose (74-99) mg/dL POC Glucose (mg/dL) 230 H (70-110) mg/dL AST (14-36) U/L Total Protein (6.3-8.2) g/dL
--- NOTE | 2023-05-08 12:30 | P.PN ---
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 Patient is a 68-year-old white female with past medical history significant for recent hospital admission on April 30 for suspected CVA and TPA administration. She also has history of Quinones's palsy, Parkinson's disease, aortic stenosis, diabetes mellitus type 2, hypertension, hyperlipidemia, DVT, and is an ex-smoker. Patient initially presented to the emergency room back on April 30 for CVA-like symptoms and left-sided hemiparesis. She was given a dose of TPA with improvement in her symptoms. At that time, the patient did refuse brain MRI. She was discharged home on aspirin and Plavix, and the patient did return to the emergency room less than 24 hours later. She returned early yesterday morning. She states that she was sleeping at home, and was awoken by her dog. She then noticed severe left-sided weakness, and she immediately called EMS. CT of the brain without contrast on arrival showed no acute intracranial hemorrhage or mass effect. There were chronic appearing infarcts of the bilateral basal ganglia. Follow-up brain CTA showed no evidence of significant ICA stenosis or large vessel occulsion. Patient was evaluated by neurology while in the emergency room, who recommended admission to the intensive care unit for closer monitoring. Patient is agreeable to MRI at this time. She is currently sitting up in bed, on room air, in no acute distress. She does have obvious left-sided hemiparesis and left-sided facial droop. There is slurred speech. She reports blurred vision. CBC and BMP on arrival were unremarkable. Blood glucose is gauri vated at 292. Patient is receiving aspirin, Brilinta, and Lipitor per neurology. Blood pressure is elevated, allowing for permissive hypertension. Patient will be monitored in the intensive care unit. On today's evaluation of 05/06/2023, the patient continues to have flaccid paralysis on the left side including left upper and left lower extremity embolization lupus still present. She is able to talk. She is able to swallow. MRI of the brain that was done yesterday showed bilateral acute ischemia with deep white matter changes of the bilateral parietal lobes greater than the right measuring up to 2 cm in size. Smaller punctate left basal ganglia 5 mm areas of acute ischemia was also seen. No midline shift. Neurology is aware. The cardiac rhythm is sinus. The patient remains on aspirin. The patient is on Brilinta. No other complaints otherwise for now. No seizure activity. No hypertensive reactions. JAVIER is to follow. Hypercoagulable workup is in progress. On 05/07/2023, the patient essentially the same without any neurologic changes or improvement or worsening. She is awake and alert and she is tolerating her diet. No nausea or vomiting. The available hypercoagulable workup is negative for now including prothrombin 2210 and factor 5 Leyden. and awaiting the JAVIER. The patient remains on dual antiplatelet agents. On 05/08/2023, patient's neurologic functions are stable. No new complaints. Labs were reviewed and the patient is resistant of 10 hemoglobin of 14.7 and a platelet count of 184. BNP is at 31 with a creatinine of 0.6 and sodium levels of 138. Awaiting a JAVIER. Hypercoagulable workup is negative. Patient continues to be on aspirin and Brilinta Objective - Vital Signs Vital signs: Vital Signs Temp 97.4 F L 05/08/23 05:03 Pulse 50 L 05/08/23 05:03 Resp 18 05/08/23 05:03 BP 145/73 05/08/23 05:03 Pulse Ox 98 05/08/23 05:03 FiO2 Intake & Output 05/07/23 05/08/23 05/08/23 18:59 06:59 18:59 Intake Total 476 Output Total 300 125 Balance 176 -125 Intake: Oral 476 Output: Urine 300 125 Other: Voiding Method External Catheter External Catheter # Voids 400 - Exam GENERAL EXAM: Alert, 68-year-old female, comfortable in no apparent distress. HEAD: Normocephalic and atraumatic EYES: Normal reaction of pupils, equal size. NOSE: Clear with pink turbinates. THROAT: No erythema or exudates. NECK: No masses, no JVD. CHEST: No chest wall deformity. LUNGS: Equal air entry with no crackles, wheeze, rhonchi or dullness. on room air. No conversational dyspnea or accessory muscle use.. CVS: S1 and S2 normal with soft systolic ejection murmur grade 2 heard best at the second right intercostal space, regular rhythm. No other extra heart sounds ABDOMEN: obese abdomen. No hepatosplenomegaly, active bowel sounds, no guarding or rigidity. SPINE: No scoliosis or deformity SKIN: No rashes CENTRAL NERVOUS SYSTEM: left-sided hemiparesis with upper and lower extremities being flaccid. Right upper and lower extremities normal strength 5 out of 5. There is left-sided facial droop with flattening of the nasolabial fold. There is slurred speech. Bilateral patellar DTRs are 2+ EXTREMITIES: There is no peripheral edema, clubbing, or cyanosis. Peripheral pulses are intact. - Labs CBC & Chem 7: 05/08/23 08:54 05/08/23 08:54 Labs: Abnormal Lab Results - Last 24 Hours (Table) 05/05/23 05/07/23 05/07/23 Range/Units 06:35 11:44 16:39 von Willebrand Antigen 254 H (52-214) % POC Glucose (mg/dL) 250 H 200 H (70-110) mg/dL 05/07/23 05/08/23 Range/Units 19:58 06:47 von Willebrand Antigen (52-214) % POC Glucose (mg/dL) 238 H 188 H (70-110) mg/dL Assessment and Plan Assessment: CVA, with left-sided hemiparesis and left-sided facial droop. CT of the brain without contrast on arrival showed no acute intracranial hemorrhage or mass effect. There were chronic appearing infarcts of the bilateral basal ganglia. Follow-up brain CTA showed no evidence of significant ICA stenosis or large vessel occulsion. Recent transthoracic echocardiogram from 3 days ago showed a preserved ejection fraction and had a negative bubble study. Patient currently on a combination of Brillinta and ASA. The MRI of the brain was done and it showed acute ischemia involving the bilateral deep white matter in addition to bilateral parietal lobes greater than on the right measuring 2 cm in size. Smaller punctate left basal ganglia 5 mm area of ischemia was also seen. Rule out underlying hypercoagulability. Rule out underlying embolic phenomena of a cardiac source. Awaiting a JAVIER. The available hypercoagulable workup that was done including lupus anticoagulant, factor V Leyden and prothrombin 2210 are all negative. Protein C and protein S are within normal limits, anti-thrombin 3 is also within normal limits. Recent suspected CVA, was administered TPA on April 30, with initial improvement in CVA like symptoms. Patient was discharged yesterday on Plavix and aspirin, and returned to the hospital with similar symptoms less than 24 hours later. Moderate aortic stenosis, as determined by recent echocardiogram. Parkinson's disease History of Quinones's palsy Diabetes mellitus type 2, [id number] Hypothyroidism Hyperlipidemia Benign essential hypertension Obesity, with a BMI of 36 History of deep venous thrombosis. History of tobacco use/nicotine dependence. plan: Neurologically unchanged compared to yesterday and she is stable Monitor neurologic function Monitor blood pressure Monitor motor function on the left side The patient is going to undergo a JAVIER today Hypercoagulable workup has been sent and the results are negative thus far Continue aspirin, Brilinta, Lipitor per neurology Hemodynamically stable. No seizure activity has been noted. Noted the EEG that was done prior to discharge was also negative. As for the echocardiogram, she did not have any PFO or cardiac shunts. She had a preserved LV function. She did have a cardiac murmur and the patient was found to have moderate degree of aortic stenosis. Gradient across the aortic valve was 46 and the mean gradient of 27. The plan for now is to keep the patient on a combination of aspirin and Brilinta and the patient had an initial CAT scan of the brain that showed no acute abnormalities and she is going to have a follow-up MRI of the brain. Neurology is on the case. She is hemodynamically stable at this point in time. He was able to pass a bedside swallow and his swallow is adequate for now based on the nursing evaluation. She is on room and oxygen. consult PT The cardiac rhythm remained sinus. JAVIER tomorrow No major change in condition today's evaluation going to sign off the case and leave the rest of the medicines up to medicine and neurology.
--- NOTE | 2023-05-08 13:33 | P.PN ---
Subjective Progress Note Date: 05/08/23 The patient is seen at bedside and feels doing about the same and denies any new neurological issues. She feels having muscles spams of the left lower that is intermittent and can be painful. Objective - Vital Signs Vital signs: Vital Signs Temp 97.4 F L 05/08/23 08:30 Pulse 51 L 05/08/23 08:30 Resp 18 05/08/23 08:30 BP 120/63 05/08/23 08:30 Pulse Ox 97 05/08/23 08:30 FiO2 Intake & Output 05/07/23 05/08/23 05/08/23 18:59 06:59 18:59 Intake Total 476 Output Total 300 125 Balance 176 -125 Intake: Oral 476 Output: Urine 300 125 Other: Voiding Method External Catheter External Catheter External Catheter # Voids 400 - Exam GENERAL: The patient is lying in bed and is not in acute distress. NEUROLOGICAL: Higher mental function: The patient is awake, alert, oriented to self, place and time. Patient is following commands. No aphasia and no neglect. Cranial nerves: The pupils are round, equal and reactive to light. Visual garcia are full to confrontation throughout. Extraocular movement is intact no nystagmus is noted. Facial sensation is normal to touch throughout. The facial strength is moderate left lower facial weakness. Tongue is midline and moved [id number] without any difficulty. Mild dysarthria is noted. Shoulder shrug is normal bilaterally. Motor: The strength is 0/5 over entire left side. Otheriwse 5 over 5 throughout right side. Increase tone over the left. Normal bulk. Cerebellum: Normal finger to nose over the right but unable to assess left because of weakness. Sensation: Normal to touch throughout. Reflexes (right/left): 2+ throughout. Plantars are mute bilaterally. Some of the workup during this hospital visit consisted of: TSH is 0.085 and a free T4 is 2.01 Homocysteine 13.2, CRP and ESR is within normal limits. CT of the head is reported as no acute hemorrhage, major vascular territory infarct or midline shift. Chronic appearing infarct of bilateral basal ganglia. CT Angiography of the head and neck was reported as no acute finding and arterial of the neck. Lungs the head is reported as no large vessel occlusion, significant stenosis, aneurysm or vascular malformation. MRI the brain is reported as findings are compatible with bilateral acute ischemia within the deep white matter bilateral parietal lobe greater on the right measuring 2 cm. Small punctate left basal ganglia 5 mm area of acute ischemia. No significant midline shift or mass effect. I personally reviewed the MRI and I agree the patient does have acute ischemia in the left basal ganglia as well as bilateral frontal parietal subcortical near the bilateral lower anterior horn of lateral ventricle in the medial aspect of the right right frontal parietal region Duplex of left leg: negative. - Labs CBC & Chem 7: 05/08/23 08:54 05/08/23 08:54 Labs: Abnormal Lab Results - Last 24 Hours (Table) 05/05/23 05/07/23 05/07/23 Range/Units 06:35 16:39 19:58 von Willebrand Antigen 254 H (52-214) % BUN (7-17) mg/dL Glucose (74-99) mg/dL POC Glucose (mg/dL) 200 H 238 H (70-110) mg/dL AST (14-36) U/L Total Protein (6.3-8.2) g/dL 05/08/23 05/08/23 05/08/23 Range/Units 06:47 08:54 11:33 von Willebrand Antigen (52-214) % BUN 31 H (7-17) mg/dL Glucose 211 H (74-99) mg/dL POC Glucose (mg/dL) 188 H 230 H (70-110) mg/dL AST 38 H (14-36) U/L Total Protein 6.2 L (6.3-8.2) g/dL Assessment and Plan Assessment: This is a 68-year-old woman with history of recent transient recurrent left hemiparesis who recently received IV TPA last week and presented back because of recurrent left-sided weakness including the face. No IV TPA since the patient received IV TPA within 3 month and the risk away the benefit. Acute ischemic stroke over bilateral hemipshere (parietal and left basal ganglia. I felt fronto/temporal region bilaterally and agree with left basal ganglia): Seems embolic in nature (?cardioembolic). Has postivie Von Willebran antigen (254. normal is 52-214). CTA head and negative are negative. Recent ischemic stroke that was suspected and had symptoms of left hemiparesis. patient received IV TPA on 04/30/23 and was discharged on 05/03/2023. CTs were negative and at that time patient refuses MRI. He symptoms resolved prior to discharge. Hypertension Parkinson's disease Diabetes mellitus History of DVT Plan: I stopped Plavix since it failed and I started the patient on Brilinta 90mg 1 tab bid. Resumed her home dose of aspirin 81 mg daily. The patient on Lipitor 80 mg daily at bedtime for secondary stroke prophylaxis Transesophageal echocardiogram scheduled for tomorrow. JOSE -ve, homocystine negative, factor V Leiden -ve, RF <15. Has postivie Von Willebran antigen (254. normal is 52-214). antithrombin III 110 (normal is 79-1 09) but does not seems significant elevated, prothrombin 46167: negative, ESR and CRP is normal. lupus anticoagulant -ve, protein C and S are negative. Pending lyme, RPR, anti-dsDNA. I consulted Hematology team since has positive VW antigen to assess further management. Continue neuro checcks. cardiac monitoring. So far no a-fib or flutter per nurse. Recommend an event monitor or loop recorder if unknown source of stroke. PT, OT and DIRECTOR HAIR are consulted. Inpatient rehab is consulted and feels patient would benefit. Goal is Normotensive For muscle spasm, I increased Zanaflex from 4mg QiD to 6mg TID. If still bothersome go up to 8mg TID and if still ineffective try Robaxin. Cardiology is on board. Patient has discoloration of the left lower foot (purplish) and improving today: DVT is negative. Vascular surgery team stated normal pulses and no intervention. Will defer the rest of medical management to primary team. For DVT prophylaxis: On subq heparin 5000U every 12 hours. The plan is discussed with patient, her nurse. Dr. Pederson will start neurology service tomorrow A.M. Time with Patient: Less than 30
--- NOTE | 2023-05-08 13:49 | P.PN ---
Subjective Progress Note Date: 05/08/23 patient is 68-year-old lady with past medical history significant for CVA, parkinsonism, hypothyroidism, hypertension, diabetes mellitus presented to the hospital because of left-sided weakness. Patient was only recently discharged yesterday after being treated for acute CVA in the hospital. Patient was admitted to ICU status post TPA. Patient stated she was all right this morning when she woke up after being woken up by her dog and she notices that her left side was weak. She was also complaining of slurred speech. EMS was immediately called and patient was brought to the [facility] Initial blood work done in the hospital showed WBC 10.7, hemoglobin 14.2, sodium 139, potassium 4.5, BUN 27, creatinine 0.84 CT brain was negative for acute intracranial process CTA head and neck did not show any acute occlusion or dissection of any vessels She was admitted to medicine service 05/05. Patient seen and examined. Still has weakness of left lower extremity. Left facial droop seen 05/06. Patient seen and examined. Sitting upright in the chair. Still has left-sided weakness and facial droop. MRI brain results were updated to the patient 05/07. Patient seen and examined. Patient was upright in the bed. Patient was brushing her teeth. States she feels stronger 04/25. Patient seen and examined. No neurological change overnight. Vital signs stable REVIEW OF SYSTEMS: CONSTITUTIONAL: No fever, no malaise,. CARDIOVASCULAR: No chest pain, no palpitations, no syncope. PULMONARY: No shortness of breath, no cough, GASTROINTESTINAL: No diarrhea, no nausea, no vomiting, no abdominal pain. NEUROLOGICAL: No headaches, weakness as documented PHYSICAL EXAMINATION: GENERAL: The patient is alert and oriented x3, not in any acute distress. Well developed, well nourished. HEENT: Pupils are round and equally reacting to light. EOMI. No scleral icterus. No conjunctival pallor. Normocephalic, atraumatic. No pharyngeal erythema. No thyromegaly. CARDIOVASCULAR: S1 and S2 present. No murmurs, rubs, or gallops. PULMONARY: Chest is clear to auscultation, no wheezing or crackles. ABDOMEN: Soft, nontender, nondistended, normoactive bowel sounds. No palpable organomegaly. MUSCULOSKELETAL: No joint swelling or deformity. EXTREMITIES: No cyanosis, clubbing, or pedal edema. NEUROLOGICAL: AAO3, muscle strength is 5 x 5 in right side, one by 5 in left side. Left facial droop seen SKIN: No rashes. Assessment and plan Acute CVA Hypertension Hyperlipidemia Koi-jpplukh-vkrrcyulg diabetes mellitus Parkinson's disease Monitor vital signs Monitor CBC Monitor CMP Continue telemetry monitoring Neuro checks Continue aspirin Lipitor. Neurology started patient on brilinta Continue Toprol, Cardizem MRI brain showed bilateral acute ischemia with deep white matter changes of the bilateral parietal lobes greater than the right measuring up to 2 cm in size. Smaller punctate left basal ganglia 5 mm areas of acute ischemia was also seen Follow-up on neurology recommendation Critical care following JAVIER ordered, scheduled for Tuesday morning, nothing by mouth after midnight Follow-up on PT and OT recommendations Objective - Vital Signs Vital signs: Vital Signs Temp 97.4 F L 05/08/23 08:30 Pulse 51 L 05/08/23 08:30 Resp 18 05/08/23 08:30 BP 120/63 05/08/23 08:30 Pulse Ox 97 05/08/23 08:30 FiO2 Intake & Output 05/07/23 05/08/23 05/08/23 18:59 06:59 18:59 Intake Total 476 Output Total 300 125 Balance 176 -125 Intake: Oral 476 Output: Urine 300 125 Other: Voiding Method External Catheter External Catheter External Catheter # Voids 400 - Labs CBC & Chem 7: 05/08/23 08:54 05/08/23 08:54 Labs: Abnormal Lab Results - Last 24 Hours (Table) 05/05/23 05/07/23 05/07/23 Range/Units 06:35 11:44 16:39 von Willebrand Antigen 254 H (52-214) % BUN (7-17) mg/dL Glucose (74-99) mg/dL POC Glucose (mg/dL) 250 H 200 H (70-110) mg/dL AST (14-36) U/L Total Protein (6.3-8.2) g/dL 05/07/23 05/08/23 05/08/23 Range/Units 19:58 06:47 08:54 von Willebrand Antigen (52-214) % BUN 31 H (7-17) mg/dL Glucose 211 H (74-99) mg/dL POC Glucose (mg/dL) 238 H 188 H (70-110) mg/dL AST 38 H (14-36) U/L Total Protein 6.2 L (6.3-8.2) g/dL
[2023-05-08] MEDS: ONDANSETRON 4 MG/2 ML VIAL IVP PRN (14:54)
[2023-05-08] MEDS: FENOFIBRATE 160 MG TAB PO SCH (16:14)
[2023-05-08 16:52] LABS: Glucose,Whole Blood 242 mg/dL (70-110)
[2023-05-08 20:08] LABS: Glucose,Whole Blood 187 mg/dL (70-110)
[2023-05-08] MEDS: PIOGLITAZONE 45 MG TAB PO SCH (21:35)
[2023-05-08] MEDS: METOPROLOL SUCCINATE (ER) 50 MG TAB.ER.24H PO SCH (21:35)
[2023-05-08] MEDS: MAGNESIUM OXIDE 400 MG TAB PO SCH (21:35)
[2023-05-08] MEDS: ATORVASTATIN 80 MG TAB PO SCH (21:35)
[2023-05-09] MEDS: CARBIDOPA-LEVODOPA 25-100 MG 1 EACH TAB PO SCH ×4 (02:55→21:39)
[2023-05-09] MEDS: traMADol 50 MG TAB PO PRN ×4 (03:00→21:37)
[2023-05-09] MEDS: ONDANSETRON 4 MG/2 ML VIAL IVP PRN ×2 (04:55→16:58)
[2023-05-09 05:45] LABS: Glucose,Whole Blood 138 mg/dL (70-110)
[2023-05-09] MEDS: INSULIN ASPART (NovoLOG) 100 UNIT/ML VIAL SQ SCH ×4 (06:06→21:39)
[2023-05-09] MEDS ORDERED: fentaNYL (PF) 50 MCG/ML 2 ML AMP ONE (09:18)
[2023-05-09] MEDS ORDERED: SODIUM CHLORIDE 0.9% 500 ML 500 ML IV ONE (09:20)
[2023-05-09] MEDS: BENZOCAINE SPRAY 1 CAN MUCOUS MEM ONE ×2 (09:20→09:28)
[2023-05-09] MEDS ORDERED: fentaNYL (PF) 50 MCG/ML 2 ML AMP IV ONE (09:30)
[2023-05-09] MEDS ORDERED: MIDAZOLAM 2 MG/2 ML VIAL IV ONE (09:30)
[2023-05-09] MEDS: TICAGRELOR 90 MG TAB PO SCH ×2 (10:27→21:38)
[2023-05-09] MEDS: GLIMEPIRIDE 4 MG TAB PO SCH ×2 (10:27→21:38)
[2023-05-09] MEDS: VITAMIN E (DL,TOCOPHERYL ACET) 400 UNIT (180 MG) CAP PO SCH ×2 (10:28→21:37)
[2023-05-09] MEDS: ASPIRIN 81 MG PO SCH (10:28)
[2023-05-09] MEDS: VALSARTAN 160 MG TAB PO SCH ×2 (10:28→16:51)
[2023-05-09] MEDS: tiZANidine 4 MG TAB PO SCH ×3 (10:28→21:38)
[2023-05-09] MEDS: CALCIUM CARBONATE 500 MG CHEWABLE PO SCH (10:28)
[2023-05-09] MEDS: PANTOPRAZOLE 40 MG TABLET PO SCH (10:29)
[2023-05-09] MEDS: HEPARIN SODIUM,PORCINE/PF 5,000 UNIT/0.5 ML SYRINGE SQ SCH ×2 (10:29→21:39)
[2023-05-09] MEDS: LEVOTHYROXINE 88 MCG TAB PO SCH ×2 (10:29→16:52)
[2023-05-09] MEDS: DILTIAZEM CD 240 MG CAP.ER.24H PO SCH (10:29)
[2023-05-09] MEDS: CHOLECALCIFEROL 25 MCG (1000 IU) TABLET PO SCH (10:29)
--- NOTE | 2023-05-09 10:29 | PCN ---
PROCEDURE NOTE PROCEDURE PERFORMED: Transesophageal echo. INDICATION: CVA. PROCEDURE NOTE: After obtaining informed consent, transesophageal echocardiogram was performed in left lateral position using an Omniplane probe. Local and IV sedation were obtained using Xylocaine spray, Versed, and fentanyl. The patient tolerated the procedure well without any obvious immediate complications. Total sedation time was 10 minutes. FINDINGS: 1. Aortic valve is a tricuspid valve, appears calcified with severe restriction in leaflet mobility with a planimetry valve area of 0.7 square cm. There is a linear echodense structure that is attached to the ventricular surface of the aortic valve that is mobile and echodense and this could be the source of the patient's CVA. 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 There is no evidence of aortic regurgitation. Mitral valve shows mitral annular calcification with mild mitral regurgitation. Tricuspid valve shows mild tricuspid regurgitation. Interatrial septum, there is no evidence of [id number]-morda shunt by color-flow Doppler or right- to-left shunt by agitated saline contrast study. Left atrium appears enlarged. Right atrium and right ventricle seen within normal limits. 2. Left ventricle has normal size and systolic function. CONCLUSIONS: There is a linear echodense structure attached to the ventricular surface of the aortic valve leaflet attached to the ventricular surface of the right coronary cusp that is mobile and echodense. 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 PLAN: I am going to seek a CT surgery input and if they feel that the patient is a surgical candidate, I will perform a cardiac catheterization. MMODL / IJN: [id number] /
[2023-05-09 11:08] LABS: Glucose,Whole Blood 179 mg/dL (70-110)
--- NOTE | 2023-05-09 12:14 | P.CON ---
Consult Note - . Consult date: 05/09/23 Assessment/Plan:: Addendum to full consult dictated by Quang Bowling NP: 68-year-old female initially presented about 2 weeks ago with symptoms of stroke. Echocardiogram done at that time demonstrated moderate aortic valvular stenosis and some mitral annular calcification with normal ventricular function. The ascending aorta was mildly dilated. There was no significant carotid stenosis. Patient was treated medically and discharged home but was readmitted through the emergency room with recurrent symptomatology. MRI demonstrates several small bilateral likely embolic areas of stroke in the brain. JAVIER was performed today. There is significant calcific tricuspid aortic stenosis. Valve area by planimetry is 0.7 cm. Ascending aorta measures 41 mm which is consistent with the CT findings. There is a calcified mass in the left ventricular outflow tract adjacent to the anterior leaflet of the mitral valve and beneath the non-coronary cusp of the aortic valve. It is not a flail mass and appears to be mobile but stable in its position during the cardiac cycle. 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 Does not have the typical appearance of papillary fibroelastoma. The patient remains weak with a left-sided hemiparesis. She has significant facial droop. She is morbidly obese. She is relatively inactive. Overall she represents a relatively high risk for open surgical aortic valve replacement. Recommendation at this time is to continue medical management and consider inpatient rehab. If the patient can functionally recover, than she could be considered as a candidate for surgical valve replacement with exploration of the sub-aortic outflow tract area. Otherwise, the patient may best be served by TAVR for her aortic stenosis.
--- NOTE | 2023-05-09 13:57 | P.CONS ---
History of Present Illness - Reason for Consult Consult date: 05/09/23 rehab recommendations/CVA - History of Present Illness Mrs. Marnie Diaz is a 68 year old, left handed, marital status, who lives in a 2 story home, with 4 STFD. Prior to admission, she was ambulating without an assistive device. She was independent for basic/advanced ADLs. Current driving: yes. Retired: yes. Support system: cousin Per social work noted patient resides part of the year in [place] and part of the year in [place]. Patient does not have a PCP in [place]. Mrs. Diaz presented to [facility] with stroke like symptoms over the left side (presented with weakness). She was recently hospitalized at [facility], given TPA on 04-30 , was discharged 05-03, then returned with recurring symptoms. Patient stated that at midnight she was woken up by her dog and she had left-sided weakness and left facial droop. She continues to have the left-sided weakness and facial droop which has not resolved. Echocardiogram completed showing aortic valve stenosis. Cardiothoracis surgery consulted and advised possible TAVR for management of aortic valve stenosis after IPR. Patient had venous doppler of lower extremities which was negative for DVT. MRI revealed bilateral parietal lobe stroke and left basal ganglia stroke. Patient had a JAVIER completed 05-09, results pending. She had blood work completed, patient positive for the VonWillerbran antigen and hematology was consulted. Therapy progress: total assist for bed transfers, toileting, max assist with bathing and dressing. Verbal expression, 100% speech intelligibility Review of Systems reviewed, negative unless stated in HPI Past Medical History Past Medical History: Diabetes Mellitus, Deep Vein Thrombosis (DVT), Hypertension, Thyroid Disorder Additional Past Medical History / Comment(s): Spleen issues, Parkinsons, polio History of Any Multi-Drug Resistant Organisms: None Reported Past Surgical History: Orthopedic Surgery, Tonsillectomy, Tubal Ligation Additional Past Surgical History / Comment(s): Thyroid removed Past Anesthesia/Blood Transfusion Reactions: Blood Transfusion Reaction Additional Past Anesthesia/Blood Transfusion Reaction / Comm: pt can't explain clearly Past Psychological History: No Psychological Hx Reported Smoking Status: Current every day smoker Past Alcohol Use History: None Reported Past Drug Use History: None Reported Medications and Allergies Home Medications Medication Instructions Recorded Confirmed Type Carbidopa-Levodopa 25-100 mg 1 tab PO QID@04,10,,12/20/22 05/05/23 History [Sinemet 25-100 mg] Diltiazem Cd [Cardizem CD] 240 mg PO DAILY 12/20/22 05/04/23 History Fenofibrate [Lofibra] 160 mg PO W/SUPPER 12/20/22 05/04/23 History Glimepiride [Amaryl] 4 mg PO BID 12/20/22 05/04/23 History Levothyroxine Sodium 88 mcg PO BID-W/MEALS 12/20/22 05/04/23 History Metoprolol Succinate (ER) [Toprol 50 mg PO HS 12/20/22 05/04/23 History XL] Omeprazole 40 mg PO AC-BRKFST 12/20/22 05/04/23 History Pioglitazone HCl 45 mg PO HS 12/20/22 05/04/23 History Valsartan [Diovan] 160 mg PO BID-W/MEALS 12/20/22 05/04/23 History metFORMIN HCL ER [Glucophage XR] 1,000 mg PO BID 12/20/22 05/04/23 History tiZANidine [Zanaflex] 4 mg PO QID@04,10,,12/20/22 05/04/23 History traMADol HCL 50 mg PO Q4H PRN 12/20/22 05/04/23 History Albuterol Inhaler [Ventolin Hfa 2 puff INHALATION RT-QID PRN 04/30/23 05/04/23 History Inhaler] Calcium Carbonate [Calcium] 600 mg PO DAILY 04/30/23 05/04/23 History Carbidopa-Levodopa 25-100 mg 1 tab PO BID@0800,1200 PRN 04/30/23 05/04/23 His tory [Sinemet 25-100 mg] Cholecalciferol [Vitamin D3 (25 25 mcg PO DAILY 04/30/23 05/04/23 History Mcg = 1000 Iu)] Glucosamine Sulfate 500 mg PO TID PRN 04/30/23 05/04/23 History Magnesium Oxide [Magnesium] 500 mg PO HS 04/30/23 05/04/23 History Milk Thistle 150 mg PO DAILY 04/30/23 05/04/23 History Tart Bales 1 tab PO DAILY 04/30/23 05/04/23 History Turmeric Root Extract [Turmeric] 500 mg PO HS 04/30/23 05/04/23 History Vitamin B Complex 1 cap PO DAILY 04/30/23 05/04/23 History Vitamin C/Biotin [Hair, Skin and 1 tab PO TID 04/30/23 05/04/23 History Nails Chew] Vitamin E (Dl,Tocopheryl Acet) 400 unit PO BID 04/30/23 05/04/23 History [Vitamin E (400 Iu = 180 mg)] Aspirin 81 mg PO DAILY #30 tab 05/03/23 05/04/23 Rx Atorvastatin [Lipitor] 80 mg PO HS #30 tab 05/03/23 05/04/23 Rx Clopidogrel [Plavix] 75 mg PO DAILY #30 tab 05/03/23 05/04/23 Rx Allergies Allergy/AdvReac Type Severity Reaction Status Date / Time adhesive Allergy Rash/Hives Verified 05/04/23 07:28 ciprofloxacin [From Cipro] Allergy Rash/Hives Verified 05/04/23 07:28 latex Allergy Rash/Hives Verified 05/04/23 07:28 Poultry [Downing] Allergy Rash/Hives Verified 05/04/23 07:28 Sulfa (Sulfonamide Allergy Rash/Hives Verified 05/04/23 07:28 Antibiotics) chicken derived [Chicken] AdvReac Nausea & Verified 05/04/23 07:28 Vomiting & Diarrhea chocolate flavor AdvReac Nausea & Verified 05/04/23 07:28 Vomiting & Diarrhea egg AdvReac Nausea & Verified 05/04/23 07:28 Vomiting & Diarrhea Physical Exam Vitals: Vital Signs Temp Pulse Resp BP BP Pulse Ox 05/09/23 10:45 60 164/80 05/09/23 10:30 52 L 135/81 05/09/23 10:14 62 18 142/82 128/58 98 05/09/23 08:10 97.9 F 55 L 18 143/81 96 05/09/23 04:00 97.8 F 52 L 18 145/62 96 05/09/23 00:00 97.8 F 51 L 18 128/65 97 05/08/23 20:00 97.5 F L 57 L 18 130/66 96 05/08/23 15:30 97.7 F 52 L 16 112/61 97 05/08/23 14:14 53 L 16 Intake and Output 05/08/23 05/09/23 05/09/23 22:59 06:59 14:59 Intake Total 220 100 Output Total 300 400 Balance -80 -400 100 Intake: IV 20 100 Invasive Line 1 10 Invasive Line 2 10 Tube Feeding 200 Output: Urine 300 400 Other: Voiding Method External Catheter External Catheter General: Obese WF in no acute distress HEENT: NC/AT, external ears intact, hearing intact to conversational speech, neck supple Cardiovascular: B/L calves are supple, nontender, no cords, without peripheral edema, no cardiac distress; regular rate and rhythm Respiratory: Even and unlabored breathing on RA/O2; lungs are clear to auscultation Abdomen: Soft, nontender, nondistended; bowel sounds active Genitourinary: NT Musculoskeletal: ROM WFL EXCEPT: MMT RUE 5/ LUE. flacid. no movement. minimal shoudler shrug LLE Minimal motor movement. Brunstrom II-III/VII RLE: 5/5 Skin: Skin intact where visible to head, neck, and bilateral upper and lower extremities Neurological: Alert and oriented x 4. CN II-XII: LEFT CENTRAL VII deficit Speech is mild dysarthria due to the 7th n palsy, fluent Reflexes: 3/3 LUE. 2/4 RUE, 2/4 LEs. Toes sign flexor on right and extensor on the left. 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 # Subacute TIA # Dysarthria # Parkinson's Diease -on sinemet for management # history of polio wth reported bilaterald hip flexor weakness # Bowel/ Bladder: Nursing to monitor and report concerns if any. -05/09 patient reports no BM since admission, suggest bowel program per protocol. # Diet-regular texture thin liquids # Skin/wound: Skin/Wound care to follow as needed # Pain Management: Limit opioids Tylenol 650 mg Q 6 prn, Tramadol 50 mg Q 4 prn, Zanalfex 6 mg TID # DVT Prophylaxis: SQ Heparin # Comorbidities: Obesity, [place] palsy, Diabetes, HLD, polio, h/o DVT # Your medical dx and mgt Goals: Modified Independent mobility and ADLS both basic and advanced; increased functional mobility/strength; increased balance, safety, endurance. Improvement in medical issues through your care. Dispo: Recommending IPR for continued rehab once medically cleared and insurance verified patient plans on moving, possibly to [place], where she has a cousin who can offer her assistance. Patient seen and examined by Dr. Loco, note prepped by Graciela Ramirez PA-C
--- NOTE | 2023-05-09 14:28 | P.PN ---
Subjective Progress Note Date: 05/09/23 Principal diagnosis: Acute CVA with left-sided hemiparesis I am seeing this patient in consultation today 05/05/2023 in the emergency room for suspected recurrent CVA with left-sided hemiparesis. Patient is a 68-year-old white female with past medical history significant for recent hospital admission on April 30 for suspected CVA and TPA administration. She also has history of Quinones's palsy, Parkinson's disease, aortic stenosis, diabetes mellitus type 2, hypertension, hyperlipidemia, DVT, and is an ex-smoker. Patient initially presented to the emergency room back on April 30 for CVA-like symptoms and left-sided hemiparesis. She was given a dose of TPA with improvement in her symptoms. At that time, the patient did refuse brain MRI. She was discharged home on aspirin and Plavix, and the patient did return to the emergency room less than 24 hours later. She returned early yesterday morning. She states that she was sleeping at home, and was awoken by her dog. She then noticed severe left-sided weakness, and she immediately called EMS. CT of the brain without contrast on arrival showed no acute intracranial hemorrhage or mass effect. There were chronic appearing infarcts of the bilateral basal ganglia. Follow-up brain CTA showed no evidence of significant ICA stenosis or large vessel occulsion. Patient was evaluated by neurology while in the emergency room, who recommended admission to the intensive care unit for closer monitoring. Patient is agreeable to MRI at this time. She is currently sitting up in bed, on room air, in no acute distress. She does have obvious left-sided hemiparesis and left-sided facial droop. There is slurred speech. She reports blurred vision. CBC and BMP on arrival were unremarkable. Blood glucose is elevated at 292. Patient is receiving aspirin, Brilinta, and Lipitor per neurology. Blood pressure is elevated, allowing for permissive hypertension. Patient will be monitored in the intensive care unit. On today's evaluation of 05/06/2023, the patient continues to have flaccid paralysis on the left side including left upper and left lower extremity embolization lupus still present. She is able to talk. She is able to swallow. MRI of the brain that was done yesterday showed bilateral acute ischemia with deep white matter changes of the bilateral parietal lobes greater than the right measuring up to 2 cm in size. Smaller punctate left basal ganglia 5 mm areas of acute ischemia was also seen. No midline shift. Neurology is aware. The cardiac rhythm is sinus. The patient remains on aspirin. The patient is on Brilinta. No other complaints otherwise for now. No seizure activity. No hypertensive reactions. JAVIER is to follow. Hypercoagulable workup is in progress. On 05/07/2023, the patient essentially the same without any neurologic changes or improvement or worsening. She is awake and alert and she is tolerating her diet. No nausea or vomiting. The available hypercoagulable workup is negative for now including prothrombin 2210 and factor 5 [place]. and awaiting the JAVIER. The patient remains on dual antiplatelet agents. On 05/08/2023, patient's neurologic functions are stable. No new complaints. Labs were reviewed and the patient is resistant of 10 hemoglobin of 14.7 and a platelet count of 184. BNP is at 31 with a creatinine of 0.6 and sodium levels of 138. Awaiting a JAVIER. Hypercoagulable workup is negative. 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 Patient was seen by surgery for potential surgical aortic valve surgery, however Dr. Barker feels that the patient is not a great candidate for surgery, he is recommending rehabilitation, and if the patient does while at the rehabilitation could be considered for surgery otherwise p atient would be best served by TAVR FOR the aortic stenosis. Pulmonary-mathis patient is doing well, no significant issues at this point. Objective - Vital Signs Vital signs: Vital Signs Temp 97.9 F 05/09/23 08:10 Pulse 60 05/09/23 10:45 Resp 18 05/09/23 10:14 BP 164/80 05/09/23 10:45 Pulse Ox 98 05/09/23 10:14 FiO2 Intake & Output 05/08/23 05/09/23 05/09/23 18:59 06:59 18:59 Intake Total 380 20 100 Output Total 650 400 Balance -270 -380 100 Intake: IV 20 100 Invasive Line 1 10 Invasive Line 2 10 Oral 180 Tube Feeding 200 Output: Urine 650 400 Other: Voiding Method External Catheter External Catheter - Exam GENERAL EXAM: Revealed a 68-year-old female in no distress. HEAD: Normocephalic and atraumatic EYES: Normal reaction of pupils, equal size. NOSE: Clear with pink turbinates. THROAT: No erythema or exudates. NECK: No masses, no JVD. CHEST: No chest wall deformity. LUNGS: Equal air entry with no crackles, wheeze,, no rhonchi. Symmetrical chest expansion CVS: S1 and S2 normal with soft systolic ejection murmur grade 2 heard best at the second right intercostal space, regular rhythm. No other extra heart sounds ABDOMEN: obese abdomen. No hepatosplenomegaly, active bowel sounds, no guarding or rigidity. SKIN: No rashes CENTRAL NERVOUS SYSTEM: Left facial droop is noted, left-sided hemiparesis with upper and lower extremities being flaccid. Speech remains a bit slurred EXTREMITIES: There is no peripheral edema, clubbing, or cyanosis. Peripheral pulses are intact. - Labs CBC & Chem 7: 05/08/23 08:54 05/08/23 08:54 Labs: Abnormal Lab Results - Last 24 Hours (Table) 05/08/23 05/08/23 05/09/23 Range/Units 16:50 20:06 05:43 POC Glucose (mg/dL) 242 H 187 H 138 H (70-110) mg/dL 05/09/23 Range/Units 11:06 POC Glucose (mg/dL) 179 H (70-110) mg/dL Assessment and Plan Assessment: Impression: CVA, with left-sided hemiparesis and left-sided facial droop. Severe aortic stenosis, abnormal JAVIER History of deep vein thrombosis Ex-smoker Obesity, BMI of 36 History of DVT Type 2 diabetes without complications Parkinson's disease Hypothyroidism Recommendation: Reviewed the results of the JAVIER Reviewed the recommendation from thoracic surgery Continue present supportive care measures Consider discharge planning to a rehab or possibly TAVR No major active pulmonary issues Will follow as Time with Patient: Less than 30
--- NOTE | 2023-05-09 14:33 | P.PN ---
Subjective Progress Note Date: 05/09/23 patient is 68-year-old lady with past medical history significant for CVA, parkinsonism, hypothyroidism, hypertension, diabetes mellitus presented to the hospital because of left-sided weakness. Patient was only recently discharged yesterday after being treated for acute CVA in the hospital. Patient was admitted to ICU status post TPA. Patient stated she was all right this morning when she woke up after being woken up by her dog and she notices that her left side was weak. She was also complaining of slurred speech. EMS was immediately called and patient was brought to the [facility] Initial blood work done in the hospital showed WBC 10.7, hemoglobin 14.2, sodium 139, potassium 4.5, BUN 27, creatinine 0.84 CT brain was negative for acute intracranial process CTA head and neck did not show any acute occlusion or dissection of any vessels She was admitted to medicine service 05/05. Patient seen and examined. Still has weakness of left lower extremity. Left facial droop seen 05/06. Patient seen and examined. Sitting upright in the chair. Still has left-sided weakness and facial droop. MRI brain results were updated to the patient 05/07. Patient seen and examined. Patient was upright in the bed. Patient was brushing her teeth. States she feels stronger 05/08. Patient seen and examined. No neurological change overnight. Vital signs stable 05/09. Patient seen and examined. Patient is scheduled for JAVIER today, REVIEW OF SYSTEMS: CONSTITUTIONAL: No fever, no malaise,. CARDIOVASCULAR: No chest pain, no palpitations, no syncope. PULMONARY: No shortness of breath, no cough, GASTROINTESTINAL: No diarrhea, no nausea, no vomiting, no abdominal pain. NEUROLOGICAL: No headaches, weakness as documented PHYSICAL EXAMINATION: GENERAL: The patient is alert and oriented x3, not in any acute distress. Well developed, well nourished. HEENT: Pupils are round and equally reacting to light. EOMI. No scleral icterus. No conjunctival pallor. Normocephalic, atraumatic. No pharyngeal erythema. No thyromegaly. CARDIOVASCULAR: S1 and S2 present. No murmurs, rubs, or gallops. PULMONARY: Chest is clear to auscultation, no wheezing or crackles. ABDOMEN: Soft, nontender, nondistended, normoactive bowel sounds. No palpable organomegaly. MUSCULOSKELETAL: No joint swelling or deformity. EXTREMITIES: No cyanosis, clubbing, or pedal edema. NEUROLOGICAL: AAO3, muscle strength is 5 x 5 in right side, one by 5 in left side. Left facial droop seen SKIN: No rashes. Assessment and plan Acute CVA Hypertension Hyperlipidemia Jfr-[id number] diabetes mellitus Parkinson's disease Monitor vital signs Monitor CBC Monitor CMP Continue telemetry monitoring Neuro checks Continue aspirin Lipitor, brilinta Continue Toprol, Cardizem MRI brain showed bilateral acute ischemia with deep white matter changes of the bilateral parietal lobes greater than the right measuring up to 2 cm in size. Smaller punctate left basal ganglia 5 mm areas of acute ischemia was also seen Follow-up on neurology recommendation Critical care following JAVIER ordered, scheduled for today, follow-up on results Follow-up on PT and OT recommendations Objective - Vital Signs Vital signs: Vital Signs Temp 97.9 F 05/09/23 08:10 Pulse 55 L 05/09/23 08:10 Resp 18 05/09/23 08:10 BP 143/81 05/09/23 08:10 Pulse Ox 96 05/09/23 08:10 FiO2 Intake & Output 05/08/23 05/09/23 05/09/23 18:59 06:59 18:59 Intake Total 380 20 Output Total 650 400 Balance -270 -380 Intake: IV 20 Invasive Line 1 10 Invasive Line 2 10 Oral 180 Tube Feeding 200 Output: Urine 650 400 Other: Voiding Method External Catheter External Catheter - Labs CBC & Chem 7: 05/08/23 08:54 05/08/23 08:54 Labs: Abnormal Lab Results - Last 24 Hours (Table) 05/08/23 05/08/23 05/08/23 Range/Units 08:54 11:33 16:50 BUN 31 H (7-17) mg/dL Glucose 211 H (74-99) mg/dL POC Glucose (mg/dL) 230 H 242 H (70-110) mg/dL AST 38 H (14-36) U/L Total Protein 6.2 L (6.3-8.2) g/dL 05/08/23 05/09/23 Range/Units 20:06 05:43 BUN (7-17) mg/dL Glucose (74-99) mg/dL POC Glucose (mg/dL) 187 H 138 H (70-110) mg/dL AST (14-36) U/L Total Protein (6.3-8.2) g/dL
[2023-05-09 16:30] LABS: Anti-DNA, DS unit <1.0 IU/mL; DNA Double-Stranded Negative (Negative)
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
[2023-05-09] MEDS: FENOFIBRATE 160 MG TAB PO SCH (16:50)
[2023-05-09] MEDS: NYSTATIN 100,000 UNIT/GM POWD 15 GM TOPICAL SCH ×2 (16:50→21:39)
[2023-05-09 16:55] LABS: Glucose,Whole Blood 187 mg/dL (70-110)
[2023-05-09 19:38] LABS: Glucose,Whole Blood 225 mg/dL (70-110)
--- NOTE | 2023-05-09 20:04 | P.PN ---
Subjective Progress Note Date: 05/09/23 Patient initially seen by Dr. Perry De Dios. Please refer to his note for details. Patient is known to me from previous admission to the hospital, when she presented with acute ischemic stroke, status post TPA. Patient was doing very well post-TPA. Patient was discharged on aspirin and Plavix and statins. Shortly after going home, patient had another stroke, with complete left hemiplegia. Patient was not a candidate for TPA, as she has just received it recently. Patient continues to be completely left hemiplegic. Denies any headache any dizziness or any visual problems. Some of the workup during this hospital visit consisted of: TSH is 0.085 and a free T4 is 2.01 Homocysteine 13.2, CRP and ESR is within normal limits. CT of the head is reported as no acute hemorrhage, major vascular territory infarct or midline shift. Chronic appearing infarct of bilateral basal ganglia. CT Angiography of the head and neck was reported as no acute finding and arterial of the neck. Lungs the head is reported as no large vessel occlusion, significant stenosis, aneurysm or vascular malformation. MRI the brain is reported as findings are compatible with bilateral acute ischemia within the deep white matter bilateral parietal lobe greater on the right measuring 2 cm. Small punctate left basal ganglia 5 mm area of acute ischemia. No significant midline shift or mass effect. I personally reviewed the MRI and I agree the patient does have acute ischemia in the left basal ganglia as well as bilateral frontal parietal subcortical near the bilateral lower anterior horn of lateral ventricle in the medial aspect of the right right frontal parietal region Duplex of left leg: negative. Objective - Vital Signs Vital signs: Vital Signs Temp 97.9 F 05/09/23 08:10 Pulse 60 05/09/23 14:00 Resp 18 05/09/23 14:00 BP 97/63 05/09/23 12:00 Pulse Ox 97 05/09/23 12:00 FiO2 Intake & Output 05/08/23 05/09/23 05/09/23 18:59 06:59 18:59 Intake Total 380 20 100 Output Total 650 400 Balance -270 -380 100 Intake: IV 20 100 Invasive Line 1 10 Invasive Line 2 10 Oral 180 Tube Feeding 200 Output: Urine 650 400 Other: Voiding Method External Catheter External Catheter External Catheter # Voids 1 - Exam Patient's mental status, speech and language functions are normal. No aphasia or dysarthria. Cranial nerve examination significant for left facial weakness, central type,. Visual garcia are full, extraocular muscles are intact. Tongue protrudes to the midline. Patient has completely weak left shoulder shrug. On muscle strength testing, the strength is normal in the right arm and right le g. Patient is completely flaccid in the left arm and left leg. Sensory to touch is equal in the arms and legs with no neglect. No ataxia for [id number] testing on the right, cannot perform on the left. - Labs CBC & Chem 7: 05/08/23 08:54 05/08/23 08:54 Labs: Abnormal Lab Results - Last 24 Hours (Table) 05/08/23 05/08/23 05/09/23 Range/Units 16:50 20:06 05:43 POC Glucose (mg/dL) 242 H 187 H 138 H (70-110) mg/dL 05/09/23 Range/Units 11:06 POC Glucose (mg/dL) 179 H (70-110) mg/dL Assessment and Plan Assessment: This is a 68-year-old woman with history of recent transient recurrent left hemiparesis who recently received IV TPA last week and presented back because of recurrent left-sided weakness including the face. No IV TPA since the patient received IV TPA within 3 month and the risk outweigh the benefit. Acute ischemic stroke over bilateral hemipshere (parietal and right basal ganglia. Involving fronto/temporal region bilaterally and agree with right basal ganglia): Seems embolic in nature (?cardioembolic). Has postivie Von Will ebran antigen (254. normal is 52-214). CTA head and neck are negative, with no large vessel occlusion. Recent ischemic stroke that was suspected and had symptoms of left hemiparesis. patient received IV TPA on 04/30/23 and was discharged on 05/03/2023. CTs were negative and at that time patient refuses MRI. He symptoms resolved prior to discharge. Hypertension Parkinson's disease Diabetes mellitus History of DVT Plan: Dr. Perry De Dios has stopped Plavix since it failed and started the patient on Brilinta 90mg 1 tab bid. Resumed her home dose of aspirin 81 mg daily. The patient on Lipitor 80 mg daily at bedtime for secondary stroke prophylaxis Transesophageal echocardiogram performed today revealed a linear echodensity structure attached to the ventricular surface of the aortic valve leaflet attached to the ventricular surface of the right coronary cusp that is mobile and echodense. 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 CT surgical consult initiated. Patient also to undergo cardiac catheterization. Patient may be a candidate for anticoagulation. Will discuss with the cardiology, and cardiothoracic surgery. JOSE -ve, homocystine negative, factor V Leiden -ve, RF <15. Has postivie Von Willebran antigen (254. normal is 52-214). antithrombin III 110 (normal is 79- 109) but does not seems significant elevated, prothrombin 29939: negative, ESR and CRP is normal. lupus anticoagulant -ve, protein C and S are negative. Lyme titer negative, RPR negative, dsDNA pending. Dr. De Dios has consulted Hematology team since has positive VW antigen to assess further management. Continue neuro checcks. cardiac monitoring. So far no a-fib or flutter per nurse. Recommend an event monitor or loop recorder if unknown source of stroke. PT, OT and CHEMICAL PLANT TECHNICAL DIRECTOR are consulted. Inpatient rehab is consulted and feels patient would benefit. Goal is Normotensive For muscle spasm, Dr. Perry De Dios has increased Zanaflex from 4mg QiD to 6mg TID. If still bothersome go up to 8mg TID and if still ineffective try Robaxin. Cardiology is on board. Patient has discoloration of the left lower foot (purplish) and improving today: DVT is negative. Vascular surgery team stated normal pulses and no intervention. Will defer the rest of medical management to primary team. For DVT prophylaxis: On subq heparin 5000U every 12 hours.
[2023-05-09] MEDS: PIOGLITAZONE 45 MG TAB PO SCH (21:37)
[2023-05-09] MEDS: METOPROLOL SUCCINATE (ER) 50 MG TAB.ER.24H PO SCH (21:37)
[2023-05-09] MEDS: MAGNESIUM OXIDE 400 MG TAB PO SCH (21:38)
[2023-05-09] MEDS: ATORVASTATIN 80 MG TAB PO SCH (21:38)
[2023-05-10] MEDS: CARBIDOPA-LEVODOPA 25-100 MG 1 EACH TAB PO PRN (00:13)
[2023-05-10] MEDS: ACETAMINOPHEN TAB 325 MG TAB PO PRN (00:17)
[2023-05-10] MEDS: traMADol 50 MG TAB PO PRN ×3 (03:18→21:23)
[2023-05-10] MEDS: CARBIDOPA-LEVODOPA 25-100 MG 1 EACH TAB PO SCH ×4 (03:18→21:23)
[2023-05-10 06:09] LABS: Glucose,Whole Blood 143 mg/dL (70-110)
[2023-05-10] MEDS: INSULIN ASPART (NovoLOG) 100 UNIT/ML VIAL SQ SCH ×4 (06:13→21:24)
[2023-05-10] MEDS: LEVOTHYROXINE 88 MCG TAB PO SCH ×2 (06:56→17:15)
[2023-05-10] MEDS: PANTOPRAZOLE 40 MG TABLET PO SCH (06:56)
[2023-05-10] MEDS: VALSARTAN 160 MG TAB PO SCH ×2 (06:56→17:24)
[2023-05-10] MEDS: ONDANSETRON 4 MG/2 ML VIAL IVP PRN ×2 (09:03→17:18)
[2023-05-10] MEDS: CALCIUM CARBONATE 500 MG CHEWABLE PO SCH (09:07)
[2023-05-10] MEDS: HEPARIN SODIUM,PORCINE/PF 5,000 UNIT/0.5 ML SYRINGE SQ SCH (09:07)
[2023-05-10] MEDS: DILTIAZEM CD 240 MG CAP.ER.24H PO SCH (09:08)
[2023-05-10] MEDS: ASPIRIN 81 MG PO SCH (09:09)
[2023-05-10] MEDS: TICAGRELOR 90 MG TAB PO SCH (09:09)
[2023-05-10] MEDS: VITAMIN E (DL,TOCOPHERYL ACET) 400 UNIT (180 MG) CAP PO SCH ×2 (09:10→21:24)
[2023-05-10] MEDS: tiZANidine 4 MG TAB PO SCH ×3 (09:10→21:23)
[2023-05-10] MEDS: GLIMEPIRIDE 4 MG TAB PO SCH ×2 (09:10→21:23)
[2023-05-10] MEDS: CHOLECALCIFEROL 25 MCG (1000 IU) TABLET PO SCH (09:11)
[2023-05-10] MEDS: NYSTATIN 100,000 UNIT/GM POWD 15 GM TOPICAL SCH ×2 (09:11→16:04)
--- NOTE | 2023-05-10 10:06 | P.CONS ---
History of Present Illness - Reason for Consult Consult date: 05/09/23 Von Willebrand factor increased Requesting physician: Perry De Dios - Chief Complaint lt hemiparesis, ischemic stroke, s/p TPa last week - History of Present Illness Mrs. Diaz is a pleasant 68-year-old female With a PMH of Parkinson's disease, HTN, DM type II, left Quinones's palsy, lower extremity DVTs as well as menorrhagia requiring multiple blood transfusions in her early teenage years. She had polio 2. We have been asked to see because of increased and von Willebrand factor s/p recurrent ischemic stroke. She has been inpt since 04/30/23 for symptoms of ischemic stroke, she was given TPA 04/30/23. Her symptoms on the left side recurred. Patient reports that she was seeing a orthodontic assistant in [place]. She had labs done with Rheumatology here in [place] in 2017. Patient denies any history of bleeding, unusual bruising. No FH of blood disorders that she is aware of. Review of Systems 10 point review of systems is negative except as stated in HPI Past Medical History Past Medical History: Diabetes Mellitus, Deep Vein Thrombosis (DVT), Hypertension, Thyroid Disorder Additional Past Medical History / Comment(s): Spleen issues, Parkinsons, Polio History of Any Multi-Drug Resistant Organisms: None Reported Past Surgical History: Orthopedic Surgery, Tonsillectomy, Tubal Ligation Additional Past Surgical History / Comment(s): Thyroid removed Past Anesthesia/Blood Transfusion Reactions: Blood Transfusion Reaction Additional Past Anesthesia/Blood Transfusion Reaction / Comm: pt can't explain clearly Past Psychological History: No Psychological Hx Reported Smoking Status: Current every day smoker Past Alcohol Use History: None Reported Past Drug Use History: None Reported - Past Family History Mother Additional Family Medical History / Comment(s): No reported blood disorders Father Additional Family Medical History / Comment(s): Parkinson disease, history of heart disease Medications and Allergies Home Medications Medication Instructions Recorded Confirmed Type Carbidopa-Levodopa 25-100 mg 1 tab PO QID@04,10,16,22 12/20/22 05/05/23 History [Sinemet 25-100 mg] Diltiazem Cd [Cardizem CD] 240 mg PO DAILY 12/20/22 05/04/23 History Fenofibrate [Lofibra] 160 mg PO W/SUPPER 12/20/22 05/04/23 History Glimepiride [Amaryl] 4 mg PO BID 12/20/22 05/04/23 History Levothyroxine Sodium 88 mcg PO BID-W/MEALS 12/20/22 05/04/23 History Metoprolol Succinate (ER) [Toprol 50 mg PO HS 12/20/22 05/04/23 History XL] Omeprazole 40 mg PO AC-BRKFST 12/20/22 05/04/23 History Pioglitazone HCl 45 mg PO HS 12/20/22 05/04/23 History Valsartan [Diovan] 160 mg PO BID-W/MEALS 12/20/22 05/04/23 History metFORMIN HCL ER [Glucophage XR] 1,000 mg PO BID 12/20/22 05/04/23 History tiZANidine [Zanaflex] 4 mg PO QID@04,10,16,22 12/20/22 05/04/23 History traMADol HCL 50 mg PO Q4H PRN 12/20/22 05/04/23 History Albuterol Inhaler [Ventolin Hfa 2 puff INHALATION RT-QID PRN 04/30/23 05/04/23 History Inhaler] Calcium Carbonate [Calcium] 600 mg PO DAILY 04/30/23 05/04/23 History Carbidopa-Levodopa 25-100 mg 1 tab PO BID@0800,1200 PRN 04/30/23 05/04/23 History [Sinemet 25-100 mg] Cholecalciferol [Vitamin D3 (25 25 mcg PO DAILY 04/30/23 05/04/23 History Mcg = 1000 Iu)] Glucosamine Sulfate 500 mg PO TID PRN 04/30/23 05/04/23 History Magnesium Oxide [Magnesium] 500 mg PO HS 04/30/23 05/04/23 History Milk Thistle 150 mg PO DAILY 04/30/23 05/04/23 History Tart Bales 1 tab PO DAILY 04/30/23 05/04/23 History Turmeric Root Extract [Turmeric] 500 mg PO HS 04/30/23 05/04/23 History Vitamin B Complex 1 cap PO DAILY 04/30/23 05/04/23 History Vitamin C/Biotin [Hair, Skin and 1 tab PO TID 04/30/23 05/04/23 History Nails Chew] Vitamin E (Dl,Tocopheryl Acet) 400 unit PO BID 04/30/23 05/04/23 History [Vitamin E (400 Iu = 180 mg)] Aspirin 81 mg PO DAILY #30 tab 05/03/23 05/04/23 Rx Atorvastatin [Lipitor] 80 mg PO HS #30 tab 05/03/23 05/04/23 Rx Clopidogrel [Plavix] 75 mg PO DAILY #30 tab 05/03/23 05/04/23 Rx Allergies Allergy/AdvReac Type Severity Reaction Status Date / Time adhesive Allergy Rash/Hives Verified 05/04/23 07:28 ciprofloxacin [From Cipro] Allergy Rash/Hives Verified 05/04/23 07:28 latex Allergy Rash/Hives Verified 05/04/23 07:28 Poultry [[place]] Allergy Rash/Hives Verified 05/04/23 07:28 Sulfa (Sulfonamide Allergy Rash/Hives Verified 05/04/23 07:28 Antibiotics) chicken derived [Chicken] AdvReac Nausea & Verified 05/04/23 07:28 Vomiting & Diarrhea chocolate flavor AdvReac Nausea & Verified 05/04/23 07:28 Vomiting & Diarrhea egg AdvReac Nausea & Verified 05/04/23 07:28 Vomiting & Diarrhea Physical Exam Vitals: Vital Signs Temp Pulse Resp BP BP Pulse Ox 05/09/23 10:45 60 164/80 05/09/23 10:30 52 L 135/81 05/09/23 10:14 62 18 142/82 128/58 98 05/09/23 08:10 97.9 F 55 L 18 143/81 96 05/09/23 04:00 97.8 F 52 L 18 145/62 96 05/09/23 00:00 97.8 F 51 L 18 128/65 97 05/08/23 20:00 97.5 F L 57 L 18 130/66 96 05/08/23 15:30 97.7 F 52 L 16 112/61 97 Intake and Output 05/08/23 05/09/23 05/09/23 22:59 06:59 14:59 Intake Total 220 100 Output Total 300 400 Balance -80 -400 100 Intake: IV 20 100 Invasive Line 1 10 Invasive Line 2 10 Tube Feeding 200 Output: Urine 300 400 Other: Voiding Method External Catheter External Catheter - Constitutional General appearance: cooperative, no acute distress, obese - EENT Eyes: anicteric sclerae, EOMI ENT: hearing grossly normal, normal oropharynx - Respiratory Respiratory: bilateral: CTA - Cardiovascular Rhythm: regular Heart sounds: normal: S1, S2 Abnormal Heart Sounds: no systolic murmur, no diastolic murmur, no rub, no S3 Gallop, no S4 Gallop, no click, no other leg Peripheral Edema: bilateral: Trace - Gastrointestinal General gastrointestinal: no absent bowel sounds, no decreased bowel sounds, no distended, no hepatomegaly, no hyperactive bowel sounds, normal bowel sounds, no organomegaly, no rigid, no scaphoid, soft, no splenomegaly, no tenderness, no umbilical hernia, no ventral hernia - Integumentary Integumentary: normal - Neurologic Neurologic: CNII-XII intact - Musculoskeletal Musculoskeletal: generalized weakness - Psychiatric Psychiatric: A&O x's 3, appropriate affect, intact judgment & insight Results CBC & Chem 7: 05/08/23 08:54 05/08/23 08:54 Labs: Abnormal Lab Results - Last 24 Hours (Table) 05/08/23 05/08/23 05/09/23 Range/Units 16:50 20:06 05:43 POC Glucose (mg/dL) 242 H 187 H 138 H (70-110) mg/dL 05/09/23 Range/Units 11:06 POC Glucose (mg/dL) 179 H (70-110) mg/dL CT Scan - head: report reviewed MRI - head: report reviewed Assessment and Plan (1) Cerebrovascular accident (CVA) Current Visit: Yes Status: Acute Priority: High Code(s): I63.9 - CEREBRAL INFARCTION, UNSPECIFIED SNOMED Code(s): 952327324 Plan: Ischemic CVA -Patient had transesophageal echo. Report reads: There is a linear echodense structure attached to the ventricular surface of the aortic valve leaflet attached to the ventricular surface of the right coronary cusp that is mobile and echo dense. 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 Cardiology wanting to discuss with Cardiothoracic surgery and see if the patient is a good candidate for catheterization. -Increased von Willebrand factor, post ischemic CVA. Literature review performed. > 2 hours spent reviewing most recent literature regarding vWb positivity and ischemic stroke. Much of the literature is greater than 4 years old. Patient's von Willebrand number is 254, high normal is 214. Given that vWB is checked in the setting of bleeding vs ischemia uncertain of the clinical significance of this increase. vWB is an acute phase reactant and can be elevated in inflammatory states, another reason that the elevation is difficult to interpret. The most common theme in lit review is that von Willebrand positivity in ischemic stroke was associated with poorer outcomes, no recommendations on altering or changing treatments. Having slightly elevated von Willebrand factor would not negate the need for antiplatelet therapy in the acute setting. Antiplatelet therapies are the standard of care for the treatment of ischemic stroke. If cardiac cause is identified, ischemic stroke risk could be reduced if patient was started on anticoagulation. _From a Hematology standpoint, there are no additional recommendations or testing at this time. Patient is being assessed for possible underlying cardiac cause as stated above. -Recommend rechecking VWb factor and additional work up re bleeding tendancy in a few months to assess if it continues to be positive Summary of documents from [facility]: Patient was found to have splenomegaly, diagnosed about mid 2014. Spleen size was about 17 cm. She has been worked up for malignancy, no evidence of the same. She had a history of polio. History of menorrhagia, treated with blood transfusion and finally started on control. She developed a DVT per her reports. She had a second DVT some time between the first one and being treated for menorrhagia with a hysterectomy. Told she had a genetic tendency for blood clots, no labs to confirm the same. She has not been on any anticoagulation since, no family Hx. She has been worked up by a Seam [employer] with no autoimmune diseases or chronic inflammatory conditions documented. No further hematological workup was ordered, other than factor V Leiden, which was negative, and prothrombin gene mutation was negative. Thrombocytopenia was felt to be secondary to splenomegaly from hepatic steatosis and splenic sequestration. She was on annual checkups, monitoring chemistry and LDH. attests: I seen and examined patient, performed H&P, developed impression and plan of care. Discussed with dictator. Agree with documentation, dictated as a scribe. Time with Patient: Greater than 30 (120 min spent reviewing literature for abnormal vWb in ischemic stroke)
[2023-05-10 11:31] LABS: Glucose,Whole Blood 244 mg/dL (70-110)
--- NOTE | 2023-05-10 11:34 | P.PN ---
Subjective HISTORY OF PRESENT ILLNESS: Patient is s/p JAVIER revealing echodense lesion on the aortic valve. Cardiothoracic surgery was consulted for evaluation. CT surgery recommending medical management at this time. Per their dictation, if patient has function recovery, she may be a candidate for surgical valve replacement with exploration of the sub-aortic outflow tract area. Otherwise she may be considered for TAVR for aortic stenosis. Patient examined this morning at the bedside. Patient denies chest pain or pressure. She denies shortness of breath. Telemetry reveals sinus mechanism. Vital signs are stable. PHYSICAL EXAM: VITAL SIGNS: Reviewed. GENERAL: Well-developed in no acute distress. NECK: Supple. No JVD or thyromegaly LUNGS: Respirations even and unlabored. Lungs essentially clear to auscultation bilaterally. HEART: Regular rate and rhythm. S1 and S2 heard. Systolic murmur noted. EXTREMITIES: Left sided weakness. No clubbing or cyanosis. Peripheral pulses intact. No lower extremity edema ASSESSMENT: Acute ishemic bilateral hemisphere CVA Recent CVA Left sided weakness Moderate aortic stenosis Echodense lesion on aortic valve, per JAVIER Hypertension Hyperlipidemia Diabetes Morbid obesity PLAN: Continue current cardiac medications Continue telemetry monitoring Stable from a cardiac standpoint Further recommendations pending patient course Nurse practitioner note has been reviewed by physician. Signing provider agrees with the documented findings, assessment, and plan of care. Objective - Vital Signs Vital signs: Vital Signs Temp 97.9 F 05/10/23 07:45 Pulse 54 L 05/10/23 08:00 Resp 16 05/10/23 07:45 BP 136/85 05/10/23 07:45 Pulse Ox 100 05/10/23 07:45 FiO2 Intake & Output 05/09/23 05/10/23 05/10/23 18:59 06:59 18:59 Intake Total 100 180 Output Total 180 650 410 Balance -80 -650 -230 Intake: IV 100 Oral 180 Output: Urine 180 650 410 Other: Voiding Method External Catheter External Catheter External Catheter # Voids 1 - Labs CBC & Chem 7: 05/08/23 08:54 05/08/23 08:54 Labs: Abnormal Lab Results - Last 24 Hours (Table) 05/09/23 05/09/23 05/10/23 Range/Units 16:53 19:36 06:06 POC Glucose (mg/dL) 187 H 225 H 143 H (70-110) mg/dL
--- NOTE | 2023-05-10 13:44 | P.PN ---
Subjective Progress Note Date: 05/10/23 Principal diagnosis: Acute CVA with left-sided hemiparesis I am seeing this patient in consultation today 05/05/2023 in the emergency room for suspected recurrent CVA with left-sided hemiparesis. Patient is a 68-year-old white female with past medical history significant for recent hospital admission on April 30 for suspected CVA and TPA administration. She also has history of Quinones's palsy, Parkinson's disease, aortic stenosis, diabetes mellitus type 2, hypertension, hyperlipidemia, DVT, and is an ex-smoker. Patient initially presented to the emergency room back on April 30 for CVA-like symptoms and left-sided hemiparesis. She was given a dose of TPA with improvement in her symptoms. At that time, the patient did refuse brain MRI. She was discharged home on aspirin and Plavix, and the patient did return to the emergency room less than 24 hours later. She returned early yesterday morning. She states that she was sleeping at home, and was awoken by her dog. She then noticed severe left-sided weakness, and she immediately called EMS. CT of the brain without contrast on arrival showed no acute intracranial hemorrhage or mass effect. There were chronic appearing infarcts of the bilateral basal ganglia. Follow-up brain CTA showed no evidence of significant ICA stenosis or large vessel occulsion. Patient was evaluated by neurology while in the emergency room, who recommended admission to the intensive care unit for closer monitoring. Patient is agreeable to MRI at this time. She is currently sitting up in bed, on room air, in no acute distress. She does have obvious left-sided hemiparesis and left-sided facial droop. There is slurred speech. She reports blurred vision. CBC and BMP on arrival were unremarkable. Blood glucose is elevated at 292. Patient is receiving aspirin, Brilinta, and Lipitor per neurology. Blood pressure is elevated, allowing for permissive hypertension. Patient will be monitored in the intensive care unit. On today's evaluation of 05/06/2023, the patient continues to have flaccid paralysis on the left side including left upper and left lower extremity embolization lupus still present. She is able to talk. She is able to swallow. MRI of the brain that was done yesterday showed bilateral acute ischemia with deep white matter changes of the bilateral parietal lobes greater than the right measuring up to 2 cm in size. Smaller punctate left basal ganglia 5 mm areas of acute ischemia was also seen. No midline shift. Neurology is aware. The cardiac rhythm is sinus. The patient remains on aspirin. The patient is on Brilinta. No other complaints otherwise for now. No seizure activity. No hypertensive reactions. JAVIER is to follow. Hypercoagulable workup is in progress. On 05/07/2023, the patient essentially the same without any neurologic changes or improvement or worsening. She is awake and alert and she is tolerating her diet. No nausea or vomiting. The available hypercoagulable workup is negative for now including prothrombin 2210 and factor 5 [place]. and awaiting the JAVIER. The patient remains on dual antiplatelet agents. On 05/08/2023, patient's neurologic functions are stable. No new complaints. Labs were reviewed and the patient is resistant of 10 hemoglobin of 14.7 and a platelet count of 184. BNP is at 31 with a creatinine of 0.6 and sodium levels of 138. Awaiting a JAVIER. Hypercoagulable workup is negative. 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 Patient was seen by surgery for potential surgical aortic valve surgery, however Dr. Barker feels that the patient is not a great candidate for surgery, he is recommending rehabilitation, and if the patient does while at the rehabilitation could be considered for surgery otherwise p atient would be best served by TAVR FOR the aortic stenosis. Pulmonary-mathis patient is doing well, no significant issues at this point. Reevaluated today on 05/10/2023, patient is doing better today, breathing easier, patient was seen by cardiothoracic surgery and she has been followed all along b y cardiology, no final decision has been made regarding her surgery/aortic valve replacement and exploration of the subaortic outflow tract area. Patient is even be considered for possible TaVR for aortic stenosis. Pulmonary-mathis, the patient is asymptomatic. No cough no wheezing no shortness of breath, she is presently on room air with O2 sats is 97%. No labs were done today. Objective - Vital Signs Vital signs: Vital Signs Temp 97.4 F L 05/10/23 11:45 Pulse 44 L 05/10/23 11:45 Resp 18 05/10/23 11:45 BP 88/52 05/10/23 11:45 Pulse Ox 97 05/10/23 11:45 FiO2 Intake & Output 05/09/23 05/10/23 05/10/23 18:59 06:59 18:59 Intake Total 100 180 Output Total 180 650 410 Balance -80 -650 -230 Intake: IV 100 Oral 180 Output: Urine 180 650 410 Other: Voiding Method External Catheter External Catheter External Catheter # Voids 1 - Exam GENERAL EXAM: Revealed a 68-year-old female in no distress. On room air HEAD: Normocephalic and atraumatic EYES: Normal reaction of pupils, equal size. NOSE: Clear with pink turbinates. THROAT: No erythema or exudates. NECK: No masses, no JVD. CHEST: No chest wall deformity. LUNGS: Equal air entry with no crackles, wheeze,, no rhonchi. Symmetrical chest expansion CVS: S1 and S2 normal with soft systolic ejection murmur grade 2 heard best at the second right intercostal space, regular rhythm. No other extra heart sounds ABDOMEN: obese abdomen. No hepatosplenomegaly, active bowel sounds, no guarding or rigidity. SKIN: No rashes CENTRAL NERVOUS SYSTEM: Left facial droop is noted, left-sided hemiparesis with upper and lower extremities being flaccid. Speech remains a bit slurred EXTREMITIES: There is no peripheral edema, clubbing, or cyanosis. Peripheral pulses are intact. - Labs CBC & Chem 7: 05/08/23 08:54 05/08/23 08:54 Labs: Abnormal Lab Results - Last 24 Hours (Table) 05/09/23 05/09/23 05/10/23 Range/Units 16:53 19:36 06:06 POC Glucose (mg/dL) 187 H 225 H 143 H (70-110) mg/dL 05/10/23 Range/Units 11:28 POC Glucose (mg/dL) 244 H (70-110) mg/dL Assessment and Plan Assessment: Impression: CVA, with left-sided hemiparesis and left-sided facial droop. Severe aortic stenosis, abnormal JAVIER History of deep vein thrombosis Ex-smoker Obesity, BMI of 36 History of DVT Type 2 diabetes without complications Parkinson's disease Hypothyroidism Recommendation: Reviewed the results of the JAVIER Reviewed the recommendation from thoracic surgery Continue present supportive care measures Consider discharge planning to a rehab or possibly TAVR No major active pulmonary issues We'll sign off. Time with Patient: Less than 30
--- NOTE | 2023-05-10 14:29 | P.PN ---
Subjective Progress Note Date: 05/10/23 patient is 68-year-old lady with past medical history significant for CVA, parkinsonism, hypothyroidism, hypertension, diabetes mellitus presented to the hospital because of left-sided weakness. Patient was only recently discharged yesterday after being treated for acute CVA in the hospital. Patient was admitted to ICU status post TPA. Patient stated she was all right this morning when she woke up after being woken up by her dog and she notices that her left side was weak. She was also complaining of slurred speech. EMS was immediately called and patient was brought to the [facility] Initial blood work done in the hospital showed WBC 10.7, hemoglobin 14.2, sodium 139, potassium 4.5, BUN 27, creatinine 0.84 CT brain was negative for acute intracranial process CTA head and neck did not show any acute occlusion or dissection of any vessels She was admitted to medicine service 05/05. Patient seen and examined. Still has weakness of left lower extremity. Left facial droop seen 05/06. Patient seen and examined. Sitting upright in the chair. Still has left-sided weakness and facial droop. MRI brain results were updated to the patient 05/07. Patient seen and examined. Patient was upright in the bed. Patient was brushing her teeth. States she feels stronger 05/08. Patient seen and examined. No neurological change overnight. Vital signs stable 05/09. Patient seen and examined. Patient is scheduled for JAVIER today, 05/10. Patient seen and examined. JAVIER done showed There is significant calcific tricuspid aortic stenosis. Valve area by planimetry is 0.7 cm. There is a calcified mass in the left ventricular outflow tract adjacent to the anterior leaflet of the mitral valve and beneath the non-coronary cusp of the aortic valve. 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 Patient blood pressure is in the lower side today, states she is lethargic. REVIEW OF SYSTEMS: CONSTITUTIONAL: No fever, no malaise,. CARDIOVASCULAR: No chest pain, no palpitations, no syncope. PULMONARY: No shortness of breath, no cough, GASTROINTESTINAL: No diarrhea, no nausea, no vomiting, no abdominal pain. NEUROLOGICAL: No headaches, weakness as documented PHYSICAL EXAMINATION: GENERAL: The patient is alert and oriented x3, not in any acute distress. Well developed, well nourished. HEENT: Pupils are round and equally reacting to light. EOMI. No scleral icterus. No conjunctival pallor. Normocephalic, atraumatic. No pharyngeal erythema. No thyromegaly. CARDIOVASCULAR: S1 and S2 present. No murmurs, rubs, or gallops. PULMONARY: Chest is clear to auscultation, no wheezing or crackles. ABDOMEN: Soft, nontender, nondistended, normoactive bowel sounds. No palpable organomegaly. MUSCULOSKELETAL: No joint swelling or deformity. EXTREMITIES: No cyanosis, clubbing, or pedal edema. NEUROLOGICAL: AAO3, muscle strength is 5 x 5 in right side, one by 5 in left side. Left facial droop seen SKIN: No rashes. Assessment and plan Acute CVA Hypertension Hyperlipidemia Nzb-okpemmz-fkenqqyri diabetes mellitus Parkinson's disease Severe Aortic stenosis Aortic valve mass Monitor vital signs Monitor CBC Monitor CMP Continue telemetry monitoring Neuro checks Continue aspirin Lipitor, brilinta Continue Toprol, Cardizem MRI brain showed bilateral acute ischemia with deep white matter changes of the bilateral parietal lobes greater than the right measuring up to 2 cm in size. Smaller punctate left basal ganglia 5 mm areas of acute ischemia was also seen Transesophageal echocardiogram performed revealed a linear echodensity structure attached to the ventricular surface of the aortic valve leaflet attached to the ventricular surface of the right coronary cusp that is mobile and echodense. 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 CT surgical consult initiated. Patient also to undergo cardiac catheterization. 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, cardiac surgery were consulted, they recommended at this time patient is to continue medical management and to follow up outpatient for surgical valve replacement with exploration of the sub-aortic outflow tract area vs TAVR for her aortic stenosis PT and OT recommended acute rehab Objective - Vital Signs Vital signs: Vital Signs Temp 97.9 F 05/10/23 07:45 Pulse 54 L 05/10/23 07:45 Resp 16 05/10/23 07:45 BP 136/85 05/10/23 07:45 Pulse Ox 100 05/10/23 07:45 FiO2 Intake & Output 05/09/23 05/10/23 05/10/23 18:59 06:59 18:59 Intake Total 100 180 Output Total 180 650 Balance -80 -650 180 Intake: IV 100 Oral 180 Output: Urine 180 650 Other: Voiding Method External Catheter External Catheter # Voids 1 - Labs CBC & Chem 7: 05/08/23 08:54 05/08/23 08:54 Labs: Abnormal Lab Results - Last 24 Hours (Table) 05/09/23 05/09/23 05/09/23 Range/Units 11:06 16:53 19:36 POC Glucose (mg/dL) 179 H 187 H 225 H (70-110) mg/dL 05/10/23 Range/Units 06:06 POC Glucose (mg/dL) 143 H (70-110) mg/dL
[2023-05-10 16:45] LABS: Glucose,Whole Blood 238 mg/dL (70-110)
[2023-05-10] MEDS: FENOFIBRATE 160 MG TAB PO SCH (17:15)
[2023-05-10 19:36] LABS: Glucose,Whole Blood 249 mg/dL (70-110)
[2023-05-10] MEDS: PIOGLITAZONE 45 MG TAB PO SCH (21:23)
[2023-05-10] MEDS: MAGNESIUM OXIDE 400 MG TAB PO SCH (21:23)
[2023-05-10] MEDS: APIXABAN 5 MG TAB PO SCH (21:23)
[2023-05-10] MEDS: ATORVASTATIN 80 MG TAB PO SCH (21:23)
[2023-05-10] MEDS: METOPROLOL SUCCINATE (ER) 50 MG TAB.ER.24H PO SCH (21:23)
--- NOTE | 2023-05-10 23:15 | P.PN ---
Subjective Progress Note Date: 05/10/23 05/10/2023: Patient was seen for a follow-up. Patient continues to be completely hemiplegic on the left side. 05/09/2023: Patient initially seen by Dr. Perry De Dios. Please refer to his note for details. Patient is known to me from previous admission to the hospital, when she pr esented with acute ischemic stroke, status post TPA. Patient was doing very well post-TPA. Patient was discharged on aspirin and Plavix and statins. Shortly after going home, patient had another stroke, with complete left hemiplegia. Patient was not a candidate for TPA, as she has just received it recently. Patient continues to be completely left hemiplegic. Denies any headache any dizziness or any visual problems. Some of the workup during this hospital visit consisted of: TSH is 0.085 and a free T4 is 2.01 Homocysteine 13.2, CRP and ESR is within normal limits. CT of the head is reported as no acute hemorrhage, major vascular territory infarct or midline shift. Chronic appearing infarct of bilateral basal ganglia. CT Angiography of the head and neck was reported as no acute finding and arterial of the neck. Lungs the head is reported as no large vessel occlusion, significant stenosis, aneurysm or vascular malformation. MRI the brain is reported as findings are compatible with bilateral acute ischemia within the deep white matter bilateral parietal lobe greater on the right measuring 2 cm. Small punctate left basal ganglia 5 mm area of acute ischemia. No significant midline shift or mass effect. I personally reviewed the MRI and I agree the patient does have acute ischemia in the left basal ganglia as well as bilateral frontal parietal subcortical near the bilateral lower anterior horn of lateral ventricle in the medial aspect of the right right frontal parietal region Duplex of left leg: negative. Objective - Vital Signs Vital signs: Vital Signs Temp 97.4 F L 05/10/23 11:45 Pulse 44 L 05/10/23 15:39 Resp 18 05/10/23 11:45 BP 88/52 05/10/23 11:45 Pulse Ox 97 05/10/23 11:45 FiO2 Intake & Output 05/09/23 05/10/23 05/10/23 18:59 06:59 18:59 Intake Total 100 180 Output Total 180 650 410 Balance -80 -650 -230 Intake: IV 100 Oral 180 Output: Urine 180 650 410 Other: Voiding Method External Catheter External Catheter External Catheter # Voids 1 - Exam Patient's mental status, speech and language functions are normal. No aphasia or dysarthria. Cranial nerve examination significant for left facial weakness, central type,. Visual garcia are full, extraocular muscles are intact. Tongue protrudes to the midline. Patient has completely weak left shoulder shrug. On muscle strength testing, the strength is normal in the right arm and right leg. Patient is completely flaccid in the left arm and left leg. Sensory to touch is equal in the arms and legs with no neglect. No ataxia for [id number] testing on the right, cannot perform on the left. - Labs CBC & Chem 7: 05/08/23 08:54 05/08/23 08:54 Labs: Abnormal Lab Results - Last 24 Hours (Table) 05/09/23 05/09/23 05/10/23 Range/Units 16:53 19:36 06:06 POC Glucose (mg/dL) 187 H 225 H 143 H (70-110) mg/dL 05/10/23 05/10/23 Range/Units 11:28 16:43 POC Glucose (mg/dL) 244 H 238 H (70-110) mg/dL Assessment and Plan Assessment: This is a 68-year-old woman with history of recent transient recurrent left hemiparesis who recently received IV TPA last week and presented back because of acute left hemiplegia. No IV TPA since the patient received IV TPA within 3 m onth and the risk outweigh the benefit. Acute ischemic stroke over bilateral hemipshere (parietal and right basal ganglia. Involving fronto/temporal region bilaterally and agree with right basal ganglia): Seems embolic in nature (?cardioembolic). Has postivie Von Willebran antigen (254. normal is 52-214). CTA head and neck are negative, with no large vessel occlusion. Recent ischemic stroke that was suspected and had symptoms of left hemiparesis. patient received IV TPA on 04/30/23 and was discharged on 05/03/2023. CTs were negative and at that time patient refuses MRI. Her symptoms resolved prior to discharge. Hypertension Parkinson's disease Diabetes mellitus History of DVT Plan: Transesophageal echocardiogram performed today revealed a linear echodensity structure attached to the ventricular surface of the aortic valve leaflet att ached to the ventricular surface of the right coronary cusp that is mobile and echodense. 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 CT surgical consult initiated. Patient also to undergo cardiac catheterization. Discussed with cardiology. Patient started on Eliquis 5 mg twice a day, continue aspirin 81 mg daily. Stop Brilinta. JOSE -ve, homocystine negative, factor V Leiden -ve, RF <15. Has postivie Von Willebran antigen (254. normal is 52-214). antithrombin III 110 (normal is 79- 109) but does not seems significant elevated, prothrombin 43273: negative, ESR and CRP is normal. lupus anticoagulant -ve, protein C and S are negative. Lyme titer negative, RPR negative, dsDNA pending. Dr. De Dios has consulted Hematology team since has positive VW antigen to assess further management. Continue neuro checcks. cardiac monitoring. So far no a-fib or flutter per nurse. Recommend an event monitor or loop recorder if unknown source of stroke. Avoid hypotension. Cardizem discontinued. PT, OT and DRESS FINISHER are consulted. Inpatient rehab is consulted and feels patient would benefit. Goal is Normotensive For muscle spasm, Dr. Perry De Dios has increased Zanaflex from 4mg QiD to 6mg TID. If still bothersome go up to 8mg TID and if still ineffective try Robaxin. Cardiology is on board. Patient has discoloration of the left lower foot (purplish) and improving today: DVT is negative. Vascular surgery team stated normal pulses and no intervention. Will defer the rest of medical management to primary team. For DVT prophylaxis: Patient started on Eliquis Neurologically cleared for transfer to rehab facility. Dr. Perry De Dios covering neurology service tomorrow on Tuesday. I will resume service on .
[2023-05-11] MEDS: ONDANSETRON 4 MG/2 ML VIAL IVP PRN ×4 (00:48→20:45)
[2023-05-11 00:57] LABS: Glucose,Whole Blood 206 mg/dL (70-110)
[2023-05-11] MEDS: NYSTATIN 100,000 UNIT/GM POWD 15 GM TOPICAL SCH ×4 (01:08→20:44)
[2023-05-11] MEDS: traMADol 50 MG TAB PO PRN ×4 (05:17→20:47)
[2023-05-11] MEDS: CARBIDOPA-LEVODOPA 25-100 MG 1 EACH TAB PO SCH ×4 (05:17→20:44)
[2023-05-11 05:57] LABS: Glucose,Whole Blood 179 mg/dL (70-110)
[2023-05-11] MEDS: PANTOPRAZOLE 40 MG TABLET PO SCH (06:01)
[2023-05-11] MEDS: VITAMIN E (DL,TOCOPHERYL ACET) 400 UNIT (180 MG) CAP PO SCH ×3 (06:01→20:44)
[2023-05-11] MEDS: INSULIN ASPART (NovoLOG) 100 UNIT/ML VIAL SQ SCH ×5 (06:01→20:45)
[2023-05-11] MEDS: LEVOTHYROXINE 88 MCG TAB PO SCH ×2 (06:01→18:06)
[2023-05-11] MEDS: VALSARTAN 160 MG TAB PO SCH ×2 (06:03→18:06)
[2023-05-11] MEDS: CALCIUM CARBONATE 500 MG CHEWABLE PO SCH (08:30)
[2023-05-11] MEDS: GLIMEPIRIDE 4 MG TAB PO SCH ×2 (08:31→20:43)
[2023-05-11] MEDS: tiZANidine 4 MG TAB PO SCH ×3 (08:31→20:44)
[2023-05-11] MEDS: CHOLECALCIFEROL 25 MCG (1000 IU) TABLET PO SCH (08:32)
[2023-05-11] MEDS: ASPIRIN 81 MG PO SCH (08:33)
[2023-05-11] MEDS: APIXABAN 5 MG TAB PO SCH ×2 (08:33→20:44)
[2023-05-11] MEDS: ALBUTEROL NEBULIZED 2.5 MG/3 ML INHALATION PRN ×2 (09:11→15:29)
[2023-05-11] MEDS ORDERED: LACTULOSE 20 GM/30 ML CUP PO ONE (09:55)
[2023-05-11 10:18] VITALS: BMI 35.8
[2023-05-11 10:43] LABS: Glucose,Whole Blood 209 mg/dL (70-110)
--- NOTE | 2023-05-11 13:21 | P.PN ---
Subjective HISTORY OF PRESENT ILLNESS: Patient is s/p JAVIER revealing echodense lesion on the aortic valve. Cardiothoracic surgery was consulted for evaluation. CT surgery recommending medical management at this time. Per their dictation, if patient has function recovery, she may be a candidate for surgical valve replacement with exploration of the sub-aortic outflow tract area. Otherwise she may be considered for TAVR for aortic stenosis. Patient examined this morning at the bedside. Patient denies chest pain or pressure. She denies shortness of breath. Telemetry reveals sinus mechanism. Vital signs are stable. 05/11/2023 Patient examined this morning at the bedside. Patient denies chest pain or pressure. She denies shortness of breath. The patient reports she is doing a lot of belching and is having heartburn symptoms this morning. She really port that she feels constipated and has not had a bowel movement in several days. She also reports having 2 episodes of dizziness; one that woke her up in the middle of the night and 1 this morning. Telemetry reveals sinus mechanism. PHYSICAL EXAM: VITAL SIGNS: Reviewed. GENERAL: Well-developed in no acute distress. NECK: Supple. No JVD or thyromegaly LUNGS: Respirations even and unlabored. Lungs essentially clear to auscultation bilaterally. HEART: Regular rate and rhythm. S1 and S2 heard. Systolic murmur noted. EXTREMITIES: Left sided weakness. No clubbing or cyanosis. Peripheral pulses intact. No lower extremity edema ASSESSMENT: Acute ishemic bilateral hemisphere CVA Recent CVA Left sided weakness Moderate aortic stenosis Echodense lesion on aortic valve, per JAVIER Hypertension Hyperlipidemia Diabetes Morbid obesity PLAN: Continue current cardiac medications Continue telemetry monitoring Stable for discharge from a cardiac standpoint Further recommendations pending patient course Nurse practitioner note has been reviewed by physician. Signing provider agrees with the documented findings, assessment, and plan of care. Objective - Vital Signs Vital signs: Vital Signs Temp 97.6 F 05/11/23 12:03 Pulse 52 L 05/11/23 12:03 Resp 18 05/11/23 12:03 BP 111/60 05/11/23 12:03 Pulse Ox 99 05/11/23 12:03 FiO2 Intake & Output 05/10/23 05/11/23 05/11/23 18:59 06:59 18:59 Intake Total 180 30 190 Output Total 710 500 0 Balance -530 -470 190 Weight 106.9 kg Intake: IV 30 10 Invasive Line 1 20 10 Invasive Line 2 10 Oral 180 180 Output: Urine 710 500 0 Stool 0 Other: Voiding Method External Catheter External Catheter External Catheter - Labs CBC & Chem 7: 05/08/23 08:54 05/08/23 08:54 Labs: Abnormal Lab Results - Last 24 Hours (Table) 05/10/23 05/10/23 05/11/23 Range/Units 16:43 19:34 00:56 POC Glucose (mg/dL) 238 H 249 H 206 H (70-110) mg/dL 05/11/23 05/11/23 Range/Units 05:55 10:42 POC Glucose (mg/dL) 179 H 209 H (70-110) mg/dL
--- NOTE | 2023-05-11 14:50 | P.PN ---
Subjective Progress Note Date: 05/11/23 I have seen the patient last on 05/08/2023 and was following-up with Dr. Pederson since. She stated overnight had two episode of dizziness and belching that is new. Otherwise denies any new neurological issues. She had JAVIER which showed linear echodensity structure attached to the ventricular surface of the aortic valve leaflet attached to the ventricular surface of the right coronary cusp that is mobile and echodense. 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 Cardiothoracic recommended outpatient work-up. Objective - Vital Signs Vital signs: Vital Signs Temp 97.6 F 05/11/23 12:03 Pulse 52 L 05/11/23 12:03 Resp 18 05/11/23 12:03 BP 111/60 05/11/23 12:03 Pulse Ox 99 05/11/23 12:03 FiO2 Intake & Output 05/10/23 05/11/23 05/11/23 18:59 06:59 18:59 Intake Total 180 30 190 Output Total 710 500 0 Balance -530 -470 190 Weight 106.9 kg Intake: IV 30 10 Invasive Line 1 20 10 Invasive Line 2 10 Oral 180 180 Output: Urine 710 500 0 Stool 0 Other: Voiding Method External Catheter External Catheter External Catheter - Exam GENERAL: The patient is sitting in a recliner chair and is not in acute distress. NEUROLOGICAL: Higher mental function: The patient is awake, alert, oriented to self, place and time. Patient is following commands. No aphasia and no neglect. Cranial nerves: The pupils are round, equal and reactive to light. Visual garcia are full to confrontation throughout. Extraocular movement is intact no nystagmus is noted. Facial sensation is normal to touch throughout. The facial strength is moderate left lower facial weakness. Tongue is midline and moved [id number] without any difficulty. Mild dysarthria is noted. Shoulder shrug is normal bilaterally. Motor: The strength is 0/5 over entire left side. Otheriwse 5 over 5 throughout right side. Increase tone over the left. Normal bulk. Cerebellum: Normal finger to nose over the right but unable to assess left because of weakness. Sensation: Normal to touch throughout. Reflexes (right/left): 2+ throughout. Plantars are mute bilaterally. Some of the workup during this hospital visit consisted of: TSH is 0.085 and a free T4 is 2.01 Homocysteine 13.2, CRP and ESR is within normal limits. CT of the head is reported as no acute hemorrhage, major vascular territory infarct or midline shift. Chronic appearing infarct of bilateral basal ganglia. CT Angiography of the head and neck was reported as no acute finding and arterial of the neck. Lungs the head is reported as no large vessel occlusion, significant stenosis, aneurysm or vascular malformation. MRI the brain is reported as findings are compatible with bilateral acute isch emia within the deep white matter bilateral parietal lobe greater on the right measuring 2 cm. Small punctate left basal ganglia 5 mm area of acute ischemia. No significant midline shift or mass effect. I personally reviewed the MRI and I agree the patient does have acute ischemia in the left basal ganglia as well as bilateral frontal parietal subcortical near the bilateral lower anterior horn of lateral ventricle in the medial aspect of the right right frontal parietal region Transesophageal echocardiogram performed today revealed a linear echodensity structure attached to the ventricular surface of the aortic valve leaflet attached to the ventricular surface of the right coronary cusp that is mobile and echodense. - Labs CBC & Chem 7: 05/08/23 08:54 05/08/23 08:54 Labs: Abnormal Lab Results - Last 24 Hours (Table) 05/10/23 05/10/23 05/11/23 Range/Units 16:43 19:34 00:56 POC Glucose (mg/dL) 238 H 249 H 206 H (70-110) mg/dL 05/11/23 05/11/23 Range/Units 05:55 10:42 POC Glucose (mg/dL) 179 H 209 H (70-110) mg/dL Assessment and Plan Assessment: This is a 68-year-old woman with history of recent transient recurrent left hemiparesis who recently received IV TPA last week and presented back because of recurrent left-sided weakness including the face. No IV TPA since the patient received IV TPA within 3 month and the risk away the benefit. Acute ischemic stroke over bilateral hemipshere (parietal and left basal ganglia. I felt fronto/temporal region bilaterally and agree with left basal ganglia): Seems cardioembolic in nature and on JAVIER has linear echodensity structure attached to the ventricular surface of the aortic valve leaflet attached to the ventricular surface of the right coronary cusp that is mobile a nd echodense . Has postivie Von Willebran antigen (254. normal is 52-214) and felt in a acute phase reactant and can be elevated in inflammatory state. CTA head and negative are negative. Acute dizziness and belching overnight: Rule out brainstem stroke. Recent ischemic stroke that was suspected and had symptoms of left hemiparesis. patient received IV TPA on 04/30/23 and was discharged on 05/03/2023. CTs were negative and at that time patient refuses MRI. He symptoms resolved prior to discharge. Linear echodensity structure attached to the ventricular surface of the aortic valve leaflet attached to the ventricular surface of the right coronary cusp that is mobile and echodense on JAVIER. Hypertension Parkinson's disease Diabetes mellitus History of DVT Plan: Because of her acute dizziness and belching, ordered MRI Brain to rule out acute stroke within brainstem region. Transesophageal echocardiogram performed today revealed a linear echodensity structure attached to the ventricular surface of the aortic valve leaflet attac hed to the ventricular surface of the right coronary cusp that is mobile and echodense. 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 Cardiothoraic surgery team was consulted and they felt she is a high risk for open heart surgical aortic valve replacement and is recommending medical management. Dr. Pederson discussed with cardiology team and she was started on Eliquis 5 mg twice a day, continue aspirin 81 mg daily. Stop Brilinta. JOSE -ve, homocystine negative, factor V Leiden -ve, RF <15. Has postivie Von Willebran antigen (254. normal is 52-214). antithrombin III 110 (normal is 79- 109) but does not seems significant elevated, prothrombin 39684: negative, ESR and CRP is normal. lupus anticoagulant -ve, protein C and S are negative. Lyme titer negative, RPR negative, dsDNA negative. I consulted Hematology team since has positive VW antigen and they felt acute is in a acute phase reactant and can be elevated in inflammatory state. Continue neuro checcks. cardiac monitoring. So far no a-fib or flutter per nurse. Avoid hypotension. Cardizem discontinued. PT, OT and URB[employer] FORESTER are consulted. Inpatient rehab is consulted and feels patient would benefit. Goal is Normotensive For muscle spasm, has increased Zanaflex from 4mg QiD to 6mg TID. If still bothersome go up to 8mg TID and if still ineffective try Robaxin. Cardiology is on board. Patient has discoloration of the left lower foot (purplish) and improving today: DVT is negative. Vascular surgery team stated normal pulses and no intervention. Will defer the rest of medical management to primary team. For DVT prophylaxis: Patient on Eliquis I recommend to hold off the discharge to inpatient rehab until we obtain the MRI to assess if new stroke. If negative then recommend to be here an additional day for observation. I discussed case with patient, primary team EYE PHYSICIAN and her nurse. Time with Patient: Less than 30
[2023-05-11] MEDS: ACETAMINOPHEN TAB 325 MG TAB PO PRN (15:53)
[2023-05-11 16:50] LABS: Glucose,Whole Blood 251 mg/dL (70-110)
--- NOTE | 2023-05-11 17:28 | P.PN ---
Subjective Progress Note Date: 05/11/23 Patient is monitored closely on the stepdown unit. Underwent JAVIER revealing significant calcific tricuspid aortic stenosis. Cardiothoracic evaluated the patient and recommending follow up outpatient for possible surgical valve replacement with exploration vs TAVR. Patient pending discharge to IP rehab her main complaint is currently no bowel movement. Overnight patient had an episode of dizziness and whooshing sound in the right ear and described as room spinning. Patient is also reporting worsening symptoms of reflux and hiccuping. Discharge is a place on hold is concern for possible brainstem stroke and brain MRI has been ordered. Patient does report headache and has had 2 other episodes of this dizziness/vertigo throughout the day today. Feels she is having some sinus congestion. Continues on combination of aspirin 81 mg daily eliquis 5 mg twice a day. Review of Systems Constitutional: Denied any fatigue denied any fever. Cardio vascular: denied any chest pain, palpitations Gastrointestinal: denied any nausea, vomiting, diarrhea Pulmonary: Denied any shortness of breath cough Neurologic denied any new focal deficits All inpatient medications were reviewed and appropriate changes in these medications as dictated in the interval history and assessment and plan. PHYSICAL EXAMINATION: GENERAL: The patient is alert and oriented x3, not in any acute distress. Well developed, well nourished. HEENT: Pupils are round and equally reacting to light. EOMI. No scleral icterus. No conjunctival pallor. Normocephalic, atraumatic. No pharyngeal erythema. No thyromegaly. CARDIOVASCULAR: S1 and S2 present. No murmurs, rubs, or gallops. PULMONARY: Chest is clear to auscultation, no wheezing or crackles. ABDOMEN: Soft, nontender, nondistended, normoactive bowel sounds. No palpable organomegaly. MUSCULOSKELETAL: No joint swelling or deformity. EXTREMITIES: No cyanosis, clubbing, or pedal edema. NEUROLOGICAL: Gross neurological examination did not reveal any focal deficits. SKIN: No rashes. 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 GI Prophylaxis DVT prophylaxis SubCu heparin Do Not Resuscitate/Do Not Intubate Plan MRI brain ordered and pending rule out acute stroke Patient is started on antivert for the vertigo symptoms and norco for headache Continue with frequent neuro checks and close monitoring Added levemir and scheduled insulin continue accuchecks ACHS Protonix increased to BID and continue on calcium carbonate Further recommendations based on MRI CT services recommending outpatient surgical valve replacement with exploration of the sub-aortic outflow tract area vs TAVR Discharge to inpatient rehab when medically stable The impression and plan of care has been dictated by Alicia Aguilar, Nurse Practitioner as directed. Dr. Ry MD I have performed a history and physical examination and medical decision making of this patient, discussed the same with the dictator, and agree with the dictators assessment and plan as written, documented as a scribe. Based on total visit time, I have performed more than 50% of this visit. Objective - Vital Signs Vital signs: Vital Signs Temp 97.6 F 05/11/23 12:03 Pulse 52 L 05/11/23 12:03 Resp 18 05/11/23 12:03 BP 111/60 05/11/23 12:03 Pulse Ox 99 05/11/23 12:03 FiO2 Intake & Output 05/10/23 05/11/23 05/11/23 18:59 06:59 18:59 Intake Total 180 30 190 Output Total 710 500 0 Balance -530 -470 190 Weight 106.9 kg Intake: IV 30 10 Invasive Line 1 20 10 Invasive Line 2 10 Oral 180 180 Output: Urine 710 500 0 Stool 0 Other: Voiding Method External Catheter External Catheter External Catheter - Labs CBC & Chem 7: 05/08/23 08:54 05/08/23 08:54 Labs: Abnormal Lab Results - Last 24 Hours (Table) 05/10/23 05/10/23 05/11/23 Range/Units 16:43 19:34 00:56 POC Glucose (mg/dL) 238 H 249 H 206 H (70-110) mg/dL 05/11/23 05/11/23 Range/Units 05:55 10:42 POC Glucose (mg/dL) 179 H 209 H (70-110) mg/dL Assessment and Plan Time with Patient: Less than 30
--- NOTE | 2023-05-11 17:56 | MR ---
EXAMINATION TYPE: MR brain wo con DATE OF EXAM: 05/11/2023 5:32 PM COMPARISON: 05/05/2023 HISTORY: Dizziness, with belching, R/O brainstem stroke FINDINGS: The ventricles, basal cisterns and sulci overlying the cerebral convexities are mildly enlarged. There is evidence of mild periventricular white matter ischemic demyelination. Remote deep white matter insults are also noted. Again noted on diffusion-weighted imaging is enlarging area of increased signal measuring 2.7 cm vers us 1.8 cm previously within the posterior right white radiata. Stable area of increased signal is se en within the left white radiata measuring 1.3 cm versus 1.4 cm previously. Focal area of increased signal within the right thalamus as well as the left external capsule and right external capsule. Rig ht external capsule focus is increased in size measuring 5.7 mm versus 4 mm previously. No additional areas of abnormal increased signal are seen including the visualized portions of the brainstem. There is no evidence for midline shift or mass effect. Acute intracranial hemorrhage or extra-axial collection is not evident. The paranasal sinuses and mastoid air cells are well-aerated. IMPRESSION: 1. Evolution of ischemic insults with enlarging area of increased signal within the right white radi sole. Small new area within the right thalamus, slightly enlarged area within the right external capsu le region. Stable focus in the region of the left external capsule and left white radiata.
[2023-05-11] MEDS: FENOFIBRATE 160 MG TAB PO SCH (18:06)
[2023-05-11] MEDS: HYDROcodone/APAP 5-325MG 1 EACH TAB PO PRN (18:07)
[2023-05-11 19:54] LABS: Glucose,Whole Blood 204 mg/dL (70-110)
[2023-05-11] MEDS: PIOGLITAZONE 45 MG TAB PO SCH (20:43)
[2023-05-11] MEDS: ATORVASTATIN 80 MG TAB PO SCH (20:44)
[2023-05-11] MEDS: METOPROLOL SUCCINATE (ER) 50 MG TAB.ER.24H PO SCH (20:44)
[2023-05-11] MEDS: MAGNESIUM OXIDE 400 MG TAB PO SCH (20:44)
[2023-05-11] MEDS: INSULIN DETEMIR (LEVEMIR) 100 UNIT/ML SYR SQ SCH (20:45)
[2023-05-12] MEDS: HYDROcodone/APAP 5-325MG 1 EACH TAB PO PRN ×2 (00:40→11:34)
[2023-05-12] MEDS: ONDANSETRON 4 MG/2 ML VIAL IVP PRN ×3 (01:45→17:29)
[2023-05-12] MEDS: CARBIDOPA-LEVODOPA 25-100 MG 1 EACH TAB PO SCH ×4 (03:36→20:52)
[2023-05-12 06:10] LABS: Glucose,Whole Blood 157 mg/dL (70-110)
[2023-05-12] MEDS: INSULIN ASPART (NovoLOG) 100 UNIT/ML VIAL SQ SCH ×7 (06:25→20:54)
[2023-05-12] MEDS: PANTOPRAZOLE 40 MG TABLET PO SCH (06:26)
[2023-05-12] MEDS: VALSARTAN 160 MG TAB PO SCH ×2 (06:26→17:25)
[2023-05-12] MEDS: LEVOTHYROXINE 88 MCG TAB PO SCH ×2 (06:26→17:25)
[2023-05-12] MEDS: CALCIUM CARBONATE 500 MG CHEWABLE PO SCH (07:52)
[2023-05-12] MEDS: tiZANidine 4 MG TAB PO SCH ×3 (07:52→20:52)
[2023-05-12] MEDS: APIXABAN 5 MG TAB PO SCH ×2 (07:52→20:51)
[2023-05-12] MEDS: VITAMIN E (DL,TOCOPHERYL ACET) 400 UNIT (180 MG) CAP PO SCH ×2 (07:52→23:27)
[2023-05-12] MEDS: polyethylene glycoL 3350 17 GM POWD.PACK PO SCH (07:52)
[2023-05-12] MEDS: CHOLECALCIFEROL 25 MCG (1000 IU) TABLET PO SCH (07:52)
[2023-05-12] MEDS: ASPIRIN 81 MG PO SCH (07:52)
[2023-05-12] MEDS: GLIMEPIRIDE 4 MG TAB PO SCH ×2 (07:52→23:27)
[2023-05-12] MEDS: NYSTATIN 100,000 UNIT/GM POWD 15 GM TOPICAL SCH ×3 (07:53→23:28)
[2023-05-12] MEDS: traMADol 50 MG TAB PO PRN (08:01)
[2023-05-12] MEDS ORDERED: bisacodyL 10 MG SUPP RECTAL STA (10:14)
[2023-05-12 10:47] LABS: Basophils # (A) 0.1 k/uL (0-0.2); Basophils % (A) 0 %; Eosinophils # (A) 0.4 k/uL (0-0.7); Eosinophils % (A) 2 %; HCT 40.2 % (34.0-46.0); HGB 13.4 gm/dL (11.4-16.0); Lymphocytes # (A) 1.4 k/uL (1.0-4.8); Lymphocytes % (A) 9 %; MCH 31.6 pg (25.0-35.0); MCHC 33.4 g/dL (31.0-37.0); MCV 94.6 fL (80.0-100.0); Mean Platelet Volume 8.8; Monocytes # (A) 0.6 k/uL (0-1.0); Monocytes % (A) 4 %; Neutrophils # (A) 13.4 k/uL (1.3-7.7); Neutrophils % (A) 84 %; Platelet Count 183 k/uL (150-450); RBC 4.24 m/uL (3.80-5.40); RDW 13.1 % (11.5-15.5)
[2023-05-12] MEDS: CARBIDOPA-LEVODOPA 25-100 MG 1 EACH TAB PO PRN (11:34)
[2023-05-12 11:44] LABS: Glucose,Whole Blood 179 mg/dL (70-110)
[2023-05-12 11:50] LABS: African American GFR (CKD) >90 (>60 ml/min/1.73 sqM); Anion Gap 8 mmol/L; Blood Urea Nitrogen 23 mg/dL (7-17); Calcium 8.6 mg/dL (8.4-10.2); Carbon Dioxide 24 mmol/L (22-30); Chloride 106 mmol/L (98-107); Glucose 189 mg/dL (74-99); Magnesium 1.9 mg/dL (1.6-2.3); Non-African American GFR(CKD) 78 (>60 ml/min/1.73 sqM); Potassium 4.3 mmol/L (3.5-5.1); Sodium 138 mmol/L (137-145)
--- NOTE | 2023-05-12 13:11 | P.PN ---
Subjective HISTORY OF PRESENT ILLNESS: Patient is s/p JAVIER revealing echodense lesion on the aortic valve. Cardiothoracic surgery was consulted for evaluation. CT surgery recommending medical management at this time. Per their dictation, if patient has function recovery, she may be a candidate for surgical valve replacement with exploration of the sub-aortic outflow tract area. Otherwise she may be considered for TAVR for aortic stenosis. Patient examined this morning at the bedside. Patient denies chest pain or pressure. She denies shortness of breath. Telemetry reveals sinus mechanism. Vital signs are stable. 05/11/2023 Patient examined this morning at the bedside. Patient denies chest pain or pressure. She denies shortness of breath. The patient reports she is doing a lot of belching and is having heartburn symptoms this morning. She really port that she feels constipated and has not had a bowel movement in several days. She also reports having 2 episodes of dizziness; one that woke her up in the middle of the night and 1 this morning. Telemetry reveals sinus mechanism. 05/11/2023 Patient examined this morning at the bedside. Patient denies chest pain or pressure. She denies shortness of breath. She states that she had a bad night overnight. She is complaining of significant constipation this morning. Telemetry reveals sinus mechanism. Vital signs are stable. PHYSICAL EXAM: VITAL SIGNS: Reviewed. GENERAL: Well-developed in no acute distress. NECK: Supple. No JVD or thyromegaly LUNGS: Respirations even and unlabored. Lungs essentially clear to auscultation bilaterally. HEART: Regular rate and rhythm. S1 and S2 heard. Systolic murmur noted. EXTREMITIES: Left sided weakness. No clubbing or cyanosis. Peripheral pulses intact. No lower extremity edema ASSESSMENT: Acute ishemic bilateral hemisphere CVA Recent CVA Left sided weakness Moderate aortic stenosis Echodense lesion on aortic valve, per JAVIER Hypertension Hyperlipidemia Diabetes Morbid obesity PLAN: Continue current cardiac medications Continue telemetry monitoring Stable for discharge from a cardiac standpoint Further recommendations pending patient course Nurse practitioner note has been reviewed by physician. Signing provider agrees with the documented findings, assessment, and plan of care. Objective - Vital Signs Vital signs: Vital Signs Temp 97.9 F 05/12/23 11:49 Pulse 58 L 05/12/23 11:49 Resp 18 05/12/23 11:49 BP 150/83 05/12/23 11:49 Pulse Ox 100 05/12/23 11:49 FiO2 Intake & Output 05/11/23 05/12/23 05/12/23 18:59 06:59 18:59 Intake Total 200 20 660 Output Total 0 200 Balance 200 -180 660 Weight 106.9 kg Intake: IV 20 20 Invasive Line 1 20 20 Oral 180 660 Output: Urine 0 200 Stool 0 Other: Voiding Method External Catheter External Catheter External Catheter # Voids 3 - Labs CBC & Chem 7: 05/12/23 10:35 05/12/23 10:35 Labs: Abnormal Lab Results - Last 24 Hours (Table) 05/11/23 05/11/23 05/12/23 Range/Units 16:48 19:52 06:07 WBC (3.8-10.6) k/uL Neutrophils # (1.3-7.7) k/uL BUN (7-17) mg/dL Glucose (74-99) mg/dL POC Glucose (mg/dL) 251 H 204 H 157 H (70-110) mg/dL 05/12/23 05/12/23 05/12/23 Range/Units 10:35 10:35 11:43 WBC 16.0 H (3.8-10.6) k/uL Neutrophils # 13.4 H (1.3-7.7) k/uL BUN 23 H (7-17) mg/dL Glucose 189 H (74-99) mg/dL POC Glucose (mg/dL) 179 H (70-110) mg/dL
--- NOTE | 2023-05-12 14:04 | XR ---
EXAMINATION TYPE: XR abdomen 1V DATE OF EXAM: 05/12/2023 1:44 PM INDICATION: Patient age:Female; 68 years old; Reason for study: constipation; PHH. COMPARISON: CT 11/02/2019 TECHNIQUE: One radiographic view of the abdomen was obtained. FINDINGS: Large stool burden throughout the visualized abdomen. This is most pronounced in the left l ower quadrant and rectum. No evidence for acute fracture. Scattered degeneration changes throughout t he spine and hips. IMPRESSION: Large stool burden throughout the colon most pronounced in the sigmoid colon in the left lower quadra nt and rectum.
[2023-05-12] MEDS ORDERED: NA PHOS,M-B/NA PHOS,DI-BA 133 ML ENEMA RECTAL STA (14:44)
--- NOTE | 2023-05-12 16:26 | P.PN ---
Subjective Progress Note Date: 05/12/23 Patient is monitored closely on the stepdown unit. Underwent JAVIER revealing significant calcific tricuspid aortic stenosis. Cardiothoracic evaluated the patient and recommending follow up outpatient for possible surgical valve replacement with exploration vs TAVR. Patient pending discharge to IP rehab her main complaint is currently no bowel movement. Overnight patient had an episode of dizziness and whooshing sound in the right ear and described as room spinning. Patient is also reporting worsening symptoms of reflux and hiccuping. Discharge is a place on hold is concern for possible brainstem stroke and brain MRI has been ordered. Patient does report headache and has had 2 other episodes of this dizziness/vertigo throughout the day today. Feels she is having some sinus congestion. Continues on combination of aspirin 81 mg daily eliquis 5 mg twice a day. 05/12/2023 Patient is evaluated today sitting up in bed. Underwent brain MRI yesterday reveals evoluation of ischemic insults with enlarging area of increased signal within the right white radiata, small new area within the right thalamus, slightly enlarged area within the right external capsule region. Stable focus in the region of the left external capsule and left white radiata. Neurology following and patient continues on eliquis and aspirin. Patient continues to report headache dull achy top of head and also having hiccups. Does report increased difficulty swallowing today Has been receiving miralax lactulose and dulcolax unable to have BM. Abdominal xray reveals large stool burden and patient will receive an enema today. Review of Systems Constitutional: Denied any fatigue denied any fever. Cardio vascular: denied any chest pain, palpitations Gastrointestinal: denied any nausea, vomiting, diarrhea reports constipation. Pulmonary: Denied any shortness of breath cough Neurologic denied any new focal deficits All inpatient medications were reviewed and appropriate changes in these medications as dictated in the interval history and assessment and plan. PHYSICAL EXAMINATION: GENERAL: The patient is alert and oriented x3, not in any acute distress. Well developed, well nourished. HEENT: Pupils are round and equally reacting to light. EOMI. No scleral icterus. No conjunctival pallor. Normocephalic, atraumatic. No pharyngeal erythema. No thyromegaly. CARDIOVASCULAR: S1 and S2 present. No murmurs, rubs, or gallops. PULMONARY: Chest is clear to auscultation, no wheezing or crackles. ABDOMEN: Soft, nontender, nondistended, normoactive bowel sounds. No palpable organomegaly. MUSCULOSKELETAL: No joint swelling or deformity. EXTREMITIES: No cyanosis, clubbing, or pedal edema. NEUROLOGICAL: Gross neurological examination did not reveal any focal deficits. SKIN: No rashes. 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 Speech therapy to re-evaluate the patient Discharge to inpatient rehab when medically stable The impression and plan of care has been dictated by Alicia Aguilar Nurse Practitioner as directed. Dr. Ry MD I have performed a history and physical examination and medical decision making of this patient, discussed the same with the dictator, and agree with the dictators assessment and plan as written, documented as a scribe. Based on total visit time, I have performed more than 50% of this visit. Objective - Vital Signs Vital signs: Vital Signs Temp 97.7 F 05/12/23 08:00 Pulse 62 05/12/23 08:00 Resp 20 05/12/23 08:00 BP 145/70 05/12/23 08:00 Pulse Ox 94 L 05/12/23 09:01 FiO2 Intake & Output 05/11/23 05/12/23 05/12/23 18:59 06:59 18:59 Intake Total 200 20 480 Output Total 0 200 Balance 200 -180 480 Weight 106.9 kg Intake: IV 20 20 Invasive Line 1 20 20 Oral 180 480 Output: Urine 0 200 Stool 0 Other: Voiding Method External Catheter External Catheter External Catheter # Voids 3 - Labs CBC & Chem 7: 05/12/23 10:35 05/12/23 10:35 Labs: Abnormal Lab Results - Last 24 Hours (Table) 06/05/11/23 05/11/23 Range/Units 10:42 16:48 19:52 POC Glucose (mg/dL) 209 H 251 H 204 H (70-110) mg/dL 05/12/23 Range/Units 06:07 POC Glucose (mg/dL) 157 H (70-110) mg/dL Assessment and Plan Time with Patient: Less than 30
[2023-05-12 16:50] LABS: Glucose,Whole Blood 167 mg/dL (70-110)
[2023-05-12] MEDS: FENOFIBRATE 160 MG TAB PO SCH (17:25)
[2023-05-12] MEDS ORDERED: LACTULOSE 20 GM/30 ML CUP PO ONE (17:48)
[2023-05-12 19:54] LABS: Glucose,Whole Blood 214 mg/dL (70-110)
[2023-05-12] MEDS: MAGNESIUM OXIDE 400 MG TAB PO SCH (20:52)
[2023-05-12] MEDS: METOPROLOL SUCCINATE (ER) 50 MG TAB.ER.24H PO SCH (20:52)
[2023-05-12] MEDS: ATORVASTATIN 80 MG TAB PO SCH (20:54)
[2023-05-12] MEDS: PIOGLITAZONE 45 MG TAB PO SCH (23:27)
[2023-05-13] MEDS: INSULIN DETEMIR (LEVEMIR) 100 UNIT/ML SYR SQ SCH ×2 (01:18→21:27)
[2023-05-13] MEDS: HYDROcodone/APAP 5-325MG 1 EACH TAB PO PRN ×2 (01:23→08:28)
[2023-05-13] MEDS: CARBIDOPA-LEVODOPA 25-100 MG 1 EACH TAB PO SCH ×4 (03:38→21:27)
[2023-05-13] MEDS: traMADol 50 MG TAB PO PRN ×2 (03:38→16:38)
[2023-05-13 06:03] LABS: Glucose,Whole Blood 106 mg/dL (70-110)
[2023-05-13] MEDS: INSULIN ASPART (NovoLOG) 100 UNIT/ML VIAL SQ SCH ×7 (06:27→21:28)
[2023-05-13] MEDS: VALSARTAN 160 MG TAB PO SCH ×2 (06:56→16:38)
[2023-05-13] MEDS: PANTOPRAZOLE 40 MG TABLET PO SCH (06:56)
[2023-05-13] MEDS: LEVOTHYROXINE 88 MCG TAB PO SCH ×2 (06:56→16:38)
[2023-05-13] MEDS: APIXABAN 5 MG TAB PO SCH ×2 (08:19→21:27)
[2023-05-13] MEDS: CALCIUM CARBONATE 500 MG CHEWABLE PO SCH (08:19)
[2023-05-13] MEDS: ASPIRIN 81 MG PO SCH (08:19)
[2023-05-13] MEDS: CHOLECALCIFEROL 25 MCG (1000 IU) TABLET PO SCH (08:19)
[2023-05-13] MEDS: tiZANidine 4 MG TAB PO SCH ×3 (08:19→21:26)
[2023-05-13] MEDS: GLIMEPIRIDE 4 MG TAB PO SCH ×2 (08:20→21:27)
[2023-05-13] MEDS: VITAMIN E (DL,TOCOPHERYL ACET) 400 UNIT (180 MG) CAP PO SCH ×2 (08:20→21:26)
[2023-05-13] MEDS: polyethylene glycoL 3350 17 GM POWD.PACK PO SCH (08:21)
[2023-05-13] MEDS: NYSTATIN 100,000 UNIT/GM POWD 15 GM TOPICAL SCH ×3 (08:21→21:29)
[2023-05-13] MEDS: LACTULOSE 20 GM/30 ML CUP PO SCH ×3 (10:10→21:26)
--- NOTE | 2023-05-13 10:34 | P.PN ---
Subjective Progress Note Date: 05/13/23 HISTORY OF PRESENT ILLNESS: Patient is s/p JAVIER revealing echodense lesion on the aortic valve. Cardiothoracic surgery was consulted for evaluation. CT surgery recommending medical management at this time. Per their dictation, if patient has function recovery, she may be a candidate for surgical valve replacement with exploration of the sub-aortic outflow tract area. Otherwise she may be considered for TAVR for aortic stenosis. Patient examined this morning at the bedside. Patient denies chest pain or pressure. She denies shortness of breath. Telemetry reveals sinus mechanism. Vital signs are stable. 05/11/2023 Patient examined this morning at the bedside. Patient denies chest pain or pressure. She denies shortness of breath. The patient reports she is doing a lot of belching and is having heartburn symptoms this morning. She really port that she feels constipated and has not had a bowel movement in several days. She also reports having 2 episodes of dizziness; one that woke her up in the middle of the night and 1 this morning. Telemetry reveals sinus mechanism. 05/12/2023 Patient examined this morning at the bedside. Patient denies chest pain or pressure. She denies shortness of breath. She states that she had a bad night overnight. She is complaining of significant constipation this morning. Telemetry reveals sinus mechanism. Vital signs are stable. 05/13/2023 Patient examined this morning at the bedside. Patient denies chest pain or pressure. Denies SOB. She did have a bowel movement overnight. General surgery has been consulted for constipation. Vital signs are stable. PHYSICAL EXAM: VITAL SIGNS: Reviewed. GENERAL: Well-developed in no acute distress. NECK: Supple. No JVD or thyromegaly LUNGS: Respirations even and unlabored. Lungs essentially clear to auscultation bilaterally. HEART: Regular rate and rhythm. S1 and S2 heard. Systolic murmur noted. EXTREMITIES: Left sided weakness. No clubbing or cyanosis. Peripheral pulses intact. No lower extremity edema ASSESSMENT: Acute ishemic bilateral hemisphere CVA Recent CVA Left sided weakness Moderate aortic stenosis Echodense lesion on aortic valve, per JAVIER Hypertension Hyperlipidemia Diabetes Morbid obesity PLAN: Continue current cardiac medications Continue telemetry monitoring Stable for discharge from a cardiac standpoint Further recommendations pending patient course Nurse practitioner note has been reviewed by physician. Signing provider agrees with the documented findings, assessment, and plan of care. Objective - Vital Signs Vital signs: Vital Signs Temp 98.4 F 05/13/23 08:03 Pulse 67 05/13/23 08:03 Resp 17 05/13/23 08:03 BP 122/70 05/13/23 08:03 Pulse Ox 99 05/13/23 08:03 FiO2 Intake & Output 05/12/23 05/13/23 05/13/23 18:59 06:59 18:59 Intake Total 900 240 780 Output Total 400 250 Balance 500 -10 780 Intake: Oral 900 240 780 Output: Urine 400 250 Stool 0 Other: Voiding Method External Catheter External Catheter External Catheter # Voids 1 # Bowel Movements 1 1 - Labs CBC & Chem 7: 05/12/23 10:35 05/12/23 10:35 Labs: Abnormal Lab Results - Last 24 Hours (Table) 05/12/23 05/12/23 05/12/23 Range/Units 10:35 10:35 11:43 WBC 16.0 H (3.8-10.6) k/uL Neutrophils # 13.4 H (1.3-7.7) k/uL BUN 23 H (7-17) mg/dL Glucose 189 H (74-99) mg/dL POC Glucose (mg/dL) 179 H (70-110) mg/dL 05/12/23 05/12/23 Range/Units 16:49 19:51 WBC (3.8-10.6) k/uL Neutrophils # (1.3-7.7) k/uL BUN (7-17) mg/dL Glucose (74-99) mg/dL POC Glucose (mg/dL) 167 H 214 H (70-110) mg/dL
--- NOTE | 2023-05-13 10:43 | P.PN ---
Subjective Progress Note Date: 05/12/23 05/12/2023: Patient was seen for follow-up. Continues to be left hemiplegic. Patient very concerned about no bowel movement, feels very uncomfortable. 05/10/2023: Patient was seen for a follow-up. Patient continues to be completely hemiplegic on the left side. 05/09/2023: Patient initially seen by Dr. Perry De Dios. Please refer to his note for details. Patient is known to me from previous admission to the hospital, when she presented with acute ischemic stroke, status post TPA. Patient was doing very well post-TPA. Patient was discharged on aspirin and Plavix and statins. Shortly after going home, patient had another stroke, with complete left hemiplegia. Patient was not a candidate for TPA, as she has just received it recently. Patient continues to be completely left hemiplegic. Denies any headache any dizziness or any visual problems. Some of the workup during this hospital visit consisted of: TSH is 0.085 and a free T4 is 2.01 Homocysteine 13.2, CRP and ESR is within normal limits. CT of the head is reported as no acute hemorrhage, major vascular territory infarct or midline shift. Chronic appearing infarct of bilateral basal ganglia. CT Angiography of the head and neck was reported as no acute finding and arterial of the neck. Lungs the head is reported as no large vessel occlusion, significant stenosis, aneurysm or vascular malformation. MRI the brain is reported as findings are compatible with bilateral acute is chemia within the deep white matter bilateral parietal lobe greater on the right measuring 2 cm. Small punctate left basal ganglia 5 mm area of acute ischemia. No significant midline shift or mass effect. I personally reviewed the MRI and I agree the patient does have acute ischemia in the left basal ganglia as well as bilateral frontal parietal subcortical near the bilateral lower anterior horn of lateral ventricle in the medial aspect of the right right frontal parietal region Duplex of left leg: negative. Objective - Vital Signs Vital signs: Vital Signs Temp 97.9 F 05/12/23 11:49 Pulse 58 L 05/12/23 11:49 Resp 18 05/12/23 11:49 BP 150/83 05/12/23 11:49 Pulse Ox 100 05/12/23 11:49 FiO2 Intake & Output 05/11/23 05/12/23 05/12/23 18:59 06:59 18:59 Intake Total 200 20 660 Output Total 0 200 Balance 200 -180 660 Weight 106.9 kg Intake: IV 20 20 Invasive Line 1 20 20 Oral 180 660 Output: Urine 0 200 Stool 0 Other: Voiding Method External Catheter External Catheter External Catheter # Voids 3 - Exam Patient's mental status, speech and language functions are normal. No aphasia or dysarthria. Cranial nerve examination significant for left facial weakness, central type,. Visual garcia are full, extraocular muscles are intact. Tongue protrudes to the midline. Patient has completely weak left shoulder shrug. On muscle strength testing, the strength is normal in the right arm and right leg. Patient is completely flaccid in the left arm and left leg. Sensory to touch is equal in the arms and legs with no neglect. No ataxia for [id number] testing on the right, cannot perform on the left. - Labs CBC & Chem 7: 05/12/23 10:35 05/12/23 10:35 Labs: Abnormal Lab Results - Last 24 Hours (Table) 05/11/23 05/11/23 05/12/23 Range/Units 16:48 19:52 06:07 WBC (3.8-10.6) k/uL Neutrophils # (1.3-7.7) k/uL BUN (7-17) mg/dL Glucose (74-99) mg/dL POC Glucose (mg/dL) 251 H 204 H 157 H (70-110) mg/dL 05/12/23 05/12/23 05/12/23 Range/Units 10:35 10:35 11:43 WBC 16.0 H (3.8-10.6) k/uL Neutrophils # 13.4 H (1.3-7.7) k/uL BUN 23 H (7-17) mg/dL Glucose 189 H (74-99) mg/dL POC Glucose (mg/dL) 179 H (70-110) mg/dL Assessment and Plan Assessment: Recurrent ischemic strokes Patient initially presented 04/30/2023 with acute left hemiparesis, status post TPA with complete resolution of symptoms. Patient had repeated left hemiparesis 05/01/2023, that also resolved. Patient had a recurrent acute stroke with left hemiplegia on 05/04/2023, that has persisted. MRI brain revealed dense moderate size acute stroke in the right basal ganglia/internal capsule, also involving smaller area in the right external capsule and left basal ganglia Strokes likely related to cardioembolism. JAVIER showed linear echodensity structural attached to the ventricular surface of the aortic valve leaflet attached to the ventricular surface of the right coronary cusp that is mobile and echodense. 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 Hypertension Parkinson's disease Diabetes mellitus History of DVT Plan: Repeat MRI brain without contrast 05/11/2023 revealed evolution of ischemic insults with enlarging area of increased signal within the right wasserman radiata. Small new area within the right thalamus, slightly enlarged area within the right external capsule region. Stable focus in the region of the left external capsule and the left Wasserman radiata. I personally reviewed MRI agree with the findings. Transesophageal echocardiogram 05/10/2023 revealed a linear echodensity structure attached to the ventricular surface of the aortic valve leaflet attached to the ventricular surface of the right coronary cusp that is mobile and echodense. 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 CT surgery recommending medical management. Discussed with cardiology. Patient started on Eliquis 5 mg twice a day, cont inue aspirin 81 mg daily. Stop Brilinta. JOSE -ve, homocystine negative, factor V Leiden -ve, RF <15. Has postivie Von Willebran antigen (254. normal is 52-214). antithrombin III 110 (normal is 79- 109) but does not seems significant elevated, prothrombin 46954: negative, ESR and CRP is normal. lupus anticoagulant -ve, protein C and S are negative. Lyme titer negative, RPR negative, dsDNA pending. Dr. De Dios has consulted Hematology team since has positive VW antigen to assess further management. Continue neuro checcks. cardiac monitoring. So far no a-fib or flutter per nurse. Recommend an event monitor or loop recorder if unknown source of stroke. Avoid hypotension. Cardizem discontinued. PT, OT and GASKET [employer]ER are consulted. Inpatient rehab is consulted and feels patient would benefit. Goal is Normotensive For muscle spasm, Dr. Perry De Dios has increased Zanaflex from 4mg QiD to 6mg TID. If still bothersome go up to 8mg TID and if still ineffective try Robaxin. Cardiology is on board. Patient has discoloration of the left lower foot (purplish) and improving today: DVT is negative. Vascular surgery team stated normal pulses and no intervention. Will defer the rest of medical management to primary team. For DVT prophylaxis: Patient started on Eliquis For constipation, will defer to IM. Neurologically cleared for transfer to rehab facility, if cleared by cardiology and cardiothoracic surgery. May consider transfer to higher level of care.
[2023-05-13 11:49] LABS: Glucose,Whole Blood 169 mg/dL (70-110)
[2023-05-13] MEDS: ACETAMINOPHEN TAB 325 MG TAB PO PRN ×2 (11:54→20:46)
--- NOTE | 2023-05-13 12:41 | P.DS ---
Providers Date of admission: 05/04/23 07:21 Attending physician: Bg Martinez Consults: 05/04/23 13:59 Consult Physician Stat Consulting Provider: Fifi Villatoro Consult Reason/Comments: Patient unstable CVA's Do you want consulting provider notified?: Already Contacted Placement Type Exists?: Yes 05/04/23 14:16 Consult Physician Urgent Consulting Provider: Perry De Dios Consult Reason/Comments: CVA Do you want consulting provider notified?: Yes Placement Type Exists?: Yes 05/05/23 11:40 Consult Physician Routine Consulting Provider: Chris Rodríguez Consult Reason/Comments: JAVIER, post cva Do you want consulting provider notified?: Yes Placement Type Exists?: Yes 05/06/23 12:28 Consult Physician Routine Consulting Provider: Shai Loco Consult Reason/Comments: inpatient rehab, CVA Do you want consulting provider notified?: Yes 05/08/23 11:55 Consult Physician Routine Consulting Provider: Kirk Christina Consult Reason/Comments: +VE VON WILLEBRAND AG WITH +VE B/L STROKE Do you want consulting provider notified?: Yes 05/09/23 09:48 Consult Physician Routine Consulting Provider: Osmar Barker Consult Reason/Comments: echodense lesion on aortic valve, aortic stenosis, recurrent CVA Do you want consulting provider notified?: Yes 05/12/23 17:48 Consult Physician Routine Consulting Provider: Adin Funes Consult Reason/Comments: constipation Do you want consulting provider notified?: Yes, Notify in am Primary care physician: Physician Nonstaff Hospital Course: Final Diagnosis -Acute Bilateral hemisphere ischemia CVA -Left hemiparesis secondary to above -Recent CVA and left sided weakness -Acute dizziness/vertigo with acute onset headache improved -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 Patient is discharged on combination of eliquis 5 mg BID and aspirin 81 mg daily and high intensity statin. Patient to follow up with a neurology, vascular surgery, hematology and cardiology on discharge. Patient to follow up with cardiothoracic outpatient for further evaluation of the echodense lesion of the aortic valve. Patient recommended to see orthopedics outpatient and establish care regarding chronic pain and hx of pain injections in the past. Patient to continue on bowel regimen to avoid constipation. . Recommend to repeat labs in 2 to 3 days. -Continue on dysphagia level 3 chopped diet with aspiration precautions and sitting up right 90* for meals. Hospital Course This is a 68 year old female with history of CVA, parkinsons disorder, hypothyroidism, hypertension, diabetes mellitus, chronic pain, presented to the hospital because of left-sided weakness. Patient was discharged from the hospital the day prior after being treated for acute CVA and received TPA and ICU monitoring. Patient went home and was awoken out of her sleep in the AM by her dog, noticed left sided weakness and slurred speech. EMS was immediately called and patient was brought to the hospital for further evaluation. Patient was admitted and had extensive neurology, hematology and cardiology work up this admission. Patient was found to have mildly elevated von willebrand antigen hematology unclear if is clinically significant in the setting of TPA as borderline elevated, TSH low at 0.086 and free T4 normal at 2.01. JOSE and RF negative. Initial CT brain was negative for acute intracranial process and CTA head and neck did not show any acute occlusion or dissection of any vessels. Patient had a brain MRI showing bilateral acute ischemia within the deep white matter of bilateral parietal lobes greater on the right and left basal ganglia acute ischemia. Patient has vascular consultation. Venous doppler negative for DVT. Patient had a JAVIER performed to rule out cardiac source of embolism which does reveal a linear echodensity structure attached to the ventricular surface of the aortic valve leaflet attached to the ventricular surface of the right coronary cusp and is mobile and echodense. 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 Cardiothoracic consultation was requested and patient was deemed not a surgical candidate at this time and cardiothoracic services recommended to follow-up outpatient. Patient to continue eliquis and aspirin combination. Patient was monitored and was ready for discharge to inpatient rehab she did have it acute episode of vertigo and hiccuping. There was concern for a evolving stroke and a repeat brain MRI was repeated which does reveal a patient of ischemic insults with enlarging area of increased signal within the right coronary radiata there is a smaller area than the right thalamus. A slightly enlarged area within the right external capsular region and a stable focus in the region of the left external capsule and left white radiata. Followed up with cardiothoracic and neurology the plan is to remain on eliquis and aspirin combination and follow up with cardiothoracic and neurology services on discharge. Patient had issues with constipation has resolved with aggresive bowel regimen and enema. General surger y evaluated the patient no intervention required. Patient to discharge to inpatient rehab. 05/13/2023 Patient is evaluated today has been cleared by all consultations. Patient has had multiple BMs overnight and to continue on korina regimen. Symptoms of vertigo and headache have improved. Patient on pain regiment for chronic back and hip pain requires frequent repositioning. No chest pain, no shortness of breath. Lungs are clear S1 S2 auscultated abdomen is soft and nontender. Patient continues with the left hemiparesis and has been following with speech therapy and physical therapy. Kidney function stable BUN 23 creatinine 0.77, sodium 138, potassium 4.3, magnesium 1.9. Blood glucose improving with the addition of levemir down to 169. Temperature of 98.4, heart rate 55, blood pressure 134/77, 99% room air. Please see medication reconciliation for a list of current medication. Thank you for allowing us to participate in the care of this patient. The impression and plan of care has been dictated by Alicia Aguilar, Nurse Practitioner as directed. Dr. Ry MD I have performed a history and physical examination and medical decision making of this patient, discussed the same with the dictator, and agree with the dictators assessment and plan as written, documented as a scribe. Based on total visit time, I have performed more than 50% of this visit. Patient Condition at Discharge: Stable Plan - Discharge Summary Discharge Rx Participant: Yes New Discharge Prescriptions: New Apixaban [Eliquis] 5 mg PO BID tab Nystatin 100,000 Unit/gm Powd [Mycostatin Powder] 1 applic TOPICAL TID each Acetaminophen Tab [Tylenol] 650 mg PO Q6HR PRN tab PRN Reason: Fever And/ Or Pain Sennosides/Docusate Sodium [Senna Plus 8.6-50 mg Softgel] 1 each PO DAILY #30 capsule Meclizine [Antivert] 12.5 mg PO TID PRN #90 tablet PRN Reason: Vertigo polyethylene glycoL 3350 [Miralax] 17 gm PO DAILY packet HYDROcodone/APAP 5-325MG [Bonnie 5-325] 1 each PO Q6HR PRN #4 tab PRN Reason: Pain INSULIN ASPART (NovoLOG) [NovoLOG (formulary)] 0 unit SQ ACHS each Pantoprazole [Protonix] 40 mg PO DIRECTED tab traMADol HCl [Ultram] 50 mg PO QID PRN #4 tab PRN Reason: Pain Lactulose [Cephulac] 30 gm PO BID PRN ml PRN Reason: Constipation Insulin Detemir (Levemir) [Levemir] 10 unit SQ HS each INSULIN ASPART (NovoLOG) [NovoLOG (formulary)] 2 unit SQ AC-TID each Continue tiZANidine [Zanaflex] 4 mg PO QID@,,, metFORMIN HCL ER [Glucophage XR] 1,000 mg PO BID Metoprolol Succinate (ER) [Toprol XL] 50 mg PO HS Levothyroxine Sodium 88 mcg PO BID-W/MEALS Vitamin B Complex 1 cap PO DAILY Magnesium Oxide [Magnesium] 500 mg PO HS Cholecalciferol [Vitamin D3 (25 Mcg = 1000 Iu)] 25 mcg PO DAILY Aspirin 81 mg PO DAILY #30 tab Atorvastatin [Lipitor] 80 mg PO HS #30 tab Valsartan [Diovan] 160 mg PO BID-W/MEALS Pioglitazone HCl 45 mg PO HS Glimepiride [Amaryl] 4 mg PO BID Fenofibrate [Lofibra] 160 mg PO W/SUPPER Carbidopa-Levodopa 25-100 mg [Sinemet 25-100 mg] 1 tab PO QID@,,, Vitamin E (Dl,Tocopheryl Acet) [Vitamin E (400 Iu = 180 mg)] 400 unit PO BID Carbidopa-Levodopa 25-100 mg [Sinemet 25-100 mg] 1 tab PO BID@0800,1200 PRN PRN Reason: Shaking Calcium Carbonate [Calcium] 600 mg PO DAILY Albuterol Inhaler [Ventolin Hfa Inhaler] 2 puff INHALATION RT-QID PRN PRN Reason: Shortness Of Breath Discontinued traMADol HCL 50 mg PO Q4H PRN PRN Reason: Pain Vitamin C/Biotin [Hair, Skin and Nails Chew] 1 tab PO TID Milk Thistle 150 mg PO DAILY Glucosamine Sulfate 500 mg PO TID PRN PRN Reason: knee pain Tart Bales 1 tab PO DAILY Omeprazole 40 mg PO AC-BRKFST Diltiazem Cd [Cardizem CD] 240 mg PO DAILY Turmeric Root Extract [Turmeric] 500 mg PO HS Clopidogrel [Plavix] 75 mg PO DAILY #30 tab Discharge Medication List Carbidopa-Levodopa 25-100 mg [Sinemet 25-100 mg] 1 tab PO QID@04,,,12/20/22 [History] Fenofibrate [Lofibra] 160 mg PO W/SUPPER 12/20/22 [History] Glimepiride [Amaryl] 4 mg PO BID 12/20/22 [History] Levothyroxine Sodium 88 mcg PO BID-W/MEALS 12/20/22 [History] Metoprolol Succinate (ER) [Toprol XL] 50 mg PO HS 12/20/22 [History] Pioglitazone HCl 45 mg PO HS 12/20/22 [History] Valsartan [Diovan] 160 mg PO BID-W/MEALS 12/20/22 [History] metFORMIN HCL ER [Glucophage XR] 1,000 mg PO BID 12/20/22 [History] tiZANidine [Zanaflex] 4 mg PO QID@04,10,16,22 12/20/22 [History] Albuterol Inhaler [Ventolin Hfa Inhaler] 2 puff INHALATION RT-QID PRN 04/30/23 [History] Calcium Carbonate [Calcium] 600 mg PO DAILY 04/30/23 [History] Carbidopa-Levodopa 25-100 mg [Sinemet 25-100 mg] 1 tab PO BID@0800,1200 PRN 04/30/23 [History] Cholecalciferol [Vitamin D3 (25 Mcg = 1000 Iu)] 25 mcg PO DAILY 04/30/23 [History] Magnesium Oxide [Magnesium] 500 mg PO HS 04/30/23 [History] Vitamin B Complex 1 cap PO DAILY 04/30/23 [History] Vitamin E (Dl,Tocopheryl Acet) [Vitamin E (400 Iu = 180 mg)] 400 unit PO BID 04/30/23 [History] Aspirin 81 mg PO DAILY #30 tab 05/03/23 [Rx] Atorvastatin [Lipitor] 80 mg PO HS #30 tab 05/03/23 [Rx] Acetaminophen Tab [Tylenol] 650 mg PO Q6HR PRN tab 05/11/23 [Rx] Apixaban [Eliquis] 5 mg PO BID tab 05/11/23 [Rx] INSULIN ASPART (NovoLOG) [NovoLOG (formulary)] 0 unit SQ ACHS each 05/11/23 [Rx] Meclizine [Antivert] 12.5 mg PO TID PRN #90 tablet 05/11/23 [Rx] Nystatin 100,000 Unit/gm Powd [Mycostatin Powder] 1 applic TOPICAL TID each 05/11/23 [Rx] Pantoprazole [Protonix] 40 mg PO DIRECTED tab 05/11/23 [Rx] Sennosides/Docusate Sodium [Senna Plus 8.6-50 mg Softgel] 1 each PO DAILY #30 capsule 05/11/23 [Rx] traMADol HCl [Ultram] 50 mg PO QID PRN #4 tab 05/11/23 [Rx] HYDROcodone/APAP 5-325MG [Bonnie 5-325] 1 each PO Q6HR PRN #4 tab 05/13/23 [Rx] INSULIN ASPART (NovoLOG) [NovoLOG (formulary)] 2 unit SQ AC-TID each 05/13/23 [Rx] Insulin Detemir (Levemir) [Levemir] 10 unit SQ HS each 05/13/23 [Rx] Lactulose [Cephulac] 30 gm PO BID PRN ml 05/13/23 [Rx] polyethylene glycoL 3350 [Miralax] 17 gm PO DAILY packet 05/13/23 [Rx] Follow up Appointment(s)/Referral(s): Jorge Lacy MD [STAFF PHYSICIAN] - 1 Week Matt Joaquin MD [STAFF PHYSICIAN] - 2 Weeks Solo Tijerina MD [STAFF PHYSICIAN] - 1-2 Days Osmar Barker MD [STAFF PHYSICIAN] - 2 Weeks Shelbi Pedroza DO [STAFF PHYSICIAN] - 2 Weeks Suyapa Parker MD [STAFF PHYSICIAN] - 1-2 Days Nonstaff,Physician [Primary Care Provider] - 1 Week Kovar,Gustabo, DO [STAFF PHYSICIAN] - 1 Week Ambulatory/Diagnostic Orders: Basic Metabolic Panel [LAB.AMB] Time Frame: 3 Days, Location: None Selected Complete Blood Count w/diff [LAB.AMB] Time Frame: 3 Days, Location: None Selected Magnesium [LAB.AMB] Location: None Selected Patient Instructions/Handouts: Aortic Stenosis (DC), Ischemic Stroke (DC) Activity/Diet/Wound Care/Special Instructions: Discharge to [facility] on 05/11/23 for inpatient physical and occupational therapy. Ambulance from [facility] at 4:00PM Continue on Eliquis 5 mg BID with aspirin 81 mg daily Continue on bowel regimen recommend to continue protonix 40 mg BID for 1 week than transition to 40 mg daily Patient to discharge to IP rehab and follow up with cardiothoracic services outpatient for further discussing regarding valvular surgery Follow up and establish care with vascular surgery outpatient further work up regarding possible peripheral vascular disease Follow up with hematology Establish care with a neurologist on discharge Recommend to establish care with a PCP on discharge Follow up labs Continue with nystatin powder TID and as needed in the groin, abdominal folds, axilla and under breasts Discharge Disposition: TRANSFER TO SNF/ECF
--- NOTE | 2023-05-13 13:24 | P.GSCN ---
History of Present Illness Consult date: 05/13/23 History of present illness: CHIEF COMPLAINT: Left-sided weakness HISTORY OF PRESENT ILLNESS: This is a 68-year-old female who was admitted to hospital for CVA. She had an abdominal x-ray ordered due to constipation. X- ray results showed large stool burden throughout the colon most pronounced in the sigmoid colon in the left lower quadrant and rectum. Patient was given Fleet enema lactulose, Dulcolax suppository and MiraLAX. She is now having bowel movements. She had 2 bowel movements today and to yesterday. She denies any abdominal pain. Denies any nausea vomiting. Tolerating regular diet. Patient seen and examined with Dr. rosen PAST MEDICAL HISTORY: See below PAST SURGICAL HISTORY: See below MEDICATIONS: See below ALLERGIES: See below SOCIAL HISTORY: No illicit drug use. REVIEW OF SYSTEMS: CONSTITUTIONAL: Denies fever or chills. HEENT: Denies blurred vision, vision changes, or eye pain. Denies hemoptysis CARDIOVASCULAR: Denies chest pain or pressure. RESPIRATORY: No shortness of breath. GASTROINTESTINAL: See HPI for pertinent findings HEMATOLOGIC: Denies bleeding disorders. GENITOURINARY: Denies any blood in urine or increased urinary frequency. SKIN: Denies pruitis. Denies rash. PHYSICAL EXAM: VITAL SIGNS: Reviewed GENERAL: Well-developed in no acute distress. HEENT: No sclera icterus. Extraocular movements grossly intact. Moist buccal mucosa. Head is atraumatic, normocephalic. No nasal drainage. ABDOMEN: Soft. Nondistended. Nontender NEUROLOGIC: Alert and oriented. Cranial nerves II through XII grossly intact. LABORATORY DATA: WBC 16 Hgb 13.4 platelets 183 Sodium is 138 potassium 4.3 creatinine 0.77 IMAGING: Abdominal x-ray as stated above ASSESSMENT: 1. Constipation 2. Large stool burden noted on x-ray PLAN: -Add lactulose 3 times a day -No surgical intervention -Continue supportive care Thank you for this consultation Physician Hat Finishing Materials Preparer note has been reviewed by physician. Signing provider agrees with the documented findings, assessment, and plan of care. Past Medical History Past Medical History: Diabetes Mellitus, Deep Vein Thrombosis (DVT), Hypertension, Thyroid Disorder Additional Past Medical History / Comment(s): Spleen issues, Parkinsons, Polio History of Any Multi-Drug Resistant Organisms: None Reported Past Surgical History: Orthopedic Surgery, Tonsillectomy, Tubal Ligation Additional Past Surgical History / Comment(s): Thyroid removed Past Anesthesia/Blood Transfusion Reactions: Blood Transfusion Reaction Additional Past Anesthesia/Blood Transfusion Reaction / Comm: pt can't explain clearly Past Psychological History: No Psychological Hx Reported Smoking Status: Current every day smoker Past Alcohol Use History: None Reported Past Drug Use History: None Reported - Past Family History Mother Family Medical History: Myocardial Infarction ([place]) Additional Family Medical History / Comment(s): No reported blood disorders Father Additional Family Medical History / Comment(s): Parkinson disease, history of heart disease Medications and Allergies Home Medications Medication Instructions Recorded Confirmed Type Carbidopa-Levodopa 25-100 mg 1 tab PO QID@04,,,12/20/22 05/05/23 History [Sinemet 25-100 mg] Fenofibrate [Lofibra] 160 mg PO W/SUPPER 12/20/22 05/04/23 History Glimepiride [Amaryl] 4 mg PO BID 12/20/22 05/04/23 History Levothyroxine Sodium 88 mcg PO BID-W/MEALS 12/20/22 05/04/23 History Metoprolol Succinate (ER) [Toprol 50 mg PO HS 12/20/22 05/04/23 History XL] Pioglitazone HCl 45 mg PO HS 12/20/22 05/04/23 History Valsartan [Diovan] 160 mg PO BID-W/MEALS 12/20/22 05/04/23 History metFORMIN HCL ER [Glucophage XR] 1,000 mg PO BID 12/20/22 05/04/23 History tiZANidine [Zanaflex] 4 mg PO QID@04,10,,12/20/22 05/04/23 History Albuterol Inhaler [Ventolin Hfa 2 puff INHALATION RT-QID PRN 04/30/23 05/04/23 History Inhaler] Calcium Carbonate [Calcium] 600 mg PO DAILY 04/30/23 05/04/23 History Carbidopa-Levodopa 25-100 mg 1 tab PO BID@0800,1200 PRN 04/30/23 05/04/23 History [Sinemet 25-100 mg] Cholecalciferol [Vitamin D3 (25 25 mcg PO DAILY 04/30/23 05/04/23 History Mcg = 1000 Iu)] Magnesium Oxide [Magnesium] 500 mg PO HS 04/30/23 05/04/23 History Vitamin B Complex 1 cap PO DAILY 04/30/23 05/04/23 History Vitamin E (Dl,Tocopheryl Acet) 400 unit PO BID 04/30/23 05/04/23 History [Vitamin E (400 Iu = 180 mg)] Aspirin 81 mg PO DAILY #30 tab 05/03/23 05/04/23 Rx Atorvastatin [Lipitor] 80 mg PO HS #30 tab 05/03/23 05/04/23 Rx Acetaminophen Tab [Tylenol] 650 mg PO Q6HR PRN tab 05/11/23 Rx Apixaban [Eliquis] 5 mg PO BID tab 05/11/23 Rx INSULIN ASPART (NovoLOG) [NovoLOG 0 unit SQ ACHS each 05/11/23 Rx (formulary)] Meclizine [Antivert] 12.5 mg PO TID PRN #90 tablet 05/11/23 Rx Nystatin 100,000 Unit/gm Powd 1 applic TOPICAL TID each 05/11/23 Rx [Mycostatin Powder] Pantoprazole [Protonix] 40 mg PO DIRECTED tab 05/11/23 Rx Sennosides/Docusate Sodium [Senna 1 each PO DAILY #30 capsule 05/11/23 Rx Plus 8.6-50 mg Softgel] traMADol HCl [Ultram] 50 mg PO QID PRN #4 tab 05/11/23 Rx HYDROcodone/APAP 5-325MG [[place] 1 each PO Q6HR PRN #4 tab 05/13/23 Rx 5-325] INSULIN ASPART (NovoLOG) [NovoLOG 2 unit SQ AC-TID each 05/13/23 Rx (formulary)] Insulin Detemir (Levemir) [Levemir] 10 unit SQ HS each 05/13/23 Rx Lactulose [Cephulac] 30 gm PO BID PRN ml 05/13/23 Rx polyethylene glycoL 3350 [Miralax] 17 gm PO DAILY packet 05/13/23 Rx Allergies Allergy/AdvReac Type Severity Reaction Status Date / Time adhesive Allergy Rash/Hives Verified 05/04/23 07:28 ciprofloxacin [From Cipro] Allergy Rash/Hives Verified 05/04/23 07:28 latex Allergy Rash/Hives Verified 05/04/23 07:28 Poultry [Melber] Allergy Rash/Hives Verified 05/04/23 07:28 Sulfa (Sulfonamide Allergy Rash/Hives Verified 05/04/23 07:28 Antibiotics) chicken derived [Chicken] AdvReac Nausea & Verified 05/04/23 07:28 Vomiting & Diarrhea chocolate flavor AdvReac Nausea & Verified 05/04/23 07:28 Vomiting & Diarrhea egg AdvReac Nausea & Verified 05/04/23 07:28 Vomiting & Diarrhea Surgical - Exam Vital Signs Pulse BP 80 171/88 05/04/23 12:09 05/04/23 12:09 Results - Labs 05/12/23 10:35 05/12/23 10:35 Abnormal Lab Results - Last 24 Hours (Table) 05/12/23 05/12/23 05/12/23 Range/Units 10:35 10:35 11:43 WBC 16.0 H (3.8-10.6) k/uL Neutrophils # 13.4 H (1.3-7.7) k/uL BUN 23 H (7-17) mg/dL Glucose 189 H (74-99) mg/dL POC Glucose (mg/dL) 179 H (70-110) mg/dL 05/12/23 05/12/23 Range/Units 16:49 19:51 WBC (3.8-10.6) k/uL Neutrophils # (1.3-7.7) k/uL BUN (7-17) mg/dL Glucose (74-99) mg/dL POC Glucose (mg/dL) 167 H 214 H (70-110) mg/dL Diabetes panel 05/12/23 Range/Units 10:35 Sodium 138 (137-145) mmol/L Potassium 4.3 (3.5-5.1) mmol/L Chloride 106 (98-107) mmol/L Carbon Dioxide 24 (22-30) mmol/L BUN 23 H (7-17) mg/dL Creatinine 0.77 (0.52-1.04) mg/dL Glucose 189 H (74-99) mg/dL Calcium 8.6 (8.4-10.2) mg/dL Calcium panel 05/12/23 Range/Units 10:35 Calcium 8.6 (8.4-10.2) mg/dL Pituitary panel 05/12/23 Range/Units 10:35 Sodium 138 (137-145) mmol/L Potassium 4.3 (3.5-5.1) mmol/L Chloride 106 (98-107) mmol/L Carbon Dioxide 24 (22-30) mmol/L BUN 23 H (7-17) mg/dL Creatinine 0.77 (0.52-1.04) mg/dL Glucose 189 H (74-99) mg/dL Calcium 8.6 (8.4-10.2) mg/dL Adrenal panel 05/12/23 Range/Units 10:35 Sodium 138 (137-145) mmol/L Potassium 4.3 (3.5-5.1) mmol/L Chloride 106 (98-107) mmol/L Carbon Dioxide 24 (22-30) mmol/L BUN 23 H (7-17) mg/dL Creatinine 0.77 (0.52-1.04) mg/dL Glucose 189 H (74-99) mg/dL Calcium 8.6 (8.4-10.2) mg/dL
--- NOTE | 2023-05-13 16:09 | CT ---
EXAMINATION TYPE: CT brain wo con DATE OF EXAM: 05/13/2023 COMPARISON: 05/04/2023 INDICATION: difference in vision DLP: 1194.4 mGycm, Automated exposure control for dose reduction was used. CONTRAST: None CT of the brain is performed utilizing 3 mm thick sections through the posterior fossa and 3 mm thick sections through the remaining calvarium. Study is performed within 24 hours of arrival to the hosp [facility]. No abnormal hyperdensity is present to suggest an acute intracranial hemorrhage. There is a calcification along the right frontal calvarium may be a burned out meningioma. Some calci fications along the anterior falx. There is a large hypodensity adjacent to the right lateral ventricle. This is an interval finding fro m prior study given the compatible with acute infarct. There are older appearing lacunar infarcts in the bilateral basal ganglia. These were present previously. Ventricles and sulci are mildly prominent for the patient age. Paranasal sinuses and mastoid air cells within the [id number] are clear. IMPRESSIONS: 1. Acute infarct right white radiata adjacent to the right lateral ventricle. A Red level critical message alert has been initiated for Bg Martinez MD via the [employer] System on 05/13/2023 4:06 PM. This message alert has been sent to Bg Martinez MD via the preferences provided by the clinician for the receipt of Radiology Critical Findings. Message ID [id number].
[2023-05-13] MEDS: FENOFIBRATE 160 MG TAB PO SCH (16:37)
[2023-05-13 16:48] LABS: Glucose,Whole Blood 171 mg/dL (70-110)
[2023-05-13 20:10] LABS: Glucose,Whole Blood 226 mg/dL (70-110)
[2023-05-13] MEDS: METOPROLOL SUCCINATE (ER) 50 MG TAB.ER.24H PO SCH (21:27)
[2023-05-13] MEDS: MAGNESIUM OXIDE 400 MG TAB PO SCH (21:27)
[2023-05-13] MEDS: ATORVASTATIN 80 MG TAB PO SCH (21:27)
[2023-05-14] MEDS: traMADol 50 MG TAB PO PRN ×4 (00:50→14:38)
[2023-05-14] MEDS: CARBIDOPA-LEVODOPA 25-100 MG 1 EACH TAB PO SCH ×4 (04:29→21:42)
[2023-05-14 06:02] LABS: Glucose,Whole Blood 133 mg/dL (70-110)
[2023-05-14] MEDS: INSULIN ASPART (NovoLOG) 100 UNIT/ML VIAL SQ SCH ×7 (06:04→21:43)
[2023-05-14] MEDS: PANTOPRAZOLE 40 MG TABLET PO SCH (06:45)
[2023-05-14] MEDS: VALSARTAN 160 MG TAB PO SCH ×2 (06:45→17:02)
[2023-05-14] MEDS: LEVOTHYROXINE 88 MCG TAB PO SCH ×2 (06:45→17:02)
[2023-05-14] MEDS: CHOLECALCIFEROL 25 MCG (1000 IU) TABLET PO SCH (08:05)
[2023-05-14] MEDS: GLIMEPIRIDE 4 MG TAB PO SCH ×2 (08:05→21:42)
[2023-05-14] MEDS: LACTULOSE 20 GM/30 ML CUP PO SCH ×3 (08:05→21:43)
[2023-05-14] MEDS: polyethylene glycoL 3350 17 GM POWD.PACK PO SCH (08:05)
[2023-05-14] MEDS: CALCIUM CARBONATE 500 MG CHEWABLE PO SCH (08:05)
[2023-05-14] MEDS: ASPIRIN 81 MG PO SCH (08:06)
[2023-05-14] MEDS: VITAMIN E (DL,TOCOPHERYL ACET) 400 UNIT (180 MG) CAP PO SCH ×2 (08:07→21:42)
[2023-05-14] MEDS: tiZANidine 4 MG TAB PO SCH ×3 (08:07→21:42)
[2023-05-14] MEDS: APIXABAN 5 MG TAB PO SCH ×2 (08:08→21:42)
--- NOTE | 2023-05-14 09:16 | P.PN ---
Subjective Progress Note Date: 05/14/23 Principal diagnosis: Constipation Patient having flatus. Last bowel movement last week she says. No nausea or vomiting. Some bloating. Denies pain. Objective - Vital Signs Vital signs: Vital Signs Temp 98.4 F 05/14/23 04:21 Pulse 55 L 05/14/23 04:21 Resp 16 05/14/23 04:21 BP 124/58 05/14/23 06:44 Pulse Ox 97 05/14/23 04:21 FiO2 Intake & Output 05/13/23 05/14/23 05/14/23 18:59 06:59 18:59 Intake Total 780 Output Total 750 Balance 30 Intake: Oral 780 Output: Urine 750 Other: Voiding Method External Catheter External Catheter # Voids 2 - Exam Abdomen soft, nondistended, minimal distention - Labs CBC & Chem 7: 05/12/23 10:35 05/12/23 10:35 Labs: Abnormal Lab Results - Last 24 Hours (Table) 05/13/23 05/13/23 05/13/23 Range/Units 11:33 16:38 20:09 POC Glucose (mg/dL) 169 H 171 H 226 H (70-110) mg/dL 05/14/23 Range/Units 06:00 POC Glucose (mg/dL) 133 H (70-110) mg/dL Assessment and Plan (1) Constipation Narrative/Plan: 5-year-old female constipation. Continue lactulose and MiraLAX. Continue diet as tolerated. Increase activity. Current Visit: Yes Status: Acute Code(s): K59.00 - CONSTIPATION, UNSPECIFIED SNOMED Code(s): 43297992
--- NOTE | 2023-05-14 09:48 | P.PN ---
Subjective Progress Note Date: 05/13/23 05/13/2023: Patient was seen for a follow-up. Patient continues to be completely flaccid on the left side. Patient states that she took a nap and woke up at around 2:30 PM complaining of swirling dream with visual disturbance in the right side of her vision. She had a raging headache and the right eye was fuzzy. He also noticed her right leg was numb and tingly mainly the foot. Stat CT head was performed, which did not reveal any acute change. No hemorrhage. Patient was scheduled for transfer to inpatient rehab, but with this CT, and clinical findings, rehab declined to accept the patient. Patient states that her visual symptoms at this time her right foot tingling has resolve d, and the visual symptoms have much improved. Patient also concerned about severe constipation. Enema has not helped. She is now on lactulose. Surgery has been consulted. She is complaining of severe pain in the lower abdominal region extending to the left leg. Patient's power of airplane mechanic was also present. They're considering hospice care at this time. Patient states that any movement hurts. She appears miserable. Still very pleasant. 05/12/2023: Patient was seen for follow-up. Continues to be left hemiplegic. Patient very concerned about no bowel movement, feels very uncomfortable. 05/10/2023: Patient was seen for a follow-up. Patient continues to be completely hemiplegic on the left side. 05/09/2023: Patient initially seen by Dr. Perry De Dios. Please refer to his note for details. Patient is known to me from previous admission to the hospital, when she presented with acute ischemic stroke, status post TPA. Patient was doing very well post-TPA. Patient was discharged on aspirin and Plavix and statins. Shortly after going home, patient had another stroke, with complete left hemiplegia. Patient was not a candidate for TPA, as she has just received it recently. Patient continues to be completely left hemiplegic. Denies any headache any dizziness or any visual problems. Some of the workup during this hospital visit consisted of: TSH is 0.085 and a free T4 is 2.01 Homocysteine 13.2, CRP and ESR is within normal limits. CT of the head is reported as no acute hemorrhage, major vascular territory infarct or midline shift. Chronic appearing infarct of bilateral basal ganglia. CT Angiography of the head and neck was reported as no acute finding and arterial of the neck. Lungs the head is reported as no large vessel occlusion, significant stenosis, aneurysm or vascular malformation. MRI the brain is reported as findings are compatible with bilateral acute ischemia within the deep white matter bilateral parietal lobe greater on the right measuring 2 cm. Small punctate left basal ganglia 5 mm area of acute ischemia. No significant midline shift or mass effect. I personally reviewed t he MRI and I agree the patient does have acute ischemia in the left basal ganglia as well as bilateral frontal parietal subcortical near the bilateral lower anterior horn of lateral ventricle in the medial aspect of the right right frontal parietal region Duplex of left leg: negative. Objective - Vital Signs Vital signs: Vital Signs Temp 98.3 F 05/13/23 15:03 Pulse 67 05/13/23 15:03 Resp 18 05/13/23 15:03 BP 122/80 05/13/23 15:03 Pulse Ox 98 05/13/23 15:03 FiO2 Intake & Output 05/12/23 05/13/23 05/13/23 18:59 06:59 18:59 Intake Total 900 240 780 Output Total 400 250 Balance 500 -10 780 Intake: Oral 900 240 780 Output: Urine 400 250 Stool 0 Other: Voiding Method External Catheter External Catheter External Catheter # Voids 1 # Bowel Movements 1 1 - Exam Patient's mental status, speech and language functions are normal. No aphasia or dysarthria. Cranial nerve examination significant for left facial weakness, central type,. Visual garcia are full on confrontation bilaterally with no neglect, extraocular muscles are intact. Tongue protrudes to the midline. Patient has completely weak left shoulder shrug. On muscle strength testing, the strength is normal in the right arm and right leg. Patient is completely flaccid in the left arm and left leg. Sensory to touch is equal in the arms and legs with no neglect. No ataxia for [id number] testing on the right, cannot perform on the left. - Labs CBC & Chem 7: 05/12/23 10:35 05/12/23 10:35 Labs: Abnormal Lab Results - Last 24 Hours (Table) 05/12/23 05/13/23 05/13/23 Range/Units 19:51 11:33 16:38 POC Glucose (mg/dL) 214 H 169 H 171 H (70-110) mg/dL Assessment and Plan Assessment: Recurrent ischemic strokes Patient initially presented 04/30/2023 with acute left hemiparesis, status post TPA with complete resolution of symptoms. Patient had repeated left hemiparesis 05/01/2023, that also resolved. Patient had a recurrent acute stroke with left hemiplegia on 05/04/2023, that has persisted. Patient had another TIA just now, manifesting with visual disturbance on the right and right foot tingling, that seems to be resolving now. MRI brain revealed dense moderate size acute stroke in the right basal ganglia/internal capsule, also involving smaller area in the right external capsule and left basal ganglia Strokes likely related to cardioembolism. JAVIER showed linear echodensity structural attached to the ventricular surface of the aortic valve leaflet attached to the ventricular surface of the right coronary cusp that is mobile and echodense. 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 Hypertension Parkinson's disease Diabetes mellitus History of DVT Plan: Repeat CT head performed stat does not reveal any new change. No hemorrhage. Appears patient has another TIA. Increase aspirin from 81 mg to 162 mg daily. Continue Eliquis 5 mg twice a day. Repeat MRI brain without contrast 05/11/2023 revealed evolution of ischemic insults with enlarging area of increased signal within the right wasserman radiata. Small new area within the right thalamus, slightly enlarged area within the right external capsule region. Stable focus in the region of the left external capsule and the left Wasserman radiata. I personally reviewed MRI agree with the findings. Transesophageal echocardiogram 05/10/2023 revealed a linear echodensity structure attached to the ventricular surface of the aortic valve leaflet attached to the ventricular surface of the right coronary cusp that is mobile and echodense. 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 CT surgery recommending medical management. Cardiothoracic surgery was consulted again, still do not recommend surgical treatment. Discussed with family members, they do not want transfer to higher level of care. Family is considering hospice care. Discussed with cardiology. Patient started on Eliquis 5 mg twice a day, continue aspirin 81 mg daily. Stop Brilinta. JOSE -ve, homocystine negative, factor V Leiden -ve, RF <15. Has postivie Von Willebran antigen (254. normal is 52-214). antithrombin III 110 (normal is 79- 109) but does not seems significant elevated, prothrombin 13555: negative, ESR and CRP is normal. lupus anticoagulant -ve, protein C and S are negative. Lyme titer negative, RPR negative, dsDNA pending. Dr. De Dios has consulted Hematology team since has positive VW antigen to assess further management. Continue neuro checcks. cardiac monitoring. So far no a-fib or flutter per nurse. Recommend an event monitor or loop recorder if unknown source of stroke. Avoid hypotension. Cardizem discontinued. PT, OT and RELIABILITY TECHNICIANS are consulted. Inpatient rehab is consulted and feels patient would benefit. Goal is Normotensive For muscle spasm, Dr. Prery De Dios has increased Zanaflex from 4mg QiD to 6mg TID. If still bothersome go up to 8mg TID and if still ineffective try Robaxin. Cardiology is on board. Patient has discoloration of the left lower foot (purplish) and improving today: DVT is negative. Vascular surgery team stated normal pulses and no intervention. Will defer the rest of medical management to primary team. For DVT prophylaxis: Patient started on Eliquis For constipation, will defer to IM. Neurologically cleared for transfer to rehab facility. Discussed with family members patient's power of airplane mechanic in detail. All questions answered. Time with Patient: Greater than 30
[2023-05-14] MEDS: NYSTATIN 100,000 UNIT/GM POWD 15 GM TOPICAL SCH ×3 (11:48→21:44)
[2023-05-14 12:02] LABS: Glucose,Whole Blood 218 mg/dL (70-110)
--- NOTE | 2023-05-14 16:10 | P.PN ---
Subjective Progress Note Date: 05/14/23 Patient is monitored closely on the stepdown unit. Underwent JAVIER revealing significant calcific tricuspid aortic stenosis. Cardiothoracic evaluated the patient and recommending follow up outpatient for possible surgical valve replacement with exploration vs TAVR. Patient pending discharge to rehab her main complaint is currently no bowel movement. Overnight patient had an episode of dizziness and whooshing sound in the right ear and described as room spinning. Patient is also reporting worsening symptoms of reflux and hiccuping. Discharge is a place on hold is concern for possible brainstem stroke and brain MRI has been ordered. Patient does report headache and has had 2 other episodes of this dizziness/vertigo throughout the day today. Feels she is having some sinus congestion. Continues on combination of aspirin 81 mg daily eliquis 5 mg twice a day. 05/12/2023 Patient is evaluated today sitting up in bed. Underwent brain MRI yesterday reveals evoluation of ischemic insults with enlarging area of increased signal within the right white radiata, small new area within the right thalamus, slightly enlarged area within the right external capsule region. Stable focus in the region of the left external capsule and left white radiata. Neurology following and patient continues on eliquis and aspirin. Patient continues to report headache dull achy top of head and also having hiccups. Does report increased difficulty swallowing today Has been receiving miralax lactulose and dulcolax unable to have BM. Abdominal xray reveals large stool burden and patient will receive an enema today. 05/14/2023 Patient is evaluated today sitting up in bed with family at the bedside met with the patient and POA to discuss discharge planning. Discharge has been denied to [facility]. Patient is not sure about hospice and no further acute events overnight. Radiology has made an addendum to the brain CT and reports there is no progression or evluation of the ischemia as compared to MRI 2 days prior. Patient has had multiple BMs. Tolerating diet when sitting up at 90* angle. Follow up with case management on Tuesday. Review of Systems Constitutional: Denied any fatigue denied any fever. Cardio vascular: denied any chest pain, palpitations Gastrointestinal: denied any nausea, vomiting, diarrhea Pulmonary: Denied any shortness of breath cough Neurologic denied any new focal deficits All inpatient medications were reviewed and appropriate changes in these medications as dictated in the interval history and assessment and plan. PHYSICAL EXAMINATION: GENERAL: The patient is alert and oriented x3, not in any acute distress. Well developed, well nourished. HEENT: Pupils are round and equally reacting to light. EOMI. No scleral icterus. No conjunctival pallor. Normocephalic, atraumatic. No pharyngeal erythema. No thyromegaly. CARDIOVASCULAR: S1 and S2 present. No murmurs, rubs, or gallops. PULMONARY: Chest is clear to auscultation, no wheezing or crackles. ABDOMEN: Soft, nontender, nondistended, normoactive bowel sounds. No palpable organomegaly. MUSCULOSKELETAL: No joint swelling or deformity. EXTREMITIES: No cyanosis, clubbing, or pedal edema. NEUROLOGICAL: Continues with left hemiparesis. SKIN: No rashes. 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 Patient to have information session with hospice and palliative care D/C planning on Tuesday with social work subacute rehab vs hospice. The impression and plan of care has been dictated by Alicia Aguilar, Nurse Practitioner as directed. Dr. Ry MD I have performed a history and physical examination and medical decision making of this patient, discussed the same with the dictator, and agree with the dictators assessment and plan as written, documented as a scribe. Based on total visit time, I have performed more than 50% of this visit. Objective - Vital Signs Vital signs: Vital Signs Temp 97.5 F L 05/14/23 12:00 Pulse 56 L 05/14/23 12:00 Resp 19 05/14/23 12:00 BP 124/63 05/14/23 12:00 Pulse Ox 98 05/14/23 12:00 FiO2 Intake & Output 05/13/23 05/14/23 05/14/23 18:59 06:59 18:59 Intake Total 780 Output Total 750 Balance 30 Intake: Oral 780 Output: Urine 750 Other: Voiding Method External Catheter External Catheter # Voids 2 1 - Labs CBC & Chem 7: 05/12/23 10:35 05/12/23 10:35 Labs: Abnormal Lab Results - Last 24 Hours (Table) 05/13/23 05/13/23 05/14/23 Range/Units 16:38 20:09 06:00 POC Glucose (mg/dL) 171 H 226 H 133 H (70-110) mg/dL 05/14/23 Range/Units 12:01 POC Glucose (mg/dL) 218 H (70-110) mg/dL Assessment and Plan Time with Patient: Less than 30
[2023-05-14 16:47] LABS: Glucose,Whole Blood 133 mg/dL (70-110)
[2023-05-14] MEDS: FENOFIBRATE 160 MG TAB PO SCH (17:02)
[2023-05-14] MEDS: ACETAMINOPHEN TAB 325 MG TAB PO PRN (17:24)
[2023-05-14 19:50] LABS: Glucose,Whole Blood 216 mg/dL (70-110)
--- NOTE | 2023-05-14 20:39 | P.PN ---
Subjective Progress Note Date: 05/14/23 05/14/2023: Patient was seen for follow-up. Patient's sister was also present today. Patient is doing much better. All symptoms involving right side has resolved. She continues to be hemiplegic on the left side. Patient still has not had enough bowel movement. She does look comfortable at this time. 05/13/2023: Patient was seen for a follow-up. Patient continues to be co mpletely flaccid on the left side. Patient states that she took a nap and woke up at around 2:30 PM complaining of swirling dream with visual disturbance in the right side of her vision. She had a raging headache and the right eye was fuzzy. He also noticed her right leg was numb and tingly mainly the foot. Stat CT head was performed, which did not reveal any acute change. No hemorrhage. Patient was scheduled for transfer to inpatient rehab, but with this CT, and clinical findings, rehab declined to accept the patient. Patient states that her visual symptoms at this time her right foot tingling has resolved, and the visual symptoms have much improved. Patient also concerned about severe constipation. Enema has not helped. She is now on lactulose. Surgery has been consulted. She is complaining of severe pain in the lower abdominal region extending to the left leg. Patient's power of oxygen equipment aide was also present. They're considering hospice care at this time. Patient states that any movement hurts. She appears miserable. Still very pleasant. 05/12/2023: Patient was seen for follow-up. Continues to be left hemiplegic. Patient very concerned about no bowel movement, feels very uncomfortable. 05/10/2023: Patient was seen for a follow-up. Patient continues to be completely hemiplegic on the left side. 05/09/2023: Patient initially seen by Dr. Perry De Dios. Please refer to his note for details. Patient is known to me from previous admission to the hospital, when she presented with acute ischemic stroke, status post TPA. Patient was doing very well post-TPA. Patient was discharged on aspirin and Plavix and statins. Shortly after going home, patient had another stroke, with complete left hemiplegia. Patient was not a candidate for TPA, as she has just received it recently. Patient continues to be completely left hemiplegic. Denies any headache any dizziness or any visual problems. Some of the workup during this hospital visit consisted of: TSH is 0.085 and a free T4 is 2.01 Homocysteine 13.2, CRP and ESR is within normal limits. CT of the head is reported as no acute hemorrhage, major vascular territory infarct or midline shift. Chronic appearing infarct of bilateral basal ganglia. CT Angiography of the head and neck was reported as no acute finding and arterial of the neck. Lungs the head is reported as no large vessel occlusion, significant stenosis, aneurysm or vascular malformation. MRI the brain is reported as findings are compatible with bilateral acute ischemia within the deep white matter bilateral parietal lobe greater on the right measuring 2 cm. Small punctate left basal ganglia 5 mm area of acute ischemia. No significant midline shift or mass effect. I personally reviewed the MRI and I agree the patient does have acute ischemia in the left basal ganglia as well as bilateral frontal parietal subcortical near the bilateral lower anterior horn of lateral ventricle in the medial aspect of the right right frontal parietal region Duplex of left leg: negative. Objective - Vital Signs Vital signs: Vital Signs Temp 97.5 F L 05/14/23 12:00 Pulse 56 L 05/14/23 12:00 Resp 19 05/14/23 12:00 BP 124/63 05/14/23 12:00 Pulse Ox 98 05/14/23 12:00 FiO2 Intake & Output 05/13/23 05/14/23 05/14/23 18:59 06:59 18:59 Intake Total 780 Output Total 750 Balance 30 Intake: Oral 780 Output: Urine 750 Other: Voiding Method External Catheter External Catheter # Voids 2 - Exam Patient's mental status, speech and language functions are normal. No aphasia or dysarthria. Cranial nerve examination significant for left facial weakness, central type,. Visual garcia are full on confrontation bilaterally with no neglect, extraocular muscles are intact. Tongue protrudes to the midline. Patient has completely weak left shoulder shrug. On muscle strength testing, the strength is normal in the right arm and right leg. Patient is completely flaccid in the left arm and left leg. Sensory to touch is equal in the arms and legs with no neglect. No ataxia for [id number] testing on the right, cannot perform on the left. - Labs CBC & Chem 7: 05/12/23 10:35 05/12/23 10:35 Labs: Abnormal Lab Results - Last 24 Hours (Table) 05/13/23 05/13/23 05/14/23 Range/Units 16:38 20:09 06:00 POC Glucose (mg/dL) 171 H 226 H 133 H (70-110) mg/dL 05/14/23 Range/Units 12:01 POC Glucose (mg/dL) 218 H (70-110) mg/dL Assessment and Plan Assessment: Recurrent ischemic strokes 04/30/2023 with acute stroke with left hemiparesis, status post TPA with complete resolution of symptoms. 05/01/2023 with repeated left hemiparesis, that also resolved. 05/04/2023 with acute stroke with left hemiplegia, that has persisted. 05/13/2023 with another TIA, manifesting with visual disturbance on the right and right foot tingling, that seems to be resolving now. MRI brain revealed dense moderate size acute stroke in the right basal ganglia/internal capsule, also involving smaller area in the right external capsule and left basal ganglia Strokes likely related to cardioembolism. JAVIER showed linear echodensity structural attached to the ventricular surface of the aortic valve leaflet attached to the ventricular surface of the right coronary cusp that is mobile and echodense. 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 Hypertension Parkinson's disease Diabetes mellitus History of DVT Plan: Patient is clinically stable, improved as compared to yesterday. Repeat CT head performed 05/13/2023 does not reveal any new change. No hemorrhage. Appears patient has another TIA. Increase aspirin from 81 mg to 162 mg daily. Continue Eliquis 5 mg twice a day. Repeat MRI brain without contrast 05/11/2023 revealed evolution of ischemic insults with enlarging area of increased signal within the right wasserman radiata. Small new area within the right thalamus, slightly enlarged area within the right external capsule region. Stable focus in the region of the left external capsule and the left Wasserman radiata. I personally reviewed MRI agree with the findings. Transesophageal echocardiogram 05/10/2023 revealed a linear echodensity structure attached to the ventricular surface of the aortic valve leaflet attached to the ventricular surface of the right coronary cusp that is mobile and echodense. 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 CT surgery recommending medical management. Cardiothoracic surgery was consulted again, still do not recommend surgical treatment. Discussed with family members, they do not want transfer to higher level of care. Family is considering hospice care. Discussed with cardiology. Patient started on Eliquis 5 mg twice a day, continue aspirin 81 mg daily. Stop Brilinta. JOSE -ve, homocystine negative, factor V Leiden -ve, RF <15. Has postivie Von Willebran antigen (254. normal is 52-214). antithrombin III 110 (normal is 79- 109) but does not seems significant elevated, prothrombin 34320: negative, ESR and CRP is normal. lupus anticoagulant -ve, protein C and S are negative. Lyme titer negative, RPR negative, dsDNA pending. Dr. De Dios has consulted Hematology team since has positive VW antigen to assess further management. Continue neuro checcks. cardiac monitoring. So far no a-fib or flutter per nurse. Recommend an event m onitor or loop recorder if unknown source of stroke. Avoid hypotension. Cardizem discontinued. PT, OT and [employer] E[employer]EL SPRAYER are consulted. Inpatient rehab is consulted and feels patient would benefit. Goal is Normotensive For muscle spasm, Dr. Perry De Dios has increased Zanaflex from 4mg QiD to 6mg TID. If still bothersome go up to 8mg TID and if still ineffective try Robaxin. Cardiology is on board. Patient has discoloration of the left lower foot (purplish) and improving today: DVT is negative. Vascular surgery team stated normal pulses and no intervention. Will defer the rest of medical management to primary team. For constipation, will defer to IM. Neurologically cleared for transfer to rehab facility. Discussed with patient's family, not decided yet regarding hospice care versus t ransfer to rehab facility.
[2023-05-14] MEDS: INSULIN DETEMIR (LEVEMIR) 100 UNIT/ML SYR SQ SCH (21:40)
[2023-05-14] MEDS: MAGNESIUM OXIDE 400 MG TAB PO SCH (21:41)
[2023-05-14] MEDS: METOPROLOL SUCCINATE (ER) 50 MG TAB.ER.24H PO SCH (21:42)
[2023-05-14] MEDS: PIOGLITAZONE 45 MG TAB PO SCH (21:42)
[2023-05-14] MEDS: ATORVASTATIN 80 MG TAB PO SCH (21:42)
[2023-05-14] MEDS: HYDROcodone/APAP 5-325MG 1 EACH TAB PO PRN (21:45)
[2023-05-15] MEDS: CARBIDOPA-LEVODOPA 25-100 MG 1 EACH TAB PO SCH ×4 (04:00→20:41)
[2023-05-15 06:10] LABS: Glucose,Whole Blood 140 mg/dL (70-110)
[2023-05-15] MEDS: INSULIN ASPART (NovoLOG) 100 UNIT/ML VIAL SQ SCH ×7 (06:12→20:47)
[2023-05-15] MEDS: traMADol 50 MG TAB PO PRN ×2 (06:26→20:38)
[2023-05-15] MEDS: LEVOTHYROXINE 88 MCG TAB PO SCH ×2 (06:27→16:36)
[2023-05-15] MEDS: PANTOPRAZOLE 40 MG TABLET PO SCH (06:27)
[2023-05-15] MEDS: VALSARTAN 160 MG TAB PO SCH (06:27)
[2023-05-15 09:38] LABS: Glucose,Whole Blood 247 mg/dL (70-110)
--- NOTE | 2023-05-15 09:47 | P.PN ---
Subjective Progress Note Date: 05/15/23 Principal diagnosis: Constipation Patient had a very small hard stool yesterday with the enema. Still feels bloated and uncomfortable. She says she feels stool at the rectum. Objective - Vital Signs Vital signs: Vital Signs Temp 97.8 F 05/15/23 04:09 Pulse 58 L 05/15/23 04:09 Resp 16 05/15/23 05:07 BP 118/58 05/15/23 04:09 Pulse Ox 98 05/15/23 04:09 FiO2 Intake & Output 05/14/23 05/15/23 05/15/23 18:59 06:59 18:59 Intake Total 500 Output Total 350 Balance 150 Intake: Oral 500 Output: Urine 350 Stool 0 Other: Voiding Method External Catheter # Voids 1 # Bowel Movements 1 1 - Exam Abdomen: Soft, nontender, nondistended Rectal examination with hard stool, manual disimpaction of approximately 12-15 ounces stool performed at the bedside. Patient describes feeling much better at this time - Labs CBC & Chem 7: 05/12/23 10:35 05/12/23 10:35 Labs: Abnormal Lab Results - Last 24 Hours (Table) 05/14/23 05/14/23 05/14/23 Range/Units 12:01 16:45 19:48 POC Glucose (mg/dL) 218 H 133 H 216 H (70-110) mg/dL 05/15/23 05/15/23 Range/Units 06:08 09:36 POC Glucose (mg/dL) 140 H 247 H (70-110) mg/dL Assessment and Plan (1) Constipation Narrative/Plan: Continue stool softeners. Discussed with the nursing staff possible enema today. Patient will be sitting on the commode. We're able to evacuate a large volume of hard stool from the rectum. This should allow for improved bowel function. Current Visit: Yes Status: Acute Code(s): K59.00 - CONSTIPATION, UNSPECIFIED SNOMED Code(s): 16066677
[2023-05-15] MEDS: LACTULOSE 20 GM/30 ML CUP PO SCH ×3 (10:09→20:38)
[2023-05-15] MEDS: APIXABAN 5 MG TAB PO SCH ×2 (10:10→20:39)
[2023-05-15] MEDS: CHOLECALCIFEROL 25 MCG (1000 IU) TABLET PO SCH (10:10)
[2023-05-15] MEDS: ASPIRIN 81 MG PO SCH (10:10)
[2023-05-15] MEDS: polyethylene glycoL 3350 17 GM POWD.PACK PO SCH (10:10)
[2023-05-15] MEDS: tiZANidine 4 MG TAB PO SCH ×3 (10:11→20:41)
[2023-05-15] MEDS: GLIMEPIRIDE 4 MG TAB PO SCH ×2 (10:11→20:40)
[2023-05-15] MEDS: VITAMIN E (DL,TOCOPHERYL ACET) 400 UNIT (180 MG) CAP PO SCH ×2 (10:11→20:40)
[2023-05-15] MEDS: NYSTATIN 100,000 UNIT/GM POWD 15 GM TOPICAL SCH ×2 (10:12→16:41)
[2023-05-15] MEDS: CALCIUM CARBONATE 500 MG CHEWABLE PO SCH (10:12)
[2023-05-15 11:49] LABS: Glucose,Whole Blood 245 mg/dL (70-110)
--- NOTE | 2023-05-15 13:55 | P.PN ---
Subjective Progress Note Date: 05/15/23 05/15/2023: Patient was seen for a follow-up. Patient is much more alert and awake. Continues to have left hemiparesis. No further TIAs. Patient's sister was also present. Patient did have a big bowel movement yesterday. She is on laxatives. Surgery on board. 05/14/2023: Patient was seen for follow-up. Patient's sister was also present today. Patient is doing much better. All symptoms involving right side has resolved. She continues to be hemiplegic on the left side. Patient still has not had enough bowel movement. She does look comfortable at this time. 05/13/2023: Patient was seen for a follow-up. Patient continues to be completel y flaccid on the left side. Patient states that she took a nap and woke up at around 2:30 PM complaining of swirling dream with visual disturbance in the right side of her vision. She had a raging headache and the right eye was fuzzy. He also noticed her right leg was numb and tingly mainly the foot. Stat CT head was performed, which did not reveal any acute change. No hemorrhage. Patient was scheduled for transfer to inpatient rehab, but with this CT, and clinical findings, rehab declined to accept the patient. Patient states that her visual symptoms at this time her right foot tingling has resolved, and the visual symptoms have much improved. Patient also concerned about severe con stipation. Enema has not helped. She is now on lactulose. Surgery has been consulted. She is complaining of severe pain in the lower abdominal region extending to the left leg. Patient's power of revenue cycle consultant was also present. They're considering hospice care at this time. Patient states that any movement hurts. She appears miserable. Still very pleasant. 05/12/2023: Patient was seen for follow-up. Continues to be left hemiplegic. Patient very concerned about no bowel movement, feels very uncomfortable. 05/10/2023: Patient was seen for a follow-up. Patient continues to be completely hemiplegic on the left side. 05/09/2023: Patient initially seen by Dr. Perry De Dios. Please refer to his note for details. Patient is known to me from previous admission to the hospital, when she presented with acute ischemic stroke, status post TPA. Patient was doing very well post-TPA. Patient was discharged on aspirin and Plavix and statins. Shortly after going home, patient had another stroke, with complete left h emiplegia. Patient was not a candidate for TPA, as she has just received it recently. Patient continues to be completely left hemiplegic. Denies any headache any dizziness or any visual problems. Some of the workup during this hospital visit consisted of: TSH is 0.085 and a free T4 is 2.01 Homocysteine 13.2, CRP and ESR is within normal limits. CT of the head is reported as no acute hemorrhage, major vascular territory infarct or midline shift. Chronic appearing infarct of bilateral basal ganglia. CT Angiography of the head and neck was reported as no acute finding and arterial of the neck. Lungs the head is reported as no large vessel occlusion, significant stenosis, aneurysm or vascular malformation. MRI the brain is reported as findings are compatible with bilateral acute ischemia within the deep white matter bilateral parietal lobe greater on the right measuring 2 cm. Small punctate left basal ganglia 5 mm area of acute ischemia. No significant midline shift or mass effect. I personally reviewed the MRI and I agree the patient does have acute ischemia in the left basal ganglia as well as bilateral frontal parietal subcortical near the bilateral lower anterior horn of lateral ventricle in the medial aspect of the right right frontal parietal region Duplex of left leg: negative. Objective - Vital Signs Vital signs: Vital Signs Temp 98.2 F 05/15/23 12:00 Pulse 53 L 05/15/23 12:00 Resp 18 05/15/23 12:00 BP 98/64 05/15/23 12:00 Pulse Ox 98 05/15/23 12:00 FiO2 Intake & Output 05/14/23 05/15/23 05/15/23 18:59 06:59 18:59 Intake Total 500 540 Output Total 350 400 Balance 150 140 Intake: Oral 500 540 Output: Urine 350 400 Stool 0 Other: Voiding Method External Catheter External Catheter # Voids 1 # Bowel Movements 1 1 1 - Exam Patient's mental status, speech and language functions are normal. No aphasia or dysarthria. Cranial nerve examination significant for left facial weakness, central type,. Visual garcia are full on confrontation bilaterally with no neglect, extraocular muscles are intact. Tongue protrudes to the midline. Patient has completely weak left shoulder shrug. On muscle strength testing, the strength is normal in the right arm and right leg. Patient is completely flaccid in the left arm and left leg. Sensory to touch is equal in the arms and legs with no neglect. No ataxia for [id number] testing on the right, cannot perform on the left. - Labs CBC & Chem 7: 05/12/23 10:35 05/12/23 10:35 Labs: Abnormal Lab Results - Last 24 Hours (Table) 05/14/23 05/14/23 05/15/23 Range/Units 16:45 19:48 06:08 POC Glucose (mg/dL) 133 H 216 H 140 H (70-110) mg/dL 05/15/23 05/15/23 Range/Units 09:36 11:46 POC Glucose (mg/dL) 247 H 245 H (70-110) mg/dL Assessment and Plan Assessment: Recurrent ischemic strokes 04/30/2023 with acute stroke with left hemiparesis, status post TPA with complete resolution of symptoms. 05/01/2023 with repeated left hemiparesis, that also resolved. 05/04/2023 with acute stroke with left hemiplegia, that has persisted. 05/13/2023 with another TIA, manifesting with visual disturbance on the right and right foot tingling, that seems to be resolving now. MRI brain revealed dense moderate size acute stroke in the right basal ganglia/internal capsule, also involving smaller area in the right external capsule and left basal ganglia Strokes likely related to cardioembolism. JAVIER showed linear echodensity structural attached to the ventricular surface of the aortic valve leaflet attached to the ventricular surface of the right coronary cusp that is mobile and echodense. 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 Hypertension Parkinson's disease Diabetes mellitus History of DVT Plan: Patient is clinically stable, much improved as compared to yesterday. Repeat CT head performed 05/13/2023 does not reveal any new change. No hemorrhage. Appears patient has another TIA. Increase aspirin from 81 mg to 162 mg daily. Continue Eliquis 5 mg twice a day. Repeat MRI brain without contrast 05/11/2023 revealed evolution of ischemic insults with enlarging area of increased signal within the right wasserman radiata. Small new area within the right thalamus, slightly enlarged area within the right external capsule region. Stable focus in the region of the left external capsule and the left Wasserman radiata. I personally reviewed MRI agree with the findings. Transesophageal echocardiogram 05/10/2023 revealed a linear echodensity structure attached to the ventricular surface of the aortic valve leaflet attached to the ventricular surface of the right coronary cusp that is mobile and echodense. 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 CT surgery recommending medical management. Cardiothoracic surgery was consulted again, still do not recommend surgical treatment. Discussed with family members, they do not want transfer to higher level of care. Family is considering hospice care. Discussed with cardiology. Patient started on Eliquis 5 mg twice a day, continue aspirin 81 mg daily. Stop Brilinta. JOSE -ve, homocystine negative, factor V Leiden -ve, RF <15. Has postivie Von Willebran antigen (254. normal is 52-214). antithrombin III 110 (normal is 79- 109) but does not seems significant elevated, prothrombin 04154: negative, ESR and CRP is normal. lupus anticoagulant -ve, protein C and S are negative. Lyme titer negative, RPR negative, dsDNA pending. Dr. De Dios has consulted Hematology team since has positive VW antigen to assess further management. Continue neuro checcks. cardiac monitoring. So far no a-fib or flutter per nurse. Recommend an event monitor or loop recorder if unknown source of stroke. Avoid hypotension. Cardizem discontinued. PT, OT and SENIOR RD ENGINEER are consulted. Inpatient rehab is consulted and feels patient would benefit. Goal is Normotensive For muscle spasm, Dr. Perry De Dios has increased Zanaflex from 4mg QiD to 6mg TID. If still bothersome go up to 8mg TID and if still ineffective try Robaxin. Cardiology is on board. Patient has discoloration of the left lower foot (purplish) and improving today: DVT is negative. Vascular surgery team stated normal pulses and no intervention. Will defer the rest of medical management to primary team. For constipation, will defer to IM. Neurologically cleared for transfer to rehab facility. Dr. Perry De Dios to resume neurology service in the morning.
--- NOTE | 2023-05-15 14:09 | P.PN ---
Subjective Progress Note Date: 05/15/23 Patient is monitored closely on the stepdown unit. Underwent JAVIER revealing significant calcific tricuspid aortic stenosis. Cardiothoracic evaluated the patient and recommending follow up outpatient for possible surgical valve replacement with exploration vs TAVR. Patient pending discharge to rehab her main complaint is currently no bowel movement. Overnight patient had an episode of dizziness and whooshing sound in the right ear and described as room spinning. Patient is also reporting worsening symptoms of reflux and hiccuping. Discharge is a place on hold is concern for possible brainstem stroke and brain MRI has been ordered. Patient does report headache and has had 2 other episodes of this dizziness/vertigo throughout the day today. Feels she is having some sinus congestion. Continues on combination of aspirin 81 mg daily eliquis 5 mg twice a day. 05/12/2023 Patient is evaluated today sitting up in bed. Underwent brain MRI yesterday reveals evoluation of ischemic insults with enlarging area of increased signal within the right white radiata, small new area within the right thalamus, slightly enlarged area within the right external capsule region. Stable focus in the region of the left external capsule and left white radiata. Neurology following and patient continues on eliquis and aspirin. Patient continues to report headache dull achy top of head and also having hiccups. Does report increased difficulty swallowing today Has been receiving miralax lactulose and dulcolax unable to have BM. Abdominal xray reveals large stool burden and patient will receive an enema today. 05/14/2023 Patient is evaluated today sitting up in bed with family at the bedside met with the patient and POA to discuss discharge planning. Discharge has been denied to [facility]. Patient is not sure about hospice and no further acute events overnight. Radiology has made an addendum to the brain CT and reports there is no progression or evluation of the ischemia as compared to MRI 2 days prior. Patient has had multiple BMs. Tolerating diet when sitting up at 90* angle. Follow up with case management on Tuesday. 05/15/2023 Patient evaluated today family at bedside. Specialty bed with trapeze ordered for patient to be able to position herself in bed. Patient wanting subacute re hab and not hospice at this time. No further neuro defecits noted stable left hemiparesis with significant left lower extremity weakness. Patient was being transferred to the chair today by 4 nursing staff and left leg buckled patient was assisted to the floor and able to be lifted back into the bed. Valsartan will be stopped blood pressures is low/normal. Review of Systems Constitutional: Denied any fatigue denied any fever. Cardio vascular: denied any chest pain, palpitations Gastrointestinal: denied any nausea, vomiting, diarrhea Pulmonary: Denied any shortness of breath cough Neurologic denied any new focal deficits All inpatient medications were reviewed and appropriate changes in these medications as dictated in the interval history and assessment and plan. PHYSICAL EXAMINATION: GENERAL: The patient is alert and oriented x3, not in any acute distress. Well developed, well nourished. HEENT: Pupils are round and equally reacting to light. EOMI. No scleral icterus. No conjunctival pallor. Normocephalic, atraumatic. No pharyngeal erythema. No thyromegaly. CARDIOVASCULAR: S1 and S2 present. No murmurs, rubs, or gallops. PULMONARY: Chest is clear to auscultation, no wheezing or crackles. ABDOMEN: Soft, nontender, nondistended, normoactive bowel sounds. No palpable organomegaly. MUSCULOSKELETAL: No joint swelling or deformity. EXTREMITIES: No cyanosis, clubbing, or pedal edema. NEUROLOGICAL: Continues with left hemiparesis. SKIN: No rashes. 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 Hyperlipidemia Nxf-coixbqz-shtlyosyk diabetes mellitus with hyperglycemia Parkinson's disease GI Prophylaxis DVT prophylaxis SubCu heparin Do Not Resuscitate/Do Not Intubate Plan Continue with frequent neuro checks and close monitoring Continue accuchecks ACHS Recommending stopping valsartan at this time due to low normal BP and decrease metoprolol. CT services recommending outpatient follow up at this time felt to not be a surgical candidate Discharge to IP rehab has been cancelled they are no longer accepting patient. Patient to have information session with hospice and palliative care D/C planning on Tuesday with social work subacute rehab patient not ready for h ospice. The impression and plan of care has been dictated by Alicia Aguilar, Nurse Practitioner as directed. Dr. Ry MD I have performed a history and physical examination and medical decision making of this patient, discussed the same with the dictator, and agree with the dictators assessment and plan as written, documented as a scribe. Based on total visit time, I have performed more than 50% of this visit. Objective - Vital Signs Vital signs: Vital Signs Temp 97.8 F 05/15/23 04:09 Pulse 58 L 05/15/23 04:09 Resp 16 05/15/23 05:07 BP 118/58 05/15/23 04:09 Pulse Ox 98 05/15/23 04:09 FiO2 Intake & Output 05/14/23 05/15/23 05/15/23 18:59 06:59 18:59 Intake Total 500 Output Total 350 Balance 150 Intake: Oral 500 Output: Urine 350 Stool 0 Other: Voiding Method External Catheter # Voids 1 # Bowel Movements 1 1 - Labs CBC & Chem 7: 05/12/23 10:35 05/12/23 10:35 Labs: Abnormal Lab Results - Last 24 Hours (Table) 05/14/23 05/14/23 05/14/23 Range/Units 12:01 16:45 19:48 POC Glucose (mg/dL) 218 H 133 H 216 H (70-110) mg/dL 05/15/23 Range/Units 06:08 POC Glucose (mg/dL) 140 H (70-110) mg/dL Assessment and Plan Time with Patient: Less than 30
[2023-05-15 16:28] LABS: Glucose,Whole Blood 147 mg/dL (70-110)
[2023-05-15] MEDS: FENOFIBRATE 160 MG TAB PO SCH (16:36)
[2023-05-15 20:20] LABS: Glucose,Whole Blood 295 mg/dL (70-110)
[2023-05-15] MEDS: METOPROLOL TARTRATE 12.5 MG TAB PO SCH (20:39)
[2023-05-15] MEDS: ATORVASTATIN 80 MG TAB PO SCH (20:39)
[2023-05-15] MEDS: MAGNESIUM OXIDE 400 MG TAB PO SCH (20:39)
[2023-05-15] MEDS: PIOGLITAZONE 45 MG TAB PO SCH (20:40)
[2023-05-15] MEDS: INSULIN DETEMIR (LEVEMIR) 100 UNIT/ML SYR SQ SCH (20:42)
[2023-05-16] MEDS: NYSTATIN 100,000 UNIT/GM POWD 15 GM TOPICAL SCH ×4 (00:35→21:43)
[2023-05-16] MEDS: ACETAMINOPHEN TAB 325 MG TAB PO PRN (01:30)
[2023-05-16] MEDS: ONDANSETRON 4 MG/2 ML VIAL IVP PRN ×2 (01:30→09:52)
[2023-05-16] MEDS: traMADol 50 MG TAB PO PRN (03:15)
[2023-05-16] MEDS: CARBIDOPA-LEVODOPA 25-100 MG 1 EACH TAB PO SCH ×4 (03:16→20:53)
[2023-05-16 06:10] LABS: Glucose,Whole Blood 245 mg/dL (70-110)
[2023-05-16] MEDS: LEVOTHYROXINE 88 MCG TAB PO SCH (06:38)
[2023-05-16] MEDS: PANTOPRAZOLE 40 MG TABLET PO SCH (06:38)
[2023-05-16] MEDS: INSULIN ASPART (NovoLOG) 100 UNIT/ML VIAL SQ SCH ×7 (06:41→21:02)
--- NOTE | 2023-05-16 08:11 | XR ---
EXAMINATION TYPE: XR abdomen complete w decub DATE OF EXAM: 05/16/2023 COMPARISON: 05/12/2023 INDICATION: Right lower quadrant pain TECHNIQUE: Single view abdomen upright view and supine views. Left lateral decubitus views obtained FINDINGS: No free air is evident. Nonspecific small bowel gas is within the midabdomen. Some colonic bowel gas is present. No mass effect is evident. No differential air-fluid levels are present. Psoas margins are normal. No organomegaly is present. IMPRESSION: 1. Nonspecific abdomen
[2023-05-16 09:35] LABS: Glucose,Whole Blood 276 mg/dL (70-110)
[2023-05-16] MEDS: VITAMIN E (DL,TOCOPHERYL ACET) 400 UNIT (180 MG) CAP PO SCH (09:52)
[2023-05-16] MEDS: CHOLECALCIFEROL 25 MCG (1000 IU) TABLET PO SCH (09:52)
[2023-05-16] MEDS: GLIMEPIRIDE 4 MG TAB PO SCH (09:52)
[2023-05-16] MEDS: CARBIDOPA-LEVODOPA 25-100 MG 1 EACH TAB PO PRN (09:52)
[2023-05-16] MEDS: CALCIUM CARBONATE 500 MG CHEWABLE PO SCH (09:53)
[2023-05-16] MEDS: ASPIRIN 81 MG PO SCH (09:53)
[2023-05-16] MEDS: METOPROLOL TARTRATE 12.5 MG TAB PO SCH ×2 (09:53→20:53)
[2023-05-16] MEDS: APIXABAN 5 MG TAB PO SCH (09:53)
[2023-05-16] MEDS: tiZANidine 4 MG TAB PO SCH ×2 (09:53→18:09)
[2023-05-16] MEDS: polyethylene glycoL 3350 17 GM POWD.PACK PO SCH (09:54)
[2023-05-16] MEDS: LACTULOSE 20 GM/30 ML CUP PO SCH ×2 (09:54→18:09)
[2023-05-16 10:27] LABS: Basophils # (A) 0.1 k/uL (0-0.2); Basophils % (A) 0 %; Eosinophils # (A) 0.1 k/uL (0-0.7); Eosinophils % (A) 0 %; HCT 40.9 % (34.0-46.0); HGB 14.2 gm/dL (11.4-16.0); Lymphocytes # (A) 0.5 k/uL (1.0-4.8); Lymphocytes % (A) 1 %; MCH 32.5 pg (25.0-35.0); MCHC 34.8 g/dL (31.0-37.0); MCV 93.6 fL (80.0-100.0); Mean Platelet Volume 9.4; Monocytes % (A) 3 %; Neutrophils # (A) 34.6 k/uL (1.3-7.7); Neutrophils % (A) 95 %; Platelet Count 301 k/uL (150-450); RBC 4.37 m/uL (3.80-5.40); RDW 13.3 % (11.5-15.5); WBC 36.5 k/uL (3.8-10.6)
--- NOTE | 2023-05-16 10:28 | P.PN ---
Subjective Progress Note Date: 05/16/23 Principal diagnosis: Constipation Patient is complaining of abdominal pain this morning. Apparently starting last night at 7 she started having discomfort. More right-sided. She has had approximately 7 bowel movements since her disimpaction yesterday. Initially it was harder stools now it is soft and pastelike. She has had some vomiting this morning. Objective - Vital Signs Vital signs: Vital Signs Temp 98.2 F 05/15/23 20:00 Pulse 66 05/16/23 04:00 Resp 18 05/16/23 04:00 BP 108/74 05/16/23 04:00 Pulse Ox 94 L 05/16/23 09:12 FiO2 Intake & Output 05/15/23 05/16/23 05/16/23 18:59 06:59 18:59 Intake Total 780 240 Output Total 1425 750 Balance -645 -510 Intake: Oral 780 240 Output: Urine 1425 750 Straight 750 Stool 0 Other: Voiding Method External Catheter External Catheter # Voids 1 # Bowel Movements 1 3 1 - Exam Abdomen: Soft, nondistended, mild right-sided tenderness - Labs CBC & Chem 7: 05/12/23 10:35 05/12/23 10:35 Labs: Abnormal Lab Results - Last 24 Hours (Table) 05/15/23 05/15/23 05/15/23 Range/Units 11:46 16:25 20:18 POC Glucose (mg/dL) 245 H 147 H 295 H (70-110) mg/dL 05/16/23 05/16/23 Range/Units 06:09 09:31 POC Glucose (mg/dL) 245 H 276 H (70-110) mg/dL Assessment and Plan (1) Constipation Narrative/Plan: Abdominal x-rays were ordered this morning. These are nonspecific. Appears rob te uncomfortable. Will order CT abdomen and pelvis at this time. Keep nothing by mouth. Resume IV fluids. Current Visit: Yes Status: Acute Code(s): K59.00 - CONSTIPATION, UNSPECIFIED SNOMED Code(s): 47749970
[2023-05-16] MEDS ORDERED: DEXTROSE 5%-0.45% NACL 1,000 ML with POTASSIUM CHLORIDE 20 MEQ IV SCH ×2 (10:30)
[2023-05-16 11:10] LABS: African American GFR (CKD) >90 (>60 ml/min/1.73 sqM); Anion Gap 13 mmol/L; Blood Urea Nitrogen 34 mg/dL (7-17); Carbon Dioxide 19 mmol/L (22-30); Chloride 102 mmol/L (98-107); Glucose 281 mg/dL (74-99); Non-African American GFR(CKD) 83 (>60 ml/min/1.73 sqM); Sodium 134 mmol/L (137-145)
[2023-05-16 11:13] LABS: Potassium 5.3 mmol/L (3.5-5.1)
[2023-05-16 11:15] LABS: RBC Morphology Normal
[2023-05-16 11:33] LABS: ALT 10 U/L (4-34); AST 23 U/L (14-36); African American GFR (CKD) 89 (>60 ml/min/1.73 sqM); Albumin 3.4 g/dL (3.5-5.0); Alkaline Phosphatase 73 U/L (38-126); Anion Gap 13 mmol/L; Blood Urea Nitrogen 32 mg/dL (7-17); Calcium 8.7 mg/dL (8.4-10.2); Carbon Dioxide 20 mmol/L (22-30); Chloride 100 mmol/L (98-107); Glucose 284 mg/dL (74-99); Non-African American GFR(CKD) 77 (>60 ml/min/1.73 sqM); Potassium 4.4 mmol/L (3.5-5.1); Sodium 133 mmol/L (137-145); Total Bilirubin 1.2 mg/dL (0.2-1.3); Total Protein 6.1 g/dL (6.3-8.2)
[2023-05-16 11:47] LABS: Glucose,Whole Blood 306 mg/dL (70-110)
[2023-05-16] MEDS: LACTATED RINGERS 1,000 ML IV SCH ×2 (11:57→17:30)
--- NOTE | 2023-05-16 12:07 | CT ---
EXAMINATION TYPE: CT abdomen pelvis wo con DATE OF EXAM: 05/16/2023 COMPARISON: 11/02/2019 HISTORY: Right sided abdominal pain. CT DLP: 1547.4 mGycm Examination of the solid and hollow viscera is limited given the lack of contrast. FINDINGS: LUNG BASES: No evidence for nodule. No evidence for infiltrate. LIVER/GB: There is evidence of cholelithiasis. No wall thickening seen. No space-occupying hepatic le rachelle. PANCREAS: No pancreatic mass identified. No inflammatory process seen. Hepatic and splenic granulomas seen. SPLEEN: No evidence for splenomegaly. No intrasplenic lesions seen. ADRENALS: No adrenal nodules identified. No evidence for thickening. KIDNEYS: No evidence for renal mass. No nephrolithiasis. No hydronephrosis. BOWEL: Appendix has a normal appearance. No evidence of bowel obstruction. Mild strandy attenuation a djacent to the proximal transverse colon which may reflect colitis or diverticulitis without perforat ion or abscess. Lymph nodes: No evidence for adenopathy greater than 1 cm. Abdominal aorta: Atheromatous changes seen. No evidence for aneurysm. Genital organs: No significant abnormality. Other: No significant abnormality. IMPRESSION: 1. Mild strandy attenuation adjacent to the proximal transverse colon which may reflect colitis or di verticulitis without perforation or abscess. 2. CHOLELITHIASIS.
[2023-05-16] MEDS ORDERED: HUMAN PROTHROMBIN COMPLX IV STA (12:17)
[2023-05-16] MEDS ORDERED: Kcentra PER PHARMACY 1 EACH MISC MISCELLANE PRN (12:19)
[2023-05-16] MEDS ORDERED: HUMAN PROTHROMBIN COMPLX 500 UNIT/16 ML VIAL IV ONE (12:38)
--- NOTE | 2023-05-16 12:50 | XR ---
EXAMINATION TYPE: XR chest 1V portable DATE OF EXAM: 05/16/2023 COMPARISON: 04/30/2023 HISTORY: Shortness of breath TECHNIQUE: Single frontal view of the chest is obtained. FINDINGS: Heart is enlarged and there is atherosclerotic change in the aorta but no overt failure. T here is left lower lobe subsegmental consolidation laterally. Right lung clear. No pneumothorax. Arth ropathy of the shoulders. Hypertrophic changes in the spine. IMPRESSION: Left basilar atelectasis or early infiltrate.
[2023-05-16] MEDS ORDERED: LACTATED RINGERS 1,000 ML IV ONE ×2 (13:58→16:43)
[2023-05-16] MEDS ORDERED: SODIUM CHLORIDE 0.9% 1,000 ML IV ONE ×2 (13:58→14:50)
[2023-05-16 14:02] LABS: Glucose,Whole Blood 291 mg/dL (70-110)
[2023-05-16] MEDS ORDERED: INSULIN ASPART (NovoLOG) 100 UNIT/ML VIAL SQ ONE (14:20)
[2023-05-16] MEDS ORDERED: MIDAZOLAM 2 MG/2 ML VIAL IVP ONE (14:35)
--- NOTE | 2023-05-16 14:51 | P.PN ---
Subjective Progress Note Date: 05/16/23 Patient is monitored closely on the stepdown unit. Underwent JAVIER revealing significant calcific tricuspid aortic stenosis. Cardiothoracic evaluated the patient and recommending follow up outpatient for possible surgical valve replacement with exploration vs TAVR. Patient pending discharge to rehab her main complaint is currently no bowel movement. Overnight patient had an episode of dizziness and whooshing sound in the right ear and described as room spinning. Patient is also reporting worsening symptoms of reflux and hiccuping. Discharge is a place on hold is concern for possible brainstem stroke and brain MRI has been ordered. Patient does report headache and has had 2 other episodes of this dizziness/vertigo throughout the day today. Feels she is having some sinus congestion. Continues on combination of aspirin 81 mg daily eliquis 5 mg twice a day. 05/12/2023 Patient is evaluated today sitting up in bed. Underwent brain MRI yesterday reveals evoluation of ischemic insults with enlarging area of increased signal within the right white radiata, small new area within the right thalamus, slightly enlarged area within the right external capsule region. Stable focus in the region of the left external capsule and left white radiata. Neurology following and patient continues on eliquis and aspirin. Patient continues to report headache dull achy top of head and also having hiccups. Does report increased difficulty swallowing today Has been receiving miralax lactulose and dulcolax unable to have BM. Abdominal xray reveals large stool burden and patient will receive an enema today. 05/14/2023 Patient is evaluated today sitting up in bed with family at the bedside met with the patient and POA to discuss discharge planning. Discharge has been denied to [facility]. Patient is not sure about hospice and no further acute events overnight. Radiology has made an addendum to the brain CT and reports there is no progression or evluation of the ischemia as compared to MRI 2 days prior. Patient has had multiple BMs. Tolerating diet when sitting up at 90* angle. Follow up with case management on Tuesday. 05/15/2023 Patient evaluated today family at bedside. Specialty bed with trapeze ordered for patient to be able to position herself in bed. Patient wanting subacute rehab and not hospice at this time. No further neuro defecits noted stable left hemiparesis with significant left lower extremity weakness. Patient was being transferred to the chair today by 4 nursing staff and left leg buckled patient was assisted to the floor and able to be lifted back into the bed. Valsartan will be stopped blood pressures is low/normal. 05/16/2023 Patient is seen and evaluated in follow-up with family at the bedside. Patient is going down for CT abdomen as patient had some increased abdominal pain after having multiple bowel movements which has been ordered by general surgery who is following. Social work following as well arranging for [facility] once patient is stabilized and discharged from consultations. Patient with significant weakness would like to go to rehab for strength and mobility. Patient is currently afebrile with no reports of chest pain or shortness of breath noted. Will await CT abdomen and will obtain a chest x-ray as well. Nursing staff reports she has been coughing up some thick sputum. No reports of chest pain, palpitations, or worsening shortness of breath. Review of Systems Constitutional: Denied any fatigue denied any fever. Cardio vascular: denied any chest pain, palpitations Gastrointestinal: denied any nausea, vomiting, diarrhea , reports abdominal pain after multiple bowel movements as patient was constipated Pulmonary: Denied any shortness of breath cough Neurologic denied any new focal deficits, reports generalized weakness Active Medications Acetaminophen (Acetaminophen Tab 325 Mg Tab) 650 mg PO Q6HR PRN PRN Reason: Fever and/ or Pain Last Admin: 05/16/23 01:30 Dose: 650 mg Hydrocodone Bitart/Acetaminophen (Hydrocodone/Apap 5-325mg 1 Each Tab) 1 each PO Q6HR PRN PRN Reason: Pain Last Admin: 05/14/23 21:45 Dose: 1 each Albuterol Sulfate (Albuterol Nebulized 2.5 Mg/3 Ml) 2.5 mg INHALATION RT-QID PRN PRN Reason: Shortness Of Breath Last Admin: 05/11/23 15:29 Dose: 2.5 mg Apixaban (Apixaban 5 Mg Tab) 5 mg PO BID [facility]; Protocol Last Admin: 05/16/23 09:53 Dose: 5 mg Aspirin (Aspirin 81 Mg) 162 mg PO DAILY [facility] Last Admin: 05/16/23 09:53 Dose: 162 mg Atorvastatin Calcium (Atorvastatin 80 Mg Tab) 80 mg PO HS [facility] Last Admin: 05/15/23 20:39 Dose: 80 mg Calcium Carbonate/Glycine (Calcium Carbonate 500 Mg Chewable) 500 mg PO DAILY [facility] Last Admin: 05/16/23 09:53 Dose: 500 mg Carbidopa/Levodopa (Carbidopa-Levodopa 25-100 Mg 1 Each Tab) 1 each PO BID@0800,1200 PRN PRN Reason: Shaking Last Admin: 05/16/23 09:52 Dose: 1 each Carbidopa/Levodopa (Carbidopa-Levodopa 25-100 Mg 1 Each Tab) 1 each PO QID@04,10,16,22 [facility] Last Admin: 05/16/23 09:54 Dose: 1 each Cholecalciferol (Cholecalciferol 25 Mcg (1000 Iu) Tablet) 25 mcg PO DAILY [facility] Last Admin: 05/16/23 09:52 Dose: 25 mcg Dextrose/Water (Dextrose 50% Syringe 50 Ml) 25 ml IVP PER PROTOCOL PRN; Protocol PRN Reason: Hypoglycemia Dextrose/Water (Dextrose 50% Syringe 50 Ml) 50 ml IVP PER PROTOCOL PRN; Protocol PRN Reason: Hypoglycemia Fenofibrate (Fenofibrate 160 Mg Tab) 160 mg PO W/SUPPER [facility] Last Admin: 05/15/23 16:36 Dose: 160 mg Glimepiride (Glimepiride 4 Mg Tab) 4 mg PO BID [facility] Last Admin: 05/16/23 09:52 Dose: 4 mg Lactated Ringer's (Lactated Ringers) 1,000 mls @ 125 mls/hr IV .Q8H [facility] Last Admin: 05/16/23 11:57 Dose: 125 mls/hr Insulin Aspart (Insulin Aspart (Novolog) 100 Unit/Ml Vial) 0 unit SQ ACHS [facility]; Protocol Last Admin: 05/16/23 06:41 Dose: 4 unit Insulin Aspart (Insulin Aspart (Novolog) 100 Unit/Ml Vial) 2 unit SQ AC-TID [facility] Last Admin: 05/16/23 06:41 Dose: 2 unit Insulin Detemir (Insulin Detemir (Levemir) 100 Unit/Ml Syr) 15 unit SQ [facility] Lactulose (Lactulose 20 Gm/30 Ml Cup) 30 gm PO TID [facility] Last Admin: 05/16/23 09:54 Dose: Not Given Levothyroxine Sodium (Levothyroxine 88 Mcg Tab) 88 mcg PO BID-W/MEALS [facility] Last Admin: 05/16/23 06:38 Dose: 88 mcg Magnesium Oxide (Magnesium Oxide 400 Mg Tab) 400 mg PO [facility] Last Admin: 05/15/23 20:39 Dose: 400 mg Metoprolol Tartrate (Metoprolol Tartrate 12.5 Mg Tab) 12.5 mg PO BID [facility] Last Admin: 05/16/23 09:53 Dose: 12.5 mg Miscellaneous Information (Kcentra Per Pharmacy 1 Each Misc) 0 each MISCELLANE DIRECTED PRN PRN Reason: FOR SURGERY Nystatin (Nystatin 100,000 Unit/Gm Powd 15 Gm) 1 applic TOPICAL TID [facility]; Protocol Last Admin: 05/16/23 09:53 Dose: 1 applic Ondansetron HCl (Ondansetron 4 Mg/2 Ml Vial) 4 mg IVP Q6HR PRN PRN Reason: Nausea And Vomiting Last Admin: 05/16/23 09:52 Dose: 4 mg Pantoprazole Sodium (Pantoprazole 40 Mg Tablet) 40 mg PO AC-BRKFST [facility] Last Admin: 05/16/23 06:38 Dose: 40 mg Pioglitazone HCl (Pioglitazone 45 Mg Tab) 45 mg PO [facility] Last Admin: 05/15/23 20:40 Dose: 45 mg Polyethylene Glycol (Polyethylene Glycol 3350 17 Gm Powd.Pack) 17 gm PO DAILY [facility] Last Admin: 05/16/23 09:54 Dose: Not Given Tizanidine HCl (Tizanidine 4 Mg Tab) 6 mg PO TID [facility] Last Admin: 05/16/23 09:53 Dose: 6 mg Tramadol HCl (Tramadol 50 Mg Tab) 50 mg PO Q4H PRN PRN Reason: Pain Last Admin: 05/16/23 03:15 Dose: 50 mg Vitamin E (Vitamin E (Dl,Tocopheryl Acet) 400 Unit (180 Mg) Cap) 400 unit PO BID [facility] Last Admin: 05/16/23 09:52 Dose: 400 unit PHYSICAL EXAMINATION: GENERAL: The patient is alert and oriented x3, obese. Well developed, well nourished. HEENT: Pupils are round and equally reacting to light. EOMI. No scleral icterus. No conjunctival pallor. Normocephalic, atraumatic. No pharyngeal erythema. No thyromegaly. CARDIOVASCULAR: S1 and S2 present. No murmurs, rubs, or gallops. PULMONARY: Chest is clear to auscultation, no wheezing or crackles. ABDOMEN: Soft, abdominal tenderness on palpation, obese,, nondistended, normoactive bowel sounds. No palpable organomegaly. MUSCULOSKELETAL: No joint swelling or deformity. EXTREMITIES: No cyanosis, clubbing, or pedal edema. NEUROLOGICAL: Continues with left hemiparesis. Generalized weakness SKIN: No rashes. 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 Hyperlipidemia Avc-xhoqnjy-zdixcxlbn diabetes mellitus with hyperglycemia Parkinson's disease GI Prophylaxis DVT prophylaxis SubCu heparin Do Not Resuscitate/Do Not Intubate Plan: Continue with frequent neuro checks and close monitoring Patient has been accepted at [facility] inpatient rehab and awaiting clearance from consultations Gen. surgery following as patient was severely constipated and has had multiple bowel movements now reporting increased abdominal pain and discomfort with CTA abdomen ordered. Recommend follow-up chest x-ray as patient is reporting some sputum and cough Continue accuchecks ACHS Recommending stopping valsartan at this time due to low normal BP and decrease metoprolol. CT services recommending outpatient follow up at this time felt to not be a surgical candidate Will discuss with surgery and discuss possible discharge planning in the next 24-48 hours Prognosis is guarded The impression and plan of care has been dictated by Jazmin Kulkarni, Nurse Practitioner as directed. Dr. Juan MD I have performed a history and examination and MDM of this patient, discussed the same with the dictator, and agree with the dictator's assessment and plan as written ,documented as a scribe. Based on total visit time, I have performed more than 50% of the visit. Objective - Vital Signs Vital signs: Vital Signs Temp 98.9 F 05/16/23 08:00 Pulse 97 05/16/23 08:00 Resp 18 05/16/23 08:00 BP 148/80 05/16/23 08:00 Pulse Ox 94 L 05/16/23 09:12 FiO2 Intake & Output 05/15/23 05/16/23 05/16/23 18:59 06:59 18:59 Intake Total 780 240 Output Total 1423 750 70 Balance -645 -510 -70 Intake: Oral 780 240 Output: Urine 1425 750 Straight 750 Post Void Residual 70 Stool 0 Other: Voiding Method External Catheter External Catheter External Catheter # Voids 1 # Bowel Movements 1 3 1 - Labs CBC & Chem 7: 05/16/23 10:09 05/16/23 10:55 Labs: Abnormal Lab Results - Last 24 Hours (Table) 05/15/23 05/15/23 05/15/23 Range/Units 11:46 16:25 20:18 WBC (3.8-10.6) k/uL Neutrophils # (1.3-7.7) k/uL Lymphocytes # (1.0-4.8) k/uL Sodium (137-145) mmol/L Potassium (3.5-5.1) mmol/L Carbon Dioxide (22-30) mmol/L BUN (7-17) mg/dL Glucose (74-99) mg/dL POC Glucose (mg/dL) 245 H 147 H 295 H (70-110) mg/dL Total Protein (6.3-8.2) g/dL Albumin (3.5-5.0) g/dL 05/16/23 05/16/23 05/16/23 Range/Units 06:09 09:31 10:09 WBC 36.5 H (3.8-10.6) k/uL Neutrophils # 34.6 H (1.3-7.7) k/uL Lymphocytes # 0.5 L (1.0-4.8) k/uL Sodium (137-145) mmol/L Potassium (3.5-5.1) mmol/L Carbon Dioxide (22-30) mmol/L BUN (7-17) mg/dL Glucose (74-99) mg/dL POC Glucose (mg/dL) 245 H 276 H (70-110) mg/dL Total Protein (6.3-8.2) g/dL Albumin (3.5-5.0) g/dL 05/16/23 05/16/23 Range/Units 10:09 10:55 WBC (3.8-10.6) k/uL Neutrophils # (1.3-7.7) k/uL Lymphocytes # (1.0-4.8) k/uL Sodium 134 L 133 L (137-145) mmol/L Potassium 5.3 H (3.5-5.1) mmol/L Carbon Dioxide 19 L 20 L (22-30) mmol/L BUN 34 H 32 H (7-17) mg/dL Glucose 281 H 284 H (74-99) mg/dL POC Glucose (mg/dL) (70-110) mg/dL Total Protein 6.1 L (6.3-8.2) g/dL Albumin 3.4 L (3.5-5.0) g/dL
[2023-05-16] MEDS ORDERED: ROCURONIUM 10 MG/ML (5 ML VIAL) IV ONE (15:00)
[2023-05-16] MEDS ORDERED: PHENYLEPHRINE-0.9% NACL SYG 1,000 MCG/10 ML SYRINGE ONE (15:00)
[2023-05-16] MEDS ORDERED: SUCCINYLCHOLINE CHLORIDE 200 MG/10 ML VIAL IV ONE (15:00)
[2023-05-16] MEDS ORDERED: ETOMIDATE 2 MG/ML 10 ML VIAL ONE (15:00)
[2023-05-16] MEDS ORDERED: fentaNYL (PF) 50 MCG/ML 2 ML AMP ONE (15:00)
[2023-05-16] MEDS ORDERED: LIDOCAINE 2% INJ 20 MG/ML (2 ML VIAL) ONE (15:00)
[2023-05-16] MEDS ORDERED: SODIUM CHLORIDE 0.9% 50 ML with ceFAZolin 2,000 MG IV ONE ×2 (15:05)
[2023-05-16] MEDS ORDERED: ceFAZolin 1,000 MG VIAL ONE (15:05)
[2023-05-16] MEDS ORDERED: SODIUM CHLORIDE 0.9% 100 ML BAG ONE (15:05)
[2023-05-16] MEDS ORDERED: metroNIDAZOLE-NS PMX 500 MG in SALINE 1 100ML.BAG IVPB STA (15:32)
[2023-05-16 17:21] LABS: Glucose,Whole Blood 316 mg/dL (70-110)
--- NOTE | 2023-05-16 17:29 | P.OP ---
Date of Procedure: 05/16/23 Procedure(s) Performed: PREOPERATIVE DIAGNOSIS: Ischemic bowel POSTOPERATIVE DIAGNOSIS: Ischemic right colon and transverse colon PROCEDURE: Exploratory laparotomy with extended right hemicolectomy and end ileostomy SURGEON: Juancarlos EBL: 50 mL ANESTHESIA: Gen. COMPLICATIONS: None OPERATIVE PROCEDURE: Patient place in the operative table in the supine position. A midline incision was made using the scalpel. There was some cloudy fluid within the abdominal cavity with slight odor. The cecum was noted to have ischemic changes. The proximal transverse colon additional he had evidence of ischemia. There was mild inflammation seen scattered throughout the remainder of the colon. It was decided to proceed with extended right hemicolectomy as we saw what appeared to represent fairly healthy distal transverse colon. The colon was divided distally on the transverse colon using a linear 75 stapler. T he small bowel was divided at the ileum using a linear 75 stapler. The mesentery was then divided using a combination of 0 silk ties and LigaSure. The specimen was passed off. The abdomen was copiously irrigated with saline. No further cloudy fluid was seen. No bleeding was seen. A circular opening was made in the right mid abdomen for a end ileostomy. The fascia was divided. The bowel was brought out through that section and sutured to the peritoneum using interrupted 3-0 GI silk sutures. The midline fascia was then reapproximated using 2 separate double-stranded #1 PDS sutures. The subcutaneous tissues were closed using 3-0 Vicryl sutures. The skin was closed using julia. Sterile dressings were applied. The ostomy was matured in a [place] fashion using interrupted 3-0 Vicryl sutures. DISPOSITION: Guarded to recovery room
[2023-05-16 17:46] LABS: ABG Base Excess -2.1 mmol/L; ABG HCO3 22 mmol/L (21-25); ABG Oxygen Saturation 99.6 % (94-97); ABG PCO2 34 mmHg (35-45); ABG PH 7.43 (7.35-7.45); ABG PO2 268 mmHg (83-108); ABG TCO2 23 mmol/L (19-24); Allen Test Performed? Yes
--- NOTE | 2023-05-16 17:52 | XR ---
EXAMINATION TYPE: XR chest 1V portable DATE OF EXAM: 05/16/2023 5:44 PM COMPARISON: Chest radiographs from 05/16/2023 TECHNIQUE: XR chest 1V portable Frontal view of the chest. CLINICAL INDICATION:Female, 68 years old with history of Tube placement; FINDINGS: Lungs/Pleura: There is no evidence of pleural effusion, focal consolidation, or pneumothorax. Pulmonary vascularity: Unremarkable. Heart/mediastinum: Cardiomediastinal silhouette is enlarged and stable. Musculoskeletal: No acute osseous pathology. Other findings: None Lines/Tubes: Endotracheal tube with distal tip 4.5 cm above the tete. Nasogastric tube with its distal tip and side-port projecting under the diaphragm and projecting over the gastric lumen. Right internal jugular central venous catheter with distal tip at the cavoatrial junction. IMPRESSION: Support line and tubes in appropriate position.
[2023-05-16] MEDS: HEPARIN SODIUM,PORCINE/PF 5,000 UNIT/0.5 ML SYRINGE SQ SCH (18:11)
[2023-05-16] MEDS ORDERED: INSULIN ASPART (NovoLOG) 100 UNIT/ML VIAL SQ SCH (18:45)
[2023-05-16] MEDS: IPRATROPIUM-ALBUTEROL 3 ML NEB INHALATION SCH (19:26)
[2023-05-16 20:51] LABS: Glucose,Whole Blood 244 mg/dL (70-110)
[2023-05-16] MEDS: INSULIN DETEMIR (LEVEMIR) 100 UNIT/ML SYR SQ SCH (21:03)
[2023-05-16] MEDS: CHLORHEXIDINE GLUCONATE 15 ML CUP MUCOUS MEM SCH (21:03)
[2023-05-16 23:56] LABS: Glucose,Whole Blood 243 mg/dL (70-110)
[2023-05-17] MEDS: LACTATED RINGERS 1,000 ML IV SCH ×3 (00:10→18:04)
[2023-05-17] MEDS: HEPARIN SODIUM,PORCINE/PF 5,000 UNIT/0.5 ML SYRINGE SQ SCH ×3 (00:11→15:28)
[2023-05-17] MEDS: INSULIN ASPART (NovoLOG) 100 UNIT/ML VIAL SQ SCH ×4 (00:12→18:11)
[2023-05-17] MEDS: IPRATROPIUM-ALBUTEROL 3 ML NEB INHALATION SCH ×7 (00:14→21:31)
[2023-05-17] MEDS ORDERED: NALOXONE 0.4 MG/ML 1 ML VIAL IV PRN (03:04)
[2023-05-17] MEDS ORDERED: DEXTROSE 50% SYRINGE 50 ML IVP PRN ×2 (03:18)
--- NOTE | 2023-05-17 03:21 | P.PN ---
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 Patient is a 68-year-old white female with past medical history significant for recent hospital admission on April 30 for suspected CVA and TPA administration. She also has history of Quinones's palsy, Parkinson's disease, aortic stenosis, diabetes mellitus type 2, hypertension, hyperlipidemia, DVT, and is an ex-smoker. Patient initially presented to the emergency room back on April 30 for CVA-like symptom s and left-sided hemiparesis. She was given a dose of TPA with improvement in her symptoms. At that time, the patient did refuse brain MRI. She was discharged home on aspirin and Plavix, and the patient did return to the emergency room less than 24 hours later. She returned early yesterday morning. She states that she was sleeping at home, and was awoken by her dog. She then noticed severe left-sided weakness, and she immediately called EMS. CT of the brain without contrast on arrival showed no acute intracranial hemorrhage or mass effect. There were chronic appearing infarcts of the bilateral basal ganglia. Follow-up brain CTA showed no evidence of significant ICA stenosis or large vessel occulsion. Patient was evaluated by neurology while in the emergency room, who recommended admission to the intensive care unit for closer monitoring. Patient is agreeable to MRI at this time. She is currently sitting up in bed, on room air, in no acute distress. She does have obvious left-sided hemiparesis and left-sided facial droop. There is slurred speech. She reports blurred vision. CBC and BMP on arrival were unremarkable. Blood glucose is elevated at 292. Patient is receiving aspirin, Brilinta, and Lipitor per neurology. Blood pressure is elevated, allowing for permissive hypertension. Patient will be monitored in the intensive care unit. On today's evaluation of 05/06/2023, the patient continues to have flaccid paralysis on the left side including left upper and left lower extremity embolization lupus still present. She is able to talk. She is able to swallow. MRI of the brain that was done yesterday showed bilateral acute ischemia with deep white matter changes of the bilateral parietal lobes greater than the right measuring up to 2 cm in size. Smaller punctate left basal ganglia 5 mm areas of acute ischemia was also seen. No midline shift. Neurology is aware. The cardiac rhythm is sinus. The patient remains on aspirin. The patient is on Brilinta. No other complaints otherwise for now. No seizure activity. No hypertensive reactions. JAVIER is to follow. Hypercoagulable workup is in progress. On 05/07/2023, the patient essentially the same without any neurologic changes or improvement or worsening. She is awake and alert and she is tolerating her diet. No nausea or vomiting. The available hypercoagulable workup is negative for now including prothrombin 2210 and factor 5 [place]. and awaiting the JAVIER. The patient remains on dual antiplatelet agents. On 05/08/2023, patient's neurologic functions are stable. No new complaints. Labs were reviewed and the patient is resistant of 10 hemoglobin of 14.7 and a platelet count of 184. BNP is at 31 with a creatinine of 0.6 and sodium levels of 138. Awaiting a JAVIER. Hypercoagulable workup is negative. 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 Patient was seen by surgery for potential surgical aortic valve surgery, however Dr. Barker feels that the patient is not a great candidate for surgery, he is recommending rehabilitation, and if the patient do es while at the rehabilitation could be considered for surgery otherwise patient would be best served by TAVR FOR the aortic stenosis. Pulmonary-mathis patient is doing well, no significant issues at this point. I am seeing this patient in follow-up, today 05/17/2023, following development of bowel ischemia and suspected partial perforation status post-operative day #1 for a right hemicolectomy and end ileostomy. Originally, I saw this patient back on 05/05/2023 for recurrent CVA with left-sided hemiparesis. We did sign off the case, on 05/09/2023, once the patient was discharged from the intensive care unit. The patient is currently back in intensive care unit, following development of bowel ischemia yesterday. CT of the abdomen and pelvis at that time, showed possible pneumatosis within the right hemicolon and a small focus of free air, there was also air within the superior mesenteric vein. Correlating for ischemic bowel with partial contained rupture. The patient was taken to the operating room for exploratory laparotomy, and was found to have an ischemic right colon and transverse colon. The patient underwent an extended right hemicolectomy and end ileostomy. Following the procedure, the patient was left intubated to the mechanical ventilator, and transferred to the intensive care unit. The patient is currently lying in bed, sedated, and synchronous with the mechanical ventilator. Initial postoperative chest x-ray shows the endotracheal tube 4.5 cm above the tete, nasogastric tube projecting over the gastric lumen, and a right internal jugular central venous catheter with the distal tip of the cavoatrial junction. No acute cardiopulmonary process was seen. Ventilator settings are assist control, respiratory rate 16, tidal volume of 450, FiO2 50%, PEEP of 5. Initial ABGs show a pO2 of 268 on a FiO2 60%, pCO2 34, pH of 7.43. Patient is sedated on propofol currently infusing at 40 mcg/kg/m. Lactated Ringer's is also infusing at 125 mL per hour. BP is normotensive, not requiring any vasopressors. Urine output is in the order of 30-50 mL per hour. Preoperative labs include a CBC with a WBC count of 36.5, hemoglobin 14.2, hematocrit 40.9, platelets 301. BMP shows sodium 133, potassium 4.4, chloride 100, serum bicarbonate 20, BUN 32, creatinine 0.79, blood glucose 284. Lactic acid level was 1.1. Following the procedure, the patient was given a one-time dose of Flagyl. Midline abdominal incision is clean, dry, approximated. Right lower quadrant ileostomy is beefy red, with small amount of brown to sanguineous output. Currently afebrile. Patient will be monitored in the intensive care unit. Objective - Vital Signs Vital signs: Vital Signs Temp 98.3 F 05/16/23 20:00 Pulse 96 05/17/23 00:30 Resp 28 H 05/16/23 22:00 BP 145/75 05/16/23 22:00 Pulse Ox 99 05/16/23 22:00 FiO2 40 05/17/23 00:15 Intake & Output 05/16/23 05/16/23 05/17/23 06:59 18:59 06:59 Intake Total 240 2403.124 463.086 Output Total 750 685 70 Balance -510 1718.124 393.086 Weight 80 kg Intake: IV 2395 375 Invasive Line 3 10 Invasive Line 4 10 Lactated Ringers 1,000 ml 125 375 @ 125 mls/hr IV .Q8H [facility] Rx#:[id number] Intake, IV Titration 8.124 88.086 Amount propofoL 1,000 mg In 8.124 88.086 Empty Bag 1 bag @ 15 MCG/ KG/MIN 9.621 mls/hr IV . [id number] [facility] Rx#:[id number] Oral 240 Output: Urine 750 565 70 Straight 750 Post Void Residual 70 Stool 0 Estimated Blood Loss 50 Other: Voiding Method External Catheter Indwelling Catheter Indwelling Catheter # Voids 1 # Bowel Movements 3 1 - Exam GENERAL EXAM: Sedated and synchronous with mechanical ventilator. HEAD: Normocephalic and atraumatic EYES: Normal reaction of pupils, equal size. NOSE: Clear with pink turbinates. THROAT: No erythema or exudates. NECK: No masses, no JVD. CHEST: No chest wall deformity. LUNGS: Equal air entry with mild rhonchorous lung sounds bilaterally. Intubated to the mechanical ventilator. CVS: S1 and S2 normal with soft systolic ejection murmur grade 2, regular rhythm. No other extra heart sounds ABDOMEN: There is a proximated midline abdominal incision and right lower quadrant ileostomy. Small amount of brown sanguinous output. Ostomy is beefy red. Orogastric tube is to low intermittent suction. No hepatosplenomegaly, hypoactive bowel sounds, no guarding or rigidity. SPINE: No scoliosis or deformity SKIN: No rashes CENTRAL NERVOUS SYSTEM: No focal deficits, tone is equal in all 4 extremities. Patient is sedated, RASS -5 EXTREMITIES: There is no peripheral edema, clubbing, or cyanosis. Peripheral pulses are intact. - Labs CBC & Chem 7: 05/16/23 10:09 05/16/23 10:55 Labs: Abnormal Lab Results - Last 24 Hours (Table) 05/16/23 05/16/23 05/16/23 Range/Units 06:09 09:31 10:09 WBC 36.5 H (3.8-10.6) k/uL Neutrophils # 34.6 H (1.3-7.7) k/uL Lymphocytes # 0.5 L (1.0-4.8) k/uL ABG pCO2 (35-45) mmHg ABG pO2 (83-108) mmHg ABG O2 Saturation (94-97) % Sodium (137-145) mmol/L Potassium (3.5-5.1) mmol/L Carbon Dioxide (22-30) mmol/L BUN (7-17) mg/dL Glucose (74-99) mg/dL POC Glucose (mg/dL) 245 H 276 H (70-110) mg/dL Total Protein (6.3-8.2) g/dL Albumin (3.5-5.0) g/dL 05/16/23 05/16/23 05/16/23 Range/Units 10:09 10:55 11:44 WBC (3.8-10.6) k/uL Neutrophils # (1.3-7.7) k/uL Lymphocytes # (1.0-4.8) k/uL ABG pCO2 (35-45) mmHg ABG pO2 (83-108) mmHg ABG O2 Saturation (94-97) % Sodium 134 L 133 L (137-145) mmol/L Potassium 5.3 H (3.5-5.1) mmol/L Carbon Dioxide 19 L 20 L (22-30) mmol/L BUN 34 H 32 H (7-17) mg/dL Glucose 281 H 284 H (74-99) mg/dL POC Glucose (mg/dL) 306 H (70-110) mg/dL Total Protein 6.1 L (6.3-8.2) g/dL Albumin 3.4 L (3.5-5.0) g/dL 05/16/23 05/16/23 05/16/23 Range/Units 14:00 17:20 17:43 WBC (3.8-10.6) k/uL Neutrophils # (1.3-7.7) k/uL Lymphocytes # (1.0-4.8) k/uL ABG pCO2 34 L (35-45) mmHg ABG pO2 268 H (83-108) mmHg ABG O2 Saturation 99.6 H (94-97) % Sodium (137-145) mmol/L Potassium (3.5-5.1) mmol/L Carbon Dioxide (22-30) mmol/L BUN (7-17) mg/dL Glucose (74-99) mg/dL POC Glucose (mg/dL) 291 H 316 H (70-110) mg/dL Total Protein (6.3-8.2) g/dL Albumin (3.5-5.0) g/dL 05/16/23 05/16/23 Range/Units 20:49 23:55 WBC (3.8-10.6) k/uL Neutrophils # (1.3-7.7) k/uL Lymphocytes # (1.0-4.8) k/uL ABG pCO2 (35-45) mmHg ABG pO2 (83-108) mmHg ABG O2 Saturation (94-97) % Sodium (137-145) mmol/L Potassium (3.5-5.1) mmol/L Carbon Dioxide (22-30) mmol/L BUN (7-17) mg/dL Glucose (74-99) mg/dL POC Glucose (mg/dL) 244 H 243 H (70-110) mg/dL Total Protein (6.3-8.2) g/dL Albumin (3.5-5.0) g/dL Assessment and Plan Assessment: Ischemic bowel status post-operative day #1 for a right hemicolectomy and end ileostomy. CT of the abdomen and pelvis on April 16, showed possible pneumatosis within the right hemicolon and a small focus of free air, there was also air within the superior mesenteric vein. Correlating for ischemic bowel with partial contained rupture. The patient was taken to the operating room for exploratory laparotomy, and was found to have an ischemic right colon and transverse colon. The patient underwent an extended right hemicolectomy and end ileostomy Acute hypoxemic respiratory failure secondary to above, currently intubated to the mechanical ventilator Leukocytosis, secondary to above Recurrent CVA, with residual left-sided hemiparesis and left-sided facial droop. Most recent brain MRI done on 05/11/2023 showed evolution of ischemic insults with enlarging area of increased signal within the right white radiata. Small new area within the right thalamus, slightly enlarged area within the right external capsule region. Stable focus in the region of the left external capsule and left white radiata. Severe aortic stenosis found on transesophageal echocardiogram, not felt to be a good surgical candidate by cardiothoracic surgery for open aortic valve replacement. Elevated von Willebrand antigen Obesity, BMI of 36 Type 2 diabetes mellitus, [id number] Hyperlipidemia History of deep vein thrombosis Parkinson's disease Hypothyroidism Ex-smoker Plan: Patient's medications, labs, chest x-ray reviewed Patient will remain on the mechanical ventilator overnight Wean FiO2 as tolerated Repeat labs and chest x-ray in the morning Propofol for sedation Start patient on empiric Zosyn Continue lactated Ringer's at 125 mL per hour BP is normotensive, not requiring vasopressors Pain control with when necessary Dilaudid Eliquis was placed on hold for the procedure, will restart once cleared by surgery Blood glucose control per admitting Protonix for GI prophylaxis Heparin for DVT prophylaxis Patient is a DO NOT RESUSCITATE Prognosis is guarded secondary to above-mentioned comorbidities, we will continue to monitor the patient's status in the intensive care unit. I have personally seen and examined the patient, performed the documentation and the assessment and plan as written. Number of minutes spent on the visit:20 Time with Patient: Greater than 30
[2023-05-17] MEDS: PIPERACILLIN-TAZOBACTAM 3.375 GM in SODIUM CHLORIDE 0.9% 100 ML IVPB SCH ×3 (03:25→18:12)
[2023-05-17] MEDS: HYDROmorphone 1 MG/ML 1 ML SYRINGE IVP PRN ×5 (03:26→20:52)
[2023-05-17 03:58] LABS: Basophils % (A) 0 %; Eosinophils % (A) 0 %; HCT 33.9 % (34.0-46.0); HGB 11.4 gm/dL (11.4-16.0); Lymphocytes # (A) 0.9 k/uL (1.0-4.8); Lymphocytes % (A) 4 %; MCH 31.4 pg (25.0-35.0); MCHC 33.8 g/dL (31.0-37.0); MCV 92.9 fL (80.0-100.0); Monocytes # (A) 0.8 k/uL (0-1.0); Monocytes % (A) 4 %; Neutrophils % (A) 91 %; Platelet Count 281 k/uL (150-450); RBC 3.65 m/uL (3.80-5.40); RDW 13.5 % (11.5-15.5)
[2023-05-17 04:08] LABS: African American GFR (CKD) >90 (>60 ml/min/1.73 sqM); Anion Gap 6 mmol/L; Blood Urea Nitrogen 33 mg/dL (7-17); Calcium 8.6 mg/dL (8.4-10.2); Carbon Dioxide 23 mmol/L (22-30); Chloride 104 mmol/L (98-107); Glucose 212 mg/dL (74-99); Magnesium 1.8 mg/dL (1.6-2.3); Non-African American GFR(CKD) 83 (>60 ml/min/1.73 sqM); Potassium 4.4 mmol/L (3.5-5.1); Sodium 133 mmol/L (137-145)
[2023-05-17] MEDS ORDERED: SODIUM CHLORIDE 0.9% 1,000 ML IV ONE (04:52)
[2023-05-17] MEDS ORDERED: MAGNESIUM SULFATE-D5W PMX 1 GM in DEXTROSE/WATER 1 100ML.BAG IVPB ONE (04:53)
[2023-05-17] MEDS ORDERED: Magnesium Replacement Protocol 1 EACH MISC MISCELLANE PRN (04:53)
[2023-05-17] MEDS: CARBIDOPA-LEVODOPA 25-100 MG 1 EACH TAB PO SCH ×4 (04:55→20:46)
[2023-05-17 05:17] LABS: ABG Base Excess -1.9 mmol/L; ABG HCO3 23 mmol/L (21-25); ABG PCO2 38 mmHg (35-45); ABG PH 7.39 (7.35-7.45); ABG PO2 142 mmHg (83-108); ABG TCO2 24 mmol/L (19-24); Allen Test Performed? Yes
[2023-05-17 06:16] LABS: Glucose,Whole Blood 221 mg/dL (70-110)
[2023-05-17] MEDS: NYSTATIN 100,000 UNIT/GM POWD 15 GM TOPICAL SCH ×3 (08:17→20:47)
[2023-05-17] MEDS: CHLORHEXIDINE GLUCONATE 15 ML CUP MUCOUS MEM SCH (08:17)
[2023-05-17] MEDS: METOPROLOL TARTRATE 12.5 MG TAB PO SCH ×2 (08:17→20:46)
[2023-05-17] MEDS: PANTOPRAZOLE 40 MG/10 ML VIAL IV SCH (08:19)
--- NOTE | 2023-05-17 09:26 | P.PN ---
Subjective Progress Note Date: 05/17/23 Principal diagnosis: Constipation Patient remains on the ventilator. Did well overnight. White blood cell count improved. She received some fluid boluses for low urine output. Objective - Vital Signs Vital signs: Vital Signs Temp 98.8 F 05/17/23 08:00 Pulse 103 H 05/17/23 09:00 Resp 23 05/17/23 09:00 BP 140/69 05/17/23 09:00 Pulse Ox 98 05/17/23 09:00 FiO2 30 05/17/23 08:00 Intake & Output 05/16/23 05/17/23 05/17/23 18:59 06:59 18:59 Intake Total 2403.124 2753.758 384 Output Total 685 309 126 Balance 4640.012 5910.758 258 Weight 80 kg Intake: IV 2395 2484 384 CVP 9 9 Invasive Line 3 10 Invasive Line 4 10 Lactated Ringers 1,000 ml 125 1375 375 @ 125 mls/hr IV .Q8H COUNTS INCLUDE 234 BEDS AT THE [facility] Rx#:[id number] Piperacillin-Tazobactam 3 100 .375 gm In Sodium Chloride 0.9% 100 ml @ 25 mls/hr IVPB Q8H COUNTS INCLUDE 234 BEDS AT THE [facility] Rx#: [id number] Sodium Chloride 0.9% 1, 1000 000 ml @ 999 mls/hr IV . Q1H1M [facility] Rx#:[id number] Intake, IV Titration 8.124 269.758 Amount propofoL 1,000 mg In 8.124 269.758 Empty Bag 1 bag @ 15 MCG/ KG/MIN 9.621 mls/hr IV . [id number] COUNTS INCLUDE 234 BEDS AT THE [facility] Rx#:[id number] Output: Urine 565 309 126 Post Void Residual 70 Estimated Blood Loss 50 Other: Voiding Method Indwelling Catheter Indwelling Catheter Indwelling Catheter # Bowel Movements 1 - Exam Abdomen: Soft, nondistended, dressing clean and dry, ostomy pink with bilious output - Labs CBC & Chem 7: 05/17/23 03:30 05/17/23 03:30 Labs: Abnormal Lab Results - Last 24 Hours (Table) 05/16/23 05/16/23 05/16/23 Range/Units 09:31 10:09 10:09 WBC 36.5 H (3.8-10.6) k/uL RBC (3.80-5.40) m/uL Hct (34.0-46.0) % Neutrophils # 34.6 H (1.3-7.7) k/uL Lymphocytes # 0.5 L (1.0-4.8) k/uL ABG pCO2 (35-45) mmHg ABG pO2 (83-108) mmHg ABG O2 Saturation (94-97) % Sodium 134 L (137-145) mmol/L Potassium 5.3 H (3.5-5.1) mmol/L Carbon Dioxide 19 L (22-30) mmol/L BUN 34 H (7-17) mg/dL Glucose 281 H (74-99) mg/dL POC Glucose (mg/dL) 276 H (70-110) mg/dL Total Protein (6.3-8.2) g/dL Albumin (3.5-5.0) g/dL 05/16/23 05/16/23 05/16/23 Range/Units 10:55 11:44 14:00 WBC (3.8-10.6) k/uL RBC (3.80-5.40) m/uL Hct (34.0-46.0) % Neutrophils # (1.3-7.7) k/uL Lymphocytes # (1.0-4.8) k/uL ABG pCO2 (35-45) mmHg ABG pO2 (83-108) mmHg ABG O2 Saturation (94-97) % Sodium 133 L (137-145) mmol/L Potassium (3.5-5.1) mmol/L Carbon Dioxide 20 L (22-30) mmol/L BUN 32 H (7-17) mg/dL Glucose 284 H (74-99) mg/dL POC Glucose (mg/dL) 306 H 291 H (70-110) mg/dL Total Protein 6.1 L (6.3-8.2) g/dL Albumin 3.4 L (3.5-5.0) g/dL 05/16/23 05/16/23 05/16/23 Range/Units 17:20 17:43 20:49 WBC (3.8-10.6) k/uL RBC (3.80-5.40) m/uL Hct (34.0-46.0) % Neutrophils # (1.3-7.7) k/uL Lymphocytes # (1.0-4.8) k/uL ABG pCO2 34 L (35-45) mmHg ABG pO2 268 H (83-108) mmHg ABG O2 Saturation 99.6 H (94-97) % Sodium (137-145) mmol/L Potassium (3.5-5.1) mmol/L Carbon Dioxide (22-30) mmol/L BUN (7-17) mg/dL Glucose (74-99) mg/dL POC Glucose (mg/dL) 316 H 244 H (70-110) mg/dL Total Protein (6.3-8.2) g/dL Albumin (3.5-5.0) g/dL 05/16/23 05/17/23 05/17/23 Range/Units 23:55 03:30 03:30 WBC 22.0 H (3.8-10.6) k/uL RBC 3.65 L (3.80-5.40) m/uL Hct 33.9 L (34.0-46.0) % Neutrophils # 20.0 H (1.3-7.7) k/uL Lymphocytes # 0.9 L (1.0-4.8) k/uL ABG pCO2 (35-45) mmHg ABG pO2 (83-108) mmHg ABG O2 Saturation (94-97) % Sodium 133 L (137-145) mmol/L Potassium (3.5-5.1) mmol/L Carbon Dioxide (22-30) mmol/L BUN 33 H (7-17) mg/dL Glucose 212 H (74-99) mg/dL POC Glucose (mg/dL) 243 H (70-110) mg/dL Total Protein (6.3-8.2) g/dL Albumin (3.5-5.0) g/dL 05/17/23 05/17/23 Range/Units 05:13 06:15 WBC (3.8-10.6) k/uL RBC (3.80-5.40) m/uL Hct (34.0-46.0) % Neutrophils # (1.3-7.7) k/uL Lymphocytes # (1.0-4.8) k/uL ABG pCO2 (35-45) mmHg ABG pO2 142 H (83-108) mmHg ABG O2 Saturation 99.0 H (94-97) % Sodium (137-145) mmol/L Potassium (3.5-5.1) mmol/L Carbon Dioxide (22-30) mmol/L BUN (7-17) mg/dL Glucose (74-99) mg/dL POC Glucose (mg/dL) 221 H (70-110) mg/dL Total Protein (6.3-8.2) g/dL Albumin (3.5-5.0) g/dL Assessment and Plan (1) Constipation Narrative/Plan: Patient doing better today. Await evaluation by pulmonary to see if weaning is an option today. Continue antibiotics. May begin liquid diet if extubated. Current Visit: Yes Status: Acute Code(s): K59.00 - CONSTIPATION, UNSPECIFIED SNOMED Code(s): 39679288
--- NOTE | 2023-05-17 10:15 | XR ---
EXAMINATION TYPE: XR chest 1V portable DATE OF EXAM: 05/17/2023 COMPARISON: 05/16/2023 INDICATION: Tube placement TECHNIQUE: Single frontal view of the chest is obtained. FINDINGS: The heart size is normal. The pulmonary vasculature is normal. The lungs are clear. Endotracheal tube tip is 6.7 cm above the tete. Nasogastric tube transverses the thorax. Right cent ral venous catheter tip is in the distal superior vena cava. IMPRESSION: 1. No acute pulmonary process. 2. Lines and catheters discussed above
[2023-05-17 10:16] LABS: LDL Cholesterol,Calculated 40.5 mg/dL (0.0-131.0)
[2023-05-17 11:40] LABS: Glucose,Whole Blood 184 mg/dL (70-110)
--- NOTE | 2023-05-17 13:50 | P.PN ---
Subjective Progress Note Date: 05/17/23 Patient is monitored closely on the stepdown unit. Underwent JAVIER revealing significant calcific tricuspid aortic stenosis. Cardiothoracic evaluated the patient and recommending follow up outpatient for possible surgical valve replacement with exploration vs TAVR. Patient pending discharge to rehab her main complaint is currently no bowel movement. Overnight patient had an episode of dizziness and whooshing sound in the right ear and described as room spinning. Patient is also reporting worsening symptoms of reflux and hiccuping. Discharge is a place on hold is concern for possible brainstem stroke and brain MRI has been ordered. Patient does report headache and has had 2 other episodes of this dizziness/vertigo throughout the day today. Feels she is having some sinus congestion. Continues on combination of aspirin 81 mg daily eliquis 5 mg twice a day. 05/12/2023 Patient is evaluated today sitting up in bed. Underwent brain MRI yesterday reveals evoluation of ischemic insults with enlarging area of increased signal within the right white radiata, small new area within the right thalamus, slightly enlarged area within the right external capsule region. Stable focus in the region of the left external capsule and left white radiata. Neurology following and patient continues on eliquis and aspirin. Patient continues to report headache dull achy top of head and also having hiccups. Does report increased difficulty swallowing today Has been receiving miralax lactulose and dulcolax unable to have BM. Abdominal xray reveals large stool burden and patient will receive an enema today. 05/14/2023 Patient is evaluated today sitting up in bed with family at the bedside met with the patient and POA to discuss discharge planning. Discharge has been denied to [facility]. Patient is not sure about hospice and no further acute events overnight. Radiology has made an addendum to the brain CT and reports there is no progression or evluation of the ischemia as compared to MRI 2 days prior. Patient has had multiple BMs. Tolerating diet when sitting up at 90* angle. Follow up with case management on Tuesday. 05/15/2023 Patient evaluated today family at bedside. Specialty bed with trapeze ordered for patient to be able to position herself in bed. Patient wanting subacute rehab and not hospice at this time. No further neuro defecits noted stable left hemiparesis with significant left lower extremity weakness. Patient was being transferred to the chair today by 4 nursing staff and left leg buckled patient was assisted to the floor and able to be lifted back into the bed. Valsartan will be stopped blood pressures is low/normal. 05/16/2023 Patient is seen and evaluated in follow-up with family at the bedside. Patient is going down for CT abdomen as patient had some increased abdominal pain after having multiple bowel movements which has been ordered by general surgery who is following. Social work following as well arranging for [facility] once patient is stabilized and discharged from consultations. Patient with significant weakness would like to go to rehab for strength and mobility. Patient is currently afebrile with no reports of chest pain or shortness of breath noted. Will await CT abdomen and will obtain a chest x-ray as well. Nursing staff reports she has been coughing up some thick sputum. No reports of chest pain, palpitations, or worsening shortness of breath. 05/17/2023 Patient is seen and evaluated in the ICU currently on mechanical ventilation with an FiO2 of 30% and PEEP is 5. Patient did have abdominal pain with CT abdomen yesterday which showed a mild strandy attenuation adjacent to the proximal transverse colon that may reflect colitis or diverticulitis without perforation or abscess along with cholelithiasis. General surgery Dr. Bauer following and patient went to the OR and was intubated and is status post exploratory laparotomy with extended right hemicolectomy and end ileostomy secondary to an ischemic right colon and transverse colon. Plans for extubation today and weaning and patient is awake and following commands on exam. Patient is afebrile and labs revealed a WBC of 22 with a hemoglobin of 11.4, sodium is 133 with a potassium of 4.4 and creatinine is 0.74. Blood sugars are being monitored and will continue with current regimen and magnesium is 1.8. Chest x- ray this morning shows no acute pulmonary process. Review of Systems: Unable to obtain as patient is currently intubated Active Medications Albuterol Sulfate (Albuterol Nebulized 2.5 Mg/3 Ml) 2.5 mg INHALATION RT-QID PRN PRN Reason: Shortness Of Breath Last Admin: 05/11/23 15:29 Dose: 2.5 mg Albuterol/Ipratropium (Ipratropium-Albuterol 3 Ml Neb) 3 ml INHALATION RT-Q4H [facility] Last Admin: 05/17/23 11:36 Dose: 3 ml Carbidopa/Levodopa (Carbidopa-Levodopa 25-100 Mg 1 Each Tab) 1 each PO BID@0800,1200 PRN PRN Reason: Shaking Last Admin: 05/16/23 09:52 Dose: 1 each Carbidopa/Levodopa (Carbidopa-Levodopa 25-100 Mg 1 Each Tab) 1 each PO QID@04,10,16,22 [facility] Last Admin: 05/17/23 09:10 Dose: 1 each Chlorhexidine Gluconate (Chlorhexidine Gluconate 15 Ml Cup) 15 ml MUCOUS MEM BID [facility] Last Admin: 05/17/23 08:17 Dose: 15 ml Dextrose/Water (Dextrose 50% Syringe 50 Ml) 25 ml IVP PER PROTOCOL PRN; Protocol PRN Reason: Hypoglycemia Dextrose/Water (Dextrose 50% Syringe 50 Ml) 50 ml IVP PER PROTOCOL PRN; Protocol PRN Reason: Hypoglycemia Dextrose/Water (Dextrose 50% Syringe 50 Ml) 25 ml IVP PER PROTOCOL PRN; Protocol PRN Reason: Hypoglycemia Dextrose/Water (Dextrose 50% Syringe 50 Ml) 50 ml IVP PER PROTOCOL PRN; Protocol PRN Reason: Hypoglycemia Heparin Sodium (Porcine) (Heparin Sodium,Porcine/Pf 5,000 Unit/0.5 Ml Syringe) 5,000 unit SQ Q8HR [facility] Last Admin: 05/17/23 08:16 Dose: 5,000 unit Hydromorphone HCl (Hydromorphone 1 Mg/Ml 1 Ml Syringe) 1 mg IVP Q3HR PRN PRN Reason: Pain Last Admin: 05/17/23 11:14 Dose: 1 mg Lactated Ringer's (Lactated Ringers) 1,000 mls @ 125 mls/hr IV .Q8H [facility] Last Admin: 05/17/23 09:00 Dose: 125 mls/hr Propofol 1,000 mg/ IV Solution 100 mls @ 9.621 mls/hr IV .[id number] [facility]; Protocol Last Titration: 05/17/23 09:41 Dose: 0 mcg/kg/min, 0 mls/hr Piperacillin Sod/Tazobactam (Sod 3.375 gm/ Sodium Chloride) 100 mls @ 25 mls/hr IVPB Q8H [facility]; Protocol Last Admin: 05/17/23 11:27 Dose: 25 mls/hr Insulin Aspart (Insulin Aspart (Novolog) 100 Unit/Ml Vial) 0 unit SQ Q6H [facility]; Protocol Last Admin: 05/17/23 11:42 Dose: 2 unit Insulin Detemir (Insulin Detemir (Levemir) 100 Unit/Ml Syr) 15 unit SQ HS [facility] Last Admin: 05/16/23 21:03 Dose: 15 unit Metoprolol Tartrate (Metoprolol Tartrate 12.5 Mg Tab) 12.5 mg PO BID [facility] Last Admin: 05/17/23 08:17 Dose: 12.5 mg Miscellaneous Information (Magnesium Replacement Protocol 1 Each Misc) 1 each MISCELLANE DAILY PRN; Protocol PRN Reason: Per Protocol Naloxone HCl (Naloxone 0.4 Mg/Ml 1 Ml Vial) 0.2 mg IV Q2M PRN PRN Reason: Opioid Reversal Nystatin (Nystatin 100,000 Unit/Gm Powd 15 Gm) 1 applic TOPICAL TID [facility]; Protocol Last Admin: 05/17/23 08:17 Dose: 1 applic Ondansetron HCl (Ondansetron 4 Mg/2 Ml Vial) 4 mg IVP Q6HR PRN PRN Reason: Nausea And Vomiting Last Admin: 05/16/23 09:52 Dose: 4 mg Pantoprazole Sodium (Pantoprazole 40 Mg/10 Ml Vial) 40 mg IV DAILY [facility] Last Admin: 05/17/23 08:19 Dose: 40 mg PHYSICAL EXAMINATION: GENERAL: The patient is currently intubated although awake and following commands being weaned for possible extubation today, obese. Well developed, well nourished. HEENT: Pupils are round and equally reacting to light. EOMI. No scleral icterus. No conjunctival pallor. Normocephalic, atraumatic. No pharyngeal erythema. No thyromegaly. CARDIOVASCULAR: S1 and S2 present. No murmurs, rubs, or gallops. PULMONARY: Chest is clear to auscultation, no wheezing or crackles. ABDOMEN: Soft, abdominal tenderness on palpation, obese,, nondistended, no bowel sounds. Ileostomy noted with no output. MUSCULOSKELETAL: No joint swelling or deformity. EXTREMITIES: No cyanosis, clubbing, or pedal edema. NEUROLOGICAL: Unable to completely assess. Generalized weakness SKIN: No rashes. 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 Hyperlipidemia [id number] diabetes mellitus with hyperglycemia Parkinson's disease GI Prophylaxis DVT prophylaxis SubCu heparin Do Not Resuscitate/Do Not Intubate Plan: Patient currently remains in the ICU on mechanical ventilation with an FiO2 of 30% PEEP is 5, off sedation currently and working on weaning and extubation today Patient is status post exploratory laparotomy with extended right hemicolectomy and end ileostomy secondary to an ischemic right colon and transverse colon as CT abdomen yesterday showed diverticulitis without perf and general surgery following Continue with frequent neuro checks and close monitoring Patient has been accepted at [facility] inpatient rehab and awaiting clearance from consultations Recommend follow-up chest x-ray as patient is reporting some sputum and cough Continue accuchecks ACHS Recommending stopping valsartan at this time due to low normal BP and decrease metoprolol. CT services recommending outpatient follow up at this time felt to not be a surg ical candidate Patient remains no code and will discuss further about discharge planning and will have physical therapy evaluate the patient once more stable Prognosis is guarded The impression and plan of care has been dictated by Jazmin Kulkarni, Nurse Practitioner as directed. Dr. Juan MD I have performed a history and examination and MDM of this patient, discussed the same with the dictator, and agree with the dictator's assessment and plan as written ,documented as a scribe. Based on total visit time, I have performed more than 50% of the visit. Objective - Vital Signs Vital signs: Vital Signs Temp 98.8 F 05/17/23 08:00 Pulse 98 05/17/23 08:10 Resp 20 05/17/23 08:00 BP 141/63 05/17/23 08:00 Pulse Ox 99 05/17/23 08:00 FiO2 30 05/17/23 08:00 Intake & Output 05/16/23 05/17/23 05/17/23 18:59 06:59 18:59 Intake Total 2403.124 2753.758 256 Output Total 685 309 81 Balance 0793.973 3871.758 175 Weight 80 kg Intake: IV 2395 2484 256 CVP 9 6 Invasive Line 3 10 Invasive Line 4 10 Lactated Ringers 1,000 ml 125 1375 250 @ 125 mls/hr IV .Q8H [facility] Rx#:[id number] Piperacillin-Tazobactam 3 100 .375 gm In Sodium Chloride 0.9% 100 ml @ 25 mls/hr IVPB Q8H [facility] Rx#: [id number] Sodium Chloride 0.9% 1, 1000 000 ml @ 999 mls/hr IV . Q1H1M [facility] Rx#:[id number] Intake, IV Titration 8.124 269.758 Amount propofoL 1,000 mg In 8.124 269.758 Empty Bag 1 bag @ 15 MCG/ KG/MIN 9.621 mls/hr IV . [id number] [facility] Rx#:[id number] Output: Urine 565 309 81 Post Void Residual 70 Estimated Blood Loss 50 Other: Voiding Method Indwelling Catheter Indwelling Catheter # Bowel Movements 1 - Labs CBC & Chem 7: 05/17/23 03:30 05/17/23 03:30 Labs: Abnormal Lab Results - Last 24 Hours (Table) 05/16/23 05/16/23 05/16/23 Range/Units 09:31 10:09 10:09 WBC 36.5 H (3.8-10.6) k/uL RBC (3.80-5.40) m/uL Hct (34.0-46.0) % Neutrophils # 34.6 H (1.3-7.7) k/uL Lymphocytes # 0.5 L (1.0-4.8) k/uL ABG pCO2 (35-45) mmHg ABG pO2 (83-108) mmHg ABG O2 Saturation (94-97) % Sodium 134 L (137-145) mmol/L Potassium 5.3 H (3.5-5.1) mmol/L Carbon Dioxide 19 L (22-30) mmol/L BUN 34 H (7-17) mg/dL Glucose 281 H (74-99) mg/dL POC Glucose (mg/dL) 276 H (70-110) mg/dL Total Protein (6.3-8.2) g/dL Albumin (3.5-5.0) g/dL 05/16/23 05/16/23 05/16/23 Range/Units 10:55 11:44 14:00 WBC (3.8-10.6) k/uL RBC (3.80-5.40) m/uL Hct (34.0-46.0) % Neutrophils # (1.3-7.7) k/uL Lymphocytes # (1.0-4.8) k/uL ABG pCO2 (35-45) mmHg ABG pO2 (83-108) mmHg ABG O2 Saturation (94-97) % Sodium 133 L (137-145) mmol/L Potassium (3.5-5.1) mmol/L Carbon Dioxide 20 L (22-30) mmol/L BUN 32 H (7-17) mg/dL Glucose 284 H (74-99) mg/dL POC Glucose (mg/dL) 306 H 291 H (70-110) mg/dL Total Protein 6.1 L (6.3-8.2) g/dL Albumin 3.4 L (3.5-5.0) g/dL 05/16/23 05/16/23 05/16/23 Range/Units 17:20 17:43 20:49 WBC (3.8-10.6) k/uL RBC (3.80-5.40) m/uL Hct (34.0-46.0) % Neutrophils # (1.3-7.7) k/uL Lymphocytes # (1.0-4.8) k/uL ABG pCO2 34 L (35-45) mmHg ABG pO2 268 H (83-108) mmHg ABG O2 Saturation 99.6 H (94-97) % Sodium (137-145) mmol/L Potassium (3.5-5.1) mmol/L Carbon Dioxide (22-30) mmol/L BUN (7-17) mg/dL Glucose (74-99) mg/dL POC Glucose (mg/dL) 316 H 244 H (70-110) mg/dL Total Protein (6.3-8.2) g/dL Albumin (3.5-5.0) g/dL 05/16/23 05/17/23 05/17/23 Range/Units 23:55 03:30 03:30 WBC 22.0 H (3.8-10.6) k/uL RBC 3.65 L (3.80-5.40) m/uL Hct 33.9 L (34.0-46.0) % Neutrophils # 20.0 H (1.3-7.7) k/uL Lymphocytes # 0.9 L (1.0-4.8) k/uL ABG pCO2 (35-45) mmHg ABG pO2 (83-108) mmHg ABG O2 Saturation (94-97) % Sodium 133 L (137-145) mmol/L Potassium (3.5-5.1) mmol/L Carbon Dioxide (22-30) mmol/L BUN 33 H (7-17) mg/dL Glucose 212 H (74-99) mg/dL POC Glucose (mg/dL) 243 H (70-110) mg/dL Total Protein (6.3-8.2) g/dL Albumin (3.5-5.0) g/dL 05/17/23 05/17/23 Range/Units 05:13 06:15 WBC (3.8-10.6) k/uL RBC (3.80-5.40) m/uL Hct (34.0-46.0) % Neutrophils # (1.3-7.7) k/uL Lymphocytes # (1.0-4.8) k/uL ABG pCO2 (35-45) mmHg ABG pO2 142 H (83-108) mmHg ABG O2 Saturation 99.0 H (94-97) % Sodium (137-145) mmol/L Potassium (3.5-5.1) mmol/L Carbon Dioxide (22-30) mmol/L BUN (7-17) mg/dL Glucose (74-99) mg/dL POC Glucose (mg/dL) 221 H (70-110) mg/dL Total Protein (6.3-8.2) g/dL Albumin (3.5-5.0) g/dL
--- NOTE | 2023-05-17 13:51 | P.PN ---
Subjective Progress Note Date: 05/17/23 I am following up seeing the patient. She was seen last by Dr. Pederson on 05/15/23. Please review his notes for further details. It seems that the patient can had ischemic bowel over the right colon and peterson sverse colon. Yesterday patient had expiratory laparotomy with extended right hemicolectomy. Patient is intubated on a ventilator. According to the nurse she's moving the right side the without any issues and was able to squeeze out of her left hand. And was she was able to wiggle her left toes Objective - Vital Signs Vital signs: Vital Signs Temp 99.1 F 05/17/23 12:00 Pulse 93 05/17/23 13:00 Resp 18 05/17/23 13:00 BP 141/67 05/17/23 13:00 Pulse Ox 97 05/17/23 13:00 FiO2 30 05/17/23 12:00 Intake & Output 05/16/23 05/17/23 05/17/23 18:59 06:59 18:59 Intake Total 2403.124 2753.758 1074.892 Output Total 685 309 246 Balance 5911.798 6440.758 828.892 Weight 80 kg Intake: IV 2395 2484 896 CVP 9 21 Invasive Line 3 10 Invasive Line 4 10 Lactated Ringers 1,000 ml 125 1375 875 @ 125 mls/hr IV .Q8H [facility] Rx#:[id number] Piperacillin-Tazobactam 3 100 .375 gm In Sodium Chloride 0.9% 100 ml @ 25 mls/hr IVPB Q8H [facility] Rx#: [id number] Sodium Chloride 0.9% 1, 1000 000 ml @ 999 mls/hr IV . Q1H1M [facility] Rx#:[id number] Intake, IV Titration 8.124 269.758 178.892 Amount Piperacillin-Tazobactam 3 100 .375 gm In Sodium Chloride 0.9% 100 ml @ 25 mls/hr IVPB Q8H [facility] Rx#: [id number] propofoL 1,000 mg In 8.124 269.758 78.892 Empty Bag 1 bag @ 15 MCG/ KG/MIN 9.621 mls/hr IV . [id number] [facility] Rx#:[id number] Output: Urine 565 309 246 Post Void Residual 70 Estimated Blood Loss 50 Other: Voiding Method Indwelling Catheter Indwelling Catheter Indwelling Catheter # Bowel Movements 1 - Exam Lung: Intubated on a ventilator. Neuro: Limited because of her condition. Patient is a very drowsy but applicable to voice. She is able to follow simple commands. Moving the right side above gravity. On the left upper extremity she is able to squeeze out of her hand. Otherwise left lower extremity no movement noted. - Labs CBC & Chem 7: 05/17/23 03:30 05/17/23 03:30 Labs: Abnormal Lab Results - Last 24 Hours (Table) 05/16/23 05/16/23 05/16/23 Range/Units 14:00 17:20 17:43 WBC (3.8-10.6) k/uL RBC (3.80-5.40) m/uL Hct (34.0-46.0) % Neutrophils # (1.3-7.7) k/uL Lymphocytes # (1.0-4.8) k/uL ABG pCO2 34 L (35-45) mmHg ABG pO2 268 H (83-108) mmHg ABG O2 Saturation 99.6 H (94-97) % Sodium (137-145) mmol/L BUN (7-17) mg/dL Glucose (74-99) mg/dL POC Glucose (mg/dL) 291 H 316 H (70-110) mg/dL Triglycerides (0.00-149.00) mg/dL HDL Cholesterol (40.00-60.00) mg/dL 05/16/23 05/16/23 05/17/23 Range/Units 20:49 23:55 03:09 WBC (3.8-10.6) k/uL RBC (3.80-5.40) m/uL Hct (34.0-46.0) % Neutrophils # (1.3-7.7) k/uL Lymphocytes # (1.0-4.8) k/uL ABG pCO2 (35-45) mmHg ABG pO2 (83-108) mmHg ABG O2 Saturation (94-97) % Sodium (137-145) mmol/L BUN (7-17) mg/dL Glucose (74-99) mg/dL POC Glucose (mg/dL) 244 H 243 H (70-110) mg/dL Triglycerides 177.00 H (0.00-149.00) mg/dL HDL Cholesterol 28.10 L (40.00-60.00) mg/dL 05/17/23 05/17/23 05/17/23 Range/Units 03:30 03:30 05:13 WBC 22.0 H (3.8-10.6) k/uL RBC 3.65 L (3.80-5.40) m/uL Hct 33.9 L (34.0-46.0) % Neutrophils # 20.0 H (1.3-7.7) k/uL Lymphocytes # 0.9 L (1.0-4.8) k/uL ABG pCO2 (35-45) mmHg ABG pO2 142 H (83-108) mmHg ABG O2 Saturation 99.0 H (94-97) % Sodium 133 L (137-145) mmol/L BUN 33 H (7-17) mg/dL Glucose 212 H (74-99) mg/dL POC Glucose (mg/dL) (70-110) mg/dL Triglycerides (0.00-149.00) mg/dL HDL Cholesterol (40.00-60.00) mg/dL 05/17/23 05/17/23 Range/Units 06:15 11:38 WBC (3.8-10.6) k/uL RBC (3.80-5.40) m/uL Hct (34.0-46.0) % Neutrophils # (1.3-7.7) k/uL Lymphocytes # (1.0-4.8) k/uL ABG pCO2 (35-45) mmHg ABG pO2 (83-108) mmHg ABG O2 Saturation (94-97) % Sodium (137-145) mmol/L BUN (7-17) mg/dL Glucose (74-99) mg/dL POC Glucose (mg/dL) 221 H 184 H (70-110) mg/dL Triglycerides (0.00-149.00) mg/dL HDL Cholesterol (40.00-60.00) mg/dL Assessment and Plan Assessment: Recurrent ischemic strokes 04/30/2023 with acute stroke with left hemiparesis, status post TPA with complete resolution of symptoms. 05/01/2023 with repeated left hemiparesis, that also resolved. 05/04/2023 with acute stroke with left hemiplegia, that has persisted. 05/13/2023 with another TIA, manifesting with visual disturbance on the right and right foot tingling, that seems to be resolving now. MRI brain revealed dense moderate size acute stroke in the right basal ganglia/internal capsule, also involving smaller area in the right external capsule and left basal ganglia Strokes likely related to cardioembolism. JAVIER showed linear echodensity structural attached to the ventricular surface of the aortic valve leaflet attached to the ventricular surface of the right coronary cusp that is mobile and echodense. 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 Ischemic right colon ant transverse colon s/p exploratory laparotomy with extended right hemicolectomy on 05/16/2023. Hypertension Parkinson's disease Diabetes mellitus History of DVT Plan: Repeat CT head performed 05/13/2023 does not reveal any new change. No hemorrhage. Appears patient has another TIA. Increase aspirin from 81 mg to 162 mg daily. Continue Eliquis 5 mg twice a day. Repeat MRI brain without contrast 05/11/2023 revealed evolution of ischemic insults with enlarging area of increased signal within the right white radiata. Small new area within the right thalamus, slightly enlarged area within the right external capsule region. Stable focus in the region of the left external capsule and the left White radiata. I personally reviewed MRI agree with the findings. Transesophageal echocardiogram 05/10/2023 revealed a linear echodensity structure attached to the ventricular surface of the aortic valve leaflet attached to the ventricular surface of the right coronary cusp that is mobile and echodense. 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 CT surgery recommending medical management. Cardiothoracic surgery was consulted again, still do not recommend surgical treatment. Per Dr. Pederson's noted, discussed with family members, they do not want transfer to higher level of care. Family is considering hospice care. Patient started on Eliquis 5 mg twice a day, continue aspirin 81 mg daily and was held for her recent abdominal surgery. Recommend to resume when felt safe by General surgery and primary team. JOSE -ve, homocystine negative, factor V Leiden -ve, RF <15. Has postivie Von Willebran antigen (254. normal is 52-214). antithrombin III 110 (normal is 79- 109) but does not seems significant elevated, prothrombin 67407: negative, ESR and CRP is normal. lupus anticoagulant -ve, protein C and S are negative. Lyme titer negative, RPR negative, dsDNA pending. Dr. De Dios has consulted Hematology team since has positive VW antigen to assess further management. Continue neuro checcks. cardiac monitoring. So far no a-fib or flutter per nurse. Recommend an event monitor or loop recorder if unknown source of stroke. Avoid hypotension. PT, OT and [employer] are consulted. Inpatient rehab is consulted and feels patient would benefit. Goal is Normotensive Cardiology is on board. Patient has discoloration of the left lower foot (purplish) and improving today: DVT is negative. Vascular surgery team stated normal pulses and no intervention. Will defer the rest of medical management to primary team. The plan is discussed with her nurse. Time with Patient: Less than 30
[2023-05-17 18:11] LABS: Glucose,Whole Blood 153 mg/dL (70-110)
[2023-05-17] MEDS: INSULIN DETEMIR (LEVEMIR) 100 UNIT/ML SYR SQ SCH (20:47)
[2023-05-18 00:05] LABS: Glucose,Whole Blood 113 mg/dL (70-110)
[2023-05-18] MEDS: HEPARIN SODIUM,PORCINE/PF 5,000 UNIT/0.5 ML SYRINGE SQ SCH ×3 (00:17→16:36)
[2023-05-18] MEDS: INSULIN ASPART (NovoLOG) 100 UNIT/ML VIAL SQ SCH ×5 (00:17→21:06)
[2023-05-18] MEDS: HYDROmorphone 1 MG/ML 1 ML SYRINGE IVP PRN ×6 (01:41→21:28)
[2023-05-18] MEDS: PIPERACILLIN-TAZOBACTAM 3.375 GM in SODIUM CHLORIDE 0.9% 100 ML IVPB SCH ×3 (03:10→18:59)
[2023-05-18] MEDS: LACTATED RINGERS 1,000 ML IV SCH ×3 (03:11→18:59)
[2023-05-18 04:13] LABS: African American GFR (CKD) >90 (>60 ml/min/1.73 sqM); Anion Gap 5 mmol/L; Blood Urea Nitrogen 17 mg/dL (7-17); Calcium 7.9 mg/dL (8.4-10.2); Carbon Dioxide 27 mmol/L (22-30); Chloride 106 mmol/L (98-107); Glucose 98 mg/dL (74-99); Magnesium 1.7 mg/dL (1.6-2.3); Non-African American GFR(CKD) 90 (>60 ml/min/1.73 sqM); Potassium 3.9 mmol/L (3.5-5.1); Sodium 138 mmol/L (137-145)
[2023-05-18 04:33] LABS: Basophils % (A) 0 %; Eosinophils # (A) 0.1 k/uL (0-0.7); Eosinophils % (A) 1 %; HCT 29.1 % (34.0-46.0); Lymphocytes % (A) 9 %; MCH 31.4 pg (25.0-35.0); MCHC 33.4 g/dL (31.0-37.0); MCV 93.9 fL (80.0-100.0); Mean Platelet Volume 8.8; Monocytes # (A) 0.5 k/uL (0-1.0); Monocytes % (A) 4 %; Neutrophils # (A) 10.2 k/uL (1.3-7.7); Neutrophils % (A) 85 %; Platelet Count 207 k/uL (150-450); RDW 13.5 % (11.5-15.5); WBC 12.1 k/uL (3.8-10.6)
[2023-05-18 04:43] LABS: HGB 9.7 gm/dL (11.4-16.0)
[2023-05-18] MEDS: POTASSIUM CHLORIDE 10 MEQ in WATER FOR INJECTION 1 100ML.BAG IVPB SCH ×2 (05:13→06:44)
[2023-05-18] MEDS: CARBIDOPA-LEVODOPA 25-100 MG 1 EACH TAB PO SCH ×4 (05:14→21:19)
[2023-05-18 05:29] LABS: Glucose,Whole Blood 96 mg/dL (70-110)
[2023-05-18] MEDS: IPRATROPIUM-ALBUTEROL 3 ML NEB INHALATION SCH ×4 (07:59→21:51)
--- NOTE | 2023-05-18 08:12 | XR ---
EXAMINATION TYPE: XR chest 1V portable DATE OF EXAM: 05/18/2023 COMPARISON: 05/17/2023 HISTORY: Shortness of breath TECHNIQUE: Single frontal view of the chest is obtained. FINDINGS: Cardiomegaly, atherosclerotic change aorta. No pleural effusion or pneumothorax. No focal pneumonia. Pulmonary arteries are prominent correlate for pulmonary arterial hypertension. Right-side d central venous catheter stable. ET and NG tube have been removed. IMPRESSION: No acute process.
[2023-05-18] MEDS: PANTOPRAZOLE 40 MG/10 ML VIAL IV SCH (08:49)
[2023-05-18] MEDS: METOPROLOL TARTRATE 12.5 MG TAB PO SCH ×2 (08:52→21:17)
[2023-05-18] MEDS: NYSTATIN 100,000 UNIT/GM POWD 15 GM TOPICAL SCH ×3 (08:52→21:29)
--- NOTE | 2023-05-18 10:54 | P.PN ---
Subjective Progress Note Date: 05/18/23 Principal diagnosis: Status post exploratory laparotomy. I am seeing this patient in follow-up, today 05/17/2023, following development of bowel ischemia and suspected partial perforation status post-operative day #1 for a right hemicolectomy and end ileostomy. Originally, I saw this patient back on 05/05/2023 for recurrent CVA with left-sided hemiparesis. We did sign off the case, on 05/09/2023, once the patient was discharged from the intensive care unit. The patient is currently back in intensive care unit, following development of bowel ischemia yesterday. CT of the abdomen and pelvis at that time, showed possible pneumatosis within the right hemicolon and a small focus of free air, there was also air within the superior mesenteric vein. Correlating for ischemic bowel with partial contained rupture. The patient was taken to the operating room for exploratory laparotomy, and was found to have an ischemic right colon and transverse colon. The patient underwent an extended right hemicolectomy and end ileostomy. Following the procedure, the patient was left intubated to the mechanical ventilator, and transferred to the intensive care unit. The patient is currently lying in bed, sedated, and synchronous with the mechanical ventilator. Initial postoperative chest x-ray shows the endotracheal tube 4.5 cm above the tete, nasogastric tube projecting over the gastric lumen, and a right internal jugular central venous catheter with the distal tip of the cavoatrial junction. No acute cardiopulmonary process was seen. Ventilator settings are assist control, respiratory rate 16, tidal volume of 450, FiO2 50%, PEEP of 5. Initial ABGs show a pO2 of 268 on a FiO2 60%, pCO2 34, pH of 7.43. Patient is sedated on propofol currently infusing at 40 mcg/kg /m. Lactated Ringer's is also infusing at 125 mL per hour. BP is normotensive, not requiring any vasopressors. Urine output is in the order of 30-50 mL per hour. Preoperative labs include a CBC with a WBC count of 36.5, hemoglobin 14.2, hematocrit 40.9, platelets 301. BMP shows sodium 133, potassium 4.4, chloride 100, serum bicarbonate 20, BUN 32, creatinine 0.79, blood glucose 284. Lactic acid level was 1.1. Following the procedure, the patient was given a one-time dose of Flagyl. Midline abdominal incision is clean, dry, approximated. Right lower quadrant ileostomy is beefy red, with small amount of brown to sanguineous output. Currently afebrile. Patient will be monitored in the i ntensive care unit. Progress note dated 05/18/2023. We started seeing this patient again yesterday, after she had gone for surgery. She had an exploratory laparotomy, right hemicolectomy, and end ileostomy. The patient was successfully extubated on May 17. Today's postop day #2. Currently, she is on room air. She's getting lactated Ringer's at 125 mL an hour. She is awake and alert. White count 12.1, hemoglobin 9.7, hematocrit 29.1, and platelet count 207,000. Sodium 138, potassium 3.9, chlorides 106, CO2 27, BUN 17, and creatinine 0.66. Chest x-ray shows no acute process. Objective - Vital Signs Vital signs: Vital Signs Temp 98.7 F 05/18/23 08:00 Pulse 81 05/18/23 10:00 Resp 18 05/18/23 10:00 BP 142/58 05/18/23 10:00 Pulse Ox 94 L 05/18/23 10:00 FiO2 30 05/17/23 12:00 Intake & Output 05/17/23 05/18/23 05/18/23 18:59 06:59 18:59 Intake Total 7691.025 0540 384 Output Total 726 917 255 Balance 988.892 619 129 Intake: IV 1536 1536 384 CVP 36 36 9 Lactated Ringers 1,000 ml 1500 1500 375 @ 125 mls/hr IV .Q8H [facility] Rx#:[id number] Intake, IV Titration 178.892 Amount Piperacillin-Tazobactam 3 100 .375 gm In Sodium Chloride 0.9% 100 ml @ 25 mls/hr IVPB Q8H [facility] Rx#: [id number] propofoL 1,000 mg In 78.892 Empty Bag 1 bag @ 15 MCG/ KG/MIN 9.621 mls/hr IV . [id number] [facility] Rx#:[id number] Output: Urine 626 917 255 Stool 100 Other: Voiding Method Indwelling Catheter Indwelling Catheter Indwelling Catheter - Exam No acute distress, oriented 3. Currently on room air. HEENT examination is grossly unremarkable. Mucous membranes are moist. No oral lesions. Neck supple. Full range of motion. No adenopathy thyromegaly or neck vein distention. Cardiovascular examination reveals regular rhythm rate. S1-S2 normal. No S3 or S4. A soft systolic murmur is noted. Lungs reveal scattered mild rhonchi. No wheezes or crackles. Breath sounds equal. Abdomen soft, bowel sounds. A right lower quadrant ileostomy is noted. Extremities are intact. No cyanosis clubbing or edema. Skin is without rash or lesion. Neurologic examination is brief but nonfocal. - Labs CBC & Chem 7: 05/18/23 03:15 05/18/23 03:15 Labs: Abnormal Lab Results - Last 24 Hours (Table) 05/17/23 05/17/23 05/18/23 Range/Units 11:38 18:10 00:03 WBC (3.8-10.6) k/uL RBC (3.80-5.40) m/uL Hgb (11.4-16.0) gm/dL Hct (34.0-46.0) % Neutrophils # (1.3-7.7) k/uL POC Glucose (mg/dL) 184 H 153 H 113 H (70-110) mg/dL Calcium (8.4-10.2) mg/dL 05/18/23 05/18/23 Range/Units 03:15 03:15 WBC 12.1 H (3.8-10.6) k/uL RBC 3.10 L (3.80-5.40) m/uL Hgb 9.7 L D (11.4-16.0) gm/dL Hct 29.1 L (34.0-46.0) % Neutrophils # 10.2 H (1.3-7.7) k/uL POC Glucose (mg/dL) (70-110) mg/dL Calcium 7.9 L (8.4-10.2) mg/dL Assessment and Plan Assessment: Ischemic bowel status post-operative day #2 for a right hemicolectomy and end ileostomy. CT of the abdomen and pelvis on April 16, showed possible pneumatosis within the right hemicolon and a small focus of free air, there was also air within the superior mesenteric vein. Correlating for ischemic bowel with partial contained rupture. The patient was taken to the operating room for exploratory laparotomy, and was found to have an ischemic right colon and transverse colon. The patient underwent an extended right hemicolectomy and end ileostomy. Acute hypoxemic respiratory failure secondary to above, with routine postoperative ventilator management, status post successful extubation on 05/17/2023. Recurrent CVA, with residual left-sided hemiparesis and left-sided facial droop. Most recent brain MRI done on 05/11/2023 showed evolution of ischemic insults with enlarging area of increased signal within the right white radiata. Small new area within the right thalamus, slightly enlarged area within the right external capsule region. Stable focus in the region of the left external capsule and left white radiata. Severe aortic stenosis found on transesophageal echocardiogram, not felt to be a good surgical candidate by cardiothoracic surgery for open aortic valve replacement. Elevated von Willebrand antigen. Obesity, BMI of 36. Type 2 diabetes mellitus, [id number]. Hyperlipidemia. History of deep vein thrombosis. Parkinson's disease. Hypothyroidism. Ex-smoker. Plan: Plan dated 05/18/2023. The patient remains in the intensive care unit. She is postop day #2, status post exploratory laparotomy, right hemicolectomy, and end ileostomy. She is currently on room air. Currently, she is on lactated Ringer's at 125 mL an hour. Labs, x-rays, and medications are all reviewed. Prognosis is guarded. We will continue to follow and make recommendations along the way. Time with Patient: Greater than 30
--- NOTE | 2023-05-18 11:30 | P.PN ---
Subjective Progress Note Date: 05/18/23 CHIEF COMPLAINT: Ischemic bowel HISTORY OF PRESENT ILLNESS: Patient is postop day #2 status post Exploratory laparotomy with extended right hemicolectomy and end ileostomy. She remains in the ICU. She's sitting up in bed. She is scheduled for speech and swallow eval today. She did have some difficulty with applesauce and pills as morning causing her to cough. Patient does report pain at incision site. But does report pain is controlled. Her ostomy is functioning. Denies any nausea or vomiting. Afebrile. WBC is 22 down to 12.1. Hemoglobin 9.7 platelets 207 Na 138 potassium 3.9 creatinine 0.66 magnesium 1.7. Patient extubated yesterday. PHYSICAL EXAM: VITAL SIGNS: Reviewed. GENERAL: Well-developed in no acute distress. HEENT: No sclera icterus. Extraocular movements grossly intact. Moist buccal mucosa. Head is atraumatic, normocephalic. ABDOMEN: Soft. Nondistended. Tender at incision site. Incisional dressing with 4 spots of blood saturation noted. Ileostomy with dark liquidy brown stool. Stoma pink NEUROLOGIC: Alert and oriented. Cranial nerves II through XII grossly intact. ASSESSMENT: 1. Ischemic right colon and transverse colon status post Exploratory laparotomy with extended right hemicolectomy and end ileostomy PLAN: -Speech therapy consulted for swallow eval -Continue IV fluids -Continue ICU management -Continue supportive care -DVT prophylaxis subcu heparin injection for Protonix Physician Winery Cellar Hand note has been reviewed by physician. Signing provider agrees with the documented findings, assessment, and plan of care. I have personally seen and examined the patient, reviewed the [employer] /PAs history, exam and MDM and agree with the assessment and plan as written. Based on total visit time, I have performed more than 50% of the visit. As above: Patient feels better. Says her pain that was present preoperatively is improved. Ostomy is functioning. Labs improved. Patient had some oozing from the incision. Hold anticoagulation today. We'll reassess for possible anticoagulation tomorrow. Speech evaluation noted. Gradually advance diet as tolerated. Objective - Vital Signs Vital signs: Vital Signs Temp 98.7 F 05/18/23 08:00 Pulse 81 05/18/23 10:00 Resp 18 05/18/23 10:00 BP 142/58 05/18/23 10:00 Pulse Ox 94 L 05/18/23 10:00 FiO2 30 05/17/23 12:00 Intake & Output 05/17/23 05/18/23 05/18/23 18:59 06:59 18:59 Intake Total 9094.774 6776 384 Output Total 726 917 255 Balance 988.892 619 129 Intake: IV 1536 1536 384 CVP 36 36 9 Lactated Ringers 1,000 ml 1500 1500 375 @ 125 mls/hr IV .Q8H [facility] Rx#:[id number] Intake, IV Titration 178.892 Amount Piperacillin-Tazobactam 3 100 .375 gm In Sodium Chloride 0.9% 100 ml @ 25 mls/hr IVPB Q8H [facility] Rx#: [id number] propofoL 1,000 mg In 78.892 Empty Bag 1 bag @ 15 MCG/ KG/MIN 9.621 mls/hr IV . [id number] [facility] Rx#:[id number] Output: Urine 626 917 255 Stool 100 Other: Voiding Method Indwelling Catheter Indwelling Catheter Indwelling Catheter - Labs CBC & Chem 7: 05/18/23 03:15 05/18/23 03:15 Labs: Abnormal Lab Results - Last 24 Hours (Table) 05/17/23 05/17/23 05/18/23 Range/Units 11:38 18:10 00:03 WBC (3.8-10.6) k/uL RBC (3.80-5.40) m/uL Hgb (11.4-16.0) gm/dL Hct (34.0-46.0) % Neutrophils # (1.3-7.7) k/uL POC Glucose (mg/dL) 184 H 153 H 113 H (70-110) mg/dL Calcium (8.4-10.2) mg/dL 05/18/23 05/18/23 Range/Units 03:15 03:15 WBC 12.1 H (3.8-10.6) k/uL RBC 3.10 L (3.80-5.40) m/uL Hgb 9.7 L D (11.4-16.0) gm/dL Hct 29.1 L (34.0-46.0) % Neutrophils # 10.2 H (1.3-7.7) k/uL POC Glucose (mg/dL) (70-110) mg/dL Calcium 7.9 L (8.4-10.2) mg/dL
[2023-05-18 11:41] LABS: Glucose,Whole Blood 87 mg/dL (70-110)
--- NOTE | 2023-05-18 13:21 | P.PN ---
Subjective Progress Note Date: 05/18/23 Principal diagnosis: CVA Mrs. Marnie Diaz is a 68 year old, left handed, marital status, who lives in a 2 story home, with 4 STFD. Prior to admission, she was ambulating without an assistive device. She was independent for basic/advanced ADLs. Current driving: yes. Retired: yes. Support system: cousin Per social work noted patient resides part of the year in [place] and part of the year in [place]. Patient does not have a PCP in [place]. Mrs. Diaz presented to [facility] with stroke like symptoms over the left side (presented with weakness). She was recently hospitalized at [facility], given TPA on 04-30 , was discharged 05-03, then returned with recurring symptoms. Patient stated that at midnight she was woken up by her dog and she had left-sided weakness and left facial droop. She continues to have the left-sided weakness and facial droop which has not resolved. Echocardiogram completed showing aortic valve stenosis. Cardiothoracis surgery consulted and advised possible TAVR for management of aortic valve stenosis after IPR. Patient had venous doppler of lower extremities which was negative for DVT. MRI revealed bilateral parietal lobe stroke and left basal ganglia stroke. Patient had a JAVIER completed 05-09, results pending. She had blood work completed, patient positive for the VonWillerbran antigen and hematology was consulted. Therapy progress: total assist for bed transfers, toileting, max assist with bathing and dressing. 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 Patient was cleared to discharge to [facility] but then developed worsening neurologic symptoms holding discharge to [facility], MRI brain on 05/11/23 showed evolution of ischemic insults with enlarging area of increased signal within the right white radiata, small new area in right thalamus and enlarged area in right external capsule region. She then subsequently had complaints of constipation and abdominal pain, she ended up with Ischemic right colon and transverse colon status post Exploratory laparotomy with extended right hemicolectomy and end ileostomy on May 16. Patient is pending therapy re-evaluations Objective - Vital Signs Vital signs: Vital Signs Temp 98 F 05/18/23 12:00 Pulse 89 05/18/23 12:00 Resp 16 05/18/23 12:00 BP 104/93 05/18/23 12:00 Pulse Ox 98 05/18/23 12:00 FiO2 30 05/17/23 12:00 Intake & Output 05/17/23 05/18/23 05/18/23 18:59 06:59 18:59 Intake Total 9286.737 1579 888 Output Total 726 917 395 Balance 988.892 619 493 Intake: IV 1536 1536 768 CVP 36 36 18 Lactated Ringers 1,000 ml 1500 1500 750 @ 125 mls/hr IV .Q8H [facility] Rx#:[id number] Intake, IV Titration 178.892 100 Amount Piperacillin-Tazobactam 3 100 100 .375 gm In Sodium Chloride 0.9% 100 ml @ 25 mls/hr IVPB Q8H [facility] Rx#: [id number] propofoL 1,000 mg In 78.892 Empty Bag 1 bag @ 15 MCG/ KG/MIN 9.621 mls/hr IV . [id number] [facility] Rx#:[id number] Oral 20 Output: Urine 626 917 395 Stool 100 Other: Voiding Method Indwelling Catheter Indwelling Catheter Indwelling Catheter - Exam General: Obese WF in no acute distress HEENT: NC/AT, external ears intact, hearing intact to conversational speech, neck supple Cardiovascular: B/L calves are supple, nontender, no cords, without peripheral edema, no cardiac distress; regular rate and rhythm Respiratory: Even and unlabored breathing on RA/O2; lungs are clear to auscultation Abdomen: Soft, nontender, nondistended; bowel sounds active Genitourinary: NT Musculoskeletal: ROM WFL EXCEPT: MMT RUE 5/5 LUE. flacid. no movement. minimal shoudler shrug LLE Minimal motor movement. Brunstrom II-III/VII RLE: 5/5 Skin: Skin intact where visible to head, neck, and bilateral upper and lower extremities Neurological: Alert and oriented x 4. CN II-XII: LEFT CENTRAL VII deficit Speech is mild dysarthria due to the 7th n palsy, fluent Reflexes: 3/3 LUE. 2/4 RUE, 2/4 LEs. Toes sign flexor on right and extensor on the left. Coordination: okay RUE/RLE Sensation: intact to light touch Psychiatric: Mood calm, affect appropriate, cooperative - Labs CBC & Chem 7: 05/18/23 03:15 05/18/23 03:15 Labs: Abnormal Lab Results - Last 24 Hours (Table) 05/17/23 05/18/23 05/18/23 Range/Units 18:10 00:03 03:15 WBC 12.1 H (3.8-10.6) k/uL RBC 3.10 L (3.80-5.40) m/uL Hgb 9.7 L D (11.4-16.0) gm/dL Hct 29.1 L (34.0-46.0) % Neutrophils # 10.2 H (1.3-7.7) k/uL POC Glucose (mg/dL) 153 H 113 H (70-110) mg/dL Calcium (8.4-10.2) mg/dL 05/18/23 Range/Units 03:15 WBC (3.8-10.6) k/uL RBC (3.80-5.40) m/uL Hgb (11.4-16.0) gm/dL Hct (34.0-46.0) % Neutrophils # (1.3-7.7) k/uL POC Glucose (mg/dL) (70-110) mg/dL Calcium 7.9 L (8.4-10.2) mg/dL Assessment and Plan Assessment: # Left hemiparesis secondary to pure motor lacunar stroke # Bilateral parietal lobe and left basal ganglia CVA with evolution -ASA daily, Brilinta BID, statin - per neurology -s/p JAVIER -Patient developed worsening neurologic symptoms holding discharge to [facility], MRI brain on 05/11/23 showed evolution of ischemic insults with enlarging area of increased signal within the right white radiata, small new area in right thalamus and enlarged area in right external capsule region. #Ischemic right colon and transverse colon status post Exploratory laparotomy with extended right hemicolectomy and end ileostomy -zosyn # Subacute TIA # Dysarthria # Parkinson's Diease -on sinemet for management # history of polio with reported bilateral hip flexor weakness # Bowel/ Bladder: Nursing to monitor and report concerns if any. -05/09 patient reports no BM since admission, suggest bowel program per protocol. -05/18/23 patient now has end ileostomy # Diet-Dysphagia 3 thin liquids # Skin/wound: Skin/Wound care to follow as needed # Pain Management: Limit opioids -currently on Dilaudid # DVT Prophylaxis: SQ Heparin # Comorbidities: Obesity, [place] palsy, Diabetes, HLD, polio, h/o DVT # Your medical dx and mgt Goals: Modified Independent mobility and ADLS both basic and advanced; increased functional mobility/strength; increased balance, safety, endurance. Improvement in medical issues through your care. Dispo: Recommending IPR for continued rehab once medically cleared and insurance verified patient plans on moving, possibly to [place], where she has a cousin who can offer her assistance. Patient seen and examined by Dr. Loco, note prepped by Graciela Ramirez PA-C
--- NOTE | 2023-05-18 15:13 | P.PN ---
Subjective Progress Note Date: 05/18/23 The patient seen at bedside is accompanied with her sister. Patient was extubated. She feels about the same. 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 Objective - Vital Signs Vital signs: Vital Signs Temp 99.2 F 05/18/23 12:00 Pulse 82 05/18/23 15:04 Resp 16 05/18/23 14:00 BP 115/56 05/18/23 14:00 Pulse Ox 97 05/18/23 14:00 FiO2 30 05/17/23 12:00 Intake & Output 05/17/23 05/18/23 05/18/23 18:59 06:59 18:59 Intake Total 7293.081 5963 1016 Output Total 726 917 575 Balance 988.892 619 441 Intake: IV 1536 1536 896 CVP 36 36 21 Lactated Ringers 1,000 ml 1500 1500 875 @ 125 mls/hr IV .Q8H [facility] Rx#:[id number] Intake, IV Titration 178.892 100 Amount Piperacillin-Tazobactam 3 100 100 .375 gm In Sodium Chloride 0.9% 100 ml @ 25 mls/hr IVPB Q8H [facility] Rx#: [id number] propofoL 1,000 mg In 78.892 Empty Bag 1 bag @ 15 MCG/ KG/MIN 9.621 mls/hr IV . [id number] [facility] Rx#:[id number] Oral 20 Output: Urine 626 917 575 Stool 100 Other: Voiding Method Indwelling Catheter Indwelling Catheter Indwelling Catheter - Exam Gen: Patient is in acute distress Neuro-: Patient is awake alert oriented self place and time. Patient is following simple commands. No aphasia. His tracking throughout the room without any visible nystagmus. Left lower facial droop. No dysarthria. Motor: The strength is hand elementary reading specialist is about a 3-4 minus. She has minimal left hand extension about a 2. Otherwise no movement noticed on the left upper lower extremity. Strength over the right upper and lower is intact. - Labs CBC & Chem 7: 05/18/23 03:15 05/18/23 03:15 Labs: Abnormal Lab Results - Last 24 Hours (Table) 05/17/23 05/18/2323 Range/Units 18:10 00:03 03:15 WBC 12.1 H (3.8-10.6) k/uL RBC 3.10 L (3.80-5.40) m/uL Hgb 9.7 L D (11.4-16.0) gm/dL Hct 29.1 L (34.0-46.0) % Neutrophils # 10.2 H (1.3-7.7) k/uL POC Glucose (mg/dL) 153 H 113 H (70-110) mg/dL Calcium (8.4-10.2) mg/dL 05/18/23 Range/Units 03:15 WBC (3.8-10.6) k/uL RBC (3.80-5.40) m/uL Hgb (11.4-16.0) gm/dL Hct (34.0-46.0) % Neutrophils # (1.3-7.7) k/uL POC Glucose (mg/dL) (70-110) mg/dL Calcium 7.9 L (8.4-10.2) mg/dL Assessment and Plan Assessment: Recurrent ischemic strokes 04/30/2023 with acute stroke with left hemiparesis, status post TPA with complete resolution of symptoms. 05/01/2023 with repeated left hemiparesis, that also resolved. 05/04/2023 with acute stroke with left hemiplegia, that has persisted. 05/13/2023 with another TIA, manifesting with visual disturbance on the right and right foot tingling, that seems to be resolving now. MRI brain revealed dense moderate size acute stroke in the right basal ganglia/internal capsule, also involving smaller area in the right external capsule and left basal ganglia Strokes likely related to cardioembolism. JAVIER showed linear echodensity structural attached to the ventricular surface of the aortic valve leaflet attached to the ventricular surface of the right coronary cusp that is mobile and echodense. 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 Ischemic right colon ant transverse colon s/p exploratory laparotomy with extended right hemicolectomy on 05/16/2023. Hypertension Parkinson's disease Diabetes mellitus History of DVT Plan: Repeat CT head performed 05/13/2023 does not reveal any new change. No hemorrhage. Appears patient has another TIA. Increase aspirin from 81 mg to 162 mg daily. Continue Eliquis 5 mg twice a day. Repeat MRI brain without contrast 05/11/2023 revealed evolution of ischemic insults with enlarging area of increased signal within the right white radiata. Small new area within the right thalamus, slightly enlarged area within the right external capsule region. Stable focus in the region of the left external capsule and the left White radiata. I personally reviewed MRI agree with the findings. Transesophageal echocardiogram 05/10/2023 revealed a linear echodensity structure attached to the ventricular surface of the aortic valve leaflet attached to the ventricular surface of the right coronary cusp that is mobile and echodense. 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 CT surgery recommending medical management. Cardiothoracic surgery was consulted again, still do not recommend surgical treatment. Per Dr. Pederson's noted, discussed with family members, they do not want transfer to higher level of care. Family is considering hospice care. Patient started on Eliquis 5 mg twice a day, continue aspirin 81 mg daily and was held for her recent abdominal surgery. Recommend to resume when felt safe by General surgery and primary team. JOSE -ve, homocystine negative, factor V Leiden -ve, RF <15. Has postivie Von Willebran antigen (254. normal is 52-214). antithrombin III 110 (normal is 79- 109) but does not seems significant elevated, prothrombin 53402: negative, ESR and CRP is normal. lupus anticoagulant -ve, protein C and S are negative. Lyme titer negative, RPR negative, dsDNA pending. Dr. De Dios has consulted Hematology team since has positive VW antigen to assess further management. Continue neuro checcks. cardiac monitoring. So far no a-fib or flutter per nurse. Recommend an event monitor or loop recorder if unknown source of stroke. Avoid hypotension. 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 Inpatient rehab is consulted and feels patient would benefit. Goal is Normotensive Cardiology is on board. Will defer the rest of medical management to primary team. Patient condition is critical. I had a discussion with the she and her sister because of her recurrent stroke, mass in her heart, recent ischemic of colon, hospice was discussed with her. It seems later, patient elected to be be full code. The plan discussed with the patient and her sister who are bedside. Time with Patient: Less than 30
[2023-05-18 16:41] LABS: Glucose,Whole Blood 88 mg/dL (70-110)
[2023-05-18 17:42] LABS: Glucose,Whole Blood 91 mg/dL (70-110)
[2023-05-18 20:57] LABS: Glucose,Whole Blood 67 mg/dL (70-110)
[2023-05-18] MEDS: ACETAMINOPHEN TAB 325 MG TAB PO PRN (21:17)
[2023-05-18 21:22] LABS: Glucose,Whole Blood 85 mg/dL (70-110)
[2023-05-18] MEDS: INSULIN DETEMIR (LEVEMIR) 100 UNIT/ML SYR SQ SCH (21:29)
[2023-05-18 22:45] LABS: Glucose,Whole Blood 96 mg/dL (70-110)
[2023-05-19] MEDS: HEPARIN SODIUM,PORCINE/PF 5,000 UNIT/0.5 ML SYRINGE SQ SCH ×2 (00:45→08:35)
[2023-05-19] MEDS: HYDROmorphone 1 MG/ML 1 ML SYRINGE IVP PRN ×4 (03:24→15:34)
[2023-05-19] MEDS: PIPERACILLIN-TAZOBACTAM 3.375 GM in SODIUM CHLORIDE 0.9% 100 ML IVPB SCH ×3 (03:24→18:49)
[2023-05-19] MEDS: LACTATED RINGERS 1,000 ML IV SCH ×2 (03:25→08:35)
[2023-05-19 05:25] LABS: Basophils % (A) 0 %; Eosinophils # (A) 0.2 k/uL (0-0.7); Eosinophils % (A) 2 %; HCT 27.3 % (34.0-46.0); Lymphocytes # (A) 1.2 k/uL (1.0-4.8); Lymphocytes % (A) 13 %; MCH 31.3 pg (25.0-35.0); MCHC 32.9 g/dL (31.0-37.0); MCV 95.3 fL (80.0-100.0); Mean Platelet Volume 8.5; Monocytes # (A) 0.5 k/uL (0-1.0); Monocytes % (A) 5 %; Neutrophils # (A) 7.2 k/uL (1.3-7.7); Neutrophils % (A) 78 %; Platelet Count 193 k/uL (150-450); RBC 2.87 m/uL (3.80-5.40); RDW 13.4 % (11.5-15.5); WBC 9.3 k/uL (3.8-10.6)
[2023-05-19 05:50] LABS: African American GFR (CKD) >90 (>60 ml/min/1.73 sqM); Anion Gap 4 mmol/L; Blood Urea Nitrogen 11 mg/dL (7-17); Calcium 7.7 mg/dL (8.4-10.2); Carbon Dioxide 27 mmol/L (22-30); Chloride 105 mmol/L (98-107); Glucose 67 mg/dL (74-99); Non-African American GFR(CKD) 90 (>60 ml/min/1.73 sqM); Potassium 3.8 mmol/L (3.5-5.1); Sodium 136 mmol/L (137-145)
--- NOTE | 2023-05-19 06:25 | P.PN ---
Subjective Progress Note Date: 05/18/23 Patient is monitored closely on the stepdown unit. Underwent JAVIER revealing significant calcific tricuspid aortic stenosis. Cardiothoracic evaluated the patient and recommending follow up outpatient for possible surgical valve replacement with exploration vs TAVR. Patient pending discharge to rehab her main complaint is currently no bowel movement. Overnight patient had an episode of dizziness and whooshing sound in the right ear and described as room spinning. Patient is also reporting worsening symptoms of reflux and hiccuping. Discharge is a place on hold is concern for possible brainstem stroke and brain MRI has been ordered. Patient does report headache and has had 2 other episodes of this dizziness/vertigo throughout the day today. Feels she is having some sinus congestion. Continues on combination of aspirin 81 mg daily eliquis 5 mg twice a day. 05/12/2023 Patient is evaluated today sitting up in bed. Underwent brain MRI yesterday reveals evoluation of ischemic insults with enlarging area of increased signal within the right white radiata, small new area within the right thalamus, slightly enlarged area within the right external capsule region. Stable focus in the region of the left external capsule and left white radiata. Neurology following and patient continues on eliquis and aspirin. Patient continues to report headache dull achy top of head and also having hiccups. Does report increased difficulty swallowing today Has been receiving miralax lactulose and dulcolax unable to have BM. Abdominal xray reveals large stool burden and patient will receive an enema today. 05/14/2023 Patient is evaluated today sitting up in bed with family at the bedside met with the patient and POA to discuss discharge planning. Discharge has been denied to [facility]. Patient is not sure about hospice and no further acute events overnight. Radiology has made an addendum to the brain CT and reports there is no progression or evluation of the ischemia as compared to MRI 2 days prior. Patient has had multiple BMs. Tolerating diet when sitting up at 90* angle. Follow up with case management on Tuesday. 05/15/2023 Patient evaluated today family at bedside. Specialty bed with trapeze ordered for patient to be able to position herself in bed. Patient wanting subacute rehab and not hospice at this time. No further neuro defecits noted stable left hemiparesis with significant left lower extremity weakness. Patient was being transferred to the chair today by 4 nursing staff and left leg buckled patient was assisted to the floor and able to be lifted back into the bed. Valsartan will be stopped blood pressures is low/normal. 05/16/2023 Patient is seen and evaluated in follow-up with family at the bedside. Patient is going down for CT abdomen as patient had some increased abdominal pain after having multiple bowel movements which has been ordered by general surgery who is following. Social work following as well arranging for [facility] once patient is stabilized and discharged from consultations. Patient with significant weakness would like to go to rehab for strength and mobility. Patient is currently afebrile with no reports of chest pain or shortness of breath noted. Will await CT abdomen and will obtain a chest x-ray as well. Nursing staff reports she has been coughing up some thick sputum. No reports of chest pain, palpitations, or worsening shortness of breath. 05/17/2023 Patient is seen and evaluated in the ICU currently on mechanical ventilation with an FiO2 of 30% and PEEP is 5. Patient did have abdominal pain with CT abdomen yesterday which showed a mild strandy attenuation adjacent to the proximal transverse colon that may reflect colitis or diverticulitis without perforation or abscess along with cholelithiasis. General surgery Dr. Bauer following and patient went to the OR and was intubated and is status post exploratory laparotomy with extended right hemicolectomy and end ileostomy secondary to an ischemic right colon and transverse colon. Plans for extubation today and weaning and patient is awake and following commands on exam. Patient is afebrile and labs revealed a WBC of 22 with a hemoglobin of 11.4, sodium is 133 with a potassium of 4.4 and creatinine is 0.74. Blood sugars are being monitored and will continue with current regimen and magnesium is 1.8. Chest x- ray this morning shows no acute pulmonary process. 05/18/2023 Patient is seen in follow-up this morning currently on room air with oxygen saturations above 90%. Patient remains in the ICU with multiple medical cons ultations following. Sister Frances at the bedside and per nursing staff working on becoming power of attorney at law and they have discussed and would like CODE STATUS changed to full code. Patient is alert and oriented 3. Patient with significant comorbidities and prognosis remains guarded. Patient reports some abdominal discomfort although improved from yesterday. Awaiting bowel function. Chest x-ray done today shows no acute process. Potassium slightly low and will be replaced. Recommend follow-up labs and will continue to monitor closely. Review of systems: Constitutional: No reports of fatigue, fever, or chills Cardiovascular: No reports of chest pain or palpitations Respiratory: No reports of shortness of breath or cough GI: No reports of nausea, vomiting, or diarrhea, reports minimal abdominal discomfort : No reports of dysuria or retention Neurovascular: reports of generalized weakness All medications have been reviewed PHYSICAL EXAMINATION: GENERAL: The patient is currently alert and oriented 3, recently extubated yesterday on room air, obese. Well developed, well nourished. Tearful on exam HEENT: Pupils are round and equally reacting to light. EOMI. No scleral icterus. No conjunctival pallor. Normocephalic, atraumatic. No pharyngeal erythema. No thyromegaly. CARDIOVASCULAR: S1 and S2 present. No murmurs, rubs, or gallops. PULMONARY: Chest is clear to auscultation, no wheezing or crackles. ABDOMEN: Soft, abdominal tenderness on palpation, obese,, nondistended, no bowel sounds. Ileostomy noted with no output. MUSCULOSKELETAL: No joint swelling or deformity. EXTREMITIES: No cyanosis, clubbing, generalized edema noted throughout NEUROLOGICAL: Alert and oriented 3. Generalized weakness SKIN: No rashes. 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 Hyperlipidemia Fxn-fgltcfu-ijqvfptub diabetes mellitus with hyperglycemia Parkinson's disease GI Prophylaxis DVT prophylaxis SubCu heparin Full code Plan: Patient currently remains in the ICU and was successfully extubated yesterday currently on room air with oxygen saturations above 90% Would encourage and recommend incentive spirometer at least 10 times every hour while awake Patient is status post exploratory laparotomy with extended right hemicolectomy and end ileostomy secondary to an ischemic right colon and transverse colon as C T abdomen yesterday showed diverticulitis without perf and general surgery following Continue with frequent neuro checks and close monitoring Patient has been accepted at [facility] rehab and awaiting clearance from consultations Patient currently placed on Zosyn and pro-calcitonin negative Continue accuchecks [facility] CT services recommending outpatient follow up at this time felt to not be a surgical candidate Patient with sister at the bedside would like CODE STATUS to be changed to full code Overall Prognosis is extremely poor and guarded given significant comorbidities The impression and plan of care has been dictated by Jazmin Kulkarni, Nurse Practitioner as directed. Dr. Juan MD I have performed a history and examination and MDM of this patient, discussed the same with the dictator, and agree with the dictator's assessment and plan as written ,documented as a scribe. Based on total visit time, I have performed more than 50% of the visit. Objective - Vital Signs Vital signs: Vital Signs Temp 98.5 F 05/18/23 04:00 Pulse 89 05/18/23 08:15 Resp 22 05/18/23 07:00 BP 125/60 05/18/23 07:00 Pulse Ox 99 05/18/23 08:03 FiO2 30 05/17/23 12:00 Intake & Output 05/17/23 05/18/23 05/18/23 18:59 06:59 18:59 Intake Total 8958.323 3761 128 Output Total 726 917 130 Balance 988.892 619 -2 Intake: IV 1536 1536 128 CVP 36 36 3 Lactated Ringers 1,000 ml 1500 1500 125 @ 125 mls/hr IV .Q8H [facility] Rx#:[id number] Intake, IV Titration 178.892 Amount Piperacillin-Tazobactam 3 100 .375 gm In Sodium Chloride 0.9% 100 ml @ 25 mls/hr IVPB Q8H [facility] Rx#: [id number] propofoL 1,000 mg In 78.892 Empty Bag 1 bag @ 15 MCG/ KG/MIN 9.621 mls/hr IV . [id number] [facility] Rx#:[id number] Output: Urine 626 917 130 Stool 100 Other: Voiding Method Indwelling Catheter Indwelling Catheter - Labs CBC & Chem 7: 05/19/23 04:39 05/19/23 04:39 Labs: Abnormal Lab Results - Last 24 Hours (Table) 05/17/23 05/17/2323 Range/Units 03:09 11:38 18:10 WBC (3.8-10.6) k/uL RBC (3.80-5.40) m/uL Hgb (11.4-16.0) gm/dL Hct (34.0-46.0) % Neutrophils # (1.3-7.7) k/uL POC Glucose (mg/dL) 184 H 153 H (70-110) mg/dL Calcium (8.4-10.2) mg/dL Triglycerides 177.00 H (0.00-149.00) mg/dL HDL Cholesterol 28.10 L (40.00-60.00) mg/dL 05/18/23 05/18/23 05/18/23 Range/Units 00:03 03:15 03:15 WBC 12.1 H (3.8-10.6) k/uL RBC 3.10 L (3.80-5.40) m/uL Hgb 9.7 L D (11.4-16.0) gm/dL Hct 29.1 L (34.0-46.0) % Neutrophils # 10.2 H (1.3-7.7) k/uL POC Glucose (mg/dL) 113 H (70-110) mg/dL Calcium 7.9 L (8.4-10.2) mg/dL Triglycerides (0.00-149.00) mg/dL HDL Cholesterol (40.00-60.00) mg/dL
[2023-05-19 06:40] LABS: Glucose,Whole Blood 71 mg/dL (70-110)
[2023-05-19] MEDS: CARBIDOPA-LEVODOPA 25-100 MG 1 EACH TAB PO SCH ×4 (07:26→22:57)
[2023-05-19] MEDS: INSULIN ASPART (NovoLOG) 100 UNIT/ML VIAL SQ SCH ×4 (07:36→20:21)
[2023-05-19] MEDS: IPRATROPIUM-ALBUTEROL 3 ML NEB INHALATION SCH ×4 (07:37→21:26)
[2023-05-19] MEDS: PANTOPRAZOLE 40 MG/10 ML VIAL IV SCH (08:35)
[2023-05-19] MEDS: ACETAMINOPHEN TAB 325 MG TAB PO PRN ×2 (08:36→20:20)
[2023-05-19] MEDS: METOPROLOL TARTRATE 12.5 MG TAB PO SCH ×2 (08:36→20:20)
[2023-05-19] MEDS: POTASSIUM CHLORIDE 10 MEQ in WATER FOR INJECTION 1 100ML.BAG IVPB SCH ×2 (08:38→10:00)
[2023-05-19] MEDS: NYSTATIN 100,000 UNIT/GM POWD 15 GM TOPICAL SCH ×3 (08:38→23:08)
--- NOTE | 2023-05-19 09:38 | P.PN ---
Subjective Progress Note Date: 05/19/23 Principal diagnosis: Status post exploratory laparotomy. I am seeing this patient in follow-up, today 05/17/2023, following development of bowel ischemia and suspected partial perforation status post-operative day #1 for a right hemicolectomy and end ileostomy. Originally, I saw this patient back on 05/05/2023 for recurrent CVA with left-sided hemiparesis. We did sign off the case, on 05/09/2023, once the patient was discharged from the intensive care unit. The patient is currently back in intensive care unit, following development of bowel ischemia yesterday. CT of the abdomen and pelvis at that time, showed possible pneumatosis within the right hemicolon and a small focus of free air, there was also air within the superior mesenteric vein. Correlating for ischemic bowel with partial contained rupture. The patient was taken to the operating room for exploratory laparotomy, and was found to have an ischemic right colon and transverse colon. The patient underwent an extended right hemicolectomy and end ileostomy. Following the procedure, the patient was left intubated to the mechanical ventilator, and transferred to the intensive care unit. The patient is currently lying in bed, sedated, and synchronous with the mechanical ventilator. Initial postoperative chest x-ray shows the endotracheal tube 4.5 cm above the tete, nasogastric tube projecting over the gastric lumen, and a right internal jugular central venous catheter with the distal tip of the cavoatrial junction. No acute cardiopulmonary process was seen. Ventilator settings are assist control, respiratory rate 16, tidal volume of 450, FiO2 50%, PEEP of 5. Initial ABGs show a pO2 of 268 on a FiO2 60%, pCO2 34, pH of 7.43. Patient is sedated on propofol currently infusing at 40 mcg/kg /m. Lactated Ringer's is also infusing at 125 mL per hour. BP is normotensive, not requiring any vasopressors. Urine output is in the order of 30-50 mL per hour. Preoperative labs include a CBC with a WBC count of 36.5, hemoglobin 14.2, hematocrit 40.9, platelets 301. BMP shows sodium 133, potassium 4.4, chloride 100, serum bicarbonate 20, BUN 32, creatinine 0.79, blood glucose 284. Lactic acid level was 1.1. Following the procedure, the patient was given a one-time dose of Flagyl. Midline abdominal incision is clean, dry, approximated. Right lower quadrant ileostomy is beefy red, with small amount of brown to sanguineous output. Currently afebrile. Patient will be monitored in the ntensive care unit. Progress note dated 05/18/2023. We started seeing this patient again yesterday, after she had gone for surgery. She had an exploratory laparotomy, right hemicolectomy, and end ileostomy. The patient was successfully extubated on May 17. Today's postop day #2. Currently, she is on room air. She's getting lactated Ringer's at 125 mL an hour. She is awake and alert. White count 12.1, hemoglobin 9.7, hematocrit 29.1, and platelet count 207,000. Sodium 138, potassium 3.9, chlorides 106, CO2 27, BUN 17, and creatinine 0.66. Chest x-ray shows no acute process. Progress note dated 05/19/2023. 68-year-old female seen yesterday in follow-up. The patient had exploratory laparotomy, right hemicolectomy, and end ileostomy. The patient was successfully extubated on May 17. Today's postop day #3. She still resting comfortably in the intensive care unit. Currently, she is on room air. She's getting lactated Ringer's at 125 mL an hour. That will be reduced on the 75 mL an hour. I encouraged the nurse to get the patient started on incentive spirometer. Lab data includes a white count 9.3, hemoglobin 9, hematocrit 27.8, and normal platelet count. Sodium 136, potassium 3.8, chlorides 105, CO2 27, BUN 11, creatinine 0.67. Pro-calcitonin level is 0.39. Microbiologic sampling is negative. Chest x-ray from yesterday shows no acute process. Objective - Vital Signs Vital signs: Vital Signs Temp 98.3 F 05/19/23 08:00 Pulse 84 05/19/23 08:00 Resp 20 05/19/23 08:00 BP 134/69 05/19/23 08:00 Pulse Ox 97 05/19/23 08:00 FiO2 30 05/17/23 12:00 Intake & Output 05/18/23 05/19/23 05/19/23 18:59 06:59 18:59 Intake Total 1776 1603 590 Output Total 900 720 280 Balance 876 883 310 Weight 91.6 kg Intake: IV 1536 1503 350 CVP 36 3 Invasive Line 3 20 Invasive Line 4 60 Invasive Line 5 20 Lactated Ringers 1,000 ml 1500 1500 250 @ 125 mls/hr IV .Q8H [facility] Rx#:[id number] Intake, IV Titration 100 100 Amount Piperacillin-Tazobactam 3 100 100 .375 gm In Sodium Chloride 0.9% 100 ml @ 25 mls/hr IVPB Q8H [facility] Rx#: [id number] Oral 140 240 Output: Urine 900 720 180 Stool 100 Other: Voiding Method Indwelling Catheter Indwelling Catheter Indwelling Catheter - Exam No acute distress, oriented 3. Currently on room air. Room air saturation is 97%. HEENT examination is grossly unremarkable. Mucous membranes are moist. No oral lesions. Neck supple. Full range of motion. No adenopathy thyromegaly or neck vein distention. Cardiovascular examination reveals regular rhythm rate. S1-S2 normal. No S3 or S4. A soft systolic murmur is noted. Heart rate is 84 bpm. Heart sounds are distant. Lungs reveal scattered mild rhonchi. No wheezes or crackles. Breath sounds equal. Room air saturation is 97%. Abdomen soft, bowel sounds. A right lower quadrant ileostomy is noted. Extremities are intact. No cyanosis clubbing or edema. Skin is without rash or lesion. Neurologic examination is brief but nonfocal. - Labs CBC & Chem 7: 05/19/23 04:39 05/19/23 04:39 Labs: Abnormal Lab Results - Last 24 Hours (Table) 05/18/23 05/18/23 05/19/23 Range/Units 20:56 23:12 04:39 RBC 2.87 L (3.80-5.40) m/uL Hgb 9.0 L (11.4-16.0) gm/dL Hct 27.3 L (34.0-46.0) % Sodium (137-145) mmol/L Glucose (74-99) mg/dL POC Glucose (mg/dL) 67 L (70-110) mg/dL Calcium (8.4-10.2) mg/dL Procalcitonin 0.39 H (0.02-0.09) ng/mL 05/19/23 Range/Units 04:39 RBC (3.80-5.40) m/uL Hgb (11.4-16.0) gm/dL Hct (34.0-46.0) % Sodium 136 L (137-145) mmol/L Glucose 67 L (74-99) mg/dL POC Glucose (mg/dL) (70-110) mg/dL Calcium 7.7 L (8.4-10.2) mg/dL Procalcitonin (0.02-0.09) ng/mL Assessment and Plan Assessment: Ischemic bowel status post-operative day #3 for a right hemicolectomy and end ileostomy. CT of the abdomen and pelvis on April 16, showed possible pneumatosis within the right hemicolon and a small focus of free air, there was also air within the superior mesenteric vein. Correlating for ischemic bowel with partial contained rupture. The patient was taken to the operating room for exploratory laparotomy, and was found to have an ischemic right colon and transverse colon. The patient underwent an extended right hemicolectomy and end ileostomy. Acute hypoxemic respiratory failure secondary to above, with routine post operative ventilator management, status post successful extubation on 05/17/2023. Recurrent CVA, with residual left-sided hemiparesis and left-sided facial droop. Most recent brain MRI done on 05/11/2023 showed evolution of ischemic insults with enlarging area of increased signal within the right white radiata. Small new area within the right thalamus, slightly enlarged area within the right e xternal capsule region. Stable focus in the region of the left external capsule and left white radiata. Severe aortic stenosis found on transesophageal echocardiogram, not felt to be a good surgical candidate by cardiothoracic surgery for open aortic valve replacement. Elevated von Willebrand antigen. Obesity, BMI of 36. Type 2 diabetes mellitus, [id number]. Hyperlipidemia. History of deep vein thrombosis. Parkinson's disease. Hypothyroidism. Ex-smoker. Plan: Plan dated 05/18/2023. The patient remains in the intensive care unit. She is postop day #2, status post exploratory laparotomy, right hemicolectomy, and end ileostomy. She is currently on room air. Currently, she is on lactated Ringer's at 125 mL an hour. Labs, x-rays, and medications are all reviewed. Prognosis is guarded. We will continue to follow and make recommendations along the way. Plan dated 05/19/2023. The patient's situation is still critical. The patient will be started on incentive spirometer. In addition, we recommended the patient take deep breaths, cough, and clear secretions. She is on room air. Lactated Ringer's IVs dropped from 125 mL an hour, down to 75 mL an hour. She does have a typical murmur of aortic stenosis. Labs, x-rays, medications are all reviewed. Prognosis is certainly guarded. We will continue to follow the patient and make recommendations along the way. Time with Patient: Greater than 30
--- NOTE | 2023-05-19 10:54 | P.ANPRN ---
Procedure Note - Anesthesia - Invasive Line Right Central Line Time Out Performed: Yes Date of Procedure: 05/16/23 Time of Procedure: 14:52 Location of Patient: PreOp Preparation: Sterile Prep, Sterile Dressing Central Line Location: Internal Jugular Ultrasound Used: No Purpose - Visualization and Identification of Vasculature: No Narrative: Central line placement per sterile protocol utilized.
[2023-05-19 11:20] LABS: Glucose,Whole Blood 131 mg/dL (70-110)
--- NOTE | 2023-05-19 11:43 | P.PN ---
Subjective Progress Note Date: 05/19/23 CHIEF COMPLAINT: Ischemic bowel HISTORY OF PRESENT ILLNESS: Patient is postop day #3 status post Exploratory laparotomy with extended right hemicolectomy and end ileostomy. She remains in the ICU. She's sitting up in bed. Patient is currently on full liquids. Her ostomy is functioning. Has pain at incision site that continues to improve. Afebrile. WBC is 9.3 hemoglobin 9.7 down to 9.0 platelets 193 sodium is 136 potassium 3.8 creatinine 0.67. Incisional dressing change yesterday. Patient seen by speech therapy recommending dysphagia chopped diet PHYSICAL EXAM: VITAL SIGNS: Reviewed. GENERAL: Well-developed in no acute distress. HEENT: No sclera icterus. Extraocular movements grossly intact. Moist buccal mucosa. Head is atraumatic, normocephalic. ABDOMEN: Soft. Nondistended. Tender at incision site. Incisional dressing clean dry and intact NEUROLOGIC: Alert and oriented. Cranial nerves II through XII grossly intact. ASSESSMENT: 1. Ischemic right colon and transverse colon status post Exploratory laparotomy with extended right hemicolectomy and end ileostomy 2. Ischemic CVA PLAN: -Okay to resume Eliquis from surgical standpoint -Advance diet dysphagia chopped -Add [place] for oral pain meds -Continue supportive care -DVT prophylaxis subcu heparin injection for Protonix Physician Workers Compensation Paralegal note has been reviewed by physician. Signing provider agrees with the documented findings, assessment, and plan of care. I have personally seen and examined the patient, reviewed the CLINICAL DATA MANAGEMENT DIRECTOR /PAs history, exam and MDM and agree with the assessment and plan as written. Based on total visit time, I have performed more than 50% of the visit. As above: Patient doing well today. Minimal pain. Tolerating diet. Ostomy functioning. May resume anticoagulation. Advance to regular diet. Objective - Vital Signs Vital signs: Vital Signs Temp 98.3 F 05/19/23 08:00 Pulse 80 05/19/23 10:00 Resp 16 05/19/23 10:00 BP 125/60 05/19/23 10:00 Pulse Ox 95 05/19/23 10:00 FiO2 30 05/17/23 12:00 Intake & Output 05/18/23 05/19/23 05/19/23 18:59 06:59 18:59 Intake Total 1776 1603 946 Output Total 900 720 475 Balance 876 533 471 Weight 91.6 kg Intake: IV 1536 1503 706 CVP 36 3 6 Invasive Line 3 20 Invasive Line 4 60 Invasive Line 5 20 Lactated Ringers 1,000 ml 1500 1500 250 @ 125 mls/hr IV .Q8H [facility] Rx#:[id number] Lactated Ringers 1,000 ml 150 @ 75 mls/hr IV .[id number] [facility] Rx#:[id number] Potassium Chloride 10 meq 200 In Water For Injection 1 100ml.bag @ 100 mls/hr IVPB Q1H [facility] Rx#: [id number] Intake, IV Titration 100 100 Amount Piperacillin-Tazobactam 3 100 100 .375 gm In Sodium Chloride 0.9% 100 ml @ 25 mls/hr IVPB Q8H [facility] Rx#: [id number] Oral 140 240 Output: Urine 900 720 255 Stool 220 Urine/Stool Mix 0 Emesis 0 Other: Voiding Method Indwelling Catheter Indwelling Catheter Indwelling Catheter - Labs CBC & Chem 7: 05/19/23 04:39 05/19/23 04:39 Labs: Abnormal Lab Results - Last 24 Hours (Table) 05/18/23 05/18/23 05/19/23 Range/Units 20:56 23:12 04:39 RBC 2.87 L (3.80-5.40) m/uL Hgb 9.0 L (11.4-16.0) gm/dL Hct 27.3 L (34.0-46.0) % Sodium (137-145) mmol/L Glucose (74-99) mg/dL POC Glucose (mg/dL) 67 L (70-110) mg/dL Calcium (8.4-10.2) mg/dL Procalcitonin 0.39 H (0.02-0.09) ng/mL 05/19/23 Range/Units 04:39 RBC (3.80-5.40) m/uL Hgb (11.4-16.0) gm/dL Hct (34.0-46.0) % Sodium 136 L (137-145) mmol/L Glucose 67 L (74-99) mg/dL POC Glucose (mg/dL) (70-110) mg/dL Calcium 7.7 L (8.4-10.2) mg/dL Procalcitonin (0.02-0.09) ng/mL
[2023-05-19] MEDS: APIXABAN 5 MG TAB PO SCH ×2 (15:34→20:20)
[2023-05-19 16:18] LABS: Glucose,Whole Blood 97 mg/dL (70-110)
[2023-05-19 17:48] LABS: Magnesium 1.7 mg/dL (1.6-2.3)
[2023-05-19] MEDS: HYDROcodone/APAP 5-325MG 1 EACH TAB PO PRN ×2 (18:46→22:57)
[2023-05-19] MEDS ORDERED: MAGNESIUM SULFATE-D5W PMX 1 GM in DEXTROSE/WATER 1 100ML.BAG IVPB ONE (19:00)
[2023-05-19 19:56] LABS: Glucose,Whole Blood 136 mg/dL (70-110)
[2023-05-19] MEDS ORDERED: INSULIN DETEMIR (LEVEMIR) 100 UNIT/ML SYR SQ SCH (21:00)
[2023-05-20] MEDS: LACTATED RINGERS 1,000 ML IV SCH ×2 (00:48→10:44)
[2023-05-20] MEDS: CARBIDOPA-LEVODOPA 25-100 MG 1 EACH TAB PO SCH ×3 (03:10→16:47)
[2023-05-20] MEDS: PIPERACILLIN-TAZOBACTAM 3.375 GM in SODIUM CHLORIDE 0.9% 100 ML IVPB SCH ×2 (03:10→10:30)
[2023-05-20] MEDS: HYDROcodone/APAP 5-325MG 1 EACH TAB PO PRN ×2 (03:13→10:26)
--- NOTE | 2023-05-20 05:20 | P.PN ---
Subjective Progress Note Date: 05/19/23 Patient is monitored closely on the stepdown unit. Underwent JAVIER revealing significant calcific tricuspid aortic stenosis. Cardiothoracic evaluated the patient and recommending follow up outpatient for possible surgical valve replacement with exploration vs TAVR. Patient pending discharge to rehab her main complaint is currently no bowel movement. Overnight patient had an episode of dizziness and whooshing sound in the right ear and described as room spinning. Patient is also reporting worsening symptoms of reflux and hiccuping. Discharge is a place on hold is concern for possible brainstem stroke and brain MRI has been ordered. Patient does report headache and has had 2 other episodes of this dizziness/vertigo throughout the day today. Feels she is having some sinus congestion. Continues on combination of aspirin 81 mg daily eliquis 5 mg twice a day. 05/12/2023 Patient is evaluated today sitting up in bed. Underwent brain MRI yesterday reveals evoluation of ischemic insults with enlarging area of increased signal within the right white radiata, small new area within the right thalamus, slightly enlarged area within the right external capsule region. Stable focus in the region of the left external capsule and left white radiata. Neurology following and patient continues on eliquis and aspirin. Patient continues to report headache dull achy top of head and also having hiccups. Does report increased difficulty swallowing today Has been receiving miralax lactulose and dulcolax unable to have BM. Abdominal xray reveals large stool burden and patient will receive an enema today. 05/14/2023 Patient is evaluated today sitting up in bed with family at the bedside met with the patient and POA to discuss discharge planning. Discharge has been denied to [facility]. Patient is not sure about hospice and no further acute events overnight. Radiology has made an addendum to the brain CT and reports there is no progression or evluation of the ischemia as compared to MRI 2 days prior. Patient has had multiple BMs. Tolerating diet when sitting up at 90* angle. Follow up with case management on Tuesday. 05/15/2023 Patient evaluated today family at bedside. Specialty bed with trapeze ordered for patient to be able to position herself in bed. Patient wanting subacute rehab and not hospice at this time. No further neuro defecits noted stable left hemiparesis with significant left lower extremity weakness. Patient was being transferred to the chair today by 4 nursing staff and left leg buckled patient was assisted to the floor and able to be lifted back into the bed. Valsartan will be stopped blood pressures is low/normal. 05/16/2023 Patient is seen and evaluated in follow-up with family at the bedside. Patient is going down for CT abdomen as patient had some increased abdominal pain after having multiple bowel movements which has been ordered by general surgery who is following. Social work following as well arranging for [facility] once patient is stabilized and discharged from consultations. Patient with significant weakness would like to go to rehab for strength and mobility. Patient is currently afebrile with no reports of chest pain or shortness of breath noted. Will await CT abdomen and will obtain a chest x-ray as well. Nursing staff reports she has been coughing up some thick sputum. No reports of chest pain, palpitations, or worsening shortness of breath. 05/17/2023 Patient is seen and evaluated in the ICU currently on mechanical ventilation with an FiO2 of 30% and PEEP is 5. Patient did have abdominal pain with CT abdomen yesterday which showed a mild strandy attenuation adjacent to the proximal transverse colon that may reflect colitis or diverticulitis without perforation or abscess along with cholelithiasis. General surgery Dr. Bauer following and patient went to the OR and was intubated and is status post exploratory laparotomy with extended right hemicolectomy and end ileostomy secondary to an ischemic right colon and transverse colon. Plans for extubation today and weaning and patient is awake and following commands on exam. Patient is afebrile and labs revealed a WBC of 22 with a hemoglobin of 11.4, sodium is 133 with a potassium of 4.4 and creatinine is 0.74. Blood sugars are being monitored and will continue with current regimen and magnesium is 1.8. Chest x- ray this morning shows no acute pulmonary process. 05/18/2023 Patient is seen in follow-up this morning currently on room air with oxygen saturations above 90%. Patient remains in the ICU with multiple medical cons ultations following. Sister Frances at the bedside and per nursing staff working on becoming power of tax associate attorney and they have discussed and would like CODE STATUS changed to full code. Patient is alert and oriented 3. Patient with significant comorbidities and prognosis remains guarded. Patient reports some abdominal discomfort although improved from yesterday. Awaiting bowel function. Chest x-ray done today shows no acute process. Potassium slightly low and will be replaced. Recommend follow-up labs and will continue to monitor closely. 05/19/2023 Patient is seen this morning continues to be in the ICU awaiting transfer as she is a concrete from the ICU. Patient denies worsening shortness of breath or chest pain. Patient is tolerating oral diet of clear liquids and being advanced to full liquids. Blood sugars have been on the lower side and will adjust long- acting continue with Accu-Cheks before meals and at bedtime and sliding scale. Potassium improved after replacement and recommend follow-up labs in the a.m. Patient reports some improvement in her abdominal discomfort. No reports of passing gas or bowel movement as of yet. Review of systems: Constitutional: No reports of fatigue, fever, or chills Cardiovascular: No reports of chest pain or palpitations Respiratory: No reports of shortness of breath or cough GI: No reports of nausea, vomiting, or diarrhea, reports minimal abdominal discomfort : No reports of dysuria or retention Neurovascular: reports of generalized weakness All medications have been reviewed PHYSICAL EXAMINATION: GENERAL: The patient is currently alert and oriented 3, on room air, obese. Well developed, well nourished. Obese. HEENT: Pupils are round and equally reacting to light. EOMI. No scleral icterus. No conjunctival pallor. Normocephalic, atraumatic. No pharyngeal erythema. No thyromegaly. CARDIOVASCULAR: S1 and S2 present. No murmurs, rubs, or gallops. PULMONARY: Chest is clear to auscultation, no wheezing or crackles. ABDOMEN: Soft, abdominal tenderness on palpation, obese,, nondistended, no bowel sounds. Ileostomy noted with no output. MUSCULOSKELETAL: No joint swelling or deformity. EXTREMITIES: No cyanosis, clubbing, generalized edema noted throughout NEUROLOGICAL: Alert and oriented 3. Generalized weakness SKIN: No rashes. 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 Hyperlipidemia Iyi-uozmwqp-shnftuaxh diabetes mellitus with hyperglycemia Parkinson's disease GI Prophylaxis DVT prophylaxis SubCu heparin Full code Plan: Patient currently remains in the ICU as an overflow awaiting a bed on 3 S. patient was successfully extubated 05/18/2023 currently on room air with oxygen saturations above 90% Would encourage and recommend incentive spirometer at least 10 times every hour while awake Patient is status post exploratory laparotomy with extended right hemicolectomy and end ileostomy secondary to an ischemic right colon and transverse colon Diabetes being advanced to full liquids per surgery Continue with frequent neuro checks and close monitoring Patient has been accepted at [facility] inpatient rehab and awaiting clearance from consultations Patient currently placed on Zosyn and pro-calcitonin negative Continue accuchecks ACHS and blood sugars upon the lower side and will adjust long-acting and continue sliding scale CT services recommending outpatient follow up at this time felt to not be a surgical candidate CODE STATUS was changed to full code per patient and sister Will follow-up with repeat labs and recommend PT/OT therapy evaluation Overall Prognosis is extremely poor and guarded given significant comorbidities The impression and plan of care has been dictated by Jazmin Kulkarni, Nurse Practitioner as directed. Dr. Pablo MD I have performed a history and examination and MDM of this patient, discussed the same with the dictator, and agree with the dictator's assessment and plan as written ,documented as a scribe. Based on total visit time, I have performed more than 50% of the visit. Objective - Vital Signs Vital signs: Vital Signs Temp 98.3 F 05/19/23 08:00 Pulse 80 05/19/23 10:00 Resp 16 05/19/23 10:00 BP 125/60 05/19/23 10:00 Pulse Ox 95 05/19/23 10:00 FiO2 30 05/17/23 12:00 Intake & Output 05/18/23 05/19/23 05/19/23 18:59 06:59 18:59 Intake Total 1776 1603 946 Output Total 900 720 475 Balance 876 883 471 Weight 91.6 kg Intake: IV 1536 1503 706 CVP 36 3 6 Invasive Line 3 20 Invasive Line 4 60 Invasive Line 5 20 Lactated Ringers 1,000 ml 1500 1500 250 @ 125 mls/hr IV .Q8H [facility] Rx#:[id number] Lactated Ringers 1,000 ml 150 @ 75 mls/hr IV .[id number] [facility] Rx#:[id number] Potassium Chloride 10 meq 200 In Water For Injection 1 100ml.bag @ 100 mls/hr IVPB Q1H [facility] Rx#: [id number] Intake, IV Titration 100 100 Amount Piperacillin-Tazobactam 3 100 100 .375 gm In Sodium Chloride 0.9% 100 ml @ 25 mls/hr IVPB Q8H [facility] Rx#: [id number] Oral 140 240 Output: Urine 900 720 255 Stool 220 Urine/Stool Mix 0 Emesis 0 Other: Voiding Method Indwelling Catheter Indwelling Catheter Indwelling Catheter - Labs CBC & Chem 7: 05/19/23 04:39 05/19/23 16:54 Labs: Abnormal Lab Results - Last 24 Hours (Table) 05/18/23 05/18/23 05/19/23 Range/Units 20:56 23:12 04:39 RBC 2.87 L (3.80-5.40) m/uL Hgb 9.0 L (11.4-16.0) gm/dL Hct 27.3 L (34.0-46.0) % Sodium (137-145) mmol/L Glucose (74-99) mg/dL POC Glucose (mg/dL) 67 L (70-110) mg/dL Calcium (8.4-10.2) mg/dL Procalcitonin 0.39 H (0.02-0.09) ng/mL 05/19/23 Range/Units 04:39 RBC (3.80-5.40) m/uL Hgb (11.4-16.0) gm/dL Hct (34.0-46.0) % Sodium 136 L (137-145) mmol/L Glucose 67 L (74-99) mg/dL POC Glucose (mg/dL) (70-110) mg/dL Calcium 7.7 L (8.4-10.2) mg/dL Procalcitonin (0.02-0.09) ng/mL
[2023-05-20 05:53] LABS: Glucose,Whole Blood 123 mg/dL (70-110)
[2023-05-20] MEDS: INSULIN ASPART (NovoLOG) 100 UNIT/ML VIAL SQ SCH ×3 (05:56→16:48)
[2023-05-20 06:55] LABS: African American GFR (CKD) >90 (>60 ml/min/1.73 sqM); Anion Gap 4 mmol/L; Blood Urea Nitrogen 6 mg/dL (7-17); Calcium 7.8 mg/dL (8.4-10.2); Carbon Dioxide 26 mmol/L (22-30); Chloride 109 mmol/L (98-107); Glucose 127 mg/dL (74-99); Non-African American GFR(CKD) >90 (>60 ml/min/1.73 sqM); Potassium 3.5 mmol/L (3.5-5.1); Sodium 139 mmol/L (137-145)
[2023-05-20 07:09] LABS: Basophils % (A) 0 %; Eosinophils # (A) 0.2 k/uL (0-0.7); Eosinophils % (A) 3 %; HGB 9.5 gm/dL (11.4-16.0); Lymphocytes # (A) 1.1 k/uL (1.0-4.8); Lymphocytes % (A) 16 %; MCHC 33.9 g/dL (31.0-37.0); MCV 94.5 fL (80.0-100.0); Mean Platelet Volume 9.3; Monocytes # (A) 0.3 k/uL (0-1.0); Monocytes % (A) 5 %; Neutrophils % (A) 74 %; Platelet Count 215 k/uL (150-450); RBC 2.96 m/uL (3.80-5.40); RDW 13.2 % (11.5-15.5); WBC 6.8 k/uL (3.8-10.6)
[2023-05-20] MEDS: IPRATROPIUM-ALBUTEROL 3 ML NEB INHALATION SCH ×3 (08:04→17:26)
[2023-05-20] MEDS ORDERED: FLUCONAZOLE 100 MG TAB PO SCH (09:00)
[2023-05-20] MEDS ORDERED: traMADol 50 MG TAB PO PRN (09:45)
--- NOTE | 2023-05-20 10:25 | P.PN ---
Subjective Progress Note Date: 05/20/23 CHIEF COMPLAINT: Ischemic bowel HISTORY OF PRESENT ILLNESS: Patient is postop day #4 status post Exploratory laparotomy with extended right hemicolectomy and end ileostomy. She remains in the ICU. She's sitting up in bed. Patient is tolerating chopped diet. Her ostomy is functioning. Patient reports minimal pain at the incision site. She does complain of discomfort from her Parkinson's and is requesting that her Ultram be restarted. Afebrile. WBC is 6.8 Hgb 9.5 plt 215 sodium 139 potassium 3.5 creatinine 0.51. Eliquis has been restarted PHYSICAL EXAM: VITAL SIGNS: Reviewed. GENERAL: Well-developed in no acute distress. HEENT: No sclera icterus. Extraocular movements grossly intact. Moist buccal mucosa. Head is atraumatic, normocephalic. ABDOMEN: Soft. Nondistended. Tender at incision site. Incisional dressing clean dry and intact. Ostomy with stool NEUROLOGIC: Alert and oriented. Cranial nerves II through XII grossly intact. ASSESSMENT: 1. Ischemic right colon and transverse colon status post Exploratory laparotomy with extended right hemicolectomy and end ileostomy 2. Ischemic CVA PLAN: -Continue dysphagia chopped -Resume patient's home dose of Ultram -Continue supportive care -Encourage incentive spirometer use -DVT prophylaxis subcu heparin injection for Protonix Physician Physical Ther note has been reviewed by physician. Signing provider agrees with the documented findings, assessment, and plan of care. I have personally seen and examined the patient, reviewed the BIBLE READER /PAs history, exam and MDM and agree with the assessment and plan as written. Based on total visit time, I have performed more than 50% of the visit. As above: The patient doing well today. She is hoping to go to rehab. Eloquis was restarted. No signs of bleeding. Tolerating diet. Good ostomy function. Objective - Vital Signs Vital signs: Vital Signs Temp 98.0 F 05/20/23 02:00 Pulse 80 05/20/23 08:18 Resp 15 05/20/23 02:00 BP 149/85 05/20/23 02:00 Pulse Ox 92 L 05/20/23 05:50 FiO2 30 05/17/23 12:00 Intake & Output 05/19/23 05/20/23 05/20/23 18:59 06:59 18:59 Intake Total 2621 1050 Output Total 1570 1765 Balance 1051 -715 Weight 91.6 kg Intake: IV 1601 1050 CVP 6 Invasive Line 3 30 Invasive Line 4 70 Invasive Line 5 20 Lactated Ringers 1,000 ml 250 @ 125 mls/hr IV .Q8H [facility] Rx#:[id number] Lactated Ringers 1,000 ml 825 750 @ 75 mls/hr IV .[id number] [facility] Rx#:[id number] Magnesium Sulfate-D5w Pmx 100 1 gm In Dextrose/Water 1 100ml.bag @ 100 mls/hr IVPB ONCE ONE Rx#: [id number] Piperacillin-Tazobactam 3 100 100 .375 gm In Sodium Chloride 0.9% 100 ml @ 25 mls/hr IVPB Q8H [facility] Rx#: [id number] Potassium Chloride 10 meq 200 In Water For Injection 1 100ml.bag @ 100 mls/hr IVPB Q1H [facility] Rx#: [id number] Sodium Chloride 0.9% 1000 200 ml @ 20 mls/hr Oral 1020 Output: Urine 1400 1525 Stool 170 240 Urine/Stool Mix 0 Emesis 0 Other: Voiding Method External Catheter External Catheter - Labs CBC & Chem 7: 05/20/23 04:19 05/20/23 04:19 Labs: Abnormal Lab Results - Last 24 Hours (Table) 05/19/23 05/19/23 05/20/23 Range/Units 11:19 19:55 04:19 RBC 2.96 L (3.80-5.40) m/uL Hgb 9.5 L (11.4-16.0) gm/dL Hct 28.0 L (34.0-46.0) % Chloride (98-107) mmol/L BUN (7-17) mg/dL Creatinine (0.52-1.04) mg/dL Glucose (74-99) mg/dL POC Glucose (mg/dL) 131 H 136 H (70-110) mg/dL Calcium (8.4-10.2) mg/dL 05/20/23 05/20/23 Range/Units 04:19 05:51 RBC (3.80-5.40) m/uL Hgb (11.4-16.0) gm/dL Hct (34.0-46.0) % Chloride 109 H (98-107) mmol/L BUN 6 L (7-17) mg/dL Creatinine 0.51 L (0.52-1.04) mg/dL Glucose 127 H (74-99) mg/dL POC Glucose (mg/dL) 123 H (70-110) mg/dL Calcium 7.8 L (8.4-10.2) mg/dL
[2023-05-20] MEDS: PANTOPRAZOLE 40 MG/10 ML VIAL IV SCH (10:27)
[2023-05-20] MEDS: APIXABAN 5 MG TAB PO SCH (10:27)
[2023-05-20] MEDS: METOPROLOL TARTRATE 12.5 MG TAB PO SCH (10:27)
[2023-05-20] MEDS: NYSTATIN 100,000 UNIT/GM POWD 15 GM TOPICAL SCH ×2 (10:31→16:54)
[2023-05-20 10:36] VITALS: RESP 16
--- NOTE | 2023-05-20 11:29 | P.PN ---
Subjective Progress Note Date: 05/20/23 Principal diagnosis: Status post exploratory laparotomy. I am seeing this patient in follow-up, today 05/17/2023, following development of bowel ischemia and suspected partial perforation status post-operative day #1 for a right hemicolectomy and end ileostomy. Originally, I saw this patient back on 05/05/2023 for recurrent CVA with left-sided hemiparesis. We did sign off the case, on 05/09/2023, once the patient was discharged from the intensive care unit. The patient is currently back in intensive care unit, following development of bowel ischemia yesterday. CT of the abdomen and pelvis at that time, showed possible pneumatosis within the right hemicolon and a small focus of free air, there was also air within the superior mesenteric vein. Correlating for ischemic bowel with partial contained rupture. The patient was taken to the operating room for exploratory laparotomy, and was found to have an ischemic right colon and transverse colon. The patient underwent an extended right hemicolectomy and end ileostomy. Following the procedure, the patient was left intubated to the mechanical ventilator, and transferred to the intensive care unit. The patient is currently lying in bed, sedated, and synchronous with the mechanical ventilator. Initial postoperative chest x-ray shows the endotracheal tube 4.5 cm above the tete, nasogastric tube projecting over the gastric lumen, and a right internal jugular central venous catheter with the distal tip of the cavoatrial junction. No acute cardiopulmonary process was seen. Ventilator settings are assist control, respiratory rate 16, tidal volume of 450, FiO2 50%, PEEP of 5. Initial ABGs show a pO2 of 268 on a FiO2 60%, pCO2 34, pH of 7.43. Patient is sedated on propofol currently infusing at 40 mcg/kg /m. Lactated Ringer's is also infusing at 125 mL per hour. BP is normotensive, not requiring any vasopressors. Urine output is in the order of 30-50 mL per hour. Preoperative labs include a CBC with a WBC count of 36.5, hemoglobin 14.2, hematocrit 40.9, platelets 301. BMP shows sodium 133, potassium 4.4, chloride 100, serum bicarbonate 20, BUN 32, creatinine 0.79, blood glucose 284. Lactic acid level was 1.1. Following the procedure, the patient was given a one-time dose of Flagyl. Midline abdominal incision is clean, dry, approximated. Right lower quadrant ileostomy is beefy red, with small amount of brown to sanguineous output. Currently afebrile. Patient will be monitored in the ntensive care unit. Progress note dated 05/18/2023. We started seeing this patient again yesterday, after she had gone for surgery. She had an exploratory laparotomy, right hemicolectomy, and end ileostomy. The patient was successfully extubated on May 17. Today's postop day #2. Currently, she is on room air. She's getting lactated Ringer's at 125 mL an hour. She is awake and alert. White count 12.1, hemoglobin 9.7, hematocrit 29.1, and platelet count 207,000. Sodium 138, potassium 3.9, chlorides 106, CO2 27, BUN 17, and creatinine 0.66. Chest x-ray shows no acute process. Progress note dated 05/19/2023. 68-year-old female seen yesterday in follow-up. The patient had exploratory laparotomy, right hemicolectomy, and end ileostomy. The patient was successfully extubated on May 17. Today's postop day #3. She still resting comfortably in the intensive care unit. Currently, she is on room air. She's getting lactated Ringer's at 125 mL an hour. That will be reduced on the 75 mL an hour. I encouraged the nurse to get the patient started on incentive spirometer. Lab data includes a white count 9.3, hemoglobin 9, hematocrit 27.8, and normal platelet count. Sodium 136, potassium 3.8, chlorides 105, CO2 27, BUN 11, creatinine 0.67. Pro-calcitonin level is 0.39. Microbiologic sampling is negative. Chest x-ray from yesterday shows no acute process. Progress note dated 05/20/2023. 68-year-old female seen again in follow-up, room 256. She is status post exploratory laparotomy, right hemicolectomy, and end ileostomy. The patient is postop day #4. Currently, the patient's on lactated Ringer's at 75 mL an hour, and saline at 20 mL an hour. The patient developed some urinary retention. She also has a yeast infection in the genital area. Diflucan 100 mg twice a day as prescribed. The patient's currently on room air. She's doing much better. White count 6.8, hemoglobin 9.5, hematocrit 28, and platelet count is normal. Sodium 139, potassium 3.5, chlorides 109, CO2 26, BUN 6, and creatinine 0.51. Objective - Vital Signs Vital signs: Vital Signs Temp 98.2 F 05/20/23 08:00 Pulse 81 05/20/23 11:09 Resp 16 05/20/23 08:00 BP 156/75 05/20/23 08:00 Pulse Ox 98 05/20/23 08:00 FiO2 30 05/17/23 12:00 Intake & Output 05/19/23 05/20/23 05/20/23 18:59 06:59 18:59 Intake Total 2621 1050 660 Output Total 1570 1765 Balance 1051 -715 660 Weight 91.6 kg Intake: IV 1601 1050 CVP 6 Invasive Line 3 30 Invasive Line 4 70 Invasive Line 5 20 Lactated Ringers 1,000 ml 250 @ 125 mls/hr IV .Q8H [facility] Rx#:[id number] Lactated Ringers 1,000 ml 825 750 @ 75 mls/hr IV .[id number] [facility] Rx#:[id number] Magnesium Sulfate-D5w Pmx 100 1 gm In Dextrose/Water 1 100ml.bag @ 100 mls/hr IVPB ONCE ONE Rx#: [id number] Piperacillin-Tazobactam 3 100 100 .375 gm In Sodium Chloride 0.9% 100 ml @ 25 mls/hr IVPB Q8H [facility] Rx#: [id number] Potassium Chloride 10 meq 200 In Water For Injection 1 100ml.bag @ 100 mls/hr IVPB Q1H [facility] Rx#: [id number] Sodium Chloride 0.9% 1000 200 ml @ 20 mls/hr Oral 1020 660 Output: Urine 1400 1525 Stool 170 240 Urine/Stool Mix 0 Emesis 0 Other: Voiding Method External Catheter External Catheter Indwelling Catheter - Exam No acute distress, oriented 3. Currently on room air. Room air saturation is 96%. HEENT examination is grossly unremarkable. Mucous membranes are moist. No oral lesions. Neck supple. Full range of motion. No adenopathy thyromegaly or neck vein distention. Cardiovascular examination reveals regular rhythm rate. S1-S2 normal. No S3 or S4. A soft systolic murmur is noted. Heart rate is 82 bpm. Heart sounds are distant. Lungs reveal scattered mild rhonchi. No wheezes or crackles. Breath sounds equal. Room air saturation is 96 %. Abdomen soft, bowel sounds. A right lower quadrant ileostomy is noted. Extremities are intact. No cyanosis clubbing or edema. Skin is without rash or lesion. Neurologic examination is brief but nonfocal. Left sided paresis. - Labs CBC & Chem 7: 05/20/23 04:19 05/20/23 04:19 Labs: Abnormal Lab Results - Last 24 Hours (Table) 05/19/23 05/20/23 05/20/23 Range/Units 19:55 04:19 04:19 RBC 2.96 L (3.80-5.40) m/uL Hgb 9.5 L (11.4-16.0) gm/dL Hct 28.0 L (34.0-46.0) % Chloride 109 H (98-107) mmol/L BUN 6 L (7-17) mg/dL Creatinine 0.51 L (0.52-1.04) mg/dL Glucose 127 H (74-99) mg/dL POC Glucose (mg/dL) 136 H (70-110) mg/dL Calcium 7.8 L (8.4-10.2) mg/dL 05/20/23 Range/Units 05:51 RBC (3.80-5.40) m/uL Hgb (11.4-16.0) gm/dL Hct (34.0-46.0) % Chloride (98-107) mmol/L BUN (7-17) mg/dL Creatinine (0.52-1.04) mg/dL Glucose (74-99) mg/dL POC Glucose (mg/dL) 123 H (70-110) mg/dL Calcium (8.4-10.2) mg/dL Assessment and Plan Assessment: Ischemic bowel status post-operative day #4 for a right hemicolectomy and end ileostomy. CT of the abdomen and pelvis on April 16, showed possible pneumatosis within the right hemicolon and a small focus of free air, there was also air within the superior mesenteric vein. Correlating for ischemic bowel with partial contained rupture. The patient was taken to the operating room for exploratory laparotomy, and was found to have an ischemic right colon and transverse colon. The patient underwent an extended right hemicolectomy and end ileostomy. Acute hypoxemic respiratory failure secondary to above, with routine postoperative ventilator management, status post successful extubation on 05/17/2023. Recurrent CVA, with residual left-sided hemiparesis and left-sided facial droop. Most recent brain MRI done on 05/11/2023 showed evolution of ischemic insults with enlarging area of increased signal within the right white radiata. Small new area within the right thalamus, slightly enlarged area within the right external capsule region. Stable focus in the region of the left external capsule and left white radiata. Severe aortic stenosis found on transesophageal echocardiogram, not felt to be a good surgical candidate by cardiothoracic surgery for open aortic valve replacement. Elevated von Willebrand antigen. Obesity, BMI of 36. Type 2 diabetes mellitus, [id number]. Hyperlipidemia. History of deep vein thrombosis. Parkinson's disease. Hypothyroidism. Ex-smoker. Plan: Plan dated 05/18/2023. The patient remains in the intensive care unit. She is postop day #2, status post exploratory laparotomy, right hemicolectomy, and end ileostomy. She is currently on room air. Currently, she is on lactated Ringer's at 125 mL an hour. Labs, x-rays, and medications are all reviewed. Prognosis is guarded. We will continue to follow and make recommendations along the way. Plan dated 05/19/2023. The patient's situation is still critical. The patient will be started on incentive spirometer. In addition, we recommended the patient take deep breaths, cough, and clear secretions. She is on room air. Lactated Ringer's IVs dropped from 125 mL an hour, down to 75 mL an hour. She does have a typical murmur of aortic stenosis. Labs, x-rays, medications are all reviewed. Prognosis is certainly guarded. We will continue to follow the patient and make recommendations along the way. Plan dated 05/20/2023. The patient appears to be doing much better. Currently, the patient's on room air. Patient is receiving lactated Ringer's at 75 mL an hour, and saline at 20 mL an hour. We'll add Diflucan 100 mg twice a day for a yeast infection. Labs, x-rays, and medications are reviewed. Patient's overall prognosis remains guarded. We will continue to follow make recommendations on the way. Time with Patient: Less than 30
[2023-05-20 11:39] LABS: Glucose,Whole Blood 209 mg/dL (70-110)
--- NOTE | 2023-05-20 13:03 | P.PN ---
Subjective Progress Note Date: 05/20/23 The patient is seen at bedside and feels about the same. Denies of any new neurological issues. Objective - Vital Signs Vital signs: Vital Signs Temp 98.2 F 05/20/23 08:00 Pulse 82 05/20/23 11:25 Resp 16 05/20/23 08:00 BP 156/75 05/20/23 08:00 Pulse Ox 98 05/20/23 08:00 FiO2 30 05/17/23 12:00 Intake & Output 05/19/23 05/20/23 05/20/23 18:59 06:59 18:59 Intake Total 2621 1050 660 Output Total 1570 1765 Balance 1051 -715 660 Weight 91.6 kg Intake: IV 1601 1050 CVP 6 Invasive Line 3 30 Invasive Line 4 70 Invasive Line 5 20 Lactated Ringers 1,000 ml 250 @ 125 mls/hr IV .Q8H [facility] Rx#:[id number] Lactated Ringers 1,000 ml 825 750 @ 75 mls/hr IV .[id number] [facility] Rx#:[id number] Magnesium Sulfate-D5w Pmx 100 1 gm In Dextrose/Water 1 100ml.bag @ 100 mls/hr IVPB ONCE ONE Rx#: [id number] Piperacillin-Tazobactam 3 100 100 .375 gm In Sodium Chloride 0.9% 100 ml @ 25 mls/hr IVPB Q8H [facility] Rx#: [id number] Potassium Chloride 10 meq 200 In Water For Injection 1 100ml.bag @ 100 mls/hr IVPB Q1H [facility] Rx#: [id number] Sodium Chloride 0.9% 1000 200 ml @ 20 mls/hr Oral 1020 660 Output: Urine 1400 1525 Stool 170 240 Urine/Stool Mix 0 Emesis 0 Other: Voiding Method External Catheter External Catheter Indwelling Catheter - Exam Gen: Patient is sitting in a chair and is not in acute distress Neuro-: Patient is awake alert oriented self place and time. Patient is following simple commands. No aphasia. His tracking throughout the room without any visible nystagmus. Has mild Left lower facial droop. No dysarthria. Motor: The strength is 0/5 on left side. While the right side is 5/5. - Labs CBC & Chem 7: 05/20/23 04:19 05/20/23 04:19 Labs: Abnormal Lab Results - Last 24 Hours (Table) 05/19/23 05/20/23 05/20/23 Range/Units 19:55 04:19 04:19 RBC 2.96 L (3.80-5.40) m/uL Hgb 9.5 L (11.4-16.0) gm/dL Hct 28.0 L (34.0-46.0) % Chloride 109 H (98-107) mmol/L BUN 6 L (7-17) mg/dL Creatinine 0.51 L (0.52-1.04) mg/dL Glucose 127 H (74-99) mg/dL POC Glucose (mg/dL) 136 H (70-110) mg/dL Calcium 7.8 L (8.4-10.2) mg/dL 05/20/23 05/20/23 Range/Units 05:51 11:37 RBC (3.80-5.40) m/uL Hgb (11.4-16.0) gm/dL Hct (34.0-46.0) % Chloride (98-107) mmol/L BUN (7-17) mg/dL Creatinine (0.52-1.04) mg/dL Glucose (74-99) mg/dL POC Glucose (mg/dL) 123 H 209 H (70-110) mg/dL Calcium (8.4-10.2) mg/dL Assessment and Plan Assessment: Recurrent ischemic strokes 04/30/2023 with acute stroke with left hemiparesis, status post TPA with complete resolution of symptoms. 05/01/2023 with repeated left hemiparesis, that also resolved. 05/04/2023 with acute stroke with left hemiplegia, that has persisted. 05/13/2023 with another TIA, manifesting with visual disturbance on the right and right foot tingling, that seems to be resolving now. MRI brain revealed dense moderate size acute stroke in the right basal ganglia/internal capsule, also involving smaller area in the right external capsule and left basal ganglia Strokes likely related to cardioembolism. JAVIER showed linear echodensity structural attached to the ventricular surface of the aortic valve leaflet attached to the ventricular surface of the right coronary cusp that is mobile and echodense. 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 Ischemic right colon ant transverse colon s/p exploratory laparotomy with extended right hemicolectomy on 05/16/2023. Hypertension Parkinson's disease Diabetes mellitus History of DVT Plan: Repeat CT head performed 05/13/2023 does not reveal any new change. No hemorrhage. Appears patient has another TIA. Increase aspirin from 81 mg to 162 mg daily. Continue Eliquis 5 mg twice a day. Transesophageal echocardiogram 05/10/2023 revealed a linear echodensity structure attached to the ventricular surface of the aortic valve leaflet attached to the ventricular surface of the right coronary cusp that is mobile and echodense. 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 CT surgery recommending medical management. Cardiothoracic surgery was consulted again, still do not recommend surgical corey atment. Patient started on Eliquis 5 mg twice a day. Aspirin 81 mg daily and was held for her recent abdominal issues. Recommend to resume when felt safe by General surgery and primary team. JOSE -ve, homocystine negative, factor V Leiden -ve, RF <15. Has postivie Von Willebran antigen (254. normal is 52-214). antithrombin III 110 (normal is 79- 109) but does not seems significant elevated, prothrombin 19178: negative, ESR and CRP is normal. lupus anticoagulant -ve, protein C and S are negative. Lyme titer negative, RPR negative, dsDNA pending. Hematology team since has positive VW antigen to assess further management. Continue neuro checcks. cardiac monitoring. So far no a-fib or flutter per nurse. Recommend an event monitor or loop recorder if unknown source of stroke. Avoid hypotension. PT, OT and [employer]IC are consulted. Inpatient rehab is consulted and feels patient would benefit. Goal is Normotensive Cardiology is on board. Will defer the rest of medical management to primary team. Patient condition is critical. The plan discussed with the patient and her sister who are bedside. Otherwise no additional neurologic workup is needed. We'll continue to follow up the patient sporadically. Time with Patient: Less than 30
[2023-05-20 13:41] VITALS: BP 163/74; PULSE 76; TEMP 97.7
--- NOTE | 2023-05-20 14:10 | P.GSCN ---
History of Present Illness Consult date: 05/20/23 History of present illness: 68 yo female in the hospital post cva and subsequent exploratory lap with removal of bowel. She had tias prior to the major cva. SHe had a catheter perioperatively and a voiding trial showed urine retention of a bout a liter of urine. the patient is interviewed at the bedside. she presently has an indwelling catheter. Historically the patient denies problems prior to her hospitalization and cva. SHe voided normally without incontinence. She had a rare uti. there was no hematuria. She is sp hysterectomy years ago. She has not had evidence of vaginal prolapse. She has not had major bowel or back issues prior to now. She is left side hemiparetic at present and cannot walk. She is awake alert and oriented. Review of Systems All systems: negative - Constitutional Denies fever, Denies weight loss - EENT Eyes: denies blurred vision Ears, nose, mouth and throat: Denies dysphagia - Cardiovascular Denies chest pain, Denies shortness of breath - Respiratory Denies cough, Denies 7 - Gastrointestinal Reports as per HPI - Genitourinary Genitourinary: Denies dysuria, Denies hematuria - Integumentary Denies rash, Denies unusual bruising - Neurological Denies headaches, Denies syncope - Hematologic/Lymphatic Denies easy bleeding, Denies easy bruising Past Medical History Past Medical History: Diabetes Mellitus, Deep Vein Thrombosis (DVT), Hypertension, Thyroid Disorder Additional Past Medical History / Comment(s): Spleen issues, Parkinsons, Polio History of Any Multi-Drug Resistant Organisms: None Reported Past Surgical History: Orthopedic Surgery, Tonsillectomy, Tubal Ligation Additional Past Surgical History / Comment(s): Thyroid removed Past Anesthesia/Blood Transfusion Reactions: Blood Transfusion Reaction Additional Past Anesthesia/Blood Transfusion Reaction / Comm: pt can't explain clearly Past Psychological History: No Psychological Hx Reported Smoking Status: Current every day smoker Past Alcohol Use History: None Reported Past Drug Use History: None Reported - Past Family History Mother Family Medical History: Myocardial Infarction (MT) Additional Family Medical History / Comment(s): No reported blood disorders Father Additional Family Medical History / Comment(s): Parkinson disease, history of heart disease Medications and Allergies Home Medications Medication Instructions Recorded Confirmed Type Carbidopa-Levodopa 25-100 mg 1 tab PO QID@04,10,16,12/20/2223 History [Sinemet 25-100 mg] Fenofibrate [Lofibra] 160 mg PO W/SUPPER 12/20/22 05/04/23 History Glimepiride [Amaryl] 4 mg PO BID 12/20/22 05/04/23 History Levothyroxine Sodium 88 mcg PO BID-W/MEALS 12/20/22 05/04/23 History Metoprolol Succinate (ER) [Toprol 50 mg PO HS 12/20/22 05/04/23 History XL] Pioglitazone HCl 45 mg PO HS 12/20/22 05/04/23 History Valsartan [Diovan] 160 mg PO BID-W/MEALS 12/20/22 05/04/23 History metFORMIN HCL ER [Glucophage XR] 1,000 mg PO BID 12/20/22 05/04/23 History tiZANidine [Zanaflex] 4 mg PO QID@04,10,16,22 12/20/22 05/04/23 History Albuterol Inhaler [Ventolin Hfa 2 puff INHALATION RT-QID PRN 04/30/23 05/04/23 History Inhaler] Calcium Carbonate [Calcium] 600 mg PO DAILY 04/30/23 05/04/23 History Carbidopa-Levodopa 25-100 mg 1 tab PO BID@0800,1200 PRN 04/30/23 05/04/23 Hi story [Sinemet 25-100 mg] Cholecalciferol [Vitamin D3 (25 25 mcg PO DAILY 04/30/23 05/04/23 History Mcg = 1000 Iu)] Magnesium Oxide [Magnesium] 500 mg PO HS 04/30/23 05/04/23 History Vitamin B Complex 1 cap PO DAILY 04/30/23 05/04/23 History Vitamin E (Dl,Tocopheryl Acet) 400 unit PO BID 04/30/23 05/04/23 History [Vitamin E (400 Iu = 180 mg)] Aspirin 81 mg PO DAILY #30 tab 05/03/23 05/04/23 Rx Atorvastatin [Lipitor] 80 mg PO HS #30 tab 05/03/23 05/04/23 Rx Acetaminophen Tab [Tylenol] 650 mg PO Q6HR PRN tab 05/11/23 Rx Apixaban [Eliquis] 5 mg PO BID tab 05/11/23 Rx INSULIN ASPART (NovoLOG) [NovoLOG 0 unit SQ ACHS each 05/11/23 Rx (formulary)] Meclizine [Antivert] 12.5 mg PO TID PRN #90 tablet 05/11/23 Rx Nystatin 100,000 Unit/gm Powd 1 applic TOPICAL TID each 05/11/23 Rx [Mycostatin Powder] Pantoprazole [Protonix] 40 mg PO DIRECTED tab 05/11/23 Rx Sennosides/Docusate Sodium [Senna 1 each PO DAILY #30 capsule 05/11/23 Rx Plus 8.6-50 mg Softgel] traMADol HCl [Ultram] 50 mg PO QID PRN #4 tab 05/11/23 Rx HYDROcodone/APAP 5-325MG [[place] 1 each PO Q6HR PRN #4 tab 05/13/23 Rx 5-325] INSULIN ASPART (NovoLOG) [NovoLOG 2 unit SQ AC-TID each 05/13/23 Rx (formulary)] Insulin Detemir (Levemir) [Levemir] 10 unit SQ HS each 05/13/23 Rx Lactulose [Cephulac] 30 gm PO BID PRN ml 05/13/23 Rx polyethylene glycoL 3350 [Miralax] 17 gm PO DAILY packet 05/13/23 Rx Allergies Allergy/AdvReac Type Severity Reaction Status Date / Time adhesive Allergy Rash/Hives Verified 05/16/23 13:33 ciprofloxacin [From Cipro] Allergy Rash/Hives Verified 05/16/23 13:33 iodine Allergy Rash/Hives Verified 05/16/23 13:33 latex Allergy Rash/Hives Verified 05/16/23 13:33 Poultry [[place]] Allergy Rash/Hives Verified 05/16/23 13:33 Sulfa (Sulfonamide Allergy Rash/Hives Verified 05/16/23 13:33 Antibiotics) chicken derived [Chicken] AdvReac Nausea & Verified 05/16/23 13:33 Vomiting & Diarrhea chocolate flavor AdvReac Nausea & Verified 05/16/23 13:33 Vomiting & Diarrhea egg AdvReac Nausea & Verified 05/16/23 13:33 Vomiting & Diarrhea Surgical - Exam Vital Signs Pulse BP 80 171/88 05/04/23 12:09 05/04/23 12:09 - General well developed, well nourished, no distress - Eyes PERRL - ENT no hearing loss - Neck trachea midline - Respiratory normal expansion, normal respiratory effort - Abdomen Abdomen: soft, non tender - Neurologic paralyzed left arm and leg - Psychiatric oriented to time, oriented to person, oriented to place, memory intact Results - Labs 05/20/23 04:19 05/20/23 04:19 Abnormal Lab Results - Last 24 Hours (Table) 05/19/23 05/20/23 05/20/23 Range/Units 19:55 04:19 04:19 RBC 2.96 L (3.80-5.40) m/uL Hgb 9.5 L (11.4-16.0) gm/dL Hct 28.0 L (34.0-46.0) % Chloride 109 H (98-107) mmol/L BUN 6 L (7-17) mg/dL Creatinine 0.51 L (0.52-1.04) mg/dL Glucose 127 H (74-99) mg/dL POC Glucose (mg/dL) 136 H (70-110) mg/dL Calcium 7.8 L (8.4-10.2) mg/dL 05/20/23 05/20/23 Range/Units 05:51 11:37 RBC (3.80-5.40) m/uL Hgb (11.4-16.0) gm/dL Hct (34.0-46.0) % Chloride (98-107) mmol/L BUN (7-17) mg/dL Creatinine (0.52-1.04) mg/dL Glucose (74-99) mg/dL POC Glucose (mg/dL) 123 H 209 H (70-110) mg/dL Calcium (8.4-10.2) mg/dL Diabetes panel 05/19/23 05/20/23 Range/Units 16:54 04:19 Sodium 139 (137-145) mmol/L Potassium 4.0 3.5 (3.5-5.1) mmol/L Chloride 109 H (98-107) mmol/L Carbon Dioxide 26 (22-30) mmol/L BUN 6 L (7-17) mg/dL Creatinine 0.51 L (0.52-1.04) mg/dL Glucose 127 H (74-99) mg/dL Calcium 7.8 L (8.4-10.2) mg/dL Calcium panel 05/20/23 Range/Units 04:19 Calcium 7.8 L (8.4-10.2) mg/dL Pituitary panel 05/19/23 05/20/23 Range/Units 16:54 04:19 Sodium 139 (137-145) mmol/L Potassium 4.0 3.5 (3.5-5.1) mmol/L Chloride 109 H (98-107) mmol/L Carbon Dioxide 26 (22-30) mmol/L BUN 6 L (7-17) mg/dL Creatinine 0.51 L (0.52-1.04) mg/dL Glucose 127 H (74-99) mg/dL Calcium 7.8 L (8.4-10.2) mg/dL Adrenal panel 05/19/23 05/20/23 Range/Units 16:54 04:19 Sodium 139 (137-145) mmol/L Potassium 4.0 3.5 (3.5-5.1) mmol/L Chloride 109 H (98-107) mmol/L Carbon Dioxide 26 (22-30) mmol/L BUN 6 L (7-17) mg/dL Creatinine 0.51 L (0.52-1.04) mg/dL Glucose 127 H (74-99) mg/dL Calcium 7.8 L (8.4-10.2) mg/dL - Imaging CT scan - abdomen: report reviewed, image reviewed CT scan - pelvis: report reviewed, image reviewed Assessment and Plan Assessment: Impression: urine retention post cva and surgical. Dm hemiparetic secondary to cva Recommendations: The patient should have an indwelling catheter for now. Intermittent cath is too labor intensive let alone irritating to this post cva patient. She at present couldnt do her own cic. The inability to urinate for a while post cva and major surgery is common due to overdistention of the bladder wall and lack of recognition of the desire to void. Hopefully as she recouperates she will be able to void spontaneously, recognize the desire to void let alone be able to make it to the toilet in time. This as been discussed at length with the patient and her family. Time with Patient: Greater than 30
--- NOTE | 2023-05-20 16:11 | P.DS ---
Providers Date of admission: 05/04/23 07:21 Expected date of discharge: 05/20/23 Attending physician: Bg Martinez Consults: 05/04/23 13:59 Consult Physician Stat Consulting Provider: Fifi Villatoro Consult Reason/Comments: Patient unstable CVA's Do you want consulting provider notified?: Already Contacted Placement Type Exists?: Yes 05/04/23 14:16 Consult Physician Urgent Consulting Provider: Perry De Dios Consult Reason/Comments: CVA Do you want consulting provider notified?: Yes Placement Type Exists?: Yes 05/06/23 12:28 Consult Physician Routine Consulting Provider: Shai Loco Consult Reason/Comments: inpatient rehab, CVA Do you want consulting provider notified?: Yes 05/08/23 11:55 Consult Physician Routine Consulting Provider: Kirk Christina Consult Reason/Comments: +VE VON [place] [employer] WITH +VE B/L STROKE Do you want consulting provider notified?: Yes 05/09/23 09:48 Consult Physician Routine Consulting Provider: Osmar Barker Consult Reason/Comments: echodense lesion on aortic valve, aortic stenosis, recurrent CVA Do you want consulting provider notified?: Yes 05/18/23 12:43 Consult Physician Routine Consulting Provider: Unruly Bauer Consult Reason/Comments: ischemic bowel Do you want consulting provider notified?: Already Contacted 05/20/23 08:48 Consult Physician Routine Consulting Provider: Dylan Angeles Consult Reason/Comments: Urinary Retention Do you want consulting provider notified?: Yes Primary care physician: Physician Nonstaff Hospital Course: Final diagnosis Acute Bilateral ischemic CVA, bilateral parietal lobes and smaller area left basal ganglia F/U MRI reveals evolution of ischemic insults and a small new area of ischemia right thalamus Left hemiparesis secondary to above Urinary retention requiring indwelling Pedroza catheter Abdominal pain status post exploratory laparotomy with extended right hemicolectomy and end ileostomy secondary to an ischemic right colon and transverse colon Acute dizziness/vertigo with acute onset headache, resolved 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 Hyperlipidemia [id number] diabetes mellitus with hyperglycemia Parkinson's disease GI Prophylaxis DVT prophylaxis SubCu heparin Full code Discharge disposition Patient is being discharged in a stable condition with guarded prognosis to [facility] inpatient rehab. Patient will follow-up with primary care provider in the outpatient setting upon discharge. Patient is to follow-up with cardiothoracic surgery along with neurology, primary care provider to establish as well as cardiology outpatient as scheduled. Total time taken is greater than 35 minutes. Hospital course This is a 68-year-old female who was recently admitted with multiple ischemic strokes along with left-sided deficits and being closely monitored. 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 Patient has had a prolonged hospitalization and clinical decline and initially was no code discussing possible hospice. Patient family discussed with her further about overall care and prognosis and CODE STATUS was changed to full code. Patient had some increasing abdominal pain during hospitalization after her strokes and underwent surgical intervention pending and right hemicolectomy with ileostomy secondary to an ischemic right colon and transverse colon. Patient is having bowel activity and will need extensive ostomy wound and education. Patient with significant weakness and left-sided deficits has been evaluated by physical therapy and has been accepted by inpatient rehab at [facility]. Patient has been cleared by consultations and will be discharged today with extremely guarded and overall poor prognosis. Patient did have some urinary retention after trial voiding requiring indwelling Pedroza catheter and recommend urology follow-up outpatient and trial voiding once patient is more mobile. Currently no reports of chest pain, shortness of breath, or palpitations. Patient is afebrile. No reports of nausea or vomiting and patient is tolerating diet. Patient is a diabetic and has not been eating much although intake is improving post surgery and would recommend Accu-Cheks before meals and at bedtime with low-dose long-acting and continued sliding scale. Patient has been cleared by consultations for discharge and will be discharged today. Please refer to consultation notes for further HPI. Physical exam: Gen: This is a 68-year-old female who is awake, alert and oriented 3, well-de veloped, well-nourished, obese HEENT: Head is atraumatic, normocephalic. Pupils equal, round. Sclerae is anicteric. NECK: Supple. No JVD. No lymphadenopathy. No thyromegaly. LUNGS: Clear to auscultation. No wheezes or rhonchi. No intercostal retractions. HEART: S1, S2 are muffled ABDOMEN: Soft. Obese. Bowel sounds are present. No masses. Ileostomy noted with stool. Less tender on exam. EXTREMITIES: No pedal edema. No calf tenderness. Generalized edema noted throughout NEUROLOGICAL: Patient is awake, alert and oriented x3. Cranial nerves 2 through 12 are grossly intact. Diffusely weak Please refer to medication reconciliation sheet for a list of medications. The impression and plan of care has been dictated by Jazmin Kulkarni, Nurse Practitioner as directed. Dr. Pablo MD I have performed a history and examination and MDM of this patient, discussed the same with the dictator, and agree with the dictator's assessment and plan as written ,documented as a scribe. Based on total visit time, I have performed more than 50% of the visit. Patient Condition at Discharge: Stable Plan - Discharge Summary Discharge Rx Participant: Yes New Discharge Prescriptions: New Apixaban [Eliquis] 5 mg PO BID tab Nystatin 100,000 Unit/gm Powd [Mycostatin Powder] 1 applic TOPICAL TID each Acetaminophen Tab [Tylenol] 650 mg PO Q6HR PRN tab PRN Reason: Fever And/ Or Pain Meclizine [Antivert] 12.5 mg PO TID PRN #90 tablet PRN Reason: Vertigo HYDROcodone/APAP 5-325MG [[place] 5-325] 1 each PO Q6HR PRN #4 tab PRN Reason: Pain Fluconazole [Diflucan] 100 mg PO BID 5 Days #10 tab Insulin Detemir (Levemir) [Levemir] 5 unit SQ HS each Pantoprazole [Protonix] 40 mg PO DIRECTED tab traMADol HCl [Ultram] 50 mg PO QID PRN #4 tab PRN Reason: Pain Ipratropium-Albuterol Nebulize [Duoneb 0.5 mg-3 mg/3 ml Soln] 3 ml INHALATION RT-QID each Metoprolol Tartrate [Lopressor] 12.5 mg PO BID tab INSULIN ASPART (NovoLOG) [NovoLOG (formulary)] 0 unit SQ ACHS each Albuterol Nebulized [Ventolin Nebulized] 2.5 mg INHALATION RT-QID PRN ml PRN Reason: Shortness Of Breath Continue Levothyroxine Sodium 88 mcg PO BID-W/MEALS Magnesium Oxide [Magnesium] 500 mg PO HS Atorvastatin [Lipitor] 80 mg PO HS #30 tab Carbidopa-Levodopa 25-100 mg [Sinemet 25-100 mg] 1 tab PO QID@,,, Carbidopa-Levodopa 25-100 mg [Sinemet 25-100 mg] 1 tab PO BID@0800,1200 PRN PRN Reason: Shaking Albuterol Inhaler [Ventolin Hfa Inhaler] 2 puff INHALATION RT-QID PRN PRN Reason: Shortness Of Breath Discontinued tiZANidine [Zanaflex] 4 mg PO QID@,,, metFORMIN HCL ER [Glucophage XR] 1,000 mg PO BID Metoprolol Succinate (ER) [Toprol XL] 50 mg PO HS traMADol HCL 50 mg PO Q4H PRN PRN Reason: Pain Vitamin C/Biotin [Hair, Skin and Nails Chew] 1 tab PO TID Vitamin B Complex 1 cap PO DAILY Milk Thistle 150 mg PO DAILY Glucosamine Sulfate 500 mg PO TID PRN PRN Reason: knee pain Cholecalciferol [Vitamin D3 (25 Mcg = 1000 Iu)] 25 mcg PO DAILY Tart Bales 1 tab PO DAILY Aspirin 81 mg PO DAILY #30 tab Valsartan [Diovan] 160 mg PO BID-W/MEALS Pioglitazone HCl 45 mg PO HS Omeprazole 40 mg PO AC-BRKFST Glimepiride [Amaryl] 4 mg PO BID Fenofibrate [Lofibra] 160 mg PO W/SUPPER Diltiazem Cd [Cardizem CD] 240 mg PO DAILY Vitamin E (Dl,Tocopheryl Acet) [Vitamin E (400 Iu = 180 mg)] 400 unit PO BID Turmeric Root Extract [Turmeric] 500 mg PO HS Calcium Carbonate [Calcium] 600 mg PO DAILY Clopidogrel [Plavix] 75 mg PO DAILY #30 tab Discharge Medication List Carbidopa-Levodopa 25-100 mg [Sinemet 25-100 mg] 1 tab PO QID@,,,22 12/20/22 [History] Levothyroxine Sodium 88 mcg PO BID-W/MEALS 12/20/22 [History] Albuterol Inhaler [Ventolin Hfa Inhaler] 2 puff INHALATION RT-QID PRN 04/30/23 [History] Carbidopa-Levodopa 25-100 mg [Sinemet 25-100 mg] 1 tab PO BID@0800,1200 PRN 04/30/23 [History] Magnesium Oxide [Magnesium] 500 mg PO HS 04/30/23 [History] Atorvastatin [Lipitor] 80 mg PO HS #30 tab 05/03/23 [Rx] Acetaminophen Tab [Tylenol] 650 mg PO Q6HR PRN tab 05/11/23 [Rx] Apixaban [Eliquis] 5 mg PO BID tab 05/11/23 [Rx] Meclizine [Antivert] 12.5 mg PO TID PRN #90 tablet 05/11/23 [Rx] Nystatin 100,000 Unit/gm Powd [Mycostatin Powder] 1 applic TOPICAL TID each 05/11/23 [Rx] Pantoprazole [Protonix] 40 mg PO DIRECTED tab 05/11/23 [Rx] traMADol HCl [Ultram] 50 mg PO QID PRN #4 tab 05/11/23 [Rx] HYDROcodone/APAP 5-325MG [[place] 5-325] 1 each PO Q6HR PRN #4 tab 05/13/23 [Rx] Albuterol Nebulized [Ventolin Nebulized] 2.5 mg INHALATION RT-QID PRN ml [Rx] Fluconazole [Diflucan] 100 mg PO BID 5 Days #10 tab 05/20/23 [Rx] INSULIN ASPART (NovoLOG) [NovoLOG (formulary)] 0 unit SQ ACHS each 05/20/23 [Rx] Insulin Detemir (Levemir) [Levemir] 5 unit SQ HS each 05/20/23 [Rx] Ipratropium-Albuterol Nebulize [Duoneb 0.5 mg-3 mg/3 ml Soln] 3 ml INHALATION RT-QID each 05/20/23 [Rx] Metoprolol Tartrate [Lopressor] 12.5 mg PO BID tab 05/20/23 [Rx] Follow up Appointment(s)/Referral(s): Shruthi Choudhary DO [Doctor of Osteopathic Medicine] - 2 Weeks Jorge Lacy MD [STAFF PHYSICIAN] - 1 Week Matt Joaquin MD [STAFF PHYSICIAN] - 2 Weeks Solo Tijerina MD [STAFF PHYSICIAN] - 1-2 Days Osmar Barker MD [STAFF PHYSICIAN] - 2 Weeks Shelbi Pedroza DO [STAFF PHYSICIAN] - 2 Weeks Suyapa Parker MD [STAFF PHYSICIAN] - 1-2 Days Nonstaff,Physician [Primary Care Provider] - 1 Week Gustabo Gregg DO [STAFF PHYSICIAN] - 1 Week Ambulatory/Diagnostic Orders: Basic Metabolic Panel [LAB.AMB] Time Frame: 3 Days, Location: None Selected Complete Blood Count w/diff [LAB.AMB] Time Frame: 3 Days, Location: None Selected Magnesium [LAB.AMB] Location: None Selected Patient Instructions/Handouts: Aortic Stenosis (DC), Ischemic Stroke (DC) Activity/Diet/Wound Care/Special Instructions: Patient to discharge to rehab and follow up with cardiothoracic services outpatient for further discussing regarding valvular surgery Follow up and establish care with vascular surgery outpatient further work up regarding possible peripheral vascular disease Follow up with hematology Establish care with a neurologist on discharge Recommend to establish care with a PCP on discharge Follow up labs Continue with nystatin powder TID and as needed in the groin, abdominal folds, axilla and under breasts Patient will need a urology consult for urinary retention and will continue with indwelling Pedroza catheter Recommend continue with Diflucan twice daily for the next 5 days Continue using incentive spirometer at least 10 times every hour while awake Recommend continue with dysphagia chopped heart healthy aspiration precautions and one-to-one supervision with meals Recommend head of the bed elevated 30-45 at all times Discharge Disposition: TRANSFER TO SNF/ECF
[2023-05-20 16:18] LABS: Glucose,Whole Blood 152 mg/dL (70-110)
[2023-05-20] MEDS: HYDROmorphone 1 MG/ML 1 ML SYRINGE IVP PRN (16:48)
== END 2023-05-20 18:20 | DRG 981 ==
LOC: EC 04:33 → 3SCARD 07:21 → 2SICU 14:24 → 3SCARD 05-06 15:09 → 2SICU 05-16 16:38
PROVIDERS: ADMIT Hospitalist; ATTEND Hospitalist
PROC: B24BZZ4 Ultrasonography of Heart with Aorta, Transesophageal (ICD-10-PCS; 2023-05-09)
PROC: 0D1B0Z4 Bypass Ileum to Cutaneous, Open Approach (ICD-10-PCS; 2023-05-16)
PROC: 0DTF0ZZ Resection of Right Large Intestine, Open Approach (ICD-10-PCS; principal; 2023-05-16 17:30)
DX: I63.49 Cerebral infarction due to embolism of other cerebral artery (principal); J96.01 Acute respiratory failure with hypoxia; K63.1 Perforation of intestine (nontraumatic); K55.8 Other vascular disorders of intestine; D68.9 Coagulation defect, unspecified; M32.11 Endocarditis in systemic lupus erythematosus; D68.09 Other von Willebrand disease; G81.94 Hemiplegia, unspecified affecting left nondominant side; B37.49 Other urogenital candidiasis; E66.01 Morbid (severe) obesity due to excess calories; E11.51 Type 2 diabetes mellitus with diabetic peripheral angiopathy without gangrene; G20 Parkinson's disease; E11.65 Type 2 diabetes mellitus with hyperglycemia; Z68.36 Body mass index [BMI] 36.0-36.9, adult; E03.9 Hypothyroidism, unspecified; I10 Essential (primary) hypertension; I08.0 Rheumatic disorders of both mitral and aortic valves; E78.5 Hyperlipidemia, unspecified; K59.00 Constipation, unspecified; G14 Postpolio syndrome; H53.8 Other visual disturbances; Z66 Do not resuscitate; G51.0 Bell's palsy; R47.1 Dysarthria and anarthria; R13.10 Dysphagia, unspecified; I87.2 Venous insufficiency (chronic) (peripheral); R33.9 Retention of urine, unspecified; R01.1 Cardiac murmur, unspecified; G89.29 Other chronic pain; M70.70 Other bursitis of hip, unspecified hip; M79.89 Other specified soft tissue disorders; R00.1 Bradycardia, unspecified; R12 Heartburn; Z87.891 Personal history of nicotine dependence; Z86.718 Personal history of other venous thrombosis and embolism; Z82.49 Family history of ischemic heart disease and other diseases of the circulatory system; Z79.899 Other long term (current) drug therapy; Z79.84 Long term (current) use of oral hypoglycemic drugs; Z79.890 Hormone replacement therapy; Z79.82 Long term (current) use of aspirin; Z79.02 Long term (current) use of antithrombotics/antiplatelets; Z91.048 Other nonmedicinal substance allergy status; Z88.1 Allergy status to other antibiotic agents; Z91.040 Latex allergy status; Z88.2 Allergy status to sulfonamides; Z91.018 Allergy to other foods; Z91.012 Allergy to eggs; Z82.0 Family history of epilepsy and other diseases of the nervous system
CPT/HCPCS: 36415; 36600; 70450; 70496; 70498; 70551; 71045; 74018; 74021; 74176; 80048; 80053; 80061; 81240; 81241; 82805; 83090; 83605; 83735; 84132; 84145; 84439; 84443; 84484; 85025; 85246; 85300; 85301; 85302; 85303; 85305; 85306; 85610; 85613; 85652; 85730; 86038; 86140; 86225; 86431; 86618; 86780; 88307; 93005; 93312; 93325; 94002; 94003; 94640; 94760; 96372; 99291